=== PATIENT | male | born 1960 | race Caucasian/White ===

== ENCOUNTER → 2018-02-03 11:25 | Outpatient (POV) | payer MEDICARE, MEDICAID, SELFPAY ==
[2018-02-03 11:59] VITALS: BP 145/78; PULSE 110; RESP 18; O2SAT 98
--- NOTE | 2018-02-03 12:41 | HMH.PMCON ---
Assessment and Plan (1) Back pain Current visit: Yes Status: Chronic Qualifiers: Back pain location: low back pain Chronicity: chronic Back pain laterality: midline Sciatica presence: with sciatica Sciatica laterality: bilateral sciatica Qualified Code(s): M54.41 - Lumbago with sciatica, right side; M54.42 - Lumbago with sciatica, left side; G89.29 - Other chronic pain Category: Medical Code(s): M54.9 - Dorsalgia, unspecified (2) Leg pain Current visit: Yes Status: Chronic Qualifiers: Laterality: bilateral Qualified Code(s): M79.604 - Pain in right leg; M79.605 - Pain in left leg Category: Medical Code(s): M79.606 - Pain in leg, unspecified - Assessment and plan all Dx Assessment and Plan for all problems:: We will schedule an MRI for the patient. At this time we cannot determine a good plan of care without any imaging. I will follow-up with him after his MRI. Patient is not a narcotic candidate. This note was dictated using voice recognition software and may contain errors or omissions HPI - Data of Consult Consult date: 02/03/18 Requesting Physician: Neris Mason APRN Primary Care Provider: Gunnar Lo - Consult Narrative Reason for consult: Back pain History of present illness: Mr. Francisco is a 57 year old male who presents today for rotation regards to his low back pain. Patient states he is stopped by a horse 30 years ago and has had problems ever since. Patient was in pain management in [place] where he received medications. Patient states he saw a neurosurgeon in [place] and was told his back was messed up and it was unable to be operated on. Patient has not had any recent imaging. Patient states that he has been on Lortab for over 30 years. Patient states it does not do anything for him. Patient did have an inappropriate drug screen at his primary care physician. He rates his pain a 9 out of 10 and [address] that it stays this way. Patient has tried a TENS unit along with physical therapy and chiropractic therapy with no success. Patient has not tried any injective therapies or other means of treatment. He states most of his pain is in his low back and bilateral legs. CC: Neris Mason APRN [facility] History I have reviewed the patient's past medical history: Yes Medical History: Reports:: Hyperlipidemia, Hypertension, Myocardial Infarction Other Surgeries: Yes: Cardiac Catheterization - *Social History Smoking Status: Former smoker Tobacco Type: cigarettes Alcohol Intake: never Occupational Status: retired Housing: house - Psychiatric History Expresses thoughts of harming self/others: None Suicide Plan Description: No Plan *Family Hx:: Unable to obtain Review of Systems - Review of Systems ROS General: no recent weight change, no fever, no sleep disturbances Respiratory: no cough, no shortness of air, no recurring pulmonary infections Cardiovascular/Peripheral Vascular: No chest pain, No palpitations, no edema, no shortness of breath. Gastrointestinal: no incontinence, normal bowel movements reported Genitourinary: no incontinence Musculoskeletal: Back pain, leg pain Psychiatric: normal mood/ affect Neurological: [denies weakness in extremities], [denies balance issues] Meds Allergies Allergy/AdvReac Type Severity Reaction Status Date / Time codeine [CODEINE] Allergy Unknown Unverified 03/05/17 14:28 Objective Vital signs: Pulse Resp BP Pulse Ox 110 H 18 145/78 H 98 02/03/18 11:59 02/03/18 11:59 02/03/18 11:59 02/03/18 11:59 Narrative: Physical Exam General: Alert and oriented x3, no acute distress, pleasant and cooperative, [on room air] Lungs: Resps E/U, Symmetrical chest expansion, Eyes: PERRL Musculoskeletal: Flexion and extension of lumbar spine somewhat guarded secondary to pain, deep tendon reflexes normal, strength in upper and lower extremities [5/5], [abnormal gait noted
--- NOTE | 2018-02-03 12:52 | P.CONS_ITS ---
Assessment and Plan (1) Back pain Current visit: Yes Status: Chronic Qualifiers: Back pain location: low back pain Chronicity: chronic Back pain laterality: midline Sciatica presence: with sciatica Sciatica laterality: bilateral sciatica Qualified Code(s): M54.41 - Lumbago with sciatica, right side; M54.42 - Lumbago with sciatica, left side; G89.29 - Other chronic pain Category: Medical Code(s): M54.9 - Dorsalgia, unspecified (2) Leg pain Current visit: Yes Status: Chronic Qualifiers: Laterality: bilateral Qualified Code(s): M79.604 - Pain in right leg; M79.605 - Pain in left leg Category: Medical Code(s): M79.606 - Pain in leg, unspecified - Assessment and plan all Dx Assessment and Plan for all problems:: We will schedule an MRI for the patient. At this time we cannot determine a good plan of care without any imaging. I will follow-up with him after his MRI. Patient is not a narcotic candidate. This note was dictated using voice recognition software and may contain errors or omissions HPI - Data of Consult Consult date: 02/03/18 Requesting Physician: Neris Mason APRN Primary Care Provider: Gunnar Lo - Consult Narrative Reason for consult: Back pain History of present illness: Mr. Francisco is a 57 year old male who presents today for rotation regards to his low back pain. Patient states he is stopped by a horse 30 years ago and has had problems ever since. Patient was in pain management in [place] where he received medications. Patient states he saw a neurosurgeon in [place] and was told his back was messed up and it was unable to be operated on. Patient has not had any recent imaging. Patient states that he has been on Lortab for over 30 years. Patient states it does not do anything for him. Patient did have an inappropriate drug screen at his primary care physician. He rates his pain a 9 out of 10 and states that it stays this way. Patient has tried a TENS unit along with physical therapy and chiropractic therapy with no success. Patient has not tried any injective therapies or other means of treatment. He states most of his pain is in his low back and bilateral legs. CC: Neris Mason APRN [facility] History I have reviewed the patient's past medical history: Yes Medical History: Reports:: Hyperlipidemia, Hypertension, Myocardial Infarction Other Surgeries: Yes: Cardiac Catheterization - *Social History Smoking Status: Former smoker Tobacco Type: cigarettes Alcohol Intake: never Occupational Status: retired Housing: house - Psychiatric History Expresses thoughts of harming self/others: None Suicide Plan Description: No Plan *Family Hx:: Unable to obtain Review of Systems - Review of Systems ROS General: no recent weight change, no fever, no sleep disturbances Respiratory: no cough, no shortness of air, no recurring pulmonary infections Cardiovascular/Peripheral Vascular: No chest pain, No palpitations, no edema, no shortness of breath. Gastrointestinal: no incontinence, normal bowel movements reported Genitourinary: no incontinence Musculoskeletal: Back pain, leg pain Psychiatric: normal mood/ affect Neurological: [denies weakness in extremities], [denies balance issues] Meds Allergies Allergy/AdvReac Type Severity Reaction Status Date / Time codeine [CODEINE] Allergy Unknown Unverified 03/05/17 14:28 Objective Vital signs:
== END ==
PROVIDERS: PCP Internal Medicine; Visit Provider Clinical Nurse Specialist Family Health
DX: M54.41 Lumbago with sciatica, right side (principal); M54.42 Lumbago with sciatica, left side
CPT/HCPCS: 99202

== ENCOUNTER → 2018-02-17 17:19 | Outpatient (CLI) | payer MEDICARE, SELFPAY ==
[2018-02-17 17:23] LABS: Microscopic, Urine URINE MICROSCOPIC (MICROSCOPIC)
[2018-02-17 17:29] LABS: Basophils # 0.1 K/mm3 (0-0.2); Basophils % 0.6 % (0.1-2.0); Eosinophils # 0.2 K/mm3 (0.0-0.4); Eosinophils % 1.9 % (0.1-12.0); Hematocrit 46.6 % (42.0-52.0); Hemoglobin 15.5 g/dL (14.1-18.0); Lymphocytes # 1.7 K/mm3 (0.7-4.5); Lymphocytes % 20.1 % (10-50); Mean Corpuscular HGB Conc 33.2 g/dL (31.8-35.4); Mean Corpuscular Hemoglobin 28.5 pg (27.0-31.2); Mean Corpuscular Volume 85.9 fl (80-94); Mean Platelet Volume 7.4 fl (7.4-10.4); Monocytes # 0.4 K/mm3 (0.1-1.0); Monocytes % 4.9 % (1.7-9.3); Neutrophils # 6.1 K/mm3 (1.8-7.8); Neutrophils % 72.4 % (37.0-80.0); Platelet Count 242 K/mm3 (142-424); Red Blood Count 5.42 M/mm3 (4.60-6.20); Red Cell Distribution Width 13.3 % (11.5-17.5); White Blood Count 8.4 K/mm3 (4.8-10.8)
[2018-02-17 17:45] LABS: Alanine Aminotransferase 24 U/L (12-78); Albumin Level 4.3 gm/dL (3.4-5.0); Albumin/Globulin Ratio 1.3 (1.1-1.8); Alkaline Phosphatase 113 U/L (46-116); Anion Gap 17.1 mEq/L (5-15); Aspartate Amino Transferase 13 U/L (15-37); Bilirubin,Total 0.5 mg/dL (0.2-1.0); Blood Urea Nitrogen 8 mg/dL (7-18); Calcium 9.1 mg/dL (8.5-10.1); Carbon Dioxide 24 mmol/L (21.0-32.0); Chloride 105 mmol/L (98-107); Chol/HDL Ratio 6.1 (1-3.5); Cholesterol 201 mg/dL (140-200); Creatinine,Serum 0.82 mg/dL (0.70-1.30); Estimated Glomerular Filt Rate 96 ml/min (>60); Free T4 (Free Thyroxine) 1.03 ng/dl (0.76-1.46); GFR (African American) 116 ML/MIN (>60); Globulin 3.2 gm/dl (1.3-3.2); Glucose 96 mg/dL (74-106); HDL Cholesterol 33 mg/dL (27-67); LDL Cholesterol 138 mg/dL (0-130); Potassium 4.1 mmoL/L (3.5-5.1); Sodium 142 mmol/L (136-145); Thyroid Stimulating Hormone 1.81 uIU/ml (0.358-3.740); Total Protein,Serum 7.5 gm/dL (6.4-8.2); Triglycerides 149 mg/dL (30-200); VLDL Cholesterol 30 mg/dL (0-40)
[2018-02-17 17:59] LABS: Appearance,Urine CLEAR (Clear); Bilirubin,Urine Negative (Negative); Blood, Urine Negative (Negative); Color,Urine YELLOW (Yellow); Glucose,Urine (UA) Negative (Negative); Ketones,Urine Negative (Negative); Leukocyte Esterase,Urine 1+ (Negative); Nitrate,Urine Negative (Negative); Protein,Urine Negative (Negative); Urobilinogen,Urine 0.2 EU/dl (0.2)
[2018-02-17 18:09] LABS: Amphetamine/Metha Screen,Urine Negative ng/mL (<1000); Barbiturates Screen,Urine Negative ng/mL (<200); Benzodiazepines Screen,Urine Negative ng/mL (<200); Cannabinoid Screen,Urine Negative ng/mL (<50); Cocaine Screen,Urine Negative ng/mL (<300); Erythrocyte Sedimentation Rate 11 mm/hr (0-20); Methadone Screen,Urine Negative ng/mL (<300); Opiate Screen,Urine Negative ng/mL (<300); Phencyclidine Screen,Urine Negative ng/mL (<25)
[2018-02-17 18:18] LABS: Bacteria,Urine Trace /lpf; RBC,Urine Occasional #/hpf (0-3)
[2018-02-19 09:21] LABS: Hep A Ab, IgM Negative (Negative); Hepatitis B Core Antibody IgM Negative (Negative); Hepatitis B Surface Antigen Negative (Negative)
[2018-02-19 14:20] LABS: Hepatitis C Antibody <0.1 s/co ratio (0.0-0.9)
== END ==
PROVIDERS: Visit Provider Emergency Medicine
DX: I10 Essential (primary) hypertension (principal); R53.83 Other fatigue; M51.16 Intervertebral disc disorders with radiculopathy, lumbar region
CPT/HCPCS: 80053; 80061; 80074; 80305; 81001; 84439; 84443; 85025; 85651; 87086

== ENCOUNTER → 2018-02-25 08:32 | Outpatient (CLI) | payer MEDICARE, SELFPAY ==
--- NOTE | 2018-02-25 08:34 | MR_ITS ---
MR lumbar spine wo con, MR 3-d myelogram/MRCP HISTORY: Low back pain X years. Bilateral Leg pain and numbness. ITS.REASON: back pain ORDERING PHYSICIAN: Claudio English MD PATIENT AGE: 57 years Comparison: None TECHNIQUE: Standard multiplanar multiecho sequences are performed without contrast. 3-D MIP and myelographic images are also rendered and reviewed FINDINGS: There is normal alignment. The spinal cord ends at the L1 level. T11-T12: Mild degenerative disc disease with minimal central disc protrusion slightly eccentric to the right. T12-L1: Degenerative disc disease and bulging disc and with a lobular central disc osteophyte complex which is eccentric towards the left causing bilateral lateral recess narrowing left greater than right with mild bilateral foraminal narrowing. L1-L2: Degenerative disc disease with broad-based bulging disc with facet and ligamentum flavum hypertrophy and mild bilateral lateral recess and foraminal narrowing. L2-L3: Degenerative disc disease with broad-based bulging disc along with a small central disc protrusion. There is facet and ligamentum flavum hypertrophy with bilateral lateral recess narrowing. L3-L4: Degenerative disc disease with bulging disc along with facet and ligamentum flavum hypertrophy with bilateral lateral recess and foraminal narrowing. L4-L5: Degenerative disc disease with bulging disc along with facet and ligamentum flavum hypertrophy with moderate bilateral lateral recess narrowing and moderate bilateral foraminal narrowing which is slightly greater on the right. There is narrowing of the canal at this level at 9 mm. L5-S1: Concentric bulging disc which is eccentric toward the right along with facet and ligamentum flavum hypertrophy causing right lateral recess narrowing and moderate severe right-sided foraminal narrowing with impingement upon the exiting L5 nerve root. There is [id number] left foraminal narrowing as well. IMPRESSION: 1. Abnormal MRI of the lumbar spine with multilevel thoracic and lumbar spondylosis with degenerative disc disease, bulging disc, and facet and ligamentum hypertrophy with varying levels of foraminal and lateral recess narrowing. PLEASE SEE ABOVE FOR DETAILED DESCRIPTION AT EACH LEVEL. 2. Central disc osteophyte complex eccentric toward the left at T12-L1 3. Canal narrowing at L4-L5 with degenerative disc disease and bulging disc 4. Moderate to severe right foraminal narrowing at L5-S1 due to asymmetric bulging disc and facet and ligamentum hypertrophy
== END ==
PROVIDERS: PCP Emergency Medicine; Visit Provider Emergency Medicine
DX: M54.9 Dorsalgia, unspecified (principal); M54.5 Low back pain
CPT/HCPCS: 72148; 76376

== ENCOUNTER → 2018-03-12 15:32 | Outpatient (CLI) | payer MEDICARE, SELFPAY ==
[2018-03-12 16:20] LABS: Amphetamine/Metha Screen,Urine Negative ng/mL (<1000); Barbiturates Screen,Urine Negative ng/mL (<200); Benzodiazepines Screen,Urine Negative ng/mL (<200); Cannabinoid Screen,Urine Negative ng/mL (<50); Cocaine Screen,Urine Negative ng/mL (<300); Methadone Screen,Urine Negative ng/mL (<300); Opiate Screen,Urine Positive ng/mL (<300); Phencyclidine Screen,Urine Negative ng/mL (<25)
== END ==
PROVIDERS: Visit Provider Emergency Medicine
DX: Z79.899 Other long term (current) drug therapy (principal)
CPT/HCPCS: 80305

== ENCOUNTER → 2018-03-17 09:56 | Outpatient (POV) | payer MEDICARE, SELFPAY ==
[2018-03-17 10:28] VITALS: BP 196/99; PULSE 76; RESP 18; O2SAT 99; BMI 35.0
--- NOTE | 2018-03-17 10:30 | HMH.PAINSOAP ---
[facility] Pain Management SOAP Note Subjective:: Patient is a pleasant 58-year-old white male who presents today for follow-up after his MRI. Patient rates his pain a 8 out of 10. Patient states he has changed physicians and has begun to take Lortab again. Patient states that he does not help that much. Patient states his been on Lortab for over 30 years. Patient does have nerve impingement. We discussed that gabapentin is the appropriate course of treatment for this. Patient seen to continue his gabapentin. ROS General: no recent weight change, no fever, no sleep disturbances Respiratory: no cough, no shortness of air, no recurring pulmonary infections Cardiovascular/Peripheral Vascular: No chest pain, No palpitations, no edema, no shortness of breath. Gastrointestinal: no incontinence, normal bowel movements reported Genitourinary: no incontinence Musculoskeletal: Back pain, leg pain Psychiatric: normal mood/ affect Neurological: [denies weakness in extremities], [denies balance issues] Objective:: Physical Exam General: Alert and oriented x3, no acute distress, pleasant and cooperative, on room air Lungs: Resps E/U, Symmetrical chest expansion, Eyes: PERRL Musculoskeletal: Flexion and extension of lumbar spine somewhat guarded secondary to pain, deep tendon reflexes normal, strength in upper and lower extremities [5/5], [abnormal gait noted] Neurological: speech clear, 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 Mora. I will follow-up with him after this. We did discuss epidural injections. He would like to discuss this after Dr. Mora appointment. This note was dictated using voice recognition software and may contain errors or omissions
--- NOTE | 2018-03-17 10:35 | P.CONS_ITS ---
[facility] Pain Management SOAP Note Subjective:: Patient is a pleasant 58-year-old white male who presents today for follow-up after his MRI. Patient rates his pain a 8 out of 10. Patient states he has changed physicians and has begun to take Lortab again. Patient states that he does not help that much. Patient states his been on Lortab for over 30 years. Patient does have nerve impingement. We discussed that gabapentin is the appropriate course of treatment for this. Patient seen to continue his gabapentin. ROS General: no recent weight change, no fever, no sleep disturbances Respiratory: no cough, no shortness of air, no recurring pulmonary infections Cardiovascular/Peripheral Vascular: No chest pain, No palpitations, no edema, no shortness of breath. Gastrointestinal: no incontinence, normal bowel movements reported Genitourinary: no incontinence Musculoskeletal: Back pain, leg pain Psychiatric: normal mood/ affect Neurological: [denies weakness in extremities], [denies balance issues] Objective:: Physical Exam General: Alert and oriented x3, no acute distress, pleasant and cooperative, on room air Lungs: Resps E/U, Symmetrical chest expansion, Eyes: PERRL Musculoskeletal: Flexion and extension of lumbar spine somewhat guarded secondary to pain, deep tendon reflexes normal, strength in upper and lower extremities [5/5], [abnormal gait noted] Neurological: 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 Mora. I will follow-up with him after this. We did discuss epidural injections. He would like to discuss this after Dr. Mora appointment. This note was dictated using voice recognition software and may contain errors or omissions
== END ==
PROVIDERS: PCP Emergency Medicine; Visit Provider Clinical Nurse Specialist Family Health
DX: M51.16 Intervertebral disc disorders with radiculopathy, lumbar region (principal)
CPT/HCPCS: 99213

== ENCOUNTER → 2018-04-08 19:58 | Outpatient (CLI) | payer MEDICARE, SELFPAY ==
[2018-04-08 20:46] LABS: Amphetamine/Metha Screen,Urine Negative ng/mL (<1000); Barbiturates Screen,Urine Negative ng/mL (<200); Benzodiazepines Screen,Urine Negative ng/mL (<200); Cannabinoid Screen,Urine Negative ng/mL (<50); Cocaine Screen,Urine Negative ng/mL (<300); Methadone Screen,Urine Negative ng/mL (<300); Opiate Screen,Urine Positive ng/mL (<300); Phencyclidine Screen,Urine Negative ng/mL (<25)
== END ==
PROVIDERS: Visit Provider Emergency Medicine
DX: M47.816 Spondylosis without myelopathy or radiculopathy, lumbar region (principal)
CPT/HCPCS: 80305

== ENCOUNTER → 2018-06-04 13:59 | Outpatient (CLI) | payer MEDICARE, SELFPAY ==
[2018-06-04 15:12] LABS: Amphetamine/Metha Screen,Urine Negative ng/mL (<1000); Barbiturates Screen,Urine Negative ng/mL (<200); Benzodiazepines Screen,Urine Negative ng/mL (<200); Cannabinoid Screen,Urine Negative ng/mL (<50); Cocaine Screen,Urine Negative ng/mL (<300); Methadone Screen,Urine Negative ng/mL (<300); Opiate Screen,Urine Positive ng/mL (<300); Phencyclidine Screen,Urine Negative ng/mL (<25)
== END ==
PROVIDERS: Visit Provider Emergency Medicine
DX: Z79.899 Other long term (current) drug therapy (principal)
CPT/HCPCS: 80305

== ENCOUNTER → 2018-08-04 18:09 | Outpatient (CLI) | payer MEDICARE, SELFPAY ==
[2018-08-04 19:27] LABS: Amphetamine/Metha Screen,Urine Negative ng/mL (<1000); Barbiturates Screen,Urine Negative ng/mL (<200); Benzodiazepines Screen,Urine Negative ng/mL (<200); Cannabinoid Screen,Urine Negative ng/mL (<50); Cocaine Screen,Urine Negative ng/mL (<300); Methadone Screen,Urine Negative ng/mL (<300); Opiate Screen,Urine Positive ng/mL (<300); Phencyclidine Screen,Urine Negative ng/mL (<25)
== END ==
PROVIDERS: Visit Provider Emergency Medicine
DX: M47.816 Spondylosis without myelopathy or radiculopathy, lumbar region (principal)
CPT/HCPCS: 80305

== ENCOUNTER → 2018-08-28 13:23 | Outpatient (CLI) | payer MEDICARE, SELFPAY ==
--- NOTE | 2018-08-28 13:28 | XR_ITS ---
XR shoulder LT min 2V HISTORY: ITS.REASON: left shoulder pain ORDERING PHYSICIAN: Zach Donovan MD PATIENT AGE: 58 years Comparison: None FINDINGS: No fracture or dislocation. No lytic or blastic change. There is normal mineralization. The joint spaces are well-preserved. Minimal osteoarthritic change involves the humeral head with minimal cortical regularity. IMPRESSION: Minimal degenerative change, no acute finding
== END ==
PROVIDERS: PCP Emergency Medicine; Visit Provider Orthopaedic Surgery
DX: M25.512 Pain in left shoulder (principal)
CPT/HCPCS: 73030

== ENCOUNTER → 2018-09-02 13:36 | Outpatient (CLI) | payer MEDICARE, SELFPAY ==
--- NOTE | 2018-09-02 13:49 | MR_ITS ---
MR shoulder LT wo con HISTORY:Left shoulder pain following injury, limited range of motion ITS.REASON: evaluate for rotator cuff tear ORDERING PHYSICIAN: Zach Donovan MD PATIENT AGE: 58 years Comparison: 08/28/2018 TECHNIQUE: Standard multiplanar multiecho sequences are performed without contrast. FINDINGS: A complete tear involves the distal aspect of the supraspinatus tendon with minimal retraction of the tendon by approximately 6 mm. There is thickening of the distal aspect of the supraspinatus tendon with some increased T2 signal. Hypertrophic changes involve the acromioclavicular joint with mild subacromial stenosis. There is increased T2 signal involving the infraspinatus tendon with a partial undersurface tear involving the distal aspect of the infraspinatus tendon. Small amount of focal fluid is present at the base of the greater tuberosity. The subscapularis tendon and teres minor tendon are intact. Bicipital tendon is in place. There does appear to be a SLAP tear of the superior and anterior glenoid labrum. This could be confirmed with MR arthrography if clinically desired. The posterior and inferior glenoid labrum have an unremarkable appearance. No fracture is evident. IMPRESSION: 1. Complete tear of the supraspinatus tendon with mild retraction of the tendon distally. 2. Partial tear of the infraspinatus tendon. 3. Subacromial stenosis with acromioclavicular hypertrophy. 4. SLAP tear of the glenoid labrum
== END ==
PROVIDERS: PCP Emergency Medicine; Visit Provider Orthopaedic Surgery
DX: M25.512 Pain in left shoulder (principal)
CPT/HCPCS: 73221

== ENCOUNTER → 2018-10-03 17:47 | Outpatient (CLI) | payer MEDICARE, SELFPAY ==
[2018-10-03 18:34] LABS: Amphetamine/Metha Screen,Urine Negative ng/mL (<1000); Barbiturates Screen,Urine Negative ng/mL (<200); Benzodiazepines Screen,Urine Negative ng/mL (<200); Cannabinoid Screen,Urine Negative ng/mL (<50); Cocaine Screen,Urine Negative ng/mL (<300); Methadone Screen,Urine Negative ng/mL (<300); Opiate Screen,Urine Positive ng/mL (<300); Phencyclidine Screen,Urine Negative ng/mL (<25)
== END ==
PROVIDERS: Visit Provider Emergency Medicine
DX: M47.816 Spondylosis without myelopathy or radiculopathy, lumbar region (principal)
CPT/HCPCS: 80305

== ENCOUNTER → 2018-10-27 10:09 | Outpatient (POV) | payer MEDICARE, SELFPAY ==
[2018-10-27 10:26] VITALS: BP 131/61; PULSE 66; RESP 18; O2SAT 99; BMI 44.2
--- NOTE | 2018-10-27 10:39 | HMH.PAINSOAP ---
[facility] Pain Management SOAP Note Subjective:: Patient is a pleasant 58-year-old white male who presents today for follow-up. Patient was seen after he received his MRI and then was referred to Dr. Mora. He did not follow-up after this. Patient rates his pain today 9 out of 10 mostly in his low back radiating down his bilateral legs. Patient states he changed physicians back in February of last year to start receiving Lortab. Prior to that the patient was not on narcotics however he states he was on and off of them for the last 30 years. Patient is also on gabapentin. Patient states that he was given 20 days worth of [place] at his last PCP visit due to upcoming shoulder surgery however he has not been scheduled for shoulder surgery. He states he was able to stretch it out. Patient states he is here today to discuss epidural injections per the recommendation of Dr. Mora. Patient is on Plavix however he states he is taken himself off of it several weeks ago in preparation for a shoulder surgery. ROS General: no recent weight change, no fever, no sleep disturbances Respiratory: no cough, no shortness of air, no recurring pulmonary infections Cardiovascular/Peripheral Vascular: No chest pain, No palpitations, no edema, no shortness of breath. Gastrointestinal: no incontinence, normal bowel movements reported Genitourinary: no incontinence Musculoskeletal: Back pain, leg pain Psychiatric: normal mood/ affect, [denies depression], [denies anxiety] Neurological: [denies weakness in extremities], [denies balance issues] Objective:: Physical Exam General: Alert and oriented x3, no acute distress, pleasant and cooperative, [on room air] Lungs: Resps E/U, Symmetrical chest expansion, Eyes: PERRL Musculoskeletal: Flexion and extension of lumbar spine somewhat guarded secondary to pain, deep tendon reflexes normal, strength in upper and lower extremities [5/5], [abnormal gait noted] Neurological: speech clear, cord cutter equal, no gross sensory deficits Assessment:: Degenerative disc disease lumbar spine with lumbar radiculopathy Plan:: We will schedule an L4-L5 lumbar epidural steroid injection for the patient. Patient and I discussed the procedure risks and benefits. Patient states he took himself off Plavix several weeks ago in preparation for his surgery on his shoulder. We will try to have him in by Saturday to have him hopefully feeling a bit better. Dr. Neal has reviewed this note and agrees with this plan of care. This note was dictated using voice recognition software and may contain errors or omissions Pain Management Hx Components *Have you ever received a pneumonia vaccine?: Yes *Have you received a flu vaccine this season?: Yes - *Social History *Occupational Status:: other *Travel in the last 8 weeks: None
== END ==
PROVIDERS: PCP Emergency Medicine; Visit Provider Clinical Nurse Specialist Family Health
DX: M51.16 Intervertebral disc disorders with radiculopathy, lumbar region (principal)
CPT/HCPCS: 99212

== ENCOUNTER → 2018-12-02 10:44 | Outpatient (POV) | payer MEDICARE, SELFPAY ==
[2018-12-02 10:57] VITALS: BP 128/80; PULSE 54; RESP 18; O2SAT 98; BMI 30.9
--- NOTE | 2018-12-02 11:27 | HMH.PAINSOAP ---
[facility] Pain Management SOAP Note Subjective:: She is a pleasant 58-year-old white male who presents today for follow-up after epidural steroid injection. Patient got some relief however it was not long-lasting. Patient's pain is mostly focal at the lower part of his back. He has difficulty with twisting motions he has a positive Kemps test and facet loading bilaterally. Patient I discussed medial branch block he is interested in pursuing this. He has no active infection. Anticoagulation therapy is failed 6 months of conservative therapies including medications. He is currently on anti-inflammatories. Patient rates his pain today an 8 out of 10 patient may be a candidate for neurotomy. Patient understands and diagnostic nature of the medial branch block. ROS General: no recent weight change, no fever, no sleep disturbances Respiratory: no cough, no shortness of air, no recurring pulmonary infections Cardiovascular/Peripheral Vascular: No chest pain, No palpitations, no edema, no shortness of breath. Gastrointestinal: no incontinence, normal bowel movements reported Genitourinary: no incontinence Musculoskeletal: Back pain Psychiatric: normal mood/ affect Neurological: [denies weakness in extremities], [denies balance issues] Objective:: Physical Exam General: Alert and oriented x3, no acute distress, pleasant and cooperative, [on room air] Lungs: Resps E/U, Symmetrical chest expansion, Eyes: PERRL Musculoskeletal: Flexion and extension of lumbar spine somewhat guarded secondary to pain, deep tendon reflexes normal, strength in upper and lower extremities [5/5], antalgic gait noted Neurological: speech clear, 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 Patient understands the diagnostic nature of this. I will follow-up with the patient after his injection reassess his symptoms at that time he is been instructed to call the office if he has any issues prior to his next appointment. Dr. Neal has reviewed this note and agrees with this plan of care. This note was dictated using voice recognition software and may contain errors or omissions [facility] History I have reviewed the patient's past medical history: Yes Medical History: Reports:: Deep Vein Thrombosis, Hyperlipidemia, Hypertension, Myocardial Infarction Denies:: Cancer, Diabetes Mellitus Type 1, Diabetes Mellitus Type 2, Seizures *Have you ever received a pneumonia vaccine?: Yes *Have you received a flu vaccine this season?: Yes Other Medical History: Reports: Arthritis Other Surgeries: Yes: Cardiac Catheterization, Cardiac Surgery, Colonoscopy, Coronary Stent, Plastic Surgery, Other Amputation: No Fractures: Yes - *Social History Smoking Status: Former smoker Tobacco Type: smokeless tobacco Alcohol Intake: never Alcohol Intake Frequency:: a few times a month Substance Use Type: denies use *Occupational Status:: disabled Housing: house *Travel in the last 8 weeks: None Family Hx:: Unable to obtain
--- NOTE | 2018-12-02 11:32 | P.CONS_ITS ---
[facility] Pain Management SOAP Note Subjective:: She is a pleasant 58-year-old white male who presents today for follow-up after epidural steroid injection. Patient got some relief however it was not long- lasting. Patient's pain is mostly focal at the lower part of his back. He has difficulty with twisting motions he has a positive Kemps test and facet loading bilaterally. Patient I discussed medial branch block he is interested in pursuing this. He has no active infection. Anticoagulation therapy is failed 6 months of conservative therapies including medications. He is currently on anti-inflammatories. Patient rates his pain today an 8 out of 10 patient may be a candidate for neurotomy. Patient understands and diagnostic nature of the medial branch block. ROS General: no recent weight change, no fever, no sleep disturbances Respiratory: no cough, no shortness of air, no recurring pulmonary infections Cardiovascular/Peripheral Vascular: No chest pain, No palpitations, no edema, no shortness of breath. Gastrointestinal: no incontinence, normal bowel movements reported Genitourinary: no incontinence Musculoskeletal: Back pain Psychiatric: normal mood/ affect Neurological: [denies weakness in extremities], [denies balance issues] Objective:: Physical Exam General: Alert and oriented x3, no acute distress, pleasant and cooperative, [on room air] Lungs: Resps E/U, Symmetrical chest expansion, Eyes: PERRL Musculoskeletal: Flexion and extension of lumbar spine somewhat guarded sec ondary to pain, deep tendon reflexes normal, strength in upper and lower extremities [5/5], antalgic gait noted Neurological: speech clear, 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 Patient understands the diagnostic nature of this. I will follow-up with the patient after his injection reassess his symptoms at that time he is been instructed to call the office if he has any issues prior to his next appointment. Dr. Neal has reviewed this note and agrees with this plan of care. This note was dictated using voice recognition software and may contain errors or omissions [facility] History I have reviewed the patient's past medical history: Yes Medical History: Reports:: Deep Vein Thrombosis, Hyperlipidemia, Hypertension, Myocardial Infarction Denies:: Cancer, Diabetes Mellitus Type 1, Diabetes Mellitus Type 2, Seizures *Have you ever received a pneumonia vaccine?: Yes *Have you received a flu vaccine this season?: Yes Other Medical History: Reports: Arthritis Other Surgeries: Yes: Cardiac Catheterization, Cardiac Surgery, Colonoscopy, Coronary Stent, Plastic Surgery, Other Amputation: No Fractures: Yes - *Social History Smoking Status: Former smoker Tobacco Type: smokeless tobacco Alcohol Intake: never Alcohol Intake Frequency:: a few times a month Substance Use Type: denies use *Occupational Status:: disabled Housing: house *Travel in the last 8 weeks: None Family Hx:: Unable to obtain
== END ==
PROVIDERS: PCP Emergency Medicine; Visit Provider Clinical Nurse Specialist Family Health
DX: M51.16 Intervertebral disc disorders with radiculopathy, lumbar region (principal); M47.816 Spondylosis without myelopathy or radiculopathy, lumbar region; M54.06 Panniculitis affecting regions of neck and back, lumbar region
CPT/HCPCS: 99212

== ENCOUNTER → 2018-12-19 16:41 | Outpatient (CLI) | payer MEDICARE, SELFPAY ==
[2018-12-19 17:15] LABS: Basophils # 0.1 K/mm3 (0-0.2); Basophils % 0.6 % (0.1-2.0); Eosinophils # 0.4 K/mm3 (0.0-0.4); Hemoglobin 14.5 g/dL (14.1-18.0); Lymphocytes # 2.2 K/mm3 (0.7-4.5); Lymphocytes % 27.5 % (10-50); Mean Corpuscular HGB Conc 32.3 g/dL (31.8-35.4); Mean Corpuscular Hemoglobin 28.6 pg (27.0-31.2); Mean Corpuscular Volume 88.7 fl (80-94); Mean Platelet Volume 7.6 fl (7.4-10.4); Monocytes # 0.6 K/mm3 (0.1-1.0); Monocytes % 7.1 % (1.7-9.3); Neutrophils # 4.7 K/mm3 (1.8-7.8); Neutrophils % 59.8 % (37.0-80.0); Platelet Count 244 K/mm3 (142-424); Red Blood Count 5.07 M/mm3 (4.60-6.20); Red Cell Distribution Width 13.8 % (11.5-17.5); White Blood Count 7.9 K/mm3 (4.8-10.8)
[2018-12-19 17:51] LABS: Alanine Aminotransferase 18 U/L (12-78); Albumin Level 3.9 gm/dL (3.4-5.0); Albumin/Globulin Ratio 1.4 (1.1-1.8); Alkaline Phosphatase 106 U/L (46-116); Anion Gap 13.7 mEq/L (5-15); Aspartate Amino Transferase 16 U/L (15-37); Bilirubin,Total 0.3 mg/dL (0.2-1.0); Blood Urea Nitrogen 11 mg/dL (7-18); Calcium 9.2 mg/dL (8.5-10.1); Carbon Dioxide 25 mmol/L (21.0-32.0); Chloride 105 mmol/L (98-107); Estimated Glomerular Filt Rate 99 ml/min (>60); GFR (African American) 119 ML/MIN (>60); Globulin 2.8 gm/dl (1.3-3.2); Glucose 92 mg/dL (74-106); Potassium 3.7 mmoL/L (3.5-5.1); Sodium 140 mmol/L (136-145); Total Protein,Serum 6.7 gm/dL (6.4-8.2)
== END ==
PROVIDERS: Visit Provider Orthopaedic Surgery
DX: Z01.818 Encounter for other preprocedural examination (principal); S46.012A Strain of muscle(s) and tendon(s) of the rotator cuff of left shoulder, initial encounter; M25.512 Pain in left shoulder; M75.42 Impingement syndrome of left shoulder; M75.22 Bicipital tendinitis, left shoulder
CPT/HCPCS: 36415; 80053; 85025

== ENCOUNTER → 2018-12-24 13:26 | Outpatient (CLI) | payer MEDICARE, SELFPAY ==
[2018-12-24 14:56] LABS: Amphetamine/Metha Screen,Urine Negative ng/mL (<1000); Barbiturates Screen,Urine Negative ng/mL (<200); Benzodiazepines Screen,Urine Positive ng/mL (<200); Cannabinoid Screen,Urine Negative ng/mL (<50); Cocaine Screen,Urine Negative ng/mL (<300); Methadone Screen,Urine Negative ng/mL (<300); Opiate Screen,Urine Positive ng/mL (<300); Phencyclidine Screen,Urine Negative ng/mL (<25)
[2018-12-29 11:12] LABS: Alprazolam Negative (Cutoff=100); Benzodiazepines Positive ng/mL (Cutoff=100); Clonazepam Negative (Cutoff=100); Flurazepam Negative (Cutoff=100); Lorazepam Negative (Cutoff=100); Midazolam Positive (.); Temazepam Negative (Cutoff=100); Triazolam Negative (Cutoff=100)
== END ==
PROVIDERS: Visit Provider Emergency Medicine
DX: M47.816 Spondylosis without myelopathy or radiculopathy, lumbar region (principal); Z79.899 Other long term (current) drug therapy
CPT/HCPCS: 80305; 80346

== ENCOUNTER → 2019-02-11 13:31 | Outpatient (CLI) | payer MEDICARE, SELFPAY ==
[2019-02-11 18:50] LABS: Amphetamine/Metha Screen,Urine Negative ng/mL (<1000); Barbiturates Screen,Urine Negative ng/mL (<200); Benzodiazepines Screen,Urine Negative ng/mL (<200); Cannabinoid Screen,Urine Negative ng/mL (<50); Cocaine Screen,Urine Negative ng/mL (<300); Methadone Screen,Urine Negative ng/mL (<300); Opiate Screen,Urine Positive ng/mL (<300); Phencyclidine Screen,Urine Negative ng/mL (<25)
== END ==
PROVIDERS: Visit Provider Emergency Medicine
DX: M47.816 Spondylosis without myelopathy or radiculopathy, lumbar region (principal)
CPT/HCPCS: 80305

== ENCOUNTER → 2019-04-10 13:54 | Outpatient (CLI) | payer MEDICARE, SELFPAY ==
[2019-04-10 16:05] LABS: Amphetamine/Metha Screen,Urine Negative ng/mL (<1000); Barbiturates Screen,Urine Negative ng/mL (<200); Benzodiazepines Screen,Urine Negative ng/mL (<200); Cannabinoid Screen,Urine Negative ng/mL (<50); Cocaine Screen,Urine Negative ng/mL (<300); Methadone Screen,Urine Negative ng/mL (<300); Opiate Screen,Urine Positive ng/mL (<300); Phencyclidine Screen,Urine Negative ng/mL (<25)
== END ==
PROVIDERS: Visit Provider Emergency Medicine
DX: M47.816 Spondylosis without myelopathy or radiculopathy, lumbar region (principal)
CPT/HCPCS: 80305

== ENCOUNTER → 2019-04-15 08:28 | Outpatient (CLI) | payer MEDICARE, SELFPAY ==
--- NOTE | 2019-04-15 08:33 | XR_ITS ---
PROCEDURE: XR SHOULDER LT MIN 2V CLINICAL INDICATION: left shoulder surgery postop, dos 12/22/18 Follow-up surgery COMPARISON: from 08/28/2018 FINDINGS: There has been an interval osteotomy at the acromioclavicular joint. There are 2 anchors along the humeral head centrally. Normal alignment with no evidence of acute fracture or dislocation. IMPRESSION: Postsurgical changes with no acute finding Dictated by: Dio Lee MD 04/15/2019 15:25 Electronically signed by Dio Lee MD in [place] 04/15/2019 15:25
== END ==
PROVIDERS: PCP Emergency Medicine; Visit Provider Orthopaedic Surgery
DX: Z09 Encounter for follow-up examination after completed treatment for conditions other than malignant neoplasm (principal); S46.012D Strain of muscle(s) and tendon(s) of the rotator cuff of left shoulder, subsequent encounter; M25.512 Pain in left shoulder; M75.42 Impingement syndrome of left shoulder; M75.22 Bicipital tendinitis, left shoulder; M19.012 Primary osteoarthritis, left shoulder
CPT/HCPCS: 73030

== ENCOUNTER 2019-06-09 09:00 | Outpatient (RCR) | payer MEDICARE, SELFPAY ==
--- NOTE | 2019-02-19 10:38 | HMH.PTOPEV ---
PT Outpatient Evaluation Rehab PT Outpatient Evaluation Start: 02/19/19 08:54 Freq: Status: Active Protocol: Document 02/19/19 09:26 GAYLE (Rec: 02/19/19 10:38 [email or web address] [id number]) Electronically Signed By Johnathon Otero, PT 02/19/19 09:26 Outpatient Therapy Subjective History Subjective History Pt. is a 58 year old male who presents to outpatient PT with complaints of subacute and intermittent anterior/superior L shoulder P ! s/p L shoulder RCR, SAD, GH jt. debridement, Bicep Tenotomy, and DCE on 12/22/18. Pt. 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 Pt. reports donning a sling with no lifting precautions post surgery for 6 wks. Pt. currently reports only donning sling for symptom relief and no lifting heavier than a book or coffe cup per MD's orders. Pt. RTMD 6 wks. post surgery. Current medications include Lortab, Gabapentin, and prescription medication for HTN/Cholesteremia(pt. unable to recall name at this time). PMH includes chronic LBP, Anxiety disorder, HTN, Cholesteremia, 3 Cardiovascular stents, 2 RLE DVTs, and a Rhinoplasty. Chief Complaint Pain,Stiff,Weakness Symptom Type Ache,Sharp Symptoms Relieved By Rest/Positioning,Ice,Brace/ Support,Prescription Meds Symptoms Aggravated By Supine,Lifting Prior Functional Limitations None Current Functional Limitations Reaching,Lifting,Dressing, Sleeping Symptom Description Intermittent Level of pain today (0-10) 2 Pain scale - at its best (0-10) 0 Pain scale - at its worst (0-10) 6 Shoulder/Elbow Eval Shoulder Objective Measurements Palpation Tenderness tenderness shoulder exam standard left tenderness over the bicipital tendon left shoulder exam standard tenderness over the SA bursa shoulder left exam standard Shoulder Palpation Findings Tenderness Shoulder Palpation Overall Comment grade 3 +TTP above + biceps mm
== END 2019-06-09 11:00 | disposition home or self-care (01) ==
LOC: PT.CARL 09:00
PROVIDERS: PCP Emergency Medicine; Visit Provider Orthopaedic Surgery
DX: M75.122 Complete rotator cuff tear or rupture of left shoulder, not specified as traumatic (principal)
CPT/HCPCS: 97014; 97110; 97140; 97163; 97164; G0283

== ENCOUNTER → 2019-08-26 10:29 | Outpatient (CLI) | payer MEDICARE, SELFPAY ==
[2019-08-26 13:14] LABS: Coronavirus 19 IgG Antibody Negative (Negative); Coronavirus 19 IgM Antibody Negative (Negative)
== END ==
PROVIDERS: Visit Provider Surgery
DX: Z01.818 Encounter for other preprocedural examination (principal)
CPT/HCPCS: 36415; 86328

== ENCOUNTER 2019-08-27 06:35 | Day surgery (SDC) | payer MEDICARE, SELFPAY ==
[2019-08-26 08:57] VITALS: BMI 30.9
[2019-08-27 07:27] VITALS: BP 163/86; PULSE 53; RESP 18; TEMP 36.4; O2SAT 100
[2019-08-27 07:38] VITALS: O2SAT 100
[2019-08-27 08:55] VITALS: BP 134/75; PULSE 44; RESP 16; TEMP 36.4; O2SAT 94
--- NOTE | 2019-08-27 08:55 | HMH.SCOPE ---
- Procedure: Date: 08/27/19 Procedure Performed:: Esophagogastroduodenoscopy with biopsy Colonoscopy with polypectomy Indications:: Gastroesophageal reflux History of peptic ulcer disease History of colon polyps Performing Provider:: Bry Everett MD Referring Provider:: . Sedation:: Monitored anesthesia care Procedure:: After informed consent was obtained the patient was taken to the endoscopy suite. Sedation ensued after the patient was transferred to the left lateral decubitus position. Pulse, blood pressure, and oxygen saturation were monitored throughout the procedure. The endoscope was advanced beyond the duodenal bulb. Retroflexion within the gastric lumen was accomplished. The gastroscope was carefully removed. Digital rectal exam revealed no significant abnormality. The colonoscope was placed in position. The entire colon was evaluated. The colonoscope was carefully removed and the patient was transferred to recovery in stable condition. Please see findings and specimens below for detail. Findings:: Gastroesophageal junction at 40 cm Moderate inflammation at gastroesophageal junction Minimal gastritis Bowel preparation moderate Significant spasticity and lack of relaxation Minimal hemorrhoidal cushions with no thrombosis or active bleeding Multiple complex polyps (see specimens) Specimens:: Small duodenal bulb polyp Antral biopsy Gastroesophageal junction biopsy Small cecal/periappendiceal polyp Sessile hepatic flexure polyp and adjacent polyp Complex adjacent 8 mm sessile proximal transverse colon polyps (snare) Complex sessile 8 mm polyps (x4) around 65 cm (snare) Polyp at 40 cm (snare) Recommendations:: Follow-up pathology Proton pump inhibition secondary to inflammation at gastroesophageal junction Timing of repeat colonoscopy is pending pathology but will likely be between 1-2 years secondary to limitations in visualization and size/nature/number of polyps Complications:: No immediate Estimated blood obtained (mL): 1
[2019-08-27 09:05] VITALS: BP 129/77; PULSE 43; RESP 16; O2SAT 96
[2019-08-27 09:15] VITALS: BP 150/79; PULSE 46; RESP 16; O2SAT 97
[2019-08-27 09:25] VITALS: BP 156/85; PULSE 43; RESP 16; O2SAT 98
--- NOTE | 2019-08-27 09:33 | HMH.ANESCL ---
[facility] Anesthesia Checklist - Patient Identification Patient Identification: Arm Band - Structural Data Admitted From: Home Planned Operative Procedure/s: egd/colonoscopy Consent for Planned Operative Procedure(s) Verified: Yes Verified Documents: Surgical Consent, History and Physical - NPO Status Verified Time NPO: 00:00 - Additional verifications Anesthesia Reactions: No Hx Blood Transfusions: No Blood Transfusion Reaction: No - Airway Assessment C-Spine Mobility Assessed: Yes (mp2) TMJ Mobility Assessed: Yes Dentition: Poor Dentition - Neurological Assessment Level of Consciousness: Awake, Alert - Anesthesia Plan Anesthesia Risk discussed: Yes Anesthesia Plan: Verified ASA Class: III Anesthesia Type: MAC [facility] History I have reviewed the patient's past medical history: Yes Medical History: Reports:: Coronary Artery Disease, Deep Vein Thrombosis, Hyperlipidemia, Hypertension, Myocardial Infarction Denies:: Cancer, Diabetes Mellitus Type 1, Diabetes Mellitus Type 2, Internal Pacemaker, MRSA, Seizures *Have you ever received a pneumonia vaccine?: No *Have you received a flu vaccine this season?: No Other Medical History: Reports: Arthritis. Denies: Blood Transfusion Reaction Anesthesia experience/problems:: nac Laterality Cases: Left: Arthroscopy Shoulder Other Surgeries: Yes: Cardiac Catheterization, Cardiac Surgery, Colonoscopy, Coronary Stent, Plastic Surgery, Other. No: Pacemaker Amputation: No Fractures: Yes (nose) - *Social History Educational Level: Attended Grade School Smoking Status: Former smoker Tobacco Type: smokeless tobacco # Packs/Day (cigarettes): 1 #Yrs smoked (if former smoker): 45 Smoking End Date: 08/17/1999 Alcohol Intake: never Alcohol Intake Frequency:: a few times a month Substance Use Type: denies use *Occupational Status:: retired Housing: house Household Members: spouse *Travel in the last 8 weeks: None Family Hx:: Asthma, Cancer, Heart Attack, Hyperlipidemia, Hypertension
== END 2019-08-27 09:25 | disposition home or self-care (01) ==
LOC: OUTP 06:38
PROVIDERS: PCP Emergency Medicine; Visit Provider Surgery
PROC: 0DJ08ZZ Inspection of Upper Intestinal Tract, Via Natural or Artificial Opening Endoscopic (ICD-10-PCS; CPT 43235; principal; 2019-08-27 07:30)
DX: K29.70 Gastritis, unspecified, without bleeding (principal); K22.8 Other specified diseases of esophagus; K58.9 Irritable bowel syndrome, unspecified; K64.0 First degree hemorrhoids; K63.5 Polyp of colon; Z86.010 Personal history of colon polyps; Z87.11 Personal history of peptic ulcer disease; Z79.899 Other long term (current) drug therapy; Z86.718 Personal history of other venous thrombosis and embolism; E78.5 Hyperlipidemia, unspecified; I10 Essential (primary) hypertension; I25.2 Old myocardial infarction
CPT/HCPCS: 43239; 45380; 45385; 88305

== ENCOUNTER 2019-11-01 15:10 | Inpatient (IN) | payer MEDICARE, SELFPAY ==
[2019-11-01] VITALS (15 sets, daily range): BP systolic 123–170; BP diastolic 64–102; PULSE 59–89; RESP 16–20; TEMP 36.8–37.3; O2SAT 93–99; BMI 30.9; BMI 31.6
--- NOTE | 2019-11-01 15:08 | ECG_ITS ---
APPROVED REPORT Exam: Resting ECG HR:88 bpm ECG Measurements Heart Rate 88 AXES NJ 168 P 40 QRSd 84 QRS -21 QT 350 T 74 QTc 423 <Conclusion> Sinus rhythm with PAC'S Minimal voltage criteria for LVH, may be normal variant LAD Abnormal ECG Electronically signed by : Néstor Davila, 11/01/2019 17:19:06
--- NOTE | 2019-11-01 15:14 | HMH.EDCP ---
ED Disposition Clinical Impression: NSTEMI (non-ST elevated myocardial infarction) Disposition: Admitted As Inpatient Condition on Discharge: Fair Referrals: Claudio English MD [Primary Care Provider] - - Critical Care Critical Care Time: No Attestation: On , the high probability of a clinically significant, sudden or life threatening deterioration of the following system(s) required my full and direct attention, intervention and personal management. The time I documented below is in addition to time spent performing reported procedures but includes the following listed in this critical care notation. Medical Decision Making - Rodri Inquiry Pt receiving controlled substance: No Vital Signs: 11/01/19 15:13 11/01/19 15:26 11/01/19 15:40 Temperature 99.1 F Temperature Source Oral Pulse Rate [Right Radial] 89 77 73 Respiratory Rate 17 18 18 Blood Pressure [Right Arm] 165/73 H 125/65 125/65 Blood Pressure Mean [Right Arm] 103 85 85 Blood Pressure Source [Right Arm] Automatic Cuff Blood Pressure Position [Right Arm] Supine 02 Sat by Pulse Oximetry 94 L 94 L 94 L Oxygen Delivery Method Room Air Room Air Room Air 11/01/19 16:10 11/01/19 16:30 11/01/19 17:00 Temperature Temperature Source Pulse Rate [Right Radial] 80 66 64 Respiratory Rate 20 18 18 Blood Pressure [Right Arm] 142/72 H 129/68 123/64 Blood Pressure Mean [Right Arm] 95 88 83 Blood Pressure Source [Right Arm] Automatic Cuff Automatic Cuff Automatic Cuff Blood Pressure Position [Right Arm] Sitting Supine Supine 02 Sat by Pulse Oximetry 93 L 94 L 95 Oxygen Delivery Method Room Air Room Air 11/01/19 17:30 Temperature Temperature Source Pulse Rate [Right Radial] 70 Respiratory Rate 20 Blood Pressure [Right Arm] 146/73 H Blood Pressure Mean [Right Arm] 97 Blood Pressure Source [Right Arm] Automatic Cuff Blood Pressure Position [Right Arm] Supine 02 Sat by Pulse Oximetry 97 Oxygen Delivery Method Room Air - Lab Data Lab results reviewed: Yes: I reviewed the patient's lab results. Lab Results 11/01/19 14:52: Troponin I 0.02 11/01/19 14:52: WBC 6.2, RBC 5.06, Hgb 15.1, Hct 43.0, MCV 85.0, MCH 29.9, MCHC 35.2, RDW 13.5, Plt Count 194, MPV 7.8, Neut % (Auto) 57.6, Lymph % (Auto) 33.9, [place] % (Auto) 3.7, Eos % (Auto) 4.3, Baso % (Auto) 0.5, Neut # (Auto) 3.6, Lymph # (Auto) 2.1, [place] # (Auto) 0.2, Eos # (Auto) 0.3, Baso # (Auto) 0.0 11/01/19 14:52: Sodium 140, Potassium 3.5, Chloride 105, Carbon Dioxide 25, Anion Gap 13.5, BUN 8 L, Creatinine 0.70, Estimated Creat Clear 90, Estimated GFR 115, Est GFR ( Amer) 139, Glucose 158 H, Calcium 9.5, Total Bilirubin 0.5, AST 29, ALT 21, Alkaline Phosphatase 99, Total Protein 7.0, Albumin 4.2, Globulin 2.8, Albumin/Globulin Ratio 1.5 11/01/19 17:45: Troponin I 0.04 H Result diagrams: 11/01/19 14:52 11/01/19 14:52 Orders (Tests/Meds): ED MEDICATIONS Generic Name Dose Route Start Last Admin Trade Name Freq PRN Reason Stop Dose Admin Acetaminophen 650 mg 11/01/19 18:56 Acetaminophen 325mg Tab PO 12/01/19 18:55 Q4HP PRN As Needed for Fever or Pain Miscellaneous 1 each 11/01/19 19:00 Heparin Drip Consult Request * 12/01/19 18:59 CONSULT PHARMACY [facility] Morphine Sulfate 4 mg 11/01/19 18:56 Morphine 2mg/Ml Syringe IV 12/01/19 18:55 Q4HP PRN Severe Pain Nitroglycerin 0.4 mg 11/01/19 15:16 Nitrostat 0.4mg Sl Tablet SL 11/02/19 15:16 Q5MINP PRN Chest Pain Ondansetron HCl 4 mg 11/01/19 18:56 Zofran 4mg/2ml Vial IV 12/01/19 18:55 Q8HP PRN Nausea Pantoprazole Sodium 40 mg 11/02/19 09:00 Protonix 40mg Tablet PO 12/02/19 08:59 DAILY [facility] ORDERS Category Date Time Status Consult to Cardiology [CONS] Routine Cons 11/01/19 18:48 Active PT/PTT Stat Lab 11/01/19 18:51 Ordered Troponin I Q3H Lab 11/01/19 21:30 Ordered Troponin I Q6H Lab 11/01/19 22:00 Ordered Troponin I Q6H Lab
--- NOTE | 2019-11-01 15:16 | XR_ITS ---
PROCEDURE: XR CHEST PORTABLE CLINICAL HISTORY: chest pain , History of cardiac stents, former smoker COMPARISON: CR CXR CHEST(2 VIEWS-NOT PORTABLE) from 05/10/2014 CR CXR1 CHEST-PORTABLE from 03/09/2016 CR CXR1 CHEST-PORTABLE from 03/12/2016 FINDINGS: The cardiomediastinal silhouette and pulmonary vascularity are within normal limits. The lungs are clear without infiltrates, suspicious nodules, or pleural effusions. No acute bony abnormalities. There are mild multilevel degenerate changes of the thoracic spine. There monitor lines overlying the chest. There are surgical anchors projecting over left humeral head from previous surgery likely rotator cuff surgery. IMPRESSION: No acute findings. Dictated by: Dr. Efrem Regalado MD 11/01/2019 18:41 Dr. Efrem Regalado MD in [place] 11/01/2019 18:41
[2019-11-01 15:32] LABS: Basophils % 0.5 % (0.1-2.0); Eosinophils # 0.3 K/mm3 (0.0-0.4); Eosinophils % 4.3 % (0.1-12.0); Hemoglobin 15.1 g/dL (14.1-18.0); Lymphocytes # 2.1 K/mm3 (0.7-4.5); Lymphocytes % 33.9 % (10-50); Mean Corpuscular HGB Conc 35.2 g/dL (31.8-35.4); Mean Corpuscular Hemoglobin 29.9 pg (27.0-31.2); Mean Platelet Volume 7.8 fl (7.4-10.4); Monocytes # 0.2 K/mm3 (0.1-1.0); Monocytes % 3.7 % (1.7-9.3); Neutrophils # 3.6 K/mm3 (1.8-7.8); Neutrophils % 57.6 % (37.0-80.0); Platelet Count 194 K/mm3 (142-424); Red Blood Count 5.06 M/mm3 (4.60-6.20); Red Cell Distribution Width 13.5 % (11.5-17.5); White Blood Count 6.2 K/mm3 (4.8-10.8)
[2019-11-01 15:36] LABS: Alanine Aminotransferase 21 U/L (12-78); Albumin Level 4.2 g/dl (3.5-5.0); Albumin/Globulin Ratio 1.5 (1.1-1.8); Alkaline Phosphatase 99 U/L (38-126); Anion Gap 13.5 mEq/L (5-15); Aspartate Amino Transferase 29 U/L (17-59); Bilirubin,Total 0.5 mg/dl (0.2-1.3); Blood Urea Nitrogen 8 mg/dl (9-20); Calcium 9.5 mg/dl (8.4-10.2); Carbon Dioxide 25 mmol/L (22.0-30.0); Chloride 105 mmol/L (98-107); Creatinine Clearance Estimated 90 mL/min (50-200); Estimated Glomerular Filt Rate 115 ml/min (>60); GFR (African American) 139 ML/MIN (>60); Globulin 2.8 g/dL (1.3-3.2); Glucose 158 mg/dl (74-100); Potassium 3.5 mmoL/L (3.5-5.1); Sodium 140 mmol/L (136-145)
[2019-11-01 15:49] LABS: Troponin I 0.02 ng/ml (0.00-0.034)
--- NOTE | 2019-11-01 17:25 | PC.NURSE ---
2nd troponin drawn and to lab for resulting.
[2019-11-01 18:13] LABS: Troponin I 0.04 ng/ml (0.00-0.034)
--- NOTE | 2019-11-01 18:52 | PC.NURSE ---
dr graff consulting with dr smith concerning patient at this time.
--- NOTE | 2019-11-01 19:05 | PC.NURSE ---
consulted with pharmacy concerning heparin drip and bolus dosing.
[2019-11-01 19:31] LABS: Adenovirus,PCR Not Detected (NotDetected); Bordetella Pertussis Not Detected (NotDetected); Chlamydophila Pneumoniae, PCR Not Detected (NotDetected); Coronavirus 19, PCR Not Detected (NotDetected); Coronavirus 229E Not Detected (NotDetected); Coronavirus NL63 Not Detected (NotDetected); Coronavirus OC43 Not Detected (NotDetected); Coronovirus HKU1,PCR Not Detected (NotDetected); Human Metapneumovirus Not Detected (NotDetected); Influenza A, PCR Not Detected (NotDetected); Influenza AH1, 2009 Not Detected (NotDetected); Influenza AH1, PCR Not Detected (NotDetected); Influenza AH3,PCR Not Detected (NotDetected); Influenza B, PCR Not Detected (NotDetected); Mycoplasma Pneumoniae, PCR Not Detected (NotDetected); Parainfluenza 1, PCR Not Detected (NotDetected); Parainfluenza 2, PCR Not Detected (NotDetected); Parainfluenza 3, PCR Not Detected (NotDetected); Parainfluenza 4, PCR Not Detected (NotDetected); Respiratory Syncytial Virus Not Detected (NotDetected); Rhinovirus/Enterovirus Not Detected (NotDetected)
[2019-11-01 19:31] LABS: Activated Partial Thrombo Time 24.2 seconds (23.6-34.0); INR 1.02 (0.9-1.1); Prothrombin Time 10.5 seconds (9.4-11.8)
--- NOTE | 2019-11-01 20:19 | PC.NURSE ---
called and verified covid testing results time. sanket reported this had 30mins left.
--- NOTE | 2019-11-01 20:47 | PC.NURSE ---
received call from curtis ibarra with lab, covid test failed an will have to be re-ran. house notified.
--- NOTE | 2019-11-01 20:58 | PC.NURSE ---
was notified that pts covid test failed.called lab to see if was going to use same swab or do a different swab, Maikel said he already had the original swab running again.
--- NOTE | 2019-11-01 22:27 | PC.NURSE ---
patient up to floor via wheelchair per staff.
--- NOTE | 2019-11-01 22:44 | HMH.HP ---
*Admission Date: 11/01/19 *Chief complaint: chest pain *History of present illness: this pt presented to the ed with chest pain his is a 59-year-old male with a past medical history significant for hypertension, hyperlipidemia, coronary artery disease who presents to the emergency department for evaluation of left-sided chest pain that started a few hours ago when he was having an argument with his kids. He states it felt like a fist in my chest . He had tingling radiating down his left arm. He was hot at the time and pain was 9/10 in intensity. Currently 7/10 in intensity after aspirin and nitroglycerin via EMS. He denies any current shortness of breath. He did not have any vomiting. He denies any recent illnesses including no fevers, cough. He denies any trauma to the chest. pt was admitted for eval and treatment [facility] History I have reviewed the patient's past medical history: Yes Medical History: Reports:: Coronary Artery Disease, Deep Vein Thrombosis, Hyperlipidemia, Hypertension, Myocardial Infarction Denies:: Cancer, Diabetes Mellitus Type 1, Diabetes Mellitus Type 2, Internal Pacemaker, MRSA, Seizures *Have you ever received a pneumonia vaccine?: Yes *Have you received a flu vaccine this season?: Yes Other Medical History: Reports: Arthritis. Denies: Blood Transfusion Reaction Laterality Cases: Left: Arthroscopy Shoulder Other Surgeries: Yes: Cardiac Catheterization, Cardiac Surgery, Colonoscopy, Coronary Stent, EGD, Plastic Surgery, Other. No: Pacemaker Amputation: No Fractures: Yes (nose) - *Social History Smoking Status: Former smoker Tobacco Type: smokeless tobacco # Packs/Day (cigarettes): 1 #Yrs smoked (if former smoker): 45 Alcohol Intake: never Alcohol Intake Frequency:: a few times a month Substance Use Type: denies use *Occupational Status:: retired Housing: house Household Members: spouse *Travel in the last 8 weeks: None Family Hx:: Asthma, Cancer, Heart Attack, Hyperlipidemia, Hypertension Review of Systems - Review of Systems Review of systems:: pertinent systems reviewed and negative unless documented below - Constitutional Denies fever(s) - Eyes Denies change in vision - ENT Denies sore throat - *Cardiovascular Reports chest pain at rest, Denies shortness of breath - *Respiratory Denies cough - *Gastrointestinal Denies abdominal pain - *Genitourinary Denies blood in urine - *Musculoskeletal Denies joint pain - Integumentary/Breasts Denies rash - *Neurologic Denies dizziness, Denies headache(s), Denies seizure-like activity - Psychiatric Denies anxiety Meds Home Medications Medication Instructions Recorded Confirmed Type Lisinopril/Hydrochlorothiazide 1 tab PO DAILY 02/03/18 11/01/19 History [Lisinopril-Hctz 20-25 mg Tab] clopidogrel 75 mg tablet 75 mg PO DAILY 02/17/18 11/01/19 History carvedilol 3.125 mg tablet 3.125 mg PO DAILY 90 Days #180 tab 06/04/18 11/01/19 History nitroglycerin 0.4 mg sublingual 1 mg SUBLINGUAL NEEDED PRN 30 06/04/18 11/01/19 History tablet Days #25 tab rosuvastatin 20 mg tablet 20 mg PO DAILY 90 Days #90 tab 06/04/18 11/01/19 History Omeprazole 40 mg PO DAILY 08/27/19 11/01/19 History Sertraline HCl [Zoloft] 50 mg PO DAILY 08/27/19 11/01/19 History hydrOXYzine pamoate [Vistaril] 25 mg PO QHS 08/27/19 11/01/19 History hydrocodone 7.5 mg-acetaminophen 1 tab PO TID #90 tab 09/18/19 11/01/19 Rx 325 mg tablet gabapentin 800 mg tablet 800 mg PO TID #90 tab 10/26/19 11/01/19 Rx Trazodone HCl 50 mg PO QHS 11/01/19 11/01/19 History Allergies Allergy/AdvReac Type Severity Reaction Status Date / Time codeine [CODEINE] Allergy Unknown Verified 11/01/19 15:17 Exam Vital signs and Labs for Last 24 Hours: Temp Pulse Resp BP Pulse Ox 98.2 F 87 16 170/80 H 96 11/01/19 22:20 11/01/19 22:20 11/01/19 22:20 11/01/19 22:20 11/01/19 21:46 Laboratory Results - last 24 hr 11/01/19 14:52: Troponin I 0.02 11/01/19 14
[2019-11-01 22:52] LABS: Troponin I 0.05 ng/ml (0.00-0.034)
[2019-11-02] VITALS: BP 134/71; PULSE 56; PULSE 60; RESP 16; TEMP 36.6; O2SAT 94
[2019-11-02 02:02] LABS: Activated Partial Thrombo Time 36.4 seconds (23.6-34.0); INR 1.01 (0.9-1.1); Prothrombin Time 10.4 seconds (9.4-11.8)
--- NOTE | 2019-11-02 03:11 | PC.NURSE ---
A&OX4. PT TOLERATING RA WELL THIS SHIFT. PT HAS HAD NO C/O SOA THUS FAR THIS SHIFT. PT STATED HE WAS HAVING SLIGHT PAIN IN HIS CHEST. ADMINISTERED HALF OF THE ORDERED DOSE OF MORPHINE. PT TOLERATED WELL AND IS NOW RESTING IN BED WITH EYES CLOSED. PT NSR ON TELE. PT HAS TOLERATED NPO DIET WELL SINCE MIDNIGHT. HEPARIN DRIP CONTINUING, ADJUSTED PER L LEANDER. NO OTHER C/O THUS FAR. FAMILY AT BEDSIDE. VSS WILL CONTINUE TO MONITOR.
[2019-11-02 04:00] VITALS: BP 142/78; PULSE 50; PULSE 55; RESP 17; O2SAT 98
[2019-11-02 04:16] LABS: Troponin I 0.05 ng/ml (0.00-0.034)
[2019-11-02 05:43] VITALS: BMI 30.8
[2019-11-02 07:33] VITALS: BP 150/77; PULSE 61; RESP 16; TEMP 36.7; O2SAT 97
--- NOTE | 2019-11-02 07:47 | P.CONPHA_ITS ---
[facility] Pharmacy Heparin Dosing - Demographic Data Admission date:: 11/01/19 Date: 11/02/19 Time: 07:47 Allergies/Adverse Reactions: Allergies Allergy/AdvReac Type Severity Reaction Status Date / Time codeine [CODEINE] Allergy Unknown Verified 11/01/19 15:17 Height: 1.63 m Weight: 81.8 kg - Indication Medication therapy:: Heparin Patient Problems: Current Active Problems NSTEMI (non-ST elevated myocardial infarction) (Acute) Chest pain (Acute) Elevated troponin (Acute) CVA?: No Bleeding problem?: No Kidney disease?: No PA?: No Desired PTT range:: 60-80 seconds - Labs Anticoagulation Lab Results:: 11/01/19 14:52 Hgb 15.1 Hct 43.0 Plt Count 194 - Monitoring Dose Monitor 1 Date: 11/01/19 Time: 14:52 PTT Result:: 24.2 Infusion Rate:: 1000 UNITS/HR Comment:: 4,000 UNIT BOLUS PQS=711 Dose Monitor 2 Date: 11/02/19 Time: 01:30 PTT Result:: 36.4 Infusion Rate:: INCREASE TO 1,200 UNITS/HR Comment:: 4,000 UNIT BOLUS Dose Monitor 3 Date: 11/02/19 Time: 08:00 Comment:: HEPARIN DRIP STOPPED - Core Measures Is INR > or = 2 at discharge?: No Most Recent Labs:: Laboratory Results - last 24 hr 11/01/19 14:52: Troponin I 0.02 11/01/19 14:52: WBC 6.2, RBC 5.06, Hgb 15.1, Hct 43.0, MCV 85.0, MCH 29.9, MCHC 35.2, RDW 13.5, Plt Count 194, MPV 7.8, Neut % (Auto) 57.6, Lymph % (Auto) 33.9, [place] % (Auto) 3.7, Eos % (Auto) 4.3, Baso % (Auto) 0.5, Neut # (Auto) 3.6, Lymph # (Auto) 2.1, [place] # (Auto) 0.2, Eos # (Auto) 0.3, Baso # (Auto) 0.0 11/01/19 14:52: Sodium 140, Potassium 3.5, Chloride 105, Carbon Dioxide 25, Anion Gap 13.5, BUN 8 L, Creatinine 0.70, Estimated Creat Clear 90, Estimated GFR 115, Est GFR ( Amer) 139, Glucose 158 H, Calcium 9.5, Total Bilirubin 0.5, AST 29, ALT 21, Alkaline Phosphatase 99, Total Protein 7.0, Albumin 4.2, Globulin 2.8, Albumin/Globulin Ratio 1.5 11/01/19 14:52: PT 10.5, INR 1.02, APTT 24.2 11/01/19 17:45: Troponin I 0.04 H 11/01/19 19:25: Chlamy pneumoniae PCR Not detected, Adenovirus (PCR) Not detected, B. pertussis DNA (PCR) Not detected, Coronavirus OC43 (PCR) Not detected, Coronavirus HKU1 (PCR) Not detected, Coronavirus 229E (PCR) Not detected, COVID-19 PCR Not detected, Coronavirus NL63 (PCR) Not detected, Human Metapneumovir PCR Not detected, Influenza A (H1) PCR Not detected, Influ A (H1N1/09) PCR Not detected, Influenza A (H3) PCR Not detected, Influenza Type A (PCR) Not detected, Influenza Type B (PCR) Not detected, M. pneumoniae (PCR) Not detected, Parainfluenza 1 (PCR) Not detected, Parainfluenza 2 (PCR) Not detected, Parainfluenza 3 (PCR) Not detected, Parainfluenza 4 (PCR) Not detected, RSV (PCR) Not detected, Entero/Rhino (PCR) Not detected 11/01/19 22:20: Troponin I 0.05 H 11/02/19 01:30: PT 10.4, INR 1.01, APTT 36.4 H D 11/02/19 03:50: Troponin I 0.05 H If INR was < than 2.0 why was therapy stopped?: STOPPED BEFORE CATH Were Heparin and Warfarin started on the same day?: No If not, why?: STOPPED BEFORE CATH
--- NOTE | 2019-11-02 07:47 | P.CONPHA_ITS ---
[facility] Pharmacy VTE Monitoring - Patient Demographics Admission date: 11/01/19 Report Date: 11/02/19 Time: 07:47 Allergies/Adverse Reactions: Patient Allergies codeine [CODEINE] Allergy (Unknown, Verified 11/01/19 15:17) Height: 1.63 m Weight: 81.845 kg Patient Problems: Current Active Problems NSTEMI (non-ST elevated myocardial infarction) (Acute) Chest pain (Acute) Elevated troponin (Acute) - VTE Risk Labs: VTE Related Lab Results Hgb 15.1 g/dL (14.1-18.0) 11/01/19 14:52 Hct 43.0 % (42.0-52.0) 11/01/19 14:52 Plt Count 194 K/mm3 (142-424) 11/01/19 14:52 PT 10.4 seconds (9.4-11.8) 11/02/19 01:30 INR 1.01 (0.9-1.1) 11/02/19 01:30 APTT 36.4 seconds (23.6-34.0) H D 11/02/19 01:30 BUN 8 mg/dl (9-20) L 11/01/19 14:52 Creatinine 0.70 mg/dl (0.66-1.25) 11/01/19 14:52 Estimated Creat Clear 90 mL/min (50-200) 11/01/19 14:52 Was VTE Risk Assessment Performed: Yes VTE Score: 5 VTE Risk Level: Low Risk Clinical Trial Participant: No - Prophylaxis VTE Prophylaxis Ordered?: Yes Types of VTE Prophylaxis: TEDS Knee High, Pharmacological Pharmacologic Type: Heparin (HEPARIN DRIP FOR NSTEMI)
--- NOTE | 2019-11-02 07:54 | HMH.PHAINT ---
Home medication reconciliation completed using list from [facility], Dr. English' office and patient interview.
[2019-11-02 08:00] VITALS: PULSE 60
--- NOTE | 2019-11-02 08:00 | CA_ITS ---
APPROVED REPORT EXAM: Comprehensive 2D, Doppler, and color-flow Echocardiogram Communications Media Professor: Clair Baldwin CRT Ht: 209 ft 4 in Wt: 184lbs BSA: 27.01 BP: 170/80 mmHg Indications: Chest Pain, CAD, Hyperlipidemia, Hypertension/HDD, old OK, ex smoker, Stent, DVT 2D Dimensions LVOT 2.00 cm (M/F) 1.5-2.5 M-Mode Dimensions RVDd 2.20 cm (0.9-2.6) LA Diam 3.70 cm (1.9-4.0) LVDd 5.40 cm (3.5-5.7) Ao Diam 3.30 cm (2.0-3.7) LVDs 3.60 cm (3.5-5.7) AV Cusp 1.90 cm (1.5-2.6) IVSd 1.20 cm (0.6-1.1) PWd 1.30 cm (0.6-1.1) EF (Teich) 61.40% FS 33.30% EDV (Teich) 141.00 mL ESV (Teich) 54.40 mL LV Diastology E/A Ratio 1.20 MED E' 5.90 (< 7 cm/sec) E'/MED E' Ratio 16.50 (>14) LAT E' 6.92 (<10 cm/sec) E/LAT E' Ratio 14.00 (>14) Aortic Valve AoV Peak Noah. 151.00 (50-130 cm/s) AO Peak GR. 9.00 mmHg Mitral Valve MV E Max Noah. 97.20 (40-130 cm/s) MV A Velocity 78.00 (40-130 cm/s) E/A Ratio 1.20 Pulmonary Valve DC End VMAX 97.30 cm/s PA Accel Time 137.00 (>120 msec) Tricuspid Valve TR P. Velocity 201.00 cm/s Left Ventricle Left atrium is mildly enlarged, left ventricle is normal size, mild concentric left ventricular hypertrophy, visually estimated ejection fraction 55% with no regional wall motion abnormality, endocardial surfaces are poorly visualized. Grade 1 diastolic dysfunction seen with tissue Doppler evidence of raise left atrial pressure. Right Ventricle Right atrium and right ventricular normal size and contractility. Aortic Valve Aortic valve is thickened and calcified leaflet chordae display good mobility, there is no aortic stenosis or aortic insufficiency. Mitral Valve Mitral valve leaflets are minimally thickened, there is mild mitral regurgitation. Tricuspid Valve Tricuspid valve is grossly normal, there is mild tricuspid regurgitation, tricuspid regurgitation jet velocity is inadequate for calculation of the right ventricular systolic pressure. Mild tricuspid valve prolapse. Pulmonic Valve Pulmonic valve is poorly visualized. Great Vessels Aortic root is normal size. Pericardium No significant pericardial effusion noted. Conclusion 1. Mildly enlarged left atrium, normal left ventricular size, mild concentric left ventricular hypertrophy, visually estimated ejection fraction 55% with no regional wall motion abnormality, grade 1 diastolic dysfunction seen with tissue Doppler evidence of raise left atrial pressure. 2. Mild mitral and tricuspid regurgitation. 3. No significant pericardial effusion noted. Electronically signed by : Saman Licona, 11/02/2019 19:24:05
--- NOTE | 2019-11-02 08:33 | HMH.CNCARD ---
History of Present Illness Consult date: 11/02/19 Requesting physician: Claudio English Consult reason: chest pain Chief complaint: NSTEMI Additional Medical History:: 1. Hypertension 2. Coronary artery disease with history of 3 coronary stents placed over a period of 10 years with the last one being approximately 2018 in the [place], [place]. 3. History of left rotator cuff surgery 4. Remote tobacco use, 30 years of smoking 1/2 packs/day discontinued approximately 15 years ago 5. Questionable history of DVT versus pseudoaneurysm post cardiac catheterization approximately 2 years ago History of present illness: 59-year-old white male with known coronary artery disease presented to emergency department via EMS for onset of chest pain after an argument with 1 of his 7 children. The daughter relates that the patient appeared to pass out and was awakened after vigorous shaking. Upon sitting up he did pass out again. Patient was brought to the emergency department by EMS with nitroglycerin given in route with resolution of chest pain. Initial troponin was normal but subsequent troponins have been mildly elevated. EKG is sinus rhythm with no ST segment changes. This a.m. the patient has no further episodes of chest pain. Cardiology consulted for evaluation and recommendations. Patient denies any history of diabetes and has not smoked in about 15 years. He relates having a stress test through Dr. Clark in [place] last year prior to left rotator cuff surgery. He did not need any intervention or cardiac catheterization at that time. [facility] History Medical History: Reports:: Coronary Artery Disease, Deep Vein Thrombosis, Hyperlipidemia, Hypertension, Myocardial Infarction Denies:: Cancer, Diabetes Mellitus Type 1, Diabetes Mellitus Type 2, Internal Pacemaker, MRSA, Seizures *Have you ever received a pneumonia vaccine?: Yes *Have you received a flu vaccine this season?: Yes Other Medical History: Reports: Arthritis. Denies: Blood Transfusion Reaction Laterality Cases: Left: Arthroscopy Shoulder Other Surgeries: Yes: Cardiac Catheterization, Cardiac Surgery, Colonoscopy, Coronary Stent, EGD, Plastic Surgery, Other. No: Pacemaker Amputation: No Fractures: Yes (nose) - *Social History Last grade of school completed: 9th or 10th Smoking Status: Former smoker Tobacco Type: smokeless tobacco # Packs/Day (cigarettes): 1 #Yrs smoked (if former smoker): 45 Alcohol Intake: never Alcohol Intake Frequency:: a few times a month Substance Use Type: denies use *Occupational Status:: retired, disabled Housing: house Household Members: spouse *Travel in the last 8 weeks: None Family Hx:: Cancer, Coronary Artery Disease, Heart Attack Meds Home Medications Medication Instructions Recorded Confirmed Type Lisinopril/Hydrochlorothiazide 1 tab PO DAILY 02/03/18 11/02/19 History [Lisinopril-Hctz 20-25 mg Tab] clopidogrel 75 mg tablet 75 mg PO DAILY 02/17/18 11/01/19 History carvedilol 3.125 mg tablet 3.125 mg PO BID 90 Days #180 tab 06/04/18 11/02/19 History nitroglycerin 0.4 mg sublingual 1 mg SUBLINGUAL NEEDED PRN 30 06/04/18 11/01/19 History tablet Days #25 tab rosuvastatin 20 mg tablet 20 mg PO DAILY 90 Days #90 tab 06/04/18 11/01/19 History Omeprazole 40 mg PO DAILY 08/27/19 11/01/19 History Sertraline HCl [Zoloft] 50 mg PO DAILY 08/27/19 11/01/19 History hydrOXYzine pamoate [Vistaril] 25 mg PO HS 08/27/19 11/02/19 History hydrocodone 7.5 mg-acetaminophen 1 tab PO TID #90 tab 09/18/19 11/02/19 Rx 325 mg tablet gabapentin 800 mg tablet 800 mg PO TID #90 tab 10/26/19 11/01/19 Rx Trazodone HCl 50 mg PO HS 11/01/19 11/02/19 History Allergies Allergy/AdvReac Type Severity Reaction Status Date / Time codeine [CODEINE] Allergy Unknown Verified 11/01/19 15:17 Exam Vital signs and Labs for Last 24 Hours: Temp Pulse Resp BP Pulse Ox 98.1 F 61 16 150/77 H 97 11/02/19 07:33 11/02/19 07:33 11/02/19 07:33 11/02/19 07:33
[2019-11-02 09:16] LABS: Activated Partial Thrombo Time 56.2 seconds (23.6-34.0)
[2019-11-02 12:00] VITALS: PULSE 60
[2019-11-02 12:34] VITALS: BP 147/71; PULSE 56; RESP 16; TEMP 36.7; O2SAT 99
--- NOTE | 2019-11-02 14:04 | PC.NURSE ---
PATIENT OFF FLOOR TO DIRECTOR OF ACADEMIC SUPPORT
--- NOTE | 2019-11-02 14:46 | PC.NURSE ---
PATIENT ARRIVED BACK ON FLOOR VIA WHEELCHAIR, THIS RN INQUIRED WHY PATIENT WAS BACK SO SOON. ELECTRICAL ENGINEERING TECHNOLOGIST RN STATED THAT PATIENT REFUSED. THIS RN WENT INTO PATIENT ROOM, PATIENT STATED, I AM LEAVING . THIS RN ENCOURAGED PATIENT TO STAY. PATIENT STATED THAT HE COULD NOT. PATIENT STATED THAT WHEN THEY PUT THE MASK OVER HIS MOUTH HE KEPT TELLING THEM HE COULD NOT BREATHE, HE CONTINUED TO STATE THAT THEY CONTINUED TO INCREASE THE OXYGEN BUT IT WASN'T HELPING. THIS RN OFFERED TO PHONE DR. LLANES TO REQUESTED A PRN ANXIETY MEDICATION. PATIENT REFUSED. THIS RN PHONED DR. LLANES. AWARE. PATIENT LEFT VIA WHEELCHAIR. NO OTHER CONCERNS AT THIS TIME.
--- NOTE | 2019-11-02 15:03 | SUR.PHASEII ---
pt decided he did not want to have procedure. md bailon - spoke w/ pt. pt understands all information. pt taken back to his room per wheelchair.
--- NOTE | 2019-11-02 15:05 | HMH.DCSUM ---
General - General Admission date:: 11/01/19 Discharge date: 11/02/19 HPI HPI: this pt presented to the ed with chest pain his is a 59-year-old male with a past medical history significant for hypertension, hyperlipidemia, coronary artery disease who presents to the emergency department for evaluation of left-sided chest pain that started a few hours ago when he was having an argument with his kids. He states it felt like a fist in my chest . He had tingling radiating down his left arm. He was hot at the time and pain was 9/10 in intensity. Currently 7/10 in intensity after aspirin and nitroglycerin via EMS. He denies any current shortness of breath. He did not have any vomiting. He denies any recent illnesses including no fevers, cough. He denies any trauma to the chest. pt was admitted for eval and treatment Hospital Course Hospital Course: pt did well with stable but slightly elevated card enz- troponin- pt with dec chest pain - he was seen by card -Hypertension 2. Coronary artery disease with history of 3 coronary stents placed over a period of 10 years with the last one being approximately 2018 in the [place], [place]. 3. History of left rotator cuff surgery 4. Remote tobacco use, 30 years of smoking 1/2 packs/day discontinued approximately 15 years ago 5. Questionable history of DVT versus pseudoaneurysm post cardiac catheterization approximately 2 years ago 59-year-old white male with known coronary artery disease presented to emergency department via EMS for onset of chest pain after an argument with 1 of his 7 children. The daughter relates that the patient appeared to pass out and was awakened after vigorous shaking. Upon sitting up he did pass out again. Patient was brought to the emergency department by EMS with nitroglycerin given in route with resolution of chest pain. Initial troponin was normal but subsequent troponins have been mildly elevated. EKG is sinus rhythm with no ST segment changes. This a.m. the patient has no further episodes of chest pain. Cardiology consulted for evaluation and recommendations. Patient denies any history of diabetes and has not smoked in about 15 years. He relates having a stress test through Dr. Clark in [place] last year prior to left rotator cuff surgery. He did not need any intervention or cardiac catheterization at that time. Chest pain after emotional argument with elevated troponin, consistent with non-ST elevation AK. Currently pain-free. Resume Plavix, carvedilol and Crestor per home dosing. We will give the patient an aspirin today as well. Recommend proceeding with cardiac catheterization and patient and daughter agree. Risk, benefits and procedure explained to the patient. All questions answered. Preliminary echocardiogram shows preserved ejection fraction. 2. Hyperlipidemia, continue statin therapy 3. Hypertension, resume carvedilol therapy 4. ex-smoker greater than 45 pack years, discontinued approximately 15 years ago Further recommendations pending results of cardiac catheterization. he was unable to complete heart cath and wishes to sign out ama per nursing staff- Objective Vital signs: Temp Pulse Resp BP Pulse Ox 98.1 F 56 L 16 147/71 H 99 11/02/19 12:34 11/02/19 12:34 11/02/19 12:34 11/02/19 12:34 11/02/19 12:34 no acute distress - *Routine HEENT Exam Head: Present: normocephalic Eye: Present: EOMI, PERRL ENT: Present: mucous membranes dry - *Routine Neck Exam Present: supple. Absent: thyromegaly - *Routine Respiratory Exam Present: CTA bilaterally - *Routine Cardiovascular Exam Present: RRR, murmur - *Routine Abdominal Exam Present: soft - *Routine Extremities Exam Present: cyanosis. Absent: edema - *Routine Skin Exam Present: intact - *Routine Neurological Exam Present: alert, CN II-XII intact - Routine Psychiatric Exam Present: anxious. Absent: good insight Results Labs on day of discharge:
== END 2019-11-02 14:45 | disposition left against medical advice (07) | DRG 282 ==
LOC: ER 19:03 → 2ND 19:14
PROVIDERS: Admitting Provider Family Medicine; Emergency Provider Emergency Medicine; PCP Emergency Medicine; Visit Provider Emergency Medicine
DX: I21.4 Non-ST elevation (NSTEMI) myocardial infarction (principal); I25.10 Atherosclerotic heart disease of native coronary artery without angina pectoris; Z95.5 Presence of coronary angioplasty implant and graft; I10 Essential (primary) hypertension; I25.2 Old myocardial infarction; Z87.891 Personal history of nicotine dependence; Z88.5 Allergy status to narcotic agent; Z79.01 Long term (current) use of anticoagulants; Z79.899 Other long term (current) drug therapy
CPT/HCPCS: 36415; 71045; 80053; 84484; 85025; 85610; 85730; 87581; 87633; 87798; 93005; 93306; 96365; 96375; 99285

== ENCOUNTER → 2020-05-10 19:05 | Outpatient (CLI) | payer MEDICARE, MEDICAID, SELFPAY ==
[2020-05-11 00:14] LABS: Amphetamine/Metha Screen,Urine Negative ng/ml (<1000)
[2020-05-11 00:15] LABS: Barbiturates Screen,Urine Negative ng/ml (<200)
[2020-05-11 00:16] LABS: Benzodiazepines Screen,Urine Negative ng/ml (<200); Cannabinoid Screen,Urine Negative ng/ml (<50)
[2020-05-11 00:17] LABS: Cocaine Screen,Urine Negative ng/ml (<300)
[2020-05-11 00:18] LABS: Methadone Screen,Urine Negative ng/ml (<300); Opiate Screen,Urine Positive ng/ml (<300)
[2020-05-11 00:19] LABS: Phencyclidine Screen,Urine Negative ng/ml (<25)
== END ==
PROVIDERS: Visit Provider Emergency Medicine
DX: M47.816 Spondylosis without myelopathy or radiculopathy, lumbar region (principal)
CPT/HCPCS: 80305

== ENCOUNTER 2020-07-03 00:35 | Observation (INO) | payer MEDICARE, MEDICAID, SELFPAY ==
[2020-07-03] VITALS (15 sets, daily range): BP systolic 127–202; BP diastolic 56–78; PULSE 49–70; RESP 14–18; TEMP 36.4–36.8; O2SAT 93–99; BMI 30.9; BMI 30.7
--- NOTE | 2020-07-03 00:32 | ECG_ITS ---
APPROVED REPORT Exam: Resting ECG HR:65 bpm ECG Measurements Heart Rate 65 AXES RI 178 P 41 QRSd 100 QRS -3 QT 400 T 61 QTc 416 Conclusion Normal sinus rhythm Moderate voltage criteria for LVH, may be normal variant Borderline ECG Electronically signed by : Jewel Alcala, 07/03/2020 07:24:34
--- NOTE | 2020-07-03 00:32 | XR_ITS ---
PROCEDURE: XR CHEST 2V CLINICAL HISTORY: Cp Chest pain, shortness of air COMPARISON: CR CXR1 CHEST-PORTABLE from 03/09/2016 CR CXR1 CHEST-PORTABLE from 03/12/2016 CR XR CHEST PORTABLE from 11/01/2019 FINDINGS: The cardiomediastinal silhouette and pulmonary vascularity are within normal limits. The lungs are clear without infiltrates, suspicious nodules, or pleural effusions. No acute bony abnormalities. IMPRESSION: No acute findings. Dictated by: Dio Lee MD 07/03/2020 07:21 Dio Lee MD in OV 07/03/2020 07:21
[2020-07-03 00:40] LABS: Microscopic, Urine URINE MICROSCOPIC (MICROSCOPIC)
[2020-07-03 00:41] LABS: Basophils # 0.1 K/mm3 (0-0.2); Basophils % 0.8 % (0.1-2.0); Eosinophils # 0.3 K/mm3 (0.0-0.4); Eosinophils % 4.8 % (0.1-12.0); Hematocrit 41.1 % (42.0-52.0); Hemoglobin 14.4 g/dL (14.1-18.0); Lymphocytes # 1.9 K/mm3 (0.7-4.5); Lymphocytes % 29.3 % (10-50); Mean Corpuscular HGB Conc 34.9 g/dL (31.8-35.4); Mean Corpuscular Hemoglobin 29.1 pg (27.0-31.2); Mean Corpuscular Volume 83.4 fl (80-94); Mean Platelet Volume 7.7 fl (7.4-10.4); Monocytes # 0.3 K/mm3 (0.1-1.0); Monocytes % 4.2 % (1.7-9.3); Neutrophils % 60.8 % (37.0-80.0); Platelet Count 225 K/mm3 (142-424); Red Blood Count 4.93 M/mm3 (4.60-6.20); Red Cell Distribution Width 13.3 % (11.5-17.5); White Blood Count 6.5 K/mm3 (4.8-10.8)
[2020-07-03 00:45] LABS: Appearance,Urine CLEAR (Clear); Bilirubin,Urine Negative (Negative); Blood, Urine Negative (Negative); Color,Urine YELLOW (Yellow); Glucose,Urine (UA) Negative (Negative); Ketones,Urine Negative (Negative); Leukocyte Esterase,Urine Negative (Negative); Nitrate,Urine Negative (Negative); Protein,Urine Negative (Negative)
[2020-07-03 00:48] LABS: Alanine Aminotransferase 25 U/L (12-78); Albumin Level 4.7 g/dl (3.5-5.0); Albumin/Globulin Ratio 1.9 (1.1-1.8); Alkaline Phosphatase 78 U/L (38-126); Anion Gap 13.5 mEq/L (5-15); Aspartate Amino Transferase 33 U/L (17-59); Bilirubin,Total 0.6 mg/dl (0.2-1.3); Blood Urea Nitrogen 8 mg/dl (9-20); Carbon Dioxide 23 mmol/L (22.0-30.0); Chloride 107 mmol/L (98-107); Creatinine Clearance Estimated 88 mL/min (50-200); Estimated Glomerular Filt Rate 98 ml/min (>60); GFR (African American) 119 ML/MIN (>60); Globulin 2.5 g/dL (1.3-3.2); Glucose 135 mg/dl (74-100); Potassium 3.5 mmoL/L (3.5-5.1); Sodium 140 mmol/L (136-145); Total Protein,Serum 7.2 g/dl (6.3-8.2)
[2020-07-03 00:53] LABS: C-Reactive Protein 4.5 mg/L (0-4)
[2020-07-03 00:57] LABS: Squamous Epithelial Cell,Urine Occasional #/hpf (0-5)
[2020-07-03 01:02] LABS: Troponin I 0.06 ng/ml (0.00-0.034)
[2020-07-03 01:06] LABS: Erythrocyte Sedimentation Rate 11 mm/hr (0-20)
[2020-07-03 01:09] LABS: Adenovirus,PCR Not Detected (NotDetected); Bordetella Pertussis Not Detected (NotDetected); Chlamydophila Pneumoniae, PCR Not Detected (NotDetected); Coronavirus 19, PCR Not Detected (NotDetected); Coronavirus 229E Not Detected (NotDetected); Coronavirus NL63 Not Detected (NotDetected); Coronavirus OC43 Not Detected (NotDetected); Coronovirus HKU1,PCR Not Detected (NotDetected); Human Metapneumovirus Not Detected (NotDetected); Influenza A, PCR Not Detected (NotDetected); Influenza AH1, 2009 Not Detected (NotDetected); Influenza AH1, PCR Not Detected (NotDetected); Influenza AH3,PCR Not Detected (NotDetected); Influenza B, PCR Not Detected (NotDetected); Mycoplasma Pneumoniae, PCR Not Detected (NotDetected); Parainfluenza 1, PCR Not Detected (NotDetected); Parainfluenza 2, PCR Not Detected (NotDetected); Parainfluenza 3, PCR Not Detected (NotDetected); Parainfluenza 4, PCR Not Detected (NotDetected); Respiratory Syncytial Virus Not Detected (NotDetected); Rhinovirus/Enterovirus Not Detected (NotDetected)
--- NOTE | 2020-07-03 01:27 | HMH.EDCP ---
ED Disposition Clinical Impression: Unstable angina pectoris, Obesity (BMI 30.0-34.9), Elevated troponin, Hyperlipidemia LDL goal <100 HTN (hypertension) Qualifiers: Hypertension type: essential hypertension Qualified Code(s): I10 - Essential (primary) hypertension Disposition: Admitted as Observation Condition on Discharge: Good Referrals: Claudio English MD [Primary Care Provider] - - Critical Care Critical Care Time: No Attestation: On 07/03/20, the high probability of a clinically significant, sudden or life threatening deterioration of the following system(s) required my full and direct attention, intervention and personal management. The time I documented below is in addition to time spent performing reported procedures but includes the following listed in this critical care notation. Medical Decision Making - Medical Records Medical records reviewed: Yes: I reviewed the patient's medical records. - Rodri Inquiry Pt receiving controlled substance: No Vital Signs: 07/03/20 00:27 07/03/20 00:32 07/03/20 01:00 Temperature 98.1 F Temperature Source Oral Pulse Rate 62 50 L Pulse Rate [Right] 62 Respiratory Rate 16 14 Blood Pressure 177/67 H 136/56 L Blood Pressure [Right Arm] 202/75 H Blood Pressure Mean [Right Arm] 117 02 Sat by Pulse Oximetry 99 95 93 L Oxygen Delivery Method Room Air Room Air 07/03/20 01:33 Temperature Temperature Source Pulse Rate 51 L Pulse Rate [Right] Respiratory Rate Blood Pressure 141/65 H Blood Pressure [Right Arm] Blood Pressure Mean [Right Arm] 02 Sat by Pulse Oximetry 94 L Oxygen Delivery Method - Lab Data Lab results reviewed: Yes: I reviewed the patient's lab results. Lab Results 07/03/20 00:10: WBC 6.5, RBC 4.93, Hgb 14.4, Hct 41.1 L, MCV 83.4, MCH 29.1, MCHC 34.9, RDW 13.3, Plt Count 225, MPV 7.7, Neut % (Auto) 60.8, Lymph % (Auto) 29.3, Tama % (Auto) 4.2, Eos % (Auto) 4.8, Baso % (Auto) 0.8, Neut # (Auto) 4.0, Lymph # (Auto) 1.9, Tama # (Auto) 0.3, Eos # (Auto) 0.3, Baso # (Auto) 0.1, ESR 11 07/03/20 00:10: Sodium 140, Potassium 3.5, Chloride 107, Carbon Dioxide 23, Anion Gap 13.5, BUN 8 L, Creatinine 0.80, Estimated Creat Clear 88, Estimated GFR 98, Est GFR ( Amer) 119, Glucose 135 H, Calcium 10.0, Total Bilirubin 0.6, AST 33, ALT 25, Alkaline Phosphatase 78, Troponin I 0.06 H, C-Reactive Protein 4.5 H, Total Protein 7.2, Albumin 4.7, Globulin 2.5, Albumin/Globulin Ratio 1.9 H 07/03/20 00:20: Urine Color Yellow, Urine Appearance Clear, Urine pH 7.0, Ur Specific Preston 1.010, Urine Protein Negative, Urine Glucose (UA) Negative, Urine Ketones Negative, Urine Blood Negative, Urine Nitrate Negative, Urine Bilirubin Negative, Urine Urobilinogen 1.0, Ur Leukocyte Esterase Negative, Urine RBC None, Urine WBC None, Ur Squamous Epith Cells Occasional, Urine Bacteria None Result diagrams: 07/03/20 00:10 07/03/20 00:10 Orders (Tests/Meds): ED MEDICATIONS Generic Name Dose Route Start Last Admin Trade Name Freq PRN Reason Stop Dose Admin Sodium Chloride 1,000 mls @ 999 mls/hr 07/03/20 00:45 07/03/20 00:54 Sod Chlor 0.9% 1000ml Bag IV 07/03/20 01:45 999 mls/hr .Q1H1M MELISSA Administration Nitroglycerin 0.4 mg 07/03/20 00:33 07/03/20 00:35 Nitroglycerin 0.4mg Sl Tablet SL 08/02/20 00:32 0.4 mg Q5MINP PRN Administration Chest Pain Discontinued Medications Generic Name Dose Route Start Last Admin Trade Name Freq PRN Reason Stop Dose Admin Nitroglycerin 1 gm 07/03/20 00:53 07/03/20 00:54 Nitroglycerin 1 Gm Ointment TD 07/03/20 00:54 1 gm ONCE ONE Administration ORDERS Category Date Time Status XR chest 2V Stat Exams 07/03/20 00:32 Taken Full Resp Panel w/COVID ([facility]) Routine Lab 07/03/20 00:58 Received Troponin I Q3H Lab 07/03/20 03:45 Ordered Troponin I Q3H Lab 07/03/20 06:45 Ordered - Radiology Data #1 Image(s): Chest Image Reviewed: Yes I reviewed the patient's
--- NOTE | 2020-07-03 02:58 | PC.NURSE ---
patient up to floor via wheelchair
[2020-07-03 04:23] LABS: Troponin I 0.05 ng/ml (0.00-0.034)
--- NOTE | 2020-07-03 04:35 | PC.NURSE ---
Pt is resting in bed at this time. C/O discomfort to chest and chronic back pain upon arrival to floor. Lungs are CTA. BS active. Pt states he had BM yesterday. VSS. Pt is on RA. No c/o soa. No concerns at this time.
[2020-07-03 07:09] LABS: Basophils # 0.1 K/mm3 (0-0.2); Basophils % 0.9 % (0.1-2.0); Eosinophils # 0.4 K/mm3 (0.0-0.4); Eosinophils % 7.4 % (0.1-12.0); Hematocrit 38.6 % (42.0-52.0); Hemoglobin 13.4 g/dL (14.1-18.0); Lymphocytes # 2.1 K/mm3 (0.7-4.5); Lymphocytes % 39.3 % (10-50); Mean Corpuscular HGB Conc 34.7 g/dL (31.8-35.4); Mean Corpuscular Hemoglobin 29.1 pg (27.0-31.2); Mean Corpuscular Volume 83.7 fl (80-94); Mean Platelet Volume 7.8 fl (7.4-10.4); Monocytes # 0.4 K/mm3 (0.1-1.0); Monocytes % 7.3 % (1.7-9.3); Neutrophils # 2.5 K/mm3 (1.8-7.8); Platelet Count 209 K/mm3 (142-424); Red Blood Count 4.61 M/mm3 (4.60-6.20); Red Cell Distribution Width 13.5 % (11.5-17.5); White Blood Count 5.5 K/mm3 (4.8-10.8)
[2020-07-03 07:19] LABS: Chloride 106 mmol/L (98-107); Sodium 140 mmol/L (136-145)
[2020-07-03 07:21] LABS: Cholesterol 114 mg/dl (140-200); Triglycerides 85 mg/dl (30-150); VLDL Cholesterol 17 mg/dL (0-40)
[2020-07-03 07:22] LABS: Blood Urea Nitrogen 8 mg/dl (9-20); Chol/HDL Ratio 3.6 (1-3.5); Creatinine Clearance Estimated 89 mL/min (50-200); Estimated Glomerular Filt Rate 98 ml/min (>60); GFR (African American) 119 ML/MIN (>60); HDL Cholesterol 32 mg/dl (40-60); Magnesium 2.2 mg/dl (1.6-2.3)
[2020-07-03 07:23] LABS: Calcium 9.4 mg/dl (8.4-10.2); Carbon Dioxide 27 mmol/L (22.0-30.0); Glucose 115 mg/dl (74-100)
[2020-07-03 07:32] LABS: Direct LDL Cholesterol 66.07 mg/dL (100-129)
[2020-07-03 07:34] LABS: Troponin I 0.04 ng/ml (0.00-0.034)
--- NOTE | 2020-07-03 08:16 | HMH.HP ---
*Admission Date: 07/03/20 *Chief complaint: chest pain *History of present illness: this pt presented to the ed with c/o of chest pain which occurred at rest assoc with dizzyness - felt like weight on chest and lasted about 2 hrs - has hx of cad with stents from about 3 yrs ago- has chest pain weekly and has sig risk factors including matt, obesity, htn - pt was seen in the ed - with hx of cad with stents a few yrs ago with episode of heaviness lasted about 2 hrs and was similiar to prev mi - he last had chest pain about 1 week ago - has sleep apnea - MD complaint: chest pain indicative of cardiac Onset (ago): hour(s) Duration: now resolved Activity at onset: during rest Pain location: substernal Severity: severe Quality: heaviness Pain radiation: LUE Associated symptoms: other (dizzyness) Risk Factors for CAD: Hypertension, Hypercholesterolemia, Family Hx of CAD Treatments prior to or on arrival for Cardiac Chest Pain: none - REESE Score for Non-Stemi Age of Patient: 60-69 years old Heart Rate: 50-69 bpm Systolic Blood Pressure: 200 mmhg or higher Serum Creatinine: 0.80-1.19 mg/dl CHF Killip Class: I-No CHF Other Risk Factors: Elevated Cardiac Enzymes or Biomarkers Non-Stemi Risk Score: 82 pt was admitted for eval and treatment with unstable angina [facility] History I have reviewed the patient's past medical history: Yes Medical History: Reports:: Coronary Artery Disease, Deep Vein Thrombosis, Hyperlipidemia, Hypertension, Myocardial Infarction Denies:: Cancer, Diabetes Mellitus Type 1, Diabetes Mellitus Type 2, Internal Pacemaker, MRSA, Seizures *Have you ever received a pneumonia vaccine?: Yes *Have you received a flu vaccine this season?: Yes Other Medical History: Reports: Arthritis. Denies: Blood Transfusion Reaction Laterality Cases: Left: Arthroscopy Shoulder Other Surgeries: Yes: Cardiac Catheterization, Cardiac Surgery, Colonoscopy, Coronary Stent, EGD, Plastic Surgery, Other. No: Pacemaker Amputation: No Fractures: Yes (nose) - *Social History Smoking Status: Former smoker Tobacco Type: smokeless tobacco # Packs/Day (cigarettes): 1 #Yrs smoked (if former smoker): 45 Alcohol Intake: former Alcohol Intake Frequency:: a few times a month Substance Use Type: denies use *Occupational Status:: unemployed Housing: house Household Members: spouse *Travel in the last 8 weeks: None Family Hx:: Cancer, Coronary Artery Disease, Heart Attack Review of Systems - Review of Systems Review of systems:: pertinent systems reviewed and negative unless documented below - Constitutional Denies fever(s) - Eyes Denies change in vision - ENT Denies sore throat - *Cardiovascular Reports chest pain, Reports shortness of breath, Reports lightheadedness - *Respiratory Reports shortness of breath, Denies cough - *Gastrointestinal Denies abdominal pain - *Genitourinary Denies difficulty urinating - *Musculoskeletal Denies joint pain - Integumentary/Breasts Denies rash - *Neurologic Denies seizure-like activity, Denies localized weakness, Denies seizure-like activity - Psychiatric Reports anxiety, Denies thoughts of hurting/killing others, Denies thoughts of hurting/killing yourself Meds Home Medications Medication Instructions Recorded Confirmed Type carvedilol 3.125 mg tablet 3.125 mg PO DAILY 90 Days #180 tab 06/04/18 07/03/20 History nitroglycerin 0.4 mg sublingual 1 mg SUBLINGUAL NEEDED PRN 30 06/04/18 07/03/20 History tablet Days #25 tab Omeprazole 40 mg PO DAILY 08/27/19 07/03/20 History hydrOXYzine pamoate [Vistaril] 25 mg PO HS 08/27/19 07/03/20 History gabapentin 800 mg tablet 800 mg PO TID #90 tab 05/10/20 07/03/20 Rx hydrocodone 7.5 mg-acetaminophen 1 tab PO TID #90 tab 05/10/20 07/03/20 Rx 325 mg tablet Clopidogrel Bisulfate [Plavix] 75 mg PO DAILY 07/03/20 07/03/20 History Rosuvastatin Calcium 20 mg PO DAILY 07/03/20 07/03/20 History Sertraline HCl [Zoloft] 50 mg PO DAILY 07/03/20 07/03/20 Hist
--- NOTE | 2020-07-03 08:28 | PC.NURSE ---
Dr. Gonzalez notified about consult.
--- NOTE | 2020-07-03 08:40 | HMH.PHAVTE ---
[facility] Pharmacy VTE Monitoring - Patient Demographics Admission date: 07/03/20 Report Date: 07/03/20 Time: 08:40 Allergies/Adverse Reactions: Patient Allergies codeine [CODEINE] Allergy (Unknown, Verified 05/10/20 13:37) Height: 1.63 m Weight: 81.788 kg Patient Problems: Current Active Problems Unstable angina pectoris (Acute) Elevated troponin (Acute) Anxiety (Acute) Obesity (BMI 30.0-34.9) (Acute) Hypertension (Acute) Hyperlipidemia LDL goal <100 (Acute) - VTE Risk Labs: VTE Related Lab Results Hgb 13.4 g/dL (14.1-18.0) L 07/03/20 06:42 Hct 38.6 % (42.0-52.0) L 07/03/20 06:42 Plt Count 209 K/mm3 (142-424) 07/03/20 06:42 BUN 8 mg/dl (9-20) L 07/03/20 06:42 Creatinine 0.80 mg/dl (0.66-1.25) 07/03/20 06:42 Estimated Creat Clear 89 mL/min (50-200) 07/03/20 06:42 Was VTE Risk Assessment Performed: Yes VTE Risk Level: High Risk - Prophylaxis VTE Prophylaxis Ordered?: Yes Types of VTE Prophylaxis: TEDS Knee High Location of Applied Device: Bilateral Lower Extremeties
--- NOTE | 2020-07-03 16:12 | PC.NURSE ---
pt has had a good day. he has c/o pain to his back x1, medicated per may. pt states his chest feels sore but no pain. pt walks to restroom w/o issue. call light within reach. vss. will cont. to monitor.
[2020-07-04] VITALS (18 sets, daily range): BP systolic 107–161; BP diastolic 49–84; PULSE 44–70; RESP 14–20; TEMP 36.3–36.8; O2SAT 94–100; BMI 31.2
--- NOTE | 2020-07-04 | IR_ITS ---
APPROVED REPORT Patient Location: Inpatient Box Gluer: BRITNEY Liriano RT (R) PROCEDURES Left heart catheterization Left ventriculogram Selective coronary angiogram Drug-eluting stent deployment to the mid LAD INDICATION Coronary disease, Elevated troponin, Informed consent was obtained prior to the procedure. COMPLICATIONS none Estimated Blood Loss: less thann 10ml TECHNIQUE One percent lidocaine used to anesthetize the right anterior aspect of the wrist. The right radial artery was accessed via the Seldinger technique. A 6 [place] sheath was placed in the right radial artery. 2.5 mg of verapamil, 800 mcg of nitroglycerin, 1mg Lidocaine and 5000 U Heparin were given through the arterial sheath. The trap catheter was also used to perform left heart catheterization, left ventriculogram and selective coronary angiogram. At the end of the diagnostic procedure therapeutic heparin was administered giving a therapeutic ACT. A JL 3 guide catheter was placed in the left main artery and a Choice PT extra-support wire was placed distally. A 3.5 x 15 mm was deployed at 16 pippa reducing the stenosis. A 3.5 x 8 mm noncompliant balloon was then deployed at 22 pippa in order to post dilate a specific area. MARIA-3 flow was present before and after the procedure. 800 mcg of nitroglycerin was administered prior to the last shot. After achieving excellent angiographic results the apparatus was removed the sheath was removed good hemostasis was achieved using TR banding patient was transferred to the postop holding her stable condition ANGIOGRAPHIC RESULTS The left main artery Normal The left anterior descending artery Is proximally normal however immediately after a large first diagonal artery and large septal district medical examiner there is a smooth hazy 20% stenosis followed by an eccentric 70 to 80% stenosis. The remaining LAD is normal. The first diagonal artery as previously mentioned is large and has an ostial 80 to 90% stenosis. The second diagonal artery is also a large 2.5 mm vessel and has a smooth ostial 80 to 90% stenosis The circumflex artery Is nondominant and has mid vessel 30% stenosis The right coronary artery Dominant with proximal 20 to 30% stenosis mild luminal irregularities The SCHERER ventriculogram reveals Preserved at 55 to 60% The left ventricular end-diastolic pressure 15 mmHg IMPRESSION Coronary artery disease as described above Successful stenting of the mid LAD 70 to 80% stenosis reduced to 0% with 1 drug-eluting stent Persistent severe stenosis in the ostial segments of the first and second moderate to large diagonal arteries Preserved ejection fraction Borderline elevated LVEDP PLAN 1. Dual antiplatelet therapy 2. Avoidance of tobacco products 3. Aggressive management for ischemic heart disease with maximizing antianginal medication 4. Goal LDL less than 55 5. I strongly favor medical management for the first and second diagonal artery. Although these can be percutaneously revascularized this would require more complex bifurcating stenting with a stent in the first diagonal artery as well as second diagonal artery which would result and stenting of the proximal through mid segment. If patient has recalcitrant angina pectoris I would recommend revascularizing as described however it would be much more advantageous to continue medical management if patient can tolerate 6. Cardiac rehabilitation Electronically signed by : Dc Gonzalez, 07/04/2020 11:53:44
--- NOTE | 2020-07-04 04:04 | PC.NURSE ---
No acute changes. Pt A&O x4. Has slept well this shift. Has not c/o pain or soa this shift. Pt stated that he feels less anxious. VSS. Pt remains on RA. Lungs are CTA. BS active. Pt has ambulated to with standy assist without any difficulty. NS infusing @ 50 ml/hr. Call light within reach. Will continue to monitor.
--- NOTE | 2020-07-04 07:00 | CA_ITS ---
APPROVED REPORT EXAM: Comprehensive 2D, Doppler, and color-flow Echocardiogram Cable Driller: Clair Baldwin CRT Ht: 5 ft 4 in Wt: 180lbs BSA: 1.87 BP: 140/74 mmHg Indications: COPD, CAD, Hyperlipidemia, Hypertension/HDD, stent, DVT, STENTS, EX SMOKER 2D Dimensions LVOT 1.86 cm (M/F) 1.5-2.5 LA Volume 53.00 mL LA Volume Index 28.30 mL/m2 (M/F) 16-34 M-Mode Dimensions RVDd 2.71 cm (0.9-2.6) LA Diam 3.95 cm (1.9-4.0) LVDd 4.39 cm (3.5-5.7) Ao Diam 3.16 cm (2.0-3.7) LVDs 3.02 cm (3.5-5.7) IVSd 1.51 cm (0.6-1.1) PWd 0.90 cm (0.6-1.1) EF (Teich) 59.20% FS 31.20% EDV (Teich) 87.20 mL TAPSE 2.62 (<1.7) ESV (Teich) 35.60 mL LV Diastology MED E' 8.40 (< 7 cm/sec) MED A' 7.80 cm/s LAT E' 11.80 (<10 cm/sec) LAT A' 7.30 cm/s Aortic Valve AO Peak GR. 10.00 mmHg Pulmonary Valve PV Peak Velocity 88.00 (50-150 cm/s) Tricuspid Valve TR P. Velocity 186.00 cm/s RAP Estimate 10.00 mmHg RVSP 23.80 mmHg Left Ventricle Left atrium is mildly enlarged, left ventricle is normal size, mild concentric left ventricular hypertrophy, visually estimated ejection fraction 55% with no regional wall motion abnormality, diastolic parameters are inconclusive. Right Ventricle Right atrium and right ventricle are normal size and contractility. Aortic Valve Aortic valve is minimally thickened and fibrosed, there is no aortic stenosis or aortic insufficiency. Mitral Valve Mitral valve is grossly normal, there is mild mitral regurgitation. Tricuspid Valve Tricuspid grossly normal, there is mild tricuspid regurgitation, tricuspid regurgitation jet velocity is inadequate for calculation of the right ventricular systolic pressure. Pulmonic Valve Pulmonic valve is poorly visualized. Great Vessels Aortic root is normal size. Pericardium No significant pericardial effusion noted. Conclusion 1. Mildly enlarged left atrium, normal left ventricular size, mild concentric left ventricular hypertrophy, visually estimated ejection fraction 55% with no regional wall motion abnormality, diastolic parameters are inconclusive. 2. Mild mitral and tricuspid regurgitation. 3. No significant pericardial effusion noted. Electronically signed by : Saman Licona, 07/04/2020 21:09:41
--- NOTE | 2020-07-04 07:58 | HMH.CNCARD ---
History of Present Illness Consult date: 07/04/20 Requesting physician: Claudio English (') Consult reason: chest pain Chief complaint: chest pain Additional Medical History:: 1. Hypertension A. Echo, 10/2019, 1. Mildly enlarged left atrium, normal left ventricular size, mild concentric left ventricular hypertrophy, visually estimated ejection fraction 55% with no regional wall motion abnormality, grade 1 diastolic dysfunction seen with tissue Doppler evidence of raise left atrial pressure. 2. Mild mitral and tricuspid regurgitation. 3. No significant pericardial effusion noted. 2. Coronary artery disease with history of 3 coronary stents placed over a period of 10 years with the last one being approximately 2018 in the [place], [place]. A. [facility], 10/2019, aborted due to anxiety/SOA 3. History of left rotator cuff surgery due to injury from horse falling on him. 4. Remote tobacco use, 30 years of smoking 1/2 packs/day discontinued approximately 15 years ago 5. Questionable history of DVT versus pseudoaneurysm post cardiac catheterization approximately 2017 History of present illness: 60-year-old white male with known coronary artery disease and prior history of tobacco use presented to the emergency department for complaint of substernal chest pain that occurred after sweeping floors in his house. Symptoms did not mela with rest which prompted his family member to call EMS for transportation. Patient states it felt like an elephant sitting on his chest. He did receive nitroglycerin in route with some improvement in symptoms. He was evaluated in the ER with application of transdermal nitroglycerin applied with resolution of symptoms thereafter. Patient was admitted for cardiology consultation and further evaluation. Troponins overnight have been mildly elevated but trending down. This morning the patient is pain-free and with his history of coronary artery stenting with symptoms similar to his presentation this admission we discussed recommendation for cardiac catheterization. Similar presentation in October 2019 with similar recommendation the patient did not follow through with cardiac catheterization due to anxiety and shortness of breath. This time the patient states he is on anxiety medication and is willing to proceed with cardiac catheterization. EKG this admission is sinus rhythm with no acute ST segment changes. As stated above troponins mildly elevated but trending down (0.06, 0.05 and 0.04 respectively) [facility] History Medical History: Reports:: Coronary Artery Disease, Deep Vein Thrombosis, Hyperlipidemia, Hypertension, Myocardial Infarction Denies:: Cancer, Diabetes Mellitus Type 1, Diabetes Mellitus Type 2, Internal Pacemaker, MRSA, Seizures *Have you ever received a pneumonia vaccine?: Yes *Have you received a flu vaccine this season?: Yes Other Medical History: Reports: Arthritis. Denies: Blood Transfusion Reaction Laterality Cases: Left: Arthroscopy Shoulder Other Surgeries: Yes: Cardiac Catheterization, Cardiac Surgery, Colonoscopy, Coronary Stent, EGD, Plastic Surgery, Other. No: Pacemaker Amputation: No Fractures: Yes (nose) - *Social History Smoking Status: Former smoker Tobacco Type: smokeless tobacco # Packs/Day (cigarettes): 1 #Yrs smoked (if former smoker): 45 Alcohol Intake: former Alcohol Intake Frequency:: a few times a month Substance Use Type: denies use *Occupational Status:: unemployed Housing: house Household Members: spouse *Travel in the last 8 weeks: None Family Hx:: Cancer, Coronary Artery Disease, Heart Attack Meds Home Medications Medication Instructions Recorded Confirmed Type carvedilol 3.125 mg tablet 3.125 mg PO DAILY 90 Days #180 tab 06/04/18 07/03/20 History Omeprazole 40 mg PO DAILY 08/27/19 07/03/20 History hydrOXYzine pamoate [Vistaril] 25 mg PO HS 08/27/19 07/03/20 History gabapentin 800 mg tablet 800 mg PO TID #90 tab 05/10/20 07/03/20 Rx hydrocodone 7.5 mg-acetaminophen 1
--- NOTE | 2020-07-04 11:17 | PC.NURSE ---
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
[2020-07-04 11:57] LABS: CATHL Activated Clotting Time > 400 SEC (74-125)
--- NOTE | 2020-07-04 12:50 | HMH.ACPN2 ---
Internal Medicine - PN: Subj *Date: 07/05/20 *Time: 07:27 Interval history: pt with some chest pain and will have ht cath today Exam Vital signs and Labs for Last 24 Hours: Temp Pulse Resp BP Pulse Ox 98.3 F 48 L 18 141/70 H 95 07/04/20 08:00 07/04/20 08:00 07/04/20 08:00 07/04/20 08:00 07/04/20 08:00 Laboratory Results - last 24 hr 07/04/20 11:34: Activated Clotting Time > 400 H* I & O for Last 24 hours: Intake & Output 07/02/20 07/03/20 07/04/20 07/05/20 11:59 11:59 11:59 11:59 Intake Total 1480 / 1480 1784 / 1784 Output Total 950 / 950 Balance 1480 / 1480 834 / 834 Weight 180 lb 5 oz 183 lb 3.2 oz - Constitutional no acute distress, obese - *Routine HEENT Exam Head: Present: normocephalic Eye: Present: EOMI, PERRL ENT: Present: mucous membranes dry - *Routine Neck Exam Present: supple. Absent: JVD - *Routine Respiratory Exam Present: CTA bilaterally - *Routine Cardiovascular Exam Present: RRR - *Routine Abdominal Exam Present: soft - *Routine Extremities Exam Absent: edema - *Routine Skin Exam Present: intact - *Routine Neurological Exam Present: alert, oriented X3, CN II-XII intact - Routine Psychiatric Exam Present: normal affect Assessment and Plan (1) Elevated troponin Status: Acute Category: Medical Code(s): R79.89 - Other specified abnormal findings of blood chemistry (2) Hyperlipidemia LDL goal <100 Status: Acute Category: Medical Code(s): E78.5 - Hyperlipidemia, unspecified (3) Hypertension Status: Acute Qualifiers: Hypertension type: essential hypertension Qualified Code(s): I10 - Essential (primary) hypertension Category: Medical Code(s): I10 - Essential (primary) hypertension (4) Obesity (BMI 30.0-34.9) Status: Acute Category: Medical Code(s): E66.9 - Obesity, unspecified (5) Unstable angina pectoris Status: Acute Category: Medical Code(s): I20.0 - Unstable angina (6) Anxiety Status: Acute Category: Medical Code(s): F41.9 - Anxiety disorder, unspecified (7) CAD (coronary artery disease) Status: Acute Category: Medical Code(s): I25.10 - Atherosclerotic heart disease of [place] coronary artery without angina pectoris (8) History of coronary artery stent placement Status: Acute Category: Surgical Code(s): Z95.5 - Presence of coronary angioplasty implant and graft (9) Ex-smoker for more than 1 year Status: Acute Category: Social Hx Code(s): Z87.891 - Personal history of nicotine dependence
--- NOTE | 2020-07-04 19:47 | PC.NURSE ---
Pt alert and oriented and able to make needs known. RR even and unlabored. NAD. PRN tylenol given per may. CB in reach at bedside. VSS. Post cath radial dsg is cdi and has no problems noted. Continues on tele. Has been sb. Educated pt on post cath using r hand/arm. Verbalizes understanding. Report given on pt.
[2020-07-05] VITALS: BP 129/65; PULSE 50; PULSE 54; RESP 16; TEMP 36.7; O2SAT 95
[2020-07-05 04:00] VITALS: BP 135/62; PULSE 59; PULSE 60; RESP 20; TEMP 36.4; O2SAT 98
--- NOTE | 2020-07-05 04:14 | PC.NURSE ---
SHIFT SUMMARY PTS LUNG SOUNDS ARE CLEAR WITH SATS MAINTAINED 95% OR ABOVE ON ROOM AIR, WITH A RATE RANGING FROM 16-18. PT IS ALERT AND ORIENTED X4. pt is able to walk to the restroom unassisted. pt complained of pain once which was relieved with pain meds. pt denies nausea, vomiting, or diarrhea.
[2020-07-05 05:00] VITALS: BMI 32.0
[2020-07-05 06:00] LABS: Basophils % 0.7 % (0.1-2.0); Eosinophils # 0.4 K/mm3 (0.0-0.4); Eosinophils % 6.9 % (0.1-12.0); Hematocrit 40.1 % (42.0-52.0); Hemoglobin 13.5 g/dL (14.1-18.0); Lymphocytes # 2.1 K/mm3 (0.7-4.5); Lymphocytes % 35.7 % (10-50); Mean Corpuscular HGB Conc 33.6 g/dL (31.8-35.4); Mean Corpuscular Volume 86.3 fl (80-94); Mean Platelet Volume 8.3 fl (7.4-10.4); Monocytes # 0.4 K/mm3 (0.1-1.0); Monocytes % 7.2 % (1.7-9.3); Neutrophils # 2.9 K/mm3 (1.8-7.8); Neutrophils % 49.4 % (37.0-80.0); Platelet Count 204 K/mm3 (142-424); Red Blood Count 4.64 M/mm3 (4.60-6.20); White Blood Count 5.8 K/mm3 (4.8-10.8)
[2020-07-05 06:06] LABS: Chloride 107 mmol/L (98-107); Sodium 140 mmol/L (136-145)
[2020-07-05 06:07] LABS: Potassium 4.2 mmoL/L (3.5-5.1)
[2020-07-05 06:10] LABS: Anion Gap 9.2 mEq/L (5-15); Blood Urea Nitrogen 11 mg/dl (9-20); Calcium 9.2 mg/dl (8.4-10.2); Carbon Dioxide 28 mmol/L (22.0-30.0); Creatinine Clearance Estimated 92 mL/min (50-200); Estimated Glomerular Filt Rate 98 ml/min (>60); GFR (African American) 119 ML/MIN (>60); Glucose 137 mg/dl (74-100)
--- NOTE | 2020-07-05 07:41 | HMH.PNCARD ---
Subjective Date: 07/05/20 Time: 07:41 Principal diagnosis: NSTEMI Interval history: 60-year-old white male sitting at bedside eating breakfast in no acute distress. Denies any chest pain, pressure or tightness. Results of his cardiac catheterization and stenting reviewed with him with plans for treatment explained. Patient discontinued smoking about 20 years ago. Exam Vital signs and Labs for Last 24 Hours: Temp Pulse Resp BP Pulse Ox 97.6 F 59 L 20 135/62 98 07/05/20 04:00 07/05/20 04:00 07/05/20 04:00 07/05/20 04:00 07/05/20 04:00 Laboratory Results - last 24 hr 07/04/20 11:34: Activated Clotting Time > 400 H* 07/05/20 05:47: WBC 5.8, RBC 4.64, Hgb 13.5 L, Hct 40.1 L, MCV 86.3, MCH 29.0, MCHC 33.6, RDW 13.0, Plt Count 204, MPV 8.3, Neut % (Auto) 49.4, Lymph % (Auto) 35.7, [place] % (Auto) 7.2, Eos % (Auto) 6.9, Baso % (Auto) 0.7, Neut # (Auto) 2.9, Lymph # (Auto) 2.1, [place] # (Auto) 0.4, Eos # (Auto) 0.4, Baso # (Auto) 0.0 07/05/20 05:47: Sodium 140, Potassium 4.2, Chloride 107, Carbon Dioxide 28, Anion Gap 9.2, BUN 11 D, Creatinine 0.80, Estimated Creat Clear 92, Estimated GFR 98, Est GFR ( Amer) 119, Glucose 137 H, Calcium 9.2 I & O for Last 24 hours: Intake & Output 07/02/20 07/03/20 07/04/20 07/05/20 11:59 11:59 11:59 11:59 Intake Total 1480 / 1480 1784 / 1784 889 / 889 Output Total 950 / 950 1500 / 1500 Balance 1480 / 1480 834 / 834 -611 / -611 Weight 180 lb 5 oz 183 lb 3.2 oz 187 lb 7 oz - Constitutional no acute distress - *Routine HEENT Exam Head: Present: normocephalic Eye: Present: EOMI, PERRL ENT: Present: mucous membranes moist - *Routine Neck Exam Present: supple. Absent: lymphadenopathy - *Routine Respiratory Exam Present: CTA bilaterally - *Routine Cardiovascular Exam Present: RRR - *Routine Abdominal Exam Present: soft, normoactive bowel sounds. Absent: tenderness - *Routine Extremities Exam Absent: cyanosis, clubbing, edema - *Routine Skin Exam Present: warm. Absent: rash - *Routine Neurological Exam Present: alert, oriented X3 Progress Note: A&P (1) NSTEMI (non-ST elevated myocardial infarction) Status: Acute (2) Hyperlipidemia LDL goal <100 Status: Acute (3) Hypertension Status: Acute (4) Obesity (BMI 30.0-34.9) Status: Acute (5) Unstable angina pectoris Status: Acute (6) Anxiety Status: Acute (7) CAD (coronary artery disease) Status: Acute (8) History of coronary artery stent placement Status: Acute (9) Ex-smoker for more than 1 year Status: Acute Assessment and Plan for All Diagnoses:: 1. NSTEMI, s/p LAD stenting. On ASA and plavix. Remaining ostial disease of two diagonals will be treated medically unless recalcitrant angina then consider stenting. 2. HLD, continue statin therapy. LDL 66. 3. Ex smoker for more than 15 yrs 4. HTN, on coreg and HCTZ Okay for discharge home from cardiology standpoint with follow up in our office next week. Pt has decided to transfer his cardiology care to us. Home medication recommendations: Aspirin 81 mg daily Plavix 75 mg daily Atorvastatin 40 mg daily Carvedilol 3.125 mg twice daily HCTZ 25 mg daily
[2020-07-05 08:00] VITALS: BP 143/84; PULSE 50; PULSE 63; RESP 18; TEMP 36.4; O2SAT 99
--- NOTE | 2020-07-05 10:23 | HMH.DCSUM ---
General - General Admission date:: 07/03/20 Discharge date: 07/05/20 HPI HPI: this pt presented to the ed with c/o of chest pain which occurred at rest assoc with dizzyness - felt like weight on chest and lasted about 2 hrs - has hx of cad with stents from about 3 yrs ago- has chest pain weekly and has sig risk factors including matt, obesity, htn - pt was seen in the ed - with hx of cad with stents a few yrs ago with episode of heaviness lasted about 2 hrs and was similiar to prev mi - he last had chest pain about 1 week ago - has sleep apnea - MD complaint: chest pain indicative of cardiac Onset (ago): hour(s) Duration: now resolved Activity at onset: during rest Pain location: substernal Severity: severe Quality: heaviness Pain radiation: LUE Associated symptoms: other (dizzyness) Risk Factors for CAD: Hypertension, Hypercholesterolemia, Family Hx of CAD Treatments prior to or on arrival for Cardiac Chest Pain: none - REESE Score for Non-Stemi Age of Patient: 60-69 years old Heart Rate: 50-69 bpm Systolic Blood Pressure: 200 mmhg or higher Serum Creatinine: 0.80-1.19 mg/dl CHF Killip Class: I-No CHF Other Risk Factors: Elevated Cardiac Enzymes or Biomarkers Non-Stemi Risk Score: 82 pt was admitted for eval and treatment with unstable angina Hospital Course Hospital Course: pt had ongoing element of chest pain in hospital - he was seen by card -. Hypertension A. Echo, 10/2019, 1. Mildly enlarged left atrium, normal left ventricular size, mild concentric left ventricular hypertrophy, visually estimated ejection fraction 55% with no regional wall motion abnormality, grade 1 diastolic dysfunction seen with tissue Doppler evidence of raise left atrial pressure. 2. Mild mitral and tricuspid regurgitation. 3. No significant pericardial effusion noted. 2. Coronary artery disease with history of 3 coronary stents placed over a period of 10 years with the last one being approximately 2018 in the [place], [place]. A. [facility], 10/2019, aborted due to anxiety/SOA 3. History of left rotator cuff surgery due to injury from horse falling on him. 4. Remote tobacco use, 30 years of smoking 1/2 packs/day discontinued approximately 15 years ago 5. Questionable history of DVT versus pseudoaneurysm post cardiac catheterization approximately 2018 History of present illness: 60-year-old white male with known coronary artery disease and prior history of tobacco use presented to the emergency department for complaint of substernal chest pain that occurred after sweeping floors in his house. Symptoms did not mela with rest which prompted his family member to call EMS for transportation. Patient states it felt like an elephant sitting on his chest. He did receive nitroglycerin in route with some improvement in symptoms. He was evaluated in the ER with application of transdermal nitroglycerin applied with resolution of symptoms thereafter. Patient was admitted for cardiology consultation and further evaluation. Troponins overnight have been mildly elevated but trending down. This morning the patient is pain-free and with his history of coronary artery stenting with symptoms similar to his presentation this admission we discussed recommendation for cardiac catheterization. Similar presentation in October 2019 with similar recommendation the patient did not follow through with cardiac catheterization due to anxiety and shortness of breath. This time the patient states he is on anxiety medication and is willing to proceed with cardiac catheterization. EKG this admission is sinus rhythm with no acute ST segment changes. As stated above troponins mildly elevated but trending down (0.06, 0.05 and 0.04 respectively) Chest pain with elevated troponins, consistent with non-ST elevation UT. Recommend proceeding with left heart catheterization today for further evaluation and recommendations. Continue aspirin, Plavix and carvedilol therapy as well as nitrogly
--- NOTE | 2020-07-05 13:15 | HMH.PHACLD ---
Omi Francisco has received discharge medication counseling on the following medications: ASPIRIN 81MG PLAVIX 75MG ATORVASTATIN 40MG CARVEDILOL 3.125MG NOT STARTING AN REDD PER CARDIOLOGY. WILL ADDRESS OUTPATIENT. PATIENT IS SWITCHING FROM ROSUVASTATIN TO ATORVASTATIN. CONTINUING ALL OTHER HOME MEDICATIONS. NEW PRESCRIPTIONS WERE SENT TO CLINIC PHARMACY. PATIENT VERBALIZED UNDERSTANDING AND HAD NO QUESTIONS AT THIS TIME. -LAUREN SEQUEIRA, DAVIDD
== END 2020-07-05 13:44 | disposition home or self-care (01) ==
LOC: ER 02:21 → 2ND 02:28
PROVIDERS: Internal Medicine; Admitting Provider Emergency Medicine; Emergency Provider Emergency Medicine; PCP Emergency Medicine; Visit Provider Emergency Medicine
DX: I21.4 Non-ST elevation (NSTEMI) myocardial infarction (principal); I25.110 Atherosclerotic heart disease of native coronary artery with unstable angina pectoris; G47.30 Sleep apnea, unspecified; Z95.5 Presence of coronary angioplasty implant and graft; Z88.5 Allergy status to narcotic agent; Z86.718 Personal history of other venous thrombosis and embolism; I10 Essential (primary) hypertension; I25.2 Old myocardial infarction; M19.90 Unspecified osteoarthritis, unspecified site; I08.1 Rheumatic disorders of both mitral and tricuspid valves; Z87.891 Personal history of nicotine dependence; F41.9 Anxiety disorder, unspecified; E66.9 Obesity, unspecified; E78.00 Pure hypercholesterolemia, unspecified; Z82.49 Family history of ischemic heart disease and other diseases of the circulatory system; Z68.31 Body mass index [BMI] 31.0-31.9, adult
CPT/HCPCS: 36415; 71046; 80048; 80053; 80061; 81001; 83735; 84484; 85025; 85347; 85651; 86140; 87581; 87633; 87798; 92928; 93005; 93306; 93458; 99152; 99284; C1725; C1769; C1874; C9600; G0378; J1644; Q9967

== ENCOUNTER → 2020-07-12 14:25 | Outpatient (CLI) | payer MEDICARE, MEDICAID, SELFPAY ==
[2020-07-12 14:40] LABS: Hematocrit 43.2 % (42.0-52.0); Hemoglobin 14.5 g/dL (14.1-18.0)
[2020-07-12 14:50] LABS: Blood Urea Nitrogen 9 mg/dl (9-20); Estimated Glomerular Filt Rate 86 ml/min (>60); GFR (African American) 103 ML/MIN (>60)
== END ==
PROVIDERS: Visit Provider Internal Medicine
DX: I20.0 Unstable angina (principal)
CPT/HCPCS: 36415; 82565; 84520; 85014; 85018

== ENCOUNTER → 2020-07-19 11:04 | Outpatient (CLI) | payer MEDICARE, MEDICAID, SELFPAY ==
--- NOTE | 2020-07-19 11:13 | CA_ITS ---
APPROVED REPORT Fur Nailer: KAHLIL Laterality: Bilateral Study Quality: Good Indications: Bilateral carotid stenosis, ex-smoker, HLD, HTN, CAD with stents Risk Factors Hypertension: Hyperlipidemia Doppler Spectral Velocity Analysis ECA (R) 155.10/21.20 cm/s ECA (L) 168.50/25.00 cm/s dICA (R) 95.40/33.70 cm/s dICA (L) 120.40/33.70 cm/s Irma (R) 124.20/36.60 cm/s Irma (L) 143.50/49.10 cm/s pICA (R) 82.80/24.10 cm/s pICA (L) 131.00/33.70 cm/s dCCA (R) 92.50/26.60 cm/s dCCA (L) 86.70/23.10 cm/s pCCA (R) 95.20/27.80 cm/s pCCA (L) 116.50/26.00 cm/s Vert (R) 53.90/15.40 cm/s Vert (L) 53.90/13.50 cm/s ICA/CCA 1.34 ICA/CCA 1.67 Findings Duplex evaluation demonstrates stenosis of the right proximal internal carotid artery in the range of 20-49% with PSV <140 cm/sec, EDV <100 cm/sec, and IC/CC Ratio <4.0.Duplex evaluation demonstrates stenosis of the left proximal internal carotid artery in the range of 50-69% with PSV =140 cm/sec, EDV <100 cm/sec, and IC/CC Ratio <4.0. Duplex evaluation demonstrates antegrade flow of the bilateral Vertebral Arteries. B-Mode Ultrasound demonstrates mild intraluminal plaque in the left internal Carotid Artery. Conclusion Duplex evaluation demonstrates stenosis of the right proximal internal carotid artery in the range of 20-49% with PSV <140 cm/sec, EDV <100 cm/sec, and IC/CC Ratio <4.0.Duplex evaluation demonstrates stenosis of the left proximal internal carotid artery in the range of 50-69% with PSV =140 cm/sec, EDV <100 cm/sec, and IC/CC Ratio <4.0. Duplex evaluation demonstrates antegrade flow of the bilateral Vertebral Arteries. B-Mode Ultrasound demonstrates mild intraluminal plaque in the left internal Carotid Artery. Electronically signed by : Dio Lee MD 07/19/2020 17:30:52
[2020-07-19 14:18] LABS: Benzodiazepines Screen,Urine Negative ng/ml (<200)
[2020-07-19 14:19] LABS: Amphetamine/Metha Screen,Urine Negative ng/ml (<1000)
[2020-07-19 14:20] LABS: Barbiturates Screen,Urine Negative ng/ml (<200); Cannabinoid Screen,Urine Negative ng/ml (<50)
[2020-07-19 14:21] LABS: Cocaine Screen,Urine Negative ng/ml (<300); Methadone Screen,Urine Negative ng/ml (<300)
[2020-07-19 14:22] LABS: Opiate Screen,Urine Positive ng/ml (<300)
[2020-07-19 14:23] LABS: Phencyclidine Screen,Urine Negative ng/ml (<25)
== END ==
PROVIDERS: PCP Emergency Medicine; Visit Provider Physician Assistant
DX: I65.23 Occlusion and stenosis of bilateral carotid arteries (principal); M47.816 Spondylosis without myelopathy or radiculopathy, lumbar region
CPT/HCPCS: 80305; 93880

== ENCOUNTER → 2020-07-19 13:41 | Outpatient (CLI) | payer MEDICARE, MEDICAID, SELFPAY | PROVIDERS: Visit Provider Emergency Medicine | DX: M47.816 Spondylosis without myelopathy or radiculopathy, lumbar region (principal) | CPT/HCPCS: 80305 ==

== ENCOUNTER 2020-09-11 02:26 | Observation (INO) | payer MEDICARE, MEDICAID, SELFPAY ==
[2020-09-11] VITALS (17 sets, daily range): BP systolic 123–169; BP diastolic 61–81; PULSE 50–73; RESP 12–18; TEMP 36.4–36.6; O2SAT 94–99; BMI 32.5; BMI 30.9
--- NOTE | 2020-09-11 02:26 | ECG_ITS ---
APPROVED REPORT Exam: Resting ECG HR:67 bpm ECG Measurements Heart Rate 67 AXES MO 188 P 39 QRSd 92 QRS -19 QT 380 T 60 QTc 401 Conclusion Sinus rhythm with premature atrial complexes with aberrant conduction Otherwise normal ECG Electronically signed by : Jewel Alcala, 09/12/2020 17:32:53
--- NOTE | 2020-09-11 02:34 | XR_ITS ---
PROCEDURE INFORMATION: Exam: XR Chest Exam date and time: 09/11/2020 2:34 AM Age: 60 years old Clinical indication: Left-sided; Prior surgery; Surgery date: 6+ months; Surgery type: Stents; Patient HX: Left sided chest pain, nonsmoker; Additional info: Cp TECHNIQUE: Imaging protocol: XR of the chest. Views: 2 views. COMPARISON: CR XR CHEST 2V 07/03/2020 12:34 AM FINDINGS: Lungs: Unremarkable. No consolidation. Pleural spaces: Unremarkable. No pleural effusion. No pneumothorax. Heart/Mediastinum: Unremarkable. No cardiomegaly. Bones/joints: Left humeral head suture anchors unchanged in position. IMPRESSION: No acute findings.
[2020-09-11 02:41] LABS: Basophils # 0.1 K/mm3 (0-0.2); Basophils % 0.5 % (0.1-2.0); Eosinophils # 0.3 K/mm3 (0.0-0.4); Eosinophils % 2.4 % (0.1-12.0); Hematocrit 41.6 % (42.0-52.0); Hemoglobin 13.9 g/dL (14.1-18.0); Lymphocytes # 2.2 K/mm3 (0.7-4.5); Lymphocytes % 19.4 % (10-50); Mean Corpuscular HGB Conc 33.4 g/dL (31.8-35.4); Mean Corpuscular Volume 86.7 fl (80-94); Monocytes # 0.7 K/mm3 (0.1-1.0); Monocytes % 6.4 % (1.7-9.3); Neutrophils # 8.2 K/mm3 (1.8-7.8); Neutrophils % 71.3 % (37.0-80.0); Platelet Count 208 K/mm3 (142-424); Red Blood Count 4.79 M/mm3 (4.60-6.20); Red Cell Distribution Width 13.4 % (11.5-17.5); White Blood Count 11.5 K/mm3 (4.8-10.8)
[2020-09-11 02:45] LABS: Alanine Aminotransferase 24 U/L (12-78); Albumin Level 4.3 g/dl (3.5-5.0); Albumin/Globulin Ratio 1.6 (1.1-1.8); Alkaline Phosphatase 66 U/L (38-126); Anion Gap 11.7 mEq/L (5-15); Aspartate Amino Transferase 27 U/L (17-59); Bilirubin,Total 0.5 mg/dl (0.2-1.3); Blood Urea Nitrogen 5 mg/dl (9-20); Calcium 9.4 mg/dl (8.4-10.2); Carbon Dioxide 27 mmol/L (22.0-30.0); Chloride 105 mmol/L (98-107); Creatinine Clearance Estimated 93 mL/min (50-200); Estimated Glomerular Filt Rate 86 ml/min (>60); GFR (African American) 103 ML/MIN (>60); Globulin 2.7 g/dL (1.3-3.2); Glucose 95 mg/dl (74-100); Potassium 3.7 mmoL/L (3.5-5.1); Sodium 140 mmol/L (136-145)
[2020-09-11 02:50] LABS: C-Reactive Protein 21.3 mg/L (0-4)
[2020-09-11 02:57] LABS: Microscopic, Urine URINE MICROSCOPIC (MICROSCOPIC)
[2020-09-11 02:58] LABS: Troponin I 0.02 ng/ml (0.00-0.034)
[2020-09-11 02:59] LABS: Appearance,Urine SL CLOUDY (Clear); Bilirubin,Urine Negative (Negative); Blood, Urine Negative (Negative); Color,Urine STRAW (Yellow); Glucose,Urine (UA) Negative (Negative); Ketones,Urine Negative (Negative); Leukocyte Esterase,Urine 2+ (Negative); Nitrate,Urine Negative (Negative); Protein,Urine Negative (Negative); Urobilinogen,Urine 0.2 EU/dl (0.2)
[2020-09-11 03:03] LABS: Procalcitonin 0.071 ng/mL (0.0-2.0)
[2020-09-11 03:03] LABS: Coronavirus 19, PCR Not Detected (NotDetected); Influenza A, PCR Not Detected (NotDetected); Influenza B, PCR Not Detected (NotDetected)
[2020-09-11 03:07] LABS: Bacteria,Urine Trace /lpf; Squamous Epithelial Cell,Urine Occasional #/hpf (0-5)
[2020-09-11 03:08] LABS: Erythrocyte Sedimentation Rate 15 mm/hr (0-20)
--- NOTE | 2020-09-11 04:39 | HMH.EDCP ---
ED Disposition Clinical Impression: Unstable angina, Obesity (BMI 30.0-34.9) CAD (coronary artery disease) Qualifiers: Coronary Disease-Associated Artery/Lesion type: wiyot artery [place] vs. transplanted heart: wiyot heart Associated angina: with unstable angina Qualified Code(s): I25.110 - Atherosclerotic heart disease of wiyot coronary artery with unstable angina pectoris UTI (urinary tract infection) Qualifiers: Urinary tract infection type: site unspecified Hematuria presence: without hematuria Qualified Code(s): N39.0 - Urinary tract infection, site not specified Disposition: Admitted as Observation Condition on Discharge: Good - Critical Care Critical Care Time: No Attestation: On 09/11/20, the high probability of a clinically significant, sudden or life threatening deterioration of the following system(s) required my full and direct attention, intervention and personal management. The time I documented below is in addition to time spent performing reported procedures but includes the following listed in this critical care notation. Medical Decision Making - Medical Records Medical records reviewed: Yes: I reviewed the patient's medical records. - Rodri Inquiry Pt receiving controlled substance: No Vital Signs: 09/11/20 02:27 09/11/20 02:30 09/11/20 02:41 Temperature 97.8 F Temperature Source Oral Pulse Rate 71 73 Pulse Rate [Right] 65 Respiratory Rate 16 15 12 Blood Pressure 167/81 H 125/73 Blood Pressure [Right Arm] 167/81 H Blood Pressure Mean [Right Arm] 109 02 Sat by Pulse Oximetry 97 94 L 94 L 09/11/20 02:46 09/11/20 02:59 09/11/20 03:30 Temperature Temperature Source Pulse Rate 72 61 60 Pulse Rate [Right] Respiratory Rate 12 12 16 Blood Pressure 149/76 H 155/76 H 138/72 Blood Pressure [Right Arm] Blood Pressure Mean [Right Arm] 02 Sat by Pulse Oximetry 95 98 95 09/11/20 03:58 09/11/20 04:00 09/11/20 04:31 Temperature 99.9 F H Temperature Source Rectal Pulse Rate 154 H 60 63 Pulse Rate [Right] Respiratory Rate 26 H 13 18 Blood Pressure 00/00 L 137/72 129/61 Blood Pressure [Right Arm] Blood Pressure Mean [Right Arm] 02 Sat by Pulse Oximetry 95 95 - Lab Data Lab results reviewed: Yes: I reviewed the patient's lab results. Lab Results 09/11/20 02:27: WBC 11.5 H, RBC 4.79, Hgb 13.9 L, Hct 41.6 L, MCV 86.7, MCH 29.0, MCHC 33.4, RDW 13.4, Plt Count 208, MPV 8.0, Neut % (Auto) 71.3, Lymph % (Auto) 19.4, [place] % (Auto) 6.4, Eos % (Auto) 2.4, Baso % (Auto) 0.5, Neut # (Auto) 8.2 H, Lymph # (Auto) 2.2, [place] # (Auto) 0.7, Eos # (Auto) 0.3, Baso # (Auto) 0.1, ESR 15 09/11/20 02:27: Sodium 140, Potassium 3.7, Chloride 105, Carbon Dioxide 27, Anion Gap 11.7, BUN 5 L, Creatinine 0.90, Estimated Creat Clear 93, Estimated GFR 86, Est GFR ( Amer) 103, Glucose 95, Calcium 9.4, Total Bilirubin 0.5, AST 27, ALT 24, Alkaline Phosphatase 66, Troponin I 0.02, C-Reactive Protein 21.3 H, Total Protein 7.0, Albumin 4.3, Globulin 2.7, Albumin/Globulin Ratio 1.6, Procalcitonin 0.071 09/11/20 02:53: Urine Color Straw, Urine Appearance Sl cloudy, Urine pH 7.0, Ur Specific [place] 1.010, Urine Protein Negative, Urine Glucose (UA) Negative, Urine Ketones Negative, Urine Blood Negative, Urine Nitrate Negative, Urine Bilirubin Negative, Urine Urobilinogen 0.2, Ur Leukocyte Esterase 2+ A, Urine WBC 10-20, Ur Squamous Epith Cells Occasional, Urine Bacteria Trace 09/11/20 02:53: SARS-CoV-2 (PCR) Not detected, Influenza A Untype (PCR) Not detected, Influenza Type B (PCR) Not detected Result diagrams: 09/11/20 02:27 09/11/20 02:27 Orders (Tests/Meds): ED MEDICATIONS Generic Name Dose Route Start Last Admin Trade Name Freq PRN Reason Stop Dose Admin Sodium Chloride 1,000 mls @ 999 mls/hr 09/11/20 02:45 09/11/20 02:38 Sod Chlor 0.9% 1000ml Bag IV 09/11/20 03:45 999 mls/hr .Q1H1M MELISSA Administration Nitroglycerin 0.4 mg 09/11/20 02:36 09/11/20 02
[2020-09-11 05:35] LABS: Troponin I 0.02 ng/ml (0.00-0.034)
--- NOTE | 2020-09-11 06:03 | PC.NURSE ---
PT. ARRIVED TO [facility] VIA WHEELCHAIR AT [id number]
[2020-09-11 07:29] LABS: Chloride 107 mmol/L (98-107); Potassium 4.5 mmoL/L (3.5-5.1); Sodium 142 mmol/L (136-145)
[2020-09-11 07:32] LABS: Anion Gap 11.5 mEq/L (5-15); Blood Urea Nitrogen 6 mg/dl (9-20); Calcium 8.9 mg/dl (8.4-10.2); Carbon Dioxide 28 mmol/L (22.0-30.0); Creatinine Clearance Estimated 89 mL/min (50-200); Estimated Glomerular Filt Rate 98 ml/min (>60); GFR (African American) 119 ML/MIN (>60); Glucose 111 mg/dl (74-100); Magnesium 1.9 mg/dl (1.6-2.3)
[2020-09-11 07:40] LABS: Basophils % 0.4 % (0.1-2.0); Eosinophils # 0.2 K/mm3 (0.0-0.4); Eosinophils % 2.6 % (0.1-12.0); Hematocrit 38.5 % (42.0-52.0); Hemoglobin 13.2 g/dL (14.1-18.0); Lymphocytes # 2.1 K/mm3 (0.7-4.5); Mean Corpuscular HGB Conc 34.3 g/dL (31.8-35.4); Mean Corpuscular Hemoglobin 29.2 pg (27.0-31.2); Mean Corpuscular Volume 85.2 fl (80-94); Mean Platelet Volume 7.4 fl (7.4-10.4); Monocytes # 0.5 K/mm3 (0.1-1.0); Monocytes % 5.5 % (1.7-9.3); Neutrophils # 6.1 K/mm3 (1.8-7.8); Neutrophils % 67.5 % (37.0-80.0); Platelet Count 180 K/mm3 (142-424); Red Blood Count 4.52 M/mm3 (4.60-6.20); Red Cell Distribution Width 13.4 % (11.5-17.5)
--- NOTE | 2020-09-11 09:02 | HMH.HP ---
*Admission Date: 09/11/20 *Chief complaint: chest pain *History of present illness: this patient presented to the ed with acute onset of chest tightness with nausea - pt has sig hx of cad with recent stents - pt has been compliant with meds - pt was felt to have unstable angina and was admitted for eval and treatment [facility] History I have reviewed the patient's past medical history: Yes Medical History: Reports:: Congestive Heart Failure, Coronary Artery Disease, Deep Vein Thrombosis, Hyperlipidemia, Hypertension, Myocardial Infarction Denies:: Cancer, Diabetes Mellitus Type 1, Diabetes Mellitus Type 2, Internal Pacemaker, MRSA, Seizures *Have you ever received a pneumonia vaccine?: No *Have you received a flu vaccine this season?: Yes Other Medical History: Reports: Arthritis. Denies: Blood Transfusion Reaction Laterality Cases: Left: Arthroscopy Shoulder Other Surgeries: Yes: No Previous Surgery, Cardiac Catheterization, Cardiac Surgery, Colonoscopy, Coronary Stent, EGD, Plastic Surgery, Other. No: Pacemaker Amputation: No Fractures: Yes (nose) - *Social History Last grade of school completed: 9th or 10th Smoking Status: Former smoker Tobacco Type: smokeless tobacco # Packs/Day (cigarettes): 1 #Yrs smoked (if former smoker): 45 Alcohol Intake: never Alcohol Intake Frequency:: a few times a month Substance Use Type: denies use *Occupational Status:: retired Housing: house Household Members: spouse *Travel in the last 8 weeks: None Family Hx:: Cancer, Coronary Artery Disease, Heart Attack Review of Systems - Review of Systems Review of systems:: pertinent systems reviewed and negative unless documented below - Constitutional Denies fever(s) - Eyes Denies change in vision - ENT Denies sore throat - *Cardiovascular Reports chest pain, Reports chest pain at rest - *Respiratory Denies cough - *Gastrointestinal Denies abdominal pain - *Genitourinary Denies blood in urine - *Musculoskeletal Denies joint pain, Denies joint swelling - Integumentary/Breasts Denies rash - *Neurologic Denies headache(s), Denies seizure-like activity - Psychiatric Denies behavioral changes Meds Home Medications Medication Instructions Recorded Confirmed Type Omeprazole 40 mg PO DAILY 08/27/19 09/11/20 History hydrOXYzine pamoate [Vistaril] 25 mg PO HS 08/27/19 09/11/20 History Fenofibrate Nanocrystallized 145 mg PO DAILY 07/03/20 09/11/20 History [Fenofibrate] Nitroglycerin [Nitrostat 0.4mg SL 0.4 mg SL Q5MINP PRN 07/03/20 09/11/20 History Tablet] Sertraline HCl [Zoloft] 50 mg PO DAILY 07/03/20 09/11/20 History Clopidogrel Bisulfate [Plavix] 75 mg PO DAILY #90 tab 07/05/20 09/11/20 Rx carvediloL [Carvedilol 3.125mg Tab] 3.125 mg PO BID 90 Days #180 tab 07/05/20 09/11/20 Rx hydroCHLOROthiazide [HCTZ 25mg 25 mg PO DAILY #90 tab 07/05/20 09/11/20 Rx tab] clonazepam 0.5 mg tablet 0.5 mg PO TID #90 tab 07/19/20 09/11/20 Rx gabapentin 800 mg tablet 800 mg PO TID #90 tab 07/19/20 09/11/20 Rx hydrocodone 7.5 mg-acetaminophen 1 tab PO TID #90 tab 07/19/20 09/11/20 Rx 325 mg tablet Aspirin [Aspirin 81mg EC Tab] 81 mg PO DAILY 09/11/20 09/11/20 History Atorvastatin Calcium [Lipitor 40mg 40 mg PO HS 09/11/20 09/11/20 History Tablet*] Trazodone HCl See Rx Instructions .ROUTE .COMPLEX 09/11/20 09/11/20 History Allergies Allergy/AdvReac Type Severity Reaction Status Date / Time codeine [CODEINE] Allergy Unknown Verified 07/28/20 09:57 Exam Vital signs and Labs for Last 24 Hours: Temp Pulse Resp BP Pulse Ox 97.9 F 58 L 18 129/68 96 09/11/20 07:30 09/11/20 07:30 09/11/20 07:30 09/11/20 07:30 09/11/20 07:30 Laboratory Results - last 24 hr 09/11/20 02:27: WBC 11.5 H, RBC 4.79, Hgb 13.9 L, Hct 41.6 L, MCV 86.7, MCH 29.0, MCHC 33.4, RDW 13.4, Plt Count 208, MPV 8.0, Neut % (Auto) 71.3, Lymph % (Auto) 19.4, [place] % (Auto) 6.4, Eos % (Auto) 2.4, Baso % (Auto) 0.5, Neut # (Auto) 8.2 H,
[2020-09-11 10:06] LABS: Troponin I 0.01 ng/ml (0.00-0.034)
--- NOTE | 2020-09-11 10:24 | HMH.PHAVTE ---
[facility] Pharmacy VTE Monitoring - Patient Demographics Admission date: 09/11/20 Report Date: 09/11/20 Time: 10:24 Allergies/Adverse Reactions: Patient Allergies codeine [CODEINE] Allergy (Unknown, Verified 07/28/20 09:57) Height: 1.63 m Weight: 82.157 kg Patient Problems: Current Active Problems Unstable angina pectoris (Acute) CAD (coronary artery disease) (Acute) History of coronary artery stent placement (Acute) UTI (urinary tract infection) (Acute) Obesity (BMI 30.0-34.9) (Acute) Hypertension (Acute) Hyperlipidemia LDL goal <100 (Acute) - VTE Risk Labs: VTE Related Lab Results Hgb 13.2 g/dL (14.1-18.0) L 09/11/20 07:14 Hct 38.5 % (42.0-52.0) L 09/11/20 07:14 Plt Count 180 K/mm3 (142-424) 09/11/20 07:14 BUN 6 mg/dl (9-20) L 09/11/20 07:14 Creatinine 0.80 mg/dl (0.66-1.25) 09/11/20 07:14 Estimated Creat Clear 89 mL/min (50-200) 09/11/20 07:14 - Prophylaxis Types of VTE Prophylaxis: TEDS Knee High Location of Applied Device: Bilateral Lower Extremeties (ZAHRA HOSE ORDER PLACED)
--- NOTE | 2020-09-11 11:47 | PC.NURSE ---
AT 1130 PT CALLED OUT AND STATED HE NEEDED TO SIGN HIMSELF OUT. PT STATED THAT HIS SON HAD BEEN ARRESTED AND IS BEING CHARGED FOR WANTON ENDANGERMENT AND HE NEEDED TO GO TO THE POLICE STATION TO MAKE SURE HIS SON WAS OKAY. LIQUOR MAKER WAS NOTIFIED AND PT WAS INSTRUCTED TO COME BACK TO THE ED IF HE HAD ANYMORE CHEST PAIN. PT STATED HE WOULD MAKE A FOLLOW UP APPOINTMENT TOMORROW WITH PCP. NOTIFIED PHYSICIAN JOINERY FACTORY WORKER FOR .
--- NOTE | 2020-09-12 10:09 | HMH.DCSUM ---
General - General Admission date:: 09/11/20 Discharge date: 09/12/20 HPI HPI: this patient presented to the ed with acute onset of chest tightness with nausea - pt has sig hx of cad with recent stents - pt has been compliant with meds - pt was felt to have unstable angina and was admitted for eval and treatment Hospital Course Hospital Course: Laboratory Tests 09/11/20 09/11/20 09/11/20 02:27 02:27 02:53 WBC 11.5 H RBC 4.79 Hgb 13.9 L Hct 41.6 L MCV 86.7 MCH 29.0 MCHC 33.4 RDW 13.4 Plt Count 208 MPV 8.0 Neut % (Auto) 71.3 Lymph % (Auto) 19.4 [place] % (Auto) 6.4 Eos % (Auto) 2.4 Baso % (Auto) 0.5 Neut # (Auto) 8.2 H Lymph # (Auto) 2.2 [place] # (Auto) 0.7 Eos # (Auto) 0.3 Baso # (Auto) 0.1 ESR 15 Sodium 140 Potassium 3.7 Chloride 105 Carbon Dioxide 27 Anion Gap 11.7 BUN 5 L Creatinine 0.90 Estimated Creat Clear 93 Estimated GFR 86 Est GFR ( Amer) 103 Glucose 95 Calcium 9.4 Magnesium Total Bilirubin 0.5 AST 27 ALT 24 Alkaline Phosphatase 66 Troponin I 0.02 C-Reactive Protein 21.3 H Total Protein 7.0 Albumin 4.3 Globulin 2.7 Albumin/Globulin Ratio 1.6 Procalcitonin 0.071 Urine Color Straw Urine Appearance Sl cloudy Urine pH 7.0 Ur Specific Jerome 1.010 Urine Protein Negative Urine Glucose (UA) Negative Urine Ketones Negative Urine Blood Negative Urine Nitrate Negative Urine Bilirubin Negative Urine Urobilinogen 0.2 Ur Leukocyte Esterase 2+ A Urine WBC 10-20 Ur Squamous Epith Cells Occasional Urine Bacteria Trace SARS-CoV-2 (PCR) Influenza A Untype (PCR) Influenza Type B (PCR) 09/11/20 09/11/20 09/11/20 02:53 05:09 07:14 WBC 9.0 RBC 4.52 L Hgb 13.2 L Hct 38.5 L MCV 85.2 MCH 29.2 MCHC 34.3 RDW 13.4 Plt Count 180 MPV 7.4 Neut % (Auto) 67.5 Lymph % (Auto) 24.0 [place] % (Auto) 5.5 Eos % (Auto) 2.6 Baso % (Auto) 0.4 Neut # (Auto) 6.1 Lymph # (Auto) 2.1 [place] # (Auto) 0.5 Eos # (Auto) 0.2 Baso # (Auto) 0.0 ESR Sodium Potassium Chloride Carbon Dioxide Anion Gap BUN Creatinine Estimated Creat Clear Estimated GFR Est GFR ( Amer) Glucose Calcium Magnesium Total Bilirubin AST ALT Alkaline Phosphatase Troponin I 0.02 C-Reactive Protein Total Protein Albumin Globulin Albumin/Globulin Ratio Procalcitonin Urine Color Urine Appearance Urine pH Ur Specific Jerome Urine Protein Urine Glucose (UA) Urine Ketones Urine Blood Urine Nitrate Urine Bilirubin Urine Urobilinogen Ur Leukocyte Esterase Urine WBC Ur Squamous Epith Cells Urine Bacteria SARS-CoV-2 (PCR) Not detected Influenza A Untype (PCR) Not detected Influenza Type B (PCR) Not detected 09/11/20 09/11/20 07:14 08:48 WBC RBC Hgb Hct MCV MCH MCHC RDW Plt Count MPV Neut % (Auto) Lymph % (Auto) [place] % (Auto) Eos % (Auto) Baso % (Auto) Neut # (Auto) Lymph # (Auto) [place] # (Auto) Eos # (Auto) Baso # (Auto) ESR Sodium 142 Potassium 4.5 D Chloride 107 Carbon Dioxide 28 Anion Gap 11.5 BUN 6 L Creatinine 0.80 Estimated Creat Clear 89 Estimated GFR 98 Est GFR ( Amer) 119 Glucose 111 H Calcium 8.9 Magnesium 1.9 Total Bilirubin AST ALT Alkaline Phosphatase Troponin I 0.01 C-Reactive Protein Total Protein Albumin Globulin Albumin/Globulin Ratio Procalcitonin Urine Color Urine Appearance Urine pH Ur Specific Jerome Urine Protein Urine Glucose (UA) Urine Ketones Urine Blood Urine Nitrate Urine Bilirubin Urine Urobilinogen Ur Leukocyte Esterase Urine WBC Ur Squamous Epith
== END 2020-09-11 11:45 | disposition left against medical advice (07) ==
LOC: ER 04:01 → 2ND 05:40
PROVIDERS: Admitting Provider Emergency Medicine; Emergency Provider Emergency Medicine; PCP Emergency Medicine; Visit Provider Emergency Medicine
DX: I25.110 Atherosclerotic heart disease of native coronary artery with unstable angina pectoris (principal); I11.0 Hypertensive heart disease with heart failure; I25.2 Old myocardial infarction; Z95.5 Presence of coronary angioplasty implant and graft; Z79.899 Other long term (current) drug therapy; I50.9 Heart failure, unspecified
CPT/HCPCS: 71046; 80048; 80053; 81001; 83735; 84145; 84484; 85025; 85651; 86140; 87086; 87088; 87186; 93005; 96365; 96375; 96376; 99284; G0378; J2405; U0003

== ENCOUNTER 2020-09-11 18:26 | Observation (INO) | payer MEDICARE, MEDICAID, SELFPAY ==
--- NOTE | 2020-09-11 18:25 | ECG_ITS ---
APPROVED REPORT Exam: Resting ECG HR:64 bpm ECG Measurements Heart Rate 64 AXES VT 190 P 45 QRSd 92 QRS -13 QT 404 T 61 QTc 416 Conclusion Sinus rhythm with premature atrial complexes with aberrant conduction Otherwise normal ECG Electronically signed by : Jewel Alcala, 09/12/2020 17:32:09
--- NOTE | 2020-09-11 18:28 | XR_ITS ---
PROCEDURE INFORMATION: Exam: XR Chest Exam date and time: 09/11/20 06:28 PM Age: 60 years old Clinical indication: Left-sided; Patient HX: Left sided chest pain into left arm, nonsmoker; Additional info: Cp TECHNIQUE: Imaging protocol: XR of the chest. Views: 1 view. COMPARISON: CR XR CHEST 2V 09/11/20 02:47 AM FINDINGS: Lungs: Unremarkable. No consolidation. Pleural spaces: Unremarkable. No pleural effusion. No pneumothorax. Heart/Mediastinum: Unremarkable. No cardiomegaly. Bones/joints: Internal fixation left shoulder. Degenerative changes in the AC joints bilaterally. IMPRESSION: No acute cardiopulmonary disease.
[2020-09-11 18:29] VITALS: BP 128/67; PULSE 66; RESP 16; TEMP 36.7; O2SAT 96; BMI 30.9
--- NOTE | 2020-09-11 18:34 | HMH.EDGENADL ---
ED Disposition Clinical Impression: Unstable angina UTI (urinary tract infection) Qualifiers: Urinary tract infection type: acute cystitis Hematuria presence: without hematuria Qualified Code(s): N30.00 - Acute cystitis without hematuria Disposition: Admitted as Observation Condition on Discharge: Fair Referrals: Provider,Referral, [Referring] - - Critical Care Critical Care Time: No Attestation: On 09/11/20, the high probability of a clinically significant, sudden or life threatening deterioration of the following system(s) required my full and direct attention, intervention and personal management. The time I documented below is in addition to time spent performing reported procedures but includes the following listed in this critical care notation. Medical Decision Making - Medical Records Medical records reviewed: Yes: I reviewed the patient's medical records. MR Comment: Reviewed emergency department record and history and physical from admission this morning. Patient also discovered to have a urinary tract infection and was on ceftriaxone. Reviewed most recent echocardiogram and cardiac cath results, see below - Rodri Inquiry Pt receiving controlled substance: No Vital Signs: 09/11/20 18:29 09/11/20 19:00 09/11/20 19:30 Temperature 98.1 F Temperature Source Oral Pulse Rate 70 71 Pulse Rate [Right] 66 Respiratory Rate 16 17 16 Blood Pressure 134/64 128/75 Blood Pressure [Right Arm] 128/67 Blood Pressure Mean [Right Arm] 87 Blood Pressure Position [Right Arm] Sitting 02 Sat by Pulse Oximetry 96 94 L 93 L Oxygen Delivery Method Room Air - Lab Data Lab Results 09/11/20 18:28: WBC 9.5, RBC 4.60, Hgb 13.2 L, Hct 38.3 L, MCV 83.4, MCH 28.7, MCHC 34.5, RDW 13.3, Plt Count 198, MPV 7.8, Neut % (Auto) 73.1, Lymph % (Auto) 18.3, [place] % (Auto) 5.5, Eos % (Auto) 2.5, Baso % (Auto) 0.6, Neut # (Auto) 6.9, Lymph # (Auto) 1.7, [place] # (Auto) 0.5, Eos # (Auto) 0.2, Baso # (Auto) 0.1 09/11/20 18:28: Sodium 137, Potassium 3.6, Chloride 102, Carbon Dioxide 25, Anion Gap 13.6, BUN 7 L, Creatinine 0.80, Estimated Creat Clear 88, Estimated GFR 98, Est GFR ( Amer) 119, Glucose 173 H D, Calcium 9.1, Troponin I < 0.01 Result diagrams: 09/11/20 18:28 09/11/20 18:28 Orders (Tests/Meds): ORDERS Category Date Time Status Troponin I Q3H Lab 09/11/20 21:30 Ordered Troponin I Q3H Lab 09/12/20 00:30 Ordered most recent ECHO: Conclusion 1. Mildly enlarged left atrium, normal left ventricular size, mild concentric left ventricular hypertrophy, visually estimated ejection fraction 55% with no regional wall motion abnormality, diastolic parameters are inconclusive. 2. Mild mitral and tricuspid regurgitation. 3. No significant pericardial effusion noted. Electronically signed by : Saman Licona, 07/04/2020 21:09:41 most recent LHC: PROCEDURES Left heart catheterization Left ventriculogram Selective coronary angiogram Drug-eluting stent deployment to the mid LAD INDICATION Coronary disease, Elevated troponin, Informed consent was obtained prior to the procedure. COMPLICATIONS none Estimated Blood Loss: less thann 10ml TECHNIQUE One percent lidocaine used to anesthetize the right anterior aspect of the wrist. The right radial artery was accessed via the Seldinger technique. A 6 [place] sheath was placed in the right radial artery. 2.5 mg of verapamil, 800 mcg of nitroglycerin, 1mg Lidocaine and 5000 U Heparin were given through the arterial sheath. The trap catheter was also used to perform left heart catheterization, left ventriculogram and selective coronary angiogram. At the end of the diagnostic procedure therapeutic heparin was administered giving a therapeutic ACT. A JL 3 guide catheter was placed in the left main artery and a Choice PT extra-support wire was placed distally. A 3.5 x 15 mm was deployed at 16 pippa reducing the
[2020-09-11 18:42] LABS: Basophils # 0.1 K/mm3 (0-0.2); Basophils % 0.6 % (0.1-2.0); Eosinophils # 0.2 K/mm3 (0.0-0.4); Eosinophils % 2.5 % (0.1-12.0); Hematocrit 38.3 % (42.0-52.0); Hemoglobin 13.2 g/dL (14.1-18.0); Lymphocytes # 1.7 K/mm3 (0.7-4.5); Lymphocytes % 18.3 % (10-50); Mean Corpuscular HGB Conc 34.5 g/dL (31.8-35.4); Mean Corpuscular Hemoglobin 28.7 pg (27.0-31.2); Mean Corpuscular Volume 83.4 fl (80-94); Mean Platelet Volume 7.8 fl (7.4-10.4); Monocytes # 0.5 K/mm3 (0.1-1.0); Monocytes % 5.5 % (1.7-9.3); Neutrophils # 6.9 K/mm3 (1.8-7.8); Neutrophils % 73.1 % (37.0-80.0); Platelet Count 198 K/mm3 (142-424); Red Cell Distribution Width 13.3 % (11.5-17.5); White Blood Count 9.5 K/mm3 (4.8-10.8)
[2020-09-11 18:54] LABS: Anion Gap 13.6 mEq/L (5-15); Blood Urea Nitrogen 7 mg/dl (9-20); Calcium 9.1 mg/dl (8.4-10.2); Carbon Dioxide 25 mmol/L (22.0-30.0); Chloride 102 mmol/L (98-107); Creatinine Clearance Estimated 88 mL/min (50-200); Estimated Glomerular Filt Rate 98 ml/min (>60); GFR (African American) 119 ML/MIN (>60); Glucose 173 mg/dl (74-100); Potassium 3.6 mmoL/L (3.5-5.1); Sodium 137 mmol/L (136-145)
[2020-09-11 19:00] VITALS: BP 134/64; PULSE 70; RESP 17; O2SAT 94
[2020-09-11 19:08] LABS: Troponin I < 0.01 ng/ml (0.00-0.034)
[2020-09-11 19:30] VITALS: BP 128/75; PULSE 71; RESP 16; O2SAT 93
--- NOTE | 2020-09-11 19:54 | PC.NURSE ---
Satnam Batista on phone with dr murguia @ this time
[2020-09-11 20:27] LABS: Coronavirus 19, PCR Not Detected (NotDetected); Influenza A, PCR Not Detected (NotDetected); Influenza B, PCR Not Detected (NotDetected)
[2020-09-11 20:38] VITALS: BP 128/75; PULSE 71; RESP 18; TEMP 36.7; O2SAT 94
[2020-09-11 21:23] VITALS: BP 134/69; PULSE 64; RESP 14; TEMP 36.4; O2SAT 98; BMI 31.6
[2020-09-11 21:37] VITALS: PULSE 60
[2020-09-11 21:53] LABS: Troponin I < 0.01 ng/ml (0.00-0.034)
--- NOTE | 2020-09-11 22:13 | PC.NURSE ---
PT. ARRIVED VIA WHEELCHAIR TO [facility] AT 2057.
[2020-09-12] VITALS: BP 126/75; PULSE 56; PULSE 60; RESP 16; TEMP 36.6; O2SAT 93
[2020-09-12 01:23] LABS: Troponin I 0.01 ng/ml (0.00-0.034)
--- NOTE | 2020-09-12 03:39 | PC.NURSE ---
Pt is A/O x4. Room air with stats in the high 90's. Lungs are CTA. Pt is on pharmacy operations specialist, NSR. Pt has been NPO after midnight. Pt is able to make needs known to staff, call light within reach, VSS, no concerns at this time.
[2020-09-12 04:00] VITALS: BP 110/54; PULSE 50; PULSE 54; RESP 18; TEMP 36.7; O2SAT 96
[2020-09-12 07:31] VITALS: BP 135/75; PULSE 62; RESP 18; TEMP 36.7; O2SAT 96
--- NOTE | 2020-09-12 07:31 | P.CONPHA_ITS ---
[facility] Pharmacy VTE Monitoring - Patient Demographics Admission date: 09/11/20 Report Date: 09/12/20 Time: 07:31 Allergies/Adverse Reactions: Patient Allergies codeine [CODEINE] Allergy (Unknown, Verified 07/28/20 09:57) Height: 1.63 m Weight: 83.631 kg Patient Problems: Current Active Problems Unstable angina pectoris (Acute) UTI (urinary tract infection) (Acute) - VTE Risk Labs: VTE Related Lab Results Hgb 13.2 g/dL (14.1-18.0) L 09/11/20 18:28 Hct 38.3 % (42.0-52.0) L 09/11/20 18:28 Plt Count 198 K/mm3 (142-424) 09/11/20 18:28 BUN 7 mg/dl (9-20) L 09/11/20 18:28 Creatinine 0.80 mg/dl (0.66-1.25) 09/11/20 18:28 Estimated Creat Clear 88 mL/min (50-200) 09/11/20 18:28 Was VTE Risk Assessment Performed: Yes VTE Score: 5 VTE Risk Level: Low Risk - Prophylaxis VTE Prophylaxis Ordered?: Yes Types of VTE Prophylaxis: TEDS Knee High Location of Applied Device: Bilateral Lower Extremeties
[2020-09-12 08:00] VITALS: PULSE 50
--- NOTE | 2020-09-12 08:14 | CA_ITS ---
APPROVED REPORT EXAM: Comprehensive 2D, Doppler, and color-flow Echocardiogram Aging Department Supervisor: Vaishnavi Ghotra RVT Ht: 5 ft 4 in Wt: 184lbs BSA: 1.89 BP: 128/75 mmHg Indications: ANGINA,CAD,STENT,CHF,HTN,HLD 2D Dimensions LVOT 1.95 cm (M/F) 1.5-2.5 LA Volume 46.40 mL LA Volume Index 24.68 mL/m2 (M/F) 16-34 M-Mode Dimensions RVDd 3.54 cm (0.9-2.6) LA Diam 4.27 cm (1.9-4.0) LVDd 4.54 cm (3.5-5.7) Ao Diam 2.55 cm (2.0-3.7) LVDs 2.86 cm (3.5-5.7) IVSd 0.75 cm (0.6-1.1) PWd 0.61 cm (0.6-1.1) EF (Teich) 67.10% FS 37.00% EDV (Teich) 94.40 mL TAPSE 2.02 (<1.7) ESV (Teich) 31.10 mL LV Diastology E Decel Time 163.00 (160-240 msec) E/A Ratio 1.2 MED E' 6.60 (< 7 cm/sec) E'/MED E' Ratio 13.73 (>14) LAT E' 13.80 (<10 cm/sec) E/LAT E' Ratio 6.57 (>14) Aortic Valve AO Peak GR. 7.40 mmHg Mitral Valve MV E Max Noah. 91.00 (40-130 cm/s) MV A Velocity 76.00 (40-130 cm/s) E/A Ratio 1.19 MV Decel. Time 163.00 (160-240 ms) MV PHT 48.00 ms Pulmonary Valve PV Peak Velocity 83.00 (50-150 cm/s) Tricuspid Valve TR P. Velocity 114.00 cm/s RAP Estimate 10.00 mmHg RVSP 15.20 mmHg Left Ventricle Left atrium is mildly enlarged, left ventricle is normal size, mild concentric left ventricular hypertrophy, visually estimated ejection fraction 55% with no regional wall motion abnormality. Grade 1 diastolic dysfunction seen without tissue Doppler evidence of raise left atrial pressure. Right Ventricle Right atrium and right ventricle mildly enlarged with normal contractility. Aortic Valve Aortic valve is minimally thickened and fibrosed, there is no aortic stenosis or aortic insufficiency. Mitral Valve Mitral valve is grossly normal, there is trace mitral regurgitation. Tricuspid Valve Tricuspid valve grossly normal, there is trace tricuspid regurgitation. Pulmonic Valve Pulmonic valve is poorly visualized. Great Vessels Aortic root is normal size. Pericardium No significant pericardial effusion noted. Conclusion 1. Mild biatrial enlargement, normal left ventricular size, mild concentric left ventricular hypertrophy, visually estimated ejection fraction 55% with no regional wall motion abnormality, grade 1 diastolic dysfunction seen without tissue Doppler evidence of raise left atrial pressure. 2. Mildly enlarged right ventricle with normal contractility. 3. Trace mitral and tricuspid regurgitation. 4. No significant pericardial effusion noted. Electronically signed by : Saman Licona, 09/12/2020 09:22:30
--- NOTE | 2020-09-12 09:35 | HMH.PHAINT ---
MEDICATION RECONCILIATION COMPLETED USING MEDICATION LIST FROM PHARMACY AND PHYSICIAN OFFICE.
--- NOTE | 2020-09-12 09:38 | HMH.CNCARD ---
History of Present Illness Consult date: 09/12/20 Requesting physician: Claudio English Consult reason: chest pain Chief complaint: chest pain History of present illness: This is a 60-year-old white gentleman who presented to the emergency department with complaints of chest pain. He states his chest pain started on Saturday morning and has been occurring off and on since that time. He describes it as a pressure sensation in the substernal aspect of his chest. He states that it feels as if an elephant is sitting on his chest and radiates down his left arm. It is associated with shortness of breath. It is worse with exertion and nothing really helps to improve the chest pain. The patient initially came into the emergency department early yesterday morning. He had a family emergency and left the hospital around lunchtime after being admitted for the symptoms. The patient returned to the emergency department last night with the same symptoms and states that his symptoms were unchanged. He states that the chest pain can be severe. He was cath in June of this year and had a stent to his LAD. The patient did have persistent disease to the first and second diagonal artery. Stenting these arteries would require a complex bifurcating stents so medical management was preferred. He denies any fever, chills, nausea, vomiting, diarrhea, PND or orthopnea. [facility] History I have reviewed the patient's past medical history: Yes Medical History: Reports:: Arrhythmia, Atherosclerotic Heart Disease, Congestive Heart Failure, Coronary Artery Disease, Deep Vein Thrombosis, Hyperlipidemia, Hypertension, Myocardial Infarction Denies:: Cancer, Diabetes Mellitus Type 1, Diabetes Mellitus Type 2, Internal Pacemaker, MRSA, Seizures *Have you ever received a pneumonia vaccine?: Yes *Have you received a flu vaccine this season?: No Other Medical History: Reports: Arthritis, Cataracts. Denies: Blood Transfusion Reaction Laterality Cases: Left: Arthroscopy Shoulder Other Surgeries: Yes: No Previous Surgery, Cardiac Catheterization, Cardiac Surgery, Colonoscopy, Coronary Stent, EGD, Plastic Surgery, Other. No: Pacemaker Amputation: No Fractures: Yes (nose) - *Social History Last grade of school completed: 9th or 10th Smoking Status: Former smoker Tobacco Type: smokeless tobacco # Packs/Day (cigarettes): 1 #Yrs smoked (if former smoker): 45 Alcohol Intake: never Alcohol Intake Frequency:: a few times a month Substance Use Type: denies use *Occupational Status:: retired Housing: house Household Members: spouse, children *Travel in the last 8 weeks: Inside the [place] Family Hx:: Cancer, Heart Attack Meds Home Medications Medication Instructions Recorded Confirmed Type Fenofibrate Nanocrystallized 145 mg PO DAILY 07/03/20 09/11/20 History [Fenofibrate] Nitroglycerin [Nitrostat 0.4mg SL 0.4 mg SL Q5MINP PRN 07/03/20 09/12/20 History Tablet] Sertraline HCl [Zoloft] 50 mg PO DAILY 07/03/20 09/12/20 History Clopidogrel Bisulfate [Plavix] 75 mg PO DAILY #90 tab 07/05/20 09/11/20 Rx carvediloL [Carvedilol 3.125mg Tab] 3.125 mg PO BID 90 Days #180 tab 07/05/20 09/11/20 Rx hydroCHLOROthiazide [HCTZ 25mg 25 mg PO DAILY #90 tab 07/05/20 09/11/20 Rx tab] clonazepam 0.5 mg tablet 0.5 mg PO TID #90 tab 07/19/20 09/11/20 Rx gabapentin 800 mg tablet 800 mg PO TID #90 tab 07/19/20 09/11/20 Rx hydrocodone 7.5 mg-acetaminophen 1 tab PO TID #90 tab 07/19/20 09/11/20 Rx 325 mg tablet Aspirin [Aspirin 81mg EC Tab] 81 mg PO DAILY 09/11/20 09/11/20 History Atorvastatin Calcium [Lipitor 40mg 40 mg PO HS 09/11/20 09/11/20 History Tablet*] Omeprazole [Omeprazole 40mg 40 mg PO DAILY 09/11/20 09/12/20 History Capsule] Trazodone HCl 50 mg PO HS 09/11/20 09/11/20 History Allergies Allergy/AdvReac Type Severity Reaction Status Date / Time codeine [CODEINE] Allergy Unknown Verified 07/28/20 09:57 Exam Vital signs and Labs for Last 24 Hours:
--- NOTE | 2020-09-12 09:54 | HMH.HPDC ---
General - General Admission date:: 09/11/20 Discharge date: 09/12/20 *Admission Date: 09/11/20 *Chief complaint: chest pain *History of present illness: 60-year-old male presented to the emergency department with complaints of chest pain. Patient states his chest pain started on Saturday morning and has been occurring off and on since that time. He describes it as a pressure sensation in the substernal aspect of his chest. He states that it feels as if an elephant is sitting on his chest and radiates down his left arm. It is associated with shortness of breath. It is worse with exertion and nothing really helps to improve the chest pain. The patient initially came into the emergency department early yesterday morning. He had a family emergency and left the hospital around lunchtime after being admitted for the symptoms. The patient returned to the emergency department last night with the same symptoms and states that his symptoms were unchanged. He states that the chest pain can be severe. He was cath in June of this year and had a stent to his LAD. The patient did have persistent disease to the first and second diagonal artery. Stenting these arteries would require a complex bifurcating stents so medical management was preferred. He denies any fever, chills, nausea, vomiting, diarrhea, PND or orthopnea. per cardiology [facility] History I have reviewed the patient's past medical history: Yes Medical History: Reports:: Arrhythmia, Atherosclerotic Heart Disease, Congestive Heart Failure, Coronary Artery Disease, Deep Vein Thrombosis, Hyperlipidemia, Hypertension, Myocardial Infarction Denies:: Cancer, Diabetes Mellitus Type 1, Diabetes Mellitus Type 2, Internal Pacemaker, MRSA, Seizures *Have you ever received a pneumonia vaccine?: Yes *Have you received a flu vaccine this season?: No Other Medical History: Reports: Arthritis, Cataracts. Denies: Blood Transfusion Reaction Laterality Cases: Left: Arthroscopy Shoulder Other Surgeries: Yes: No Previous Surgery, Cardiac Catheterization, Cardiac Surgery, Colonoscopy, Coronary Stent, EGD, Plastic Surgery, Other. No: Pacemaker Amputation: No Fractures: Yes (nose) - *Social History Last grade of school completed: 9th or 10th Smoking Status: Former smoker Tobacco Type: smokeless tobacco # Packs/Day (cigarettes): 1 #Yrs smoked (if former smoker): 45 Alcohol Intake: never Alcohol Intake Frequency:: a few times a month Substance Use Type: denies use *Occupational Status:: retired Housing: house Household Members: spouse, children *Travel in the last 8 weeks: Inside the [place] Family Hx:: Cancer, Heart Attack Review of Systems - Review of Systems Review of systems:: pertinent systems reviewed and negative unless documented below - Constitutional Denies body ache(s), Denies fatigue - Eyes Denies blurry vision - ENT Denies bleeding gums, Denies neck lump - *Cardiovascular Reports chest pain, Reports chest pain at rest, Reports chest pain with activity, Reports shortness of breath, Reports shortness of breath with activity - *Respiratory Reports shortness of breath - *Gastrointestinal Denies abdominal pain, Denies excessive passing of gas - *Genitourinary Denies urinary frequency - *Musculoskeletal Denies body aches - Integumentary/Breasts Denies lesions - *Neurologic Denies dizziness - Psychiatric Denies lack of enjoyment - Endocrine Denies excessive sweating - Hematologic/Lymphatic Denies easy bruising - Allergic/Immunologic Denies itchy eyes Exam Vital signs and Labs for Last 24 Hours: Temp Pulse Resp BP Pulse Ox 98.1 F 62 18 135/75 96 09/12/20 07:31 09/12/20 07:31 09/12/20 07:31 09/12/20 07:31 09/12/20 07:31 Laboratory Results - last 24 hr 09/11/20 18:28: WBC 9.5, RBC 4.60, Hgb 13.2 L, Hct 38.3 L, MCV 83.4, MCH 28.7, MCHC 34.5, RDW 13.3, Plt Count 198, MPV 7.8, Neut % (Auto) 73.1, Lymph % (Auto) 18.3, [place] % (Auto) 5.5, Eos
== END 2020-09-12 11:20 | disposition home or self-care (01) ==
LOC: ER 19:17 → 2ND 20:08
PROVIDERS: Admitting Provider Internal Medicine Adolescent Medicine; Emergency Provider Emergency Medicine; PCP Emergency Medicine; Visit Provider Emergency Medicine
DX: I25.110 Atherosclerotic heart disease of native coronary artery with unstable angina pectoris (principal); I11.0 Hypertensive heart disease with heart failure; I50.9 Heart failure, unspecified; I25.2 Old myocardial infarction; E78.5 Hyperlipidemia, unspecified; Z95.5 Presence of coronary angioplasty implant and graft; Z79.899 Other long term (current) drug therapy
CPT/HCPCS: 36415; 71045; 71046; 80048; 80053; 81001; 83735; 84145; 84484; 85025; 85651; 86140; 87086; 87088; 87186; 93005; 93306; 96365; 96375; 96376; 99284; G0378; J2405; U0003

== ENCOUNTER → 2020-09-13 13:49 | Outpatient (CLI) | payer MEDICARE, MEDICAID, SELFPAY ==
[2020-09-13 14:21] LABS: Amphetamine/Metha Screen,Urine Negative ng/ml (<1000); Barbiturates Screen,Urine Negative ng/ml (<200)
[2020-09-13 14:22] LABS: Benzodiazepines Screen,Urine Negative ng/ml (<200)
[2020-09-13 14:23] LABS: Cannabinoid Screen,Urine Negative ng/ml (<50); Cocaine Screen,Urine Negative ng/ml (<300)
[2020-09-13 14:24] LABS: Methadone Screen,Urine Negative ng/ml (<300); Opiate Screen,Urine Positive ng/ml (<300)
[2020-09-13 14:25] LABS: Phencyclidine Screen,Urine Negative ng/ml (<25)
== END ==
PROVIDERS: Visit Provider Emergency Medicine
DX: M47.816 Spondylosis without myelopathy or radiculopathy, lumbar region (principal)
CPT/HCPCS: 80305

== ENCOUNTER → 2020-11-11 13:58 | Outpatient (CLI) | payer MEDICARE, MEDICAID, SELFPAY ==
[2020-11-11 14:54] LABS: Amphetamine/Metha Screen,Urine Negative ng/ml (<1000); Benzodiazepines Screen,Urine Negative ng/ml (<200)
[2020-11-11 14:55] LABS: Barbiturates Screen,Urine Negative ng/ml (<200)
[2020-11-11 14:56] LABS: Cannabinoid Screen,Urine Negative ng/ml (<50); Cocaine Screen,Urine Negative ng/ml (<300)
[2020-11-11 14:57] LABS: Methadone Screen,Urine Negative ng/ml (<300)
[2020-11-11 14:58] LABS: Opiate Screen,Urine Positive ng/ml (<300); Phencyclidine Screen,Urine Negative ng/ml (<25)
== END ==
PROVIDERS: Visit Provider Nurse Practitioner Family
DX: M47.816 Spondylosis without myelopathy or radiculopathy, lumbar region (principal)
CPT/HCPCS: 80305

== ENCOUNTER 2020-12-06 21:47 | Emergency (ER) | payer MEDICARE, MEDICAID, SELFPAY ==
[2020-12-06 21:47] VITALS: BP 168/86; PULSE 67; RESP 18; TEMP 36.5; O2SAT 97; BMI 30.9
--- NOTE | 2020-12-06 21:54 | ECG_ITS ---
APPROVED REPORT Exam: Resting ECG HR:66 bpm ECG Measurements Heart Rate 66 AXES OH 184 P 46 QRSd 92 QRS -28 QT 384 T 65 QTc 402 Conclusion Normal sinus rhythm Minimal voltage criteria for LVH, may be normal variant Borderline ECG Electronically signed by : Jewel Alcala MD 12/07/2020 17:47:33
--- NOTE | 2020-12-06 21:54 | XR_ITS ---
PROCEDURE INFORMATION: Exam: XR Chest Exam date and time: 12/06/2020 9:54 PM Age: 60 years old Clinical indication: Chest pressure; Prior surgery; Patient HX: Chest pain, HX of stents; Additional info: Cp TECHNIQUE: Imaging protocol: XR of the chest. Views: 2 views. COMPARISON: CR XR CHEST PORTABLE 09/11/2020 6:33 PM FINDINGS: Lungs: Mild left basilar opacities appear linear. It most likely represents atelectasis. Pleural spaces: Unremarkable. No pleural effusion. No pneumothorax. Heart/Mediastinum: Unremarkable. No cardiomegaly. Bones/joints: Unremarkable. Other findings: Questionable nodular opacity projecting over the right apex. It measures about 13 mm and could be a projectional artifact. Questionable nodular opacity over the right infrahilar region. IMPRESSION: Two possible nodular opacities in the right lung . Recommend CT to exclude malignancy.
[2020-12-06 22:08] LABS: Basophils # 0.1 K/mm3 (0-0.2); Basophils % 1.1 % (0.1-2.0); Eosinophils # 0.5 K/mm3 (0.0-0.4); Eosinophils % 7.7 % (0.1-12.0); Hematocrit 43.7 % (42.0-52.0); Hemoglobin 14.8 g/dL (14.1-18.0); Lymphocytes # 2.6 K/mm3 (0.7-4.5); Lymphocytes % 37.8 % (10-50); Mean Corpuscular Hemoglobin 29.9 pg (27.0-31.2); Mean Platelet Volume 7.8 fl (7.4-10.4); Monocytes # 0.5 K/mm3 (0.1-1.0); Monocytes % 6.6 % (1.7-9.3); Neutrophils # 3.3 K/mm3 (1.8-7.8); Neutrophils % 46.8 % (37.0-80.0); Platelet Count 240 K/mm3 (142-424); Red Blood Count 4.96 M/mm3 (4.60-6.20); Red Cell Distribution Width 13.6 % (11.5-17.5)
[2020-12-06 22:11] LABS: Alanine Aminotransferase 30 U/L (12-78); Albumin Level 4.3 g/dl (3.5-5.0); Albumin/Globulin Ratio 1.6 (1.1-1.8); Alkaline Phosphatase 70 U/L (38-126); Anion Gap 15.4 mEq/L (5-15); Aspartate Amino Transferase 35 U/L (17-59); Bilirubin,Total 0.2 mg/dl (0.2-1.3); Blood Urea Nitrogen 13 mg/dl (9-20); Calcium 9.4 mg/dl (8.4-10.2); Carbon Dioxide 27 mmol/L (22.0-30.0); Chloride 102 mmol/L (98-107); Creatinine Clearance Estimated 88 mL/min (50-200); Estimated Glomerular Filt Rate 76 ml/min (>60); GFR (African American) 92 ML/MIN (>60); Globulin 2.7 g/dL (1.3-3.2); Glucose 142 mg/dl (74-100); Potassium 3.4 mmoL/L (3.5-5.1); Sodium 141 mmol/L (136-145)
[2020-12-06 22:17] LABS: C-Reactive Protein 0.7 mg/L (0-4)
[2020-12-06 22:26] LABS: Troponin I 0.03 ng/ml (0.00-0.034)
[2020-12-06 22:30] VITALS: BP 132/72; PULSE 60; O2SAT 91
[2020-12-06 22:30] LABS: Procalcitonin 0.073 ng/mL (0.0-2.0)
[2020-12-06 22:41] LABS: Erythrocyte Sedimentation Rate 7 mm/hr (0-20)
[2020-12-06 23:00] VITALS: BP 147/85; PULSE 59; O2SAT 90
--- NOTE | 2020-12-07 00:07 | HMH.EDCP ---
ED Disposition Clinical Impression: CAD (coronary artery disease) Qualifiers: Coronary Disease-Associated Artery/Lesion type: [place] artery [place] vs. transplanted heart: [place] heart Associated angina: with unspecified form of angina Qualified Code(s): I25.119 - Atherosclerotic heart disease of [place] coronary artery with unspecified angina pectoris Disposition: Home, Self-Care Condition on Discharge: Good Instructions: DI for Angina Additional Instructions: see card this am Referrals: Claudio English MD [Primary Care Provider] - - Critical Care Critical Care Time: No Attestation: On 12/06/20, the high probability of a clinically significant, sudden or life threatening deterioration of the following system(s) required my full and direct attention, intervention and personal management. The time I documented below is in addition to time spent performing reported procedures but includes the following listed in this critical care notation. Medical Decision Making - Medical Records Medical records reviewed: Yes: I reviewed the patient's medical records. - Rodri Inquiry Pt receiving controlled substance: No Vital Signs: 12/06/20 21:47 12/06/20 22:30 12/06/20 23:00 Temperature 97.7 F Temperature Source Oral Pulse Rate 60 59 L Pulse Rate [Right] 67 Respiratory Rate 18 Blood Pressure 132/72 147/85 H Blood Pressure [Right Arm] 168/86 H Blood Pressure Mean [Right Arm] 113 02 Sat by Pulse Oximetry 97 91 L 90 L - Lab Data Lab results reviewed: Yes: I reviewed the patient's lab results. Lab Results 12/06/20 21:51: WBC 7.0, RBC 4.96, Hgb 14.8, Hct 43.7, MCV 88.0, MCH 29.9, MCHC 34.0, RDW 13.6, Plt Count 240, MPV 7.8, Neut % (Auto) 46.8, Lymph % (Auto) 37.8, [place] % (Auto) 6.6, Eos % (Auto) 7.7, Baso % (Auto) 1.1, Neut # (Auto) 3.3, Lymph # (Auto) 2.6, [place] # (Auto) 0.5, Eos # (Auto) 0.5 H, Baso # (Auto) 0.1, ESR 7 12/06/20 21:51: Sodium 141, Potassium 3.4 L, Chloride 102, Carbon Dioxide 27, Anion Gap 15.4 H, BUN 13, Creatinine 1.00, Estimated Creat Clear 88, Estimated GFR 76, Est GFR ( Amer) 92, Glucose 142 H, Calcium 9.4, Total Bilirubin 0.2, AST 35, ALT 30, Alkaline Phosphatase 70, Troponin I 0.03, C-Reactive Protein 0.7, Total Protein 7.0, Albumin 4.3, Globulin 2.7, Albumin/Globulin Ratio 1.6, Procalcitonin 0.073 12/07/20 00:55: Troponin I 0.04 H Result diagrams: 12/06/20 21:51 12/06/20 21:51 Orders (Tests/Meds): ED MEDICATIONS Generic Name Dose Route Start Last Admin Trade Name Freq PRN Reason Stop Dose Admin Sodium Chloride 1,000 mls @ 999 mls/hr 12/06/20 23:00 12/06/20 22:50 Sod Chlor 0.9% 1000ml Bag IV 12/07/20 00:00 999 mls/hr .Q1H1M MELISSA Administration Discontinued Medications Generic Name Dose Route Start Last Admin Trade Name Freq PRN Reason Stop Dose Admin Aspirin 324 mg 12/06/20 21:56 12/06/20 22:00 Aspirin 81mg Chewable Tablet PO 12/06/20 21:57 324 mg ONCE ONE Administration Morphine Sulfate 4 mg 12/06/20 22:49 12/06/20 22:50 Morphine 4mg/Ml Syringe IV 12/06/20 22:50 4 mg ONCE ONE Administration Nitroglycerin 1 gm 12/06/20 21:56 12/06/20 21:59 Nitroglycerin 1 Gm Ointment TD 12/06/20 21:57 1 gm ONCE ONE Administration ORDERS Category Date Time Status Troponin I Q3H Lab 12/07/20 04:00 Ordered - Radiology Data #1 Image(s): Chest Image Reviewed: Yes I have reviewed radiologist's interpretation Preliminary Findings: Normal/NAD - ECG Data Tracing #1 Normal Sinus Rhythm: Yes Ischemic changes: non-specific ST-T wave changes Medical Decision Narrative: has known cad and compliant with meds and stable exam and labs will see card in am for eval Chest Pain HPI - General Chief Complaint: Chest Pain Stated Complaint: CP Time Seen by Provider: 12/07/20 00:00 Mode of Arrival: Ambulatory Source of Information: Patient, Medical Record Limitations: No Limitations Description of Symptoms (Rec
[2020-12-07 01:24] LABS: Troponin I 0.04 ng/ml (0.00-0.034)
[2020-12-07 01:42] VITALS: BP 141/79; PULSE 60; RESP 18; TEMP 36.5; O2SAT 97
== END 2020-12-07 01:44 | disposition home or self-care (01) ==
PROVIDERS: Emergency Provider Emergency Medicine; PCP Emergency Medicine
DX: I25.119 Atherosclerotic heart disease of native coronary artery with unspecified angina pectoris (principal); E78.5 Hyperlipidemia, unspecified; I10 Essential (primary) hypertension; I25.2 Old myocardial infarction; Z87.891 Personal history of nicotine dependence; Z79.899 Other long term (current) drug therapy
CPT/HCPCS: 71046; 80053; 84145; 84484; 85025; 85651; 86140; 93005; 96365; 96375; 99283

== ENCOUNTER → 2020-12-26 13:43 | Outpatient (CLI) | payer MEDICARE, MEDICAID, SELFPAY ==
[2020-12-26 18:59] LABS: Amphetamine/Metha Screen,Urine Negative ng/ml (<1000); Barbiturates Screen,Urine Negative ng/ml (<200); Benzodiazepines Screen,Urine Negative ng/ml (<200); Cannabinoid Screen,Urine Negative ng/ml (<50); Cocaine Screen,Urine Negative ng/ml (<300); Methadone Screen,Urine Negative ng/ml (<300); Opiate Screen,Urine Positive ng/ml (<300); Phencyclidine Screen,Urine Negative ng/ml (<25)
== END ==
PROVIDERS: Visit Provider Emergency Medicine
DX: M47.816 Spondylosis without myelopathy or radiculopathy, lumbar region (principal); Z79.899 Other long term (current) drug therapy
CPT/HCPCS: 80305

== ENCOUNTER → 2020-12-28 13:19 | Outpatient (CLI) | payer MEDICARE, MEDICAID, SELFPAY ==
[2020-12-28 13:59] LABS: Basophils # 0.1 K/mm3 (0-0.2); Basophils % 0.8 % (0.1-2.0); Eosinophils # 0.4 K/mm3 (0.0-0.4); Eosinophils % 6.7 % (0.1-12.0); Hemoglobin 14.9 g/dL (14.1-18.0); Lymphocytes # 2.3 K/mm3 (0.7-4.5); Lymphocytes % 36.1 % (10-50); Mean Corpuscular HGB Conc 34.6 g/dL (31.8-35.4); Mean Corpuscular Hemoglobin 30.1 pg (27.0-31.2); Mean Platelet Volume 8.1 fl (7.4-10.4); Monocytes # 0.4 K/mm3 (0.1-1.0); Monocytes % 6.9 % (1.7-9.3); Neutrophils # 3.2 K/mm3 (1.8-7.8); Neutrophils % 49.6 % (37.0-80.0); Platelet Count 253 K/mm3 (142-424); Red Blood Count 4.94 M/mm3 (4.60-6.20); Red Cell Distribution Width 13.7 % (11.5-17.5); White Blood Count 6.4 K/mm3 (4.8-10.8)
[2020-12-28 15:00] LABS: Anion Gap 12.5 mEq/L (5-15); Blood Urea Nitrogen 11 mg/dl (9-20); Calcium 9.6 mg/dl (8.4-10.2); Carbon Dioxide 28 mmol/L (22.0-30.0); Chloride 105 mmol/L (98-107); Estimated Glomerular Filt Rate 114 ml/min (>60); GFR (African American) 138 ML/MIN (>60); Glucose 102 mg/dl (74-100); Potassium 4.5 mmoL/L (3.5-5.1); Sodium 141 mmol/L (136-145)
== END ==
PROVIDERS: Visit Provider Internal Medicine
DX: E66.9 Obesity, unspecified (principal); E78.5 Hyperlipidemia, unspecified; F41.9 Anxiety disorder, unspecified; I10 Essential (primary) hypertension; I20.9 Angina pectoris, unspecified; M48.061 Spinal stenosis, lumbar region without neurogenic claudication; Z95.5 Presence of coronary angioplasty implant and graft; Z01.812 Encounter for preprocedural laboratory examination; Z11.52 Encounter for screening for COVID-19; Z68.32 Body mass index [BMI] 32.0-32.9, adult
CPT/HCPCS: 36415; 80048; 85025; C9803; U0003; U0005

== ENCOUNTER 2020-12-29 09:49 | Day surgery (SDC) | payer MEDICARE, MEDICAID, SELFPAY ==
[2020-12-29] VITALS (15 sets, daily range): BP systolic 134–176; BP diastolic 58–118; PULSE 42–60; RESP 13–19; O2SAT 96–99; BMI 32.8
--- NOTE | 2020-12-29 | IR_ITS ---
APPROVED REPORT Patient Location: Outpatient PROCEDURES Left heart catheterization Left ventriculogram Selective coronary angiogram Drug-eluting stent deployment to the ostial proximal right coronary Drug-eluting stent deployed to the proximal LAD Drug-eluting stent deployment to the ostial proximal first diagonal artery INDICATION Coronary artery disease, Angina pectoris class III-IV Informed consent was obtained prior to the procedure. COMPLICATIONS NONE Estimated Blood Loss: LESS THAN 10 ML TECHNIQUE One percent lidocaine used to anesthetize the right anterior aspect of the wrist. The right radial artery was accessed via the Seldinger technique. A 6 [place]awk sheath was placed in the right radial artery. 2.5 mg of verapamil, 800 mcg of nitroglycerin, 1mg Lidocaine and 5000 U Heparin were given through the arterial sheath. The Sensicorepa catheter was used to perform left heart catheterization left ventriculogram and selective coronary angiogram. At the end of the diagnostic angiogram therapeutic heparin was administered giving a therapeutic ACT and the guide catheter was placed in the right coronary artery. There was severe dampening and no flow down the right coronary artery therefore the wire was quickly passed and the guide catheter pulled out of the ostium. Following this a 3.5 x 26 mm resolute Kiln stent was deployed at 16 pippa reducing the stenosis to 0%. MARIA-3 flow was present before and after the procedure. After achieving excellent angiograph results the apparatus was removed and the same guide catheter was placed in the left main artery where a Choice PT extra-support wire was placed down the LAD and ramus intermedius. A 2 mm balloon was used to predilate the ramus intermedius followed by a 2 mm x 12 mm resolute Micky stent in the deployed in the ostial segment and then deployed at 20 pippa. Following this the wire and balloon were removed and 3 mm x 15 mm resolute Micky stent was then placed in the ostial LAD extending beyond the ramus intermedius and then deployed at 24 pippa. Excellent angiographic results were obtained with MARIA-3 flow being present down the LAD and ramus intermedius before and after the procedure. At the end of procedure the apparatus was removed the sheath was removed good anesthesia was achieved using TR banding patient was transferred to postop putting in stable condition ANGIOGRAPHIC RESULTS The left main artery Normal The left anterior descending artery Has a proximal 50% stenosis followed by an additional 60% stenosis with mid vessel stent having mild in-stent restenosis. Moderate sized first diagonal artery has an ostial proximal 90% stenosis The circumflex artery Nondominant has mild diffuse luminal irregularities. A moderate sized ramus intermedius has an ostial proximal 70% tubular stenosis The right coronary artery Large dominant has a proximal 80% stenosis with severe dampening on catheter insertion. There is additional mid vessel 30% stenosis and a distal 30 to 40% stenosis prior to the posterior descending artery stent in the posterior descending artery is widely patent The SCHERER ventriculogram reveals Not performed The left ventricular end-diastolic pressure Not measured IMPRESSION Coronary disease as described above Successful stenting of the proximal LAD extending into the mid LAD Successful stenting revascularization of a moderate-sized first diagonal artery Successful stenting of ostial proximal dominant right coronary PLAN 1. Dual antiplatelet therapy 2. Risk factor modification 3. Cardiac rehabilitation 4. Avoidance of tobacco products 5. Medical management for the ramus intermedius. If patient should continue with recalcitrant angina pect
[2020-12-29 14:47] LABS: CATHL Activated Clotting Time > 400 SEC (74-125)
--- NOTE | 2020-12-29 15:24 | HMH.PHACLD ---
Omi Francisco has received discharge medication counseling on the following medications: ASPIRIN PLAVIX ATORVASTATIN CARVEDILOL LOSARTAN (NEW) PATIENT VERBALIZED UNDERSTANDING AND HAD NO QUESTIONS AT THIS TIME. -LAUREN SEQUEIRA, DAVIDD
== END 2020-12-29 16:32 | disposition home or self-care (01) ==
LOC: CATHLAB 09:52
PROVIDERS: PCP Emergency Medicine; Visit Provider Internal Medicine
DX: I25.118 Atherosclerotic heart disease of native coronary artery with other forms of angina pectoris (principal); Z79.899 Other long term (current) drug therapy; I11.0 Hypertensive heart disease with heart failure; Z95.5 Presence of coronary angioplasty implant and graft; I25.2 Old myocardial infarction; I50.9 Heart failure, unspecified; T82.855A Stenosis of coronary artery stent, initial encounter; Y83.1 Surgical operation with implant of artificial internal device as the cause of abnormal reaction of the patient, or of later complication, without mention of misadventure at the time of the procedure
CPT/HCPCS: 85347; 92928; 92929; 93458; 99152; 99153; C1725; C1769; C1876; C9600; C9601; J1644; Q9967

== ENCOUNTER 2021-01-07 17:19 | Inpatient (IN) | payer MEDICARE, MEDICAID, SELFPAY ==
[2021-01-07] VITALS (8 sets, daily range): BP systolic 136–164; BP diastolic 57–117; PULSE 55–86; RESP 12–18; TEMP 36.6–37.3; O2SAT 94–98; BMI 32.5; BMI 31.9
--- NOTE | 2021-01-07 17:25 | HMH.EDGENADL ---
ED Disposition Clinical Impression: Chest pain Qualifiers: Chest pain type: unspecified Qualified Code(s): R07.9 - Chest pain, unspecified Disposition: Admitted as Observation Condition on Discharge: Fair - Critical Care Critical Care Time: No Attestation: On 01/07/21, the high probability of a clinically significant, sudden or life threatening deterioration of the following system(s) required my full and direct attention, intervention and personal management. The time I documented below is in addition to time spent performing reported procedures but includes the following listed in this critical care notation. Medical Decision Making - Medical Records Medical records reviewed: Yes: I reviewed the patient's medical records. MR Comment: Reviewed recent heart cath result, see below. - Rodri Inquiry Pt receiving controlled substance: Yes Rodri was queried for this patient: Yes Risks and benefits of using a controlled substance: were not discussed with pt by me Vital Signs: 01/07/21 17:21 01/07/21 17:51 01/07/21 18:00 Temperature 99.2 F Temperature Source Oral Pulse Rate 66 62 Pulse Rate [Radial] 80 Respiratory Rate 18 14 12 Blood Pressure 160/79 H 156/66 H Blood Pressure [Right Arm] 164/71 H Blood Pressure Mean 101 98 Blood Pressure Mean [Right Arm] 102 Blood Pressure Position [Right Arm] Sitting 02 Sat by Pulse Oximetry 98 98 97 Oxygen Delivery Method Room Air - Lab Data Lab Results 01/07/21 17:23: WBC 8.2, RBC 5.02, Hgb 15.4, Hct 44.9, MCV 89.4, MCH 30.6, MCHC 34.2, RDW 13.5, Plt Count 276, MPV 8.1, Neut % (Auto) 60.9, Lymph % (Auto) 28.0, [place] % (Auto) 5.8, Eos % (Auto) 4.4, Baso % (Auto) 1.0, Neut # (Auto) 5.0, Lymph # (Auto) 2.3, [place] # (Auto) 0.5, Eos # (Auto) 0.4, Baso # (Auto) 0.1 01/07/21 17:23: Sodium 140, Potassium 3.9, Chloride 101, Carbon Dioxide 24, Anion Gap 18.9 H, BUN 11, Creatinine 0.90, Estimated Creat Clear 93, Estimated GFR 86, Est GFR ( Amer) 103, Glucose 123 H, Calcium 10.0, Troponin I 0.02 Result diagrams: 01/07/21 17:23 01/07/21 17:23 Orders (Tests/Meds): ED MEDICATIONS Generic Name Dose Route Start Last Admin Trade Name Freq PRN Reason Stop Dose Admin Nitroglycerin 1 gm 01/07/21 18:30 Nitroglycerin 1 Gm Ointment TD 02/06/21 18:29 Q6H MELISSA Discontinued Medications Generic Name Dose Route Start Last Admin Trade Name Freq PRN Reason Stop Dose Admin Morphine Sulfate 4 mg 01/07/21 17:50 01/07/21 18:15 Morphine 4mg/Ml Syringe IV 01/07/21 17:51 4 mg ONCE ONE Administration Ondansetron HCl 4 mg 01/07/21 17:50 01/07/21 18:15 Ondansetron 4mg/2ml Vial IV 01/07/21 17:51 4 mg ONCE ONE Administration ORDERS Category Date Time Status Consult to Cardiology [CONS] Routine Cons 01/07/21 17:49 Active Troponin I Q3H Lab 01/07/21 20:45 Ordered Troponin I Q3H Lab 01/07/21 23:45 Ordered PROCEDURES Left heart catheterization Left ventriculogram Selective coronary angiogram Drug-eluting stent deployment to the ostial proximal right coronary Drug-eluting stent deployed to the proximal LAD Drug-eluting stent deployment to the ostial proximal first diagonal artery INDICATION Coronary artery disease, Angina pectoris class III-IV Informed consent was obtained prior to the procedure. COMPLICATIONS NONE Estimated Blood Loss: LESS THAN 10 ML TECHNIQUE One percent lidocaine used to anesthetize the right anterior aspect of the wrist. The right radial artery was accessed via the Seldinger technique. A 6 [place] sheath was placed in the right radial artery. 2.5 mg of verapamil, 800 mcg of nitroglycerin, 1mg Lidocaine and 5000 U Heparin were given through the arterial sheath. The [place] catheter was used to perform left heart catheterization left ventriculogram and selective coronary angiogram. At the end of the diagnostic angiogram therapeutic heparin was administered giving a therapeutic
--- NOTE | 2021-01-07 17:39 | XR_ITS ---
PROCEDURE INFORMATION: Exam: XR Chest Exam date and time: 01/07/2021 5:39 PM Age: 60 years old Clinical indication: Pain; Chest pressure; Additional info: Pain, chest pain TECHNIQUE: Imaging protocol: XR of the chest. Views: 1 view. COMPARISON: CR XR CHEST 2V 12/06/2020 10:14 PM FINDINGS: Lungs: Bibasal subsegmental atelectasis/scarring, unchanged. No segmental consolidation. No appreciable pulmonary edema. Prominent central pulmonary vasculature suggestive of pulmonary vascular congestion. Pleural spaces: No pleural effusion. No pneumothorax. Heart/Mediastinum: Cardiomediastinal silouhette is within normal limits. Bones/joints: No acute osseous abnormality. Soft tissues: Unremarkable. IMPRESSION: Pulmonary vascular congestion without appreciable pulmonary edema.
--- NOTE | 2021-01-07 17:39 | ECG_ITS ---
APPROVED REPORT Exam: Resting ECG HR:60 bpm ECG Measurements Heart Rate 60 AXES MD 192 P 38 QRSd 96 QRS -26 QT 390 T 34 QTc 390 Conclusion Normal sinus rhythm Late r wave progression - unchanged Abnormal ECG Electronically signed by : Jewel Alcala MD 01/08/2021 08:46:26
[2021-01-07 17:56] LABS: Basophils # 0.1 K/mm3 (0-0.2); Chloride 101 mmol/L (98-107); Eosinophils # 0.4 K/mm3 (0.0-0.4); Eosinophils % 4.4 % (0.1-12.0); Hematocrit 44.9 % (42.0-52.0); Hemoglobin 15.4 g/dL (14.1-18.0); Lymphocytes # 2.3 K/mm3 (0.7-4.5); Mean Corpuscular HGB Conc 34.2 g/dL (31.8-35.4); Mean Corpuscular Hemoglobin 30.6 pg (27.0-31.2); Mean Corpuscular Volume 89.4 fl (80-94); Mean Platelet Volume 8.1 fl (7.4-10.4); Monocytes # 0.5 K/mm3 (0.1-1.0); Monocytes % 5.8 % (1.7-9.3); Neutrophils % 60.9 % (37.0-80.0); Platelet Count 276 K/mm3 (142-424); Potassium 3.9 mmoL/L (3.5-5.1); Red Blood Count 5.02 M/mm3 (4.60-6.20); Red Cell Distribution Width 13.5 % (11.5-17.5); Sodium 140 mmol/L (136-145); White Blood Count 8.2 K/mm3 (4.8-10.8)
[2021-01-07 17:59] LABS: Anion Gap 18.9 mEq/L (5-15); Blood Urea Nitrogen 11 mg/dl (9-20); Carbon Dioxide 24 mmol/L (22.0-30.0); Creatinine Clearance Estimated 93 mL/min (50-200); Estimated Glomerular Filt Rate 86 ml/min (>60); GFR (African American) 103 ML/MIN (>60)
[2021-01-07 18:00] LABS: Glucose 123 mg/dl (74-100)
[2021-01-07 18:11] LABS: Troponin I 0.02 ng/ml (0.00-0.034)
--- NOTE | 2021-01-07 18:21 | PC.NURSE ---
has been paged
--- NOTE | 2021-01-07 19:38 | PC.NURSE ---
called lab and spoke with laura curtis. they have received the swab but not started the test yet.
[2021-01-07 19:41] LABS: Coronavirus 19, PCR Not Detected (NotDetected); Influenza A, PCR Not Detected (NotDetected); Influenza B, PCR Not Detected (NotDetected)
--- NOTE | 2021-01-07 20:41 | PC.NURSE ---
PT ARRIVED TO FLOOR VIA W/C FROM ED W/STAFF AT 2039
[2021-01-07 21:40] LABS: Troponin I 0.85 ng/ml (0.00-0.034)
--- NOTE | 2021-01-07 21:55 | PC.NURSE ---
CRITICAL TROPONIN REPORTED. VERIFIED NAME, AND ROOM #. NOTIFIED FAIRING MAN MARVA RIVERA AT THIS TIME.
[2021-01-08] VITALS (12 sets, daily range): BP systolic 93–163; BP diastolic 46–78; PULSE 50–79; RESP 16–18; TEMP 36.6; O2SAT 92–97; BMI 31.9
[2021-01-08 00:29] LABS: Troponin I 3.62 ng/ml (0.00-0.034)
--- NOTE | 2021-01-08 00:38 | PC.NURSE ---
SECOND CRITICAL TROPONIN RESULT OF 3.62 RECEIVED. VERIFIED NAME, AND ROOM #. NOTIFIED LABORER WRECKING AND SALVAGING MD BENTON AND ALSO MD PHAM. NNO FROM EITHER PROVIDER AT THIS TIME. PT VSS, IN NO DISTRESS. WILL CONTINUE TO MONITOR.
--- NOTE | 2021-01-08 03:16 | PC.NURSE ---
A&OX4. TOLERATING RA WELL. UP INDEPENDENTLY IN ROOM. PT HAS C/O CP INTERMITTENTLY T/O SHIFT. RELIEF NOTED WITH USE OF PRN MORPHINE AND NITRO. PT HAS SLEPT MAJORITY OF SHIFT. HAS HAD NO OTHER C/O. NSR ON TELE. VSS WILL CONTINUE TO MONITOR.
--- NOTE | 2021-01-08 08:52 | P.CONPHA_ITS ---
[facility] Pharmacy VTE Monitoring - Patient Demographics Admission date: 01/07/21 Report Date: 01/08/21 Time: 08:52 Allergies/Adverse Reactions: Patient Allergies codeine [CODEINE] Allergy (Unknown, Verified 12/28/20 12:14) Height: 1.63 m Weight: 84.822 kg Patient Problems: Current Active Problems Chest pain (Acute) - VTE Risk Labs: VTE Related Lab Results Hgb 15.4 g/dL (14.1-18.0) 01/07/21 17:23 Hct 44.9 % (42.0-52.0) 01/07/21 17:23 Plt Count 276 K/mm3 (142-424) 01/07/21 17:23 BUN 11 mg/dl (9-20) 01/07/21 17:23 Creatinine 0.90 mg/dl (0.66-1.25) 01/07/21 17:23 Estimated Creat Clear 93 mL/min (50-200) 01/07/21 17:23 Was VTE Risk Assessment Performed: No Clinical Trial Participant: No - Prophylaxis VTE Prophylaxis Ordered?: Yes Types of VTE Prophylaxis: TEDS Knee High Location of Applied Device: Refused
--- NOTE | 2021-01-08 08:52 | HMH.PHAINT ---
MEDICATION RECONCILIATION COMPLETE USING LIST FROM MD OFFICE VISIT AND EXTERNAL PHARMACY FILL HISTORY.
--- NOTE | 2021-01-08 10:57 | ECG_ITS ---
APPROVED REPORT Exam: Resting ECG HR:54 bpm ECG Measurements Heart Rate 54 AXES RI 194 P 24 QRSd 92 QRS -31 QT 410 T 58 QTc 388 Conclusion Sinus bradycardia Left axis deviation Septal infarct, age undetermined Abnormal ECG Electronically signed by : Jewel Alcala MD 01/08/2021 20:29:55
--- NOTE | 2021-01-08 11:44 | HMH.HP ---
*Admission Date: 01/07/21 *Chief complaint: Chest pain *History of present illness: Patient is a 60-year-old white male, followed by Dr. Gonzalez. He has known coronary artery disease, and about 10 days ago underwent 3 stent deployments, small RCA, proximal LAD and first diagonal. There was some residual lesion noted in the ostial ramus intermedius, 70% proximal. This was considered for medical management, with plans for stent deployment if it became problematic. 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 Heaviness on the chest, radiation into the jaw. He was transported to [facility] via 911 services. After arrival an initial work-up patient wanted to leave the hospital. He was persuaded to stay. He got morphine and Nitropaste. Sequential troponins are drawn. These showed a gradual rise. His EKG this morning shows sinus bradycardia septal infarct age undetermined. Cardiology was consulted upon initial presentation. No immediate intervention was called for. I corresponded with Dr. Mederos this morning who is covering for Dr. Gonzalez. Reviewed today's EKG, and troponins. He suggested that we make certain is on Brilinta, he suggested that we heparinize him, and plans for Dr. Gonzalez to cath him in the morning. Patient has had some chest pain off and on during the night is relieved with morphine. He is in no distress. He would like to go home but understands the need to stay for further. [facility] History Medical History: Reports:: Arrhythmia, Atherosclerotic Heart Disease, Congestive Heart Failure, Coronary Artery Disease, Deep Vein Thrombosis, Hyperlipidemia, Hypertension, Myocardial Infarction Denies:: Cancer, Diabetes Mellitus Type 1, Diabetes Mellitus Type 2, Internal Pacemaker, MRSA, Seizures *Have you ever received a pneumonia vaccine?: No *Have you received a flu vaccine this season?: Yes Other Medical History: Reports: Arthritis, Cataracts. Denies: Blood Transfusion Reaction Laterality Cases: Left: Arthroscopy Shoulder Other Surgeries: Yes: No Previous Surgery, Cardiac Catheterization, Cardiac Surgery, Colonoscopy, Coronary Stent, EGD, Plastic Surgery, Other. No: Pacemaker Amputation: No Fractures: Yes (nose) - *Social History Smoking Status: Former smoker Tobacco Type: smokeless tobacco # Packs/Day (cigarettes): 1 #Yrs smoked (if former smoker): 45 Alcohol Intake: never Alcohol Intake Frequency:: a few times a month Substance Use Type: denies use *Occupational Status:: employed Housing: house Household Members: spouse *Travel in the last 8 weeks: None Family Hx:: No significant family history Review of Systems - Constitutional Reports lack of energy - Eyes Denies change in vision - ENT Denies abnormal hearing - *Cardiovascular Reports chest pain, Reports shortness of breath with activity, Reports radiating jaw, neck or arm pain - *Respiratory Denies chest congestion - *Gastrointestinal Denies abdominal pain - *Genitourinary Denies difficulty urinating - *Musculoskeletal Reports muscle weakness, Denies abnormal walking - Integumentary/Breasts Denies yellowing of the skin - *Neurologic Reports unsteadiness, Denies confusion - Psychiatric Denies behavioral changes - Endocrine Denies rapid, pounding, or irregular heartbeat - Hematologic/Lymphatic Denies easy bleeding, Denies easy bruising - Allergic/Immunologic Denies hives Meds Home Medications Medication Instructions Recorded Confirmed Type Nitroglycerin [Nitrostat 0.4mg SL 0.4 mg SL Q5MINP PRN 07/03/20 01/07/21 History Tablet] Sertraline HCl [Zoloft] 50 mg PO DAILY 07/03/20 01/07/21 History Omeprazole [Omeprazole 40mg 40 mg PO DAILY 09/11/20 01/07/21 History Capsule] aspirin 81 mg tablet,delayed 81 mg PO DAILY #90 tab 09/22/20 01/07/21 Rx release Amlodipine Besylate 5 mg PO DAILY 12/06/20 01/07/21 History Isosorbide Mononitrate [Isosorbide 30 mg PO
--- NOTE | 2021-01-08 12:18 | P.CONPHA_ITS ---
[facility] Heparin Dosing - Demographic Data Admission date:: 01/07/21 Date: 01/08/21 Time: 12:19 Allergies/Adverse Reactions: Allergies Allergy/AdvReac Type Severity Reaction Status Date / Time codeine [CODEINE] Allergy Unknown Verified 12/28/20 12:14 Height: 1.69 m Weight: 85 kg - Indication Medication therapy:: Heparin Patient Problems: Current Active Problems CAD (coronary artery disease) (Chronic) History of coronary artery stent placement (Chronic) Angina pectoris (Acute) NSTEMI (non-ST elevated myocardial infarction) (Acute) Chest pain (Acute) Elevated troponin (Acute) Anxiety (Chronic) 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 Dose Monitor 2 Date: 01/08/21 Time: 18:30 PTT Result:: 54.1 Infusion Rate:: CONTINUE CURRENT RATE OF 1000 U/HR = 20 ML/HR Dose Monitor 3 Date: 01/09/21 Time: 01:00 PTT Result:: 43.4 Infusion Rate:: CONTINUE CURRENT RATE OF 1000 UNITS/HR = 20 ML/HR Dose Monitor 4 Date: 01/09/21 Time: 09:30 PTT Result:: 40.2 Infusion Rate:: INCREASE RATE BY ~2 U/KG/HR TO 1150 UNITS/HR = 23 ML/HR AND BOLUS 3000 UNITS HEPARIN IV ONCE. Dose Monitor 5 Date: 01/09/21 Time: 13:00 PTT Result:: 143.9 Infusion Rate:: 5000 UNIT BOLUS IN CLIENT RELATIONS REPRESENTATIVE. HEPARIN RESTARTED AFTER CATH AND STOPPED AT 15:00 - Core Measures Is INR > or = 2 at discharge?: No Most Recent Labs:: Laboratory Results - last 24 hr 01/07/21 17:23: WBC 8.2, RBC 5.02, Hgb 15.4, Hct 44.9, MCV 89.4, MCH 30.6, MCHC 34.2, RDW 13.5, Plt Count 276, MPV 8.1, Neut % (Auto) 60.9, Lymph % (Auto) 28.0, Hitchcock % (Auto) 5.8, Eos % (Auto) 4.4, Baso % (Auto) 1.0, Neut # (Auto) 5.0, Lymph # (Auto) 2.3, [place] # (Auto) 0.5, Eos # (Auto) 0.4, Baso # (Auto) 0.1 01/07/21 17:23: Sodium 140, Potassium 3.9, Chloride 101, Carbon Dioxide 24, Anion Gap 18.9 H, BUN 11, Creatinine 0.90, Estimated Creat Clear 93, Estimated GFR 86, Est GFR ( Amer) 103, Glucose 123 H, Calcium 10.0, Troponin I 0.02 01/07/21 18:02: SARS-CoV-2 (PCR) Not detected, Influenza A Untype (PCR) Not detected, Influenza Type B (PCR) Not detected 01/07/21 20:53: Troponin I 0.85 H 01/07/21 23:56: Troponin I 3.62 H Were Heparin and Warfarin started on the same day?: No If not, why?: PATIENT WENT TO CLIENT RELATIONS REPRESENTATIVE, RESTARTED ON ASA AND INITIATED BRILINTA
[2021-01-08 12:22] LABS: Basophils # 0.1 K/mm3 (0-0.2); Basophils % 0.7 % (0.1-2.0); Eosinophils # 0.2 K/mm3 (0.0-0.4); Eosinophils % 2.9 % (0.1-12.0); Lymphocytes # 1.3 K/mm3 (0.7-4.5); Mean Corpuscular HGB Conc 33.9 g/dL (31.8-35.4); Mean Corpuscular Hemoglobin 30.3 pg (27.0-31.2); Mean Corpuscular Volume 89.4 fl (80-94); Mean Platelet Volume 8.6 fl (7.4-10.4); Monocytes # 0.6 K/mm3 (0.1-1.0); Monocytes % 7.3 % (1.7-9.3); Neutrophils # 5.6 K/mm3 (1.8-7.8); Platelet Count 218 K/mm3 (142-424); Red Blood Count 4.37 M/mm3 (4.60-6.20); Red Cell Distribution Width 13.5 % (11.5-17.5); White Blood Count 7.8 K/mm3 (4.8-10.8)
[2021-01-08 12:23] LABS: MANUAL DIFFERENTIAL MANUAL DIFFERENTIAL (MANUAL DIFF)
[2021-01-08 12:24] LABS: Hemoglobin 13.2 g/dL (14.1-18.0)
[2021-01-08 12:32] LABS: Activated Partial Thrombo Time 26.2 seconds (22.8-30.6)
[2021-01-08 12:45] LABS: Eosinophils % 5 % (0-3); Lymphocytes % 20 % (10-50); Monocytes % 5 % (2-9); Neutrophils % 70 % (42-76); Platelet Estimate Normal; RBC Morphology Normal; Total Cells Counted 100
[2021-01-08 18:54] LABS: Activated Partial Thrombo Time 54.1 seconds (22.8-30.6)
--- NOTE | 2021-01-08 20:23 | PC.NURSE ---
No acute changes. Did call and speak with Ciro @ night watch and ensure no changes needed to be made for 1829 ptt. He stated to keep the same and recheck 99. Pt is stable at this time, and states pain has improved some with meds.
[2021-01-09] VITALS (23 sets, daily range): BP systolic 95–143; BP diastolic 50–79; PULSE 46–70; RESP 12–20; TEMP 36.6–36.8; O2SAT 91–100; BMI 31.9; BMI 32.0
--- NOTE | 2021-01-09 | IR_ITS ---
APPROVED REPORT Patient Location: Inpatient Contingents Supervisor: BRITNEY Browne RT (R) PROCEDURES Left heart catheterization Left ventriculogram Selective coronary angiogram INDICATION Known coronary disease, Acute non-ST elevation myocardial infarction troponin 3.6, Informed consent was obtained prior to the procedure. COMPLICATIONS NONE Estimated Blood Loss: LESS THAN 10 ML TECHNIQUE One percent lidocaine used to anesthetize the right anterior aspect of the wrist. The right radial artery was accessed via the Seldinger technique. A 6 Urdu sheath was placed in the right radial artery. 2.5 mg of verapamil, 800 mcg of nitroglycerin, 1mg Lidocaine and 5000 U Heparin were given through the arterial sheath. The Poppa catheter was also used to perform left heart catheterization, left ventriculogram and selective coronary angiogram. At the end of the procedure the sheath was removed good hemostasis was achieved using Traclet band, patient was transferred to the postop holding area in stable condition. ANGIOGRAPHIC RESULTS The left main artery Normal The left anterior descending artery Has a stent in the proximal through mid LAD which is widely patent. The mid LAD has concentric 20 to 30% in-stent restenosis of the remaining LAD is widely patent. High ramus intermedius originates off the proximal LAD which has an ostial to proximal 80% stenosis. The first diagonal artery has a stent in its ostial segment which is acutely thrombosed. The circumflex artery Is a nondominant vessel and has proximal tandem 10 to 20% stenoses with remaining vessel widely patent The right coronary artery Is a dominant vessel and has a stent in the ostial proximal segment which is widely patent free of in-stent restenosis with excellent distal transitioning. The mid vessel has a 20 to 30% stenosis with additional stents in a long and moderately large posterior descending artery which are widely patent The SCHERER ventriculogram reveals Ejection fraction 50% with mild anterior hypokinesis The left ventricular end-diastolic pressure 25 mmHg IMPRESSION Coronary disease as described above with the acute troponin elevation secondary to the thrombosed first diagonal artery Unchanged disease in the ramus intermedius or also could be referred to as a large first diagonal artery Ejection fraction 50% with mild regional wall motion abnormality Elevated LVEDP PLAN 1. Medical management. 2. The acute event stem from the first diagonal artery thrombosis which was a small vessel. I would like to continue treating the ramus intermedius medically as this is unlikely to produce angina however stenting this would require bifurcation which would increase the likelihood of problems in the future 3. Avoidance of tobacco products 4. Standard therapy for ischemic heart disease Electronically signed by : Dc Gonzalez MD 01/09/2021 13:35:05
[2021-01-09 01:25] LABS: Activated Partial Thrombo Time 43.4 seconds (22.8-30.6)
--- NOTE | 2021-01-09 03:21 | PC.NURSE ---
A&OX4. TOLERATING RA WELL. UP INDEPENDENTLY IN ROOM. PT HAS SLEPT MAJORITY OF SHIFT. HAS C/O MILD INTERMITTENT CP, TX WITH MORPHINE PER MAR, RELIEVING PAIN. NSR ON TELE. VSS WILL CONTINUE TO MONITOR.
--- NOTE | 2021-01-09 05:53 | PC.NURSE ---
Jacky BRASHER NOTIFIED OF CONSULT
[2021-01-09 06:35] LABS: MANUAL DIFFERENTIAL MANUAL DIFFERENTIAL (MANUAL DIFF)
[2021-01-09 06:43] LABS: Basophils % 0.6 % (0.1-2.0); Eosinophils # 0.3 K/mm3 (0.0-0.4); Eosinophils % 4.6 % (0.1-12.0); Hematocrit 39.6 % (42.0-52.0); Hemoglobin 13.2 g/dL (14.1-18.0); Lymphocytes # 1.8 K/mm3 (0.7-4.5); Lymphocytes % 24.7 % (10-50); Mean Corpuscular HGB Conc 33.3 g/dL (31.8-35.4); Mean Corpuscular Hemoglobin 29.7 pg (27.0-31.2); Mean Corpuscular Volume 89.1 fl (80-94); Mean Platelet Volume 8.1 fl (7.4-10.4); Monocytes # 0.5 K/mm3 (0.1-1.0); Monocytes % 7.2 % (1.7-9.3); Neutrophils # 4.6 K/mm3 (1.8-7.8); Neutrophils % 62.9 % (37.0-80.0); Platelet Count 202 K/mm3 (142-424); Red Blood Count 4.44 M/mm3 (4.60-6.20); Red Cell Distribution Width 13.5 % (11.5-17.5); White Blood Count 7.3 K/mm3 (4.8-10.8)
[2021-01-09 07:28] LABS: Eosinophils % 3 % (0-3); Lymphocytes % 26 % (10-50); Monocytes % 5 % (2-9); Neutrophils % 65 % (42-76); Platelet Estimate Normal; Total Cells Counted 100
--- NOTE | 2021-01-09 08:47 | HMH.CNCARD ---
History of Present Illness Consult date: 01/09/21 Requesting physician: Thiago Adams Consult reason: chest pain Chief complaint: Angina pectoris Additional Medical History:: 1. Hypertension 2. Coronary artery disease with history of 3 coronary stents placed over a period of 10 years with the last one being approximately 2018 in the [place], [place]. A. VAUGHN to LAD, 06/2020 with remaining diagonal disease relegated to medical therapy B. C with VAUGHN to prox to mid LAD, 1st diagonal and ostial RCA, 12/29/2020, with remaining Ramus relegated to medical therapy due to ostial location with high risk of collateral artery compromise. 3. History of left rotator cuff surgery 4. Remote tobacco use, 30 years of smoking 1/2 packs/day discontinued approximately 15 years ago 5. Questionable history of DVT versus pseudoaneurysm post cardiac catheterization approximately 2 years ago History of present illness: Patient is a 60-year-old white male, followed by Dr. Gonzalez. He has known coronary artery disease, and about 10 days ago underwent 3 stent deployments, small RCA, proximal LAD and first diagonal. There was some residual lesion noted in the ostial ramus intermedius, 70% proximal. This was considered for medical management, with plans for stent deployment if it became problematic. 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 Heaviness on the chest, radiation into the jaw. He was transported to [facility] via 911 services. After arrival an initial work-up patient wanted to leave the hospital. He was persuaded to stay. He got morphine and Nitropaste. Sequential troponins are drawn. These showed a gradual rise. His EKG this morning shows sinus bradycardia septal infarct age undetermined. Cardiology was consulted upon initial presentation. No immediate intervention was called for. I corresponded with Dr. Medeors this morning who is covering for Dr. Gonzalez. Reviewed today's EKG, and troponins. He suggested that we make certain is on Brilinta, he suggested that we heparinize him, and plans for Dr. Gonzalez to cath him in the morning. Patient has had some chest pain off and on during the night is relieved with morphine. He is in no distress. He would like to go home but understands the need to stay for further. The above per Dr. Adams No further chest pain since yesterday. 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 CP was similar to what he had preceding most recent coronary stenting. When symptoms progressed to include left arm pain he sought medical attention. [facility] History Medical History: Reports:: Arrhythmia, Atherosclerotic Heart Disease, Congestive Heart Failure, Coronary Artery Disease, Deep Vein Thrombosis, Hyperlipidemia, Hypertension, Myocardial Infarction Denies:: Cancer, Diabetes Mellitus Type 1, Diabetes Mellitus Type 2, Internal Pacemaker, MRSA, Seizures *Have you ever received a pneumonia vaccine?: No *Have you received a flu vaccine this season?: Yes Other Medical History: Reports: Arthritis, Cataracts. Denies: Blood Transfusion Reaction Laterality Cases: Left: Arthroscopy Shoulder Other Surgeries: Yes: No Previous Surgery, Cardiac Catheterization, Cardiac Surgery, Colonoscopy, Coronary Stent, EGD, Plastic Surgery, Other. No: Pacemaker Amputation: No Fractures: Yes (nose) - *Social History Smoking Status: Former smoker Tobacco Type: smokeless tobacco # Packs/Day (cigarettes): 1 #Yrs smoked (if former smoker): 45 Alcohol Intake: never Alcohol Intake Frequency:: a few times a month Substance Use Type: denies use *Occupational Status:: employed Housing: house Household Members: spouse *Travel in the last 8 weeks: None Family Hx:: No significant family history Meds Home Medications Medication Instructions Recorded Confirmed Type Nitroglycerin [Nitrostat 0.4mg SL 0.4 mg SL Q5MINP PRN 07/03/20 01/07/21 History Tablet] Sertraline
[2021-01-09 09:54] LABS: Activated Partial Thrombo Time 40.2 seconds (22.8-30.6)
[2021-01-09 13:38] LABS: Activated Partial Thrombo Time 143.9 seconds (22.8-30.6)
--- NOTE | 2021-01-09 20:44 | HMH.ACPN2 ---
Internal Medicine - PN: Subj *Date: 01/09/21 *Time: 08:40 Interval history: pt states he had a good night, denies cp,pressure Exam Vital signs and Labs for Last 24 Hours: Temp Pulse Resp BP Pulse Ox 98.0 F 54 L 18 125/53 L 98 01/09/21 10:45 01/09/21 18:35 01/09/21 18:35 01/09/21 18:35 01/09/21 18:35 Laboratory Results - last 24 hr 01/09/21 01:00: APTT 43.4 H 01/09/21 04:22: WBC 7.3, RBC 4.44 L, Hgb 13.2 L, Hct 39.6 L, MCV 89.1, MCH 29.7, MCHC 33.3, RDW 13.5, Plt Count 202, MPV 8.1, Neut % (Auto) 62.9, Lymph % (Auto) 24.7, Centre % (Auto) 7.2, Eos % (Auto) 4.6, Baso % (Auto) 0.6, Neut # (Auto) 4.6, Lymph # (Auto) 1.8, Centre # (Auto) 0.5, Eos # (Auto) 0.3, Baso # (Auto) 0.0, Total Counted 100, Neutrophils % (Manual) 65, Band Neutrophils % 1.0, Lymphocytes % (Manual) 26, Monocytes % (Manual) 5, Eosinophils % (Manual) 3, Platelet Estimate Normal 01/09/21 09:30: APTT 40.2 H 01/09/21 13:00: APTT 143.9 H* D I & O for Last 24 hours: Intake & Output 01/07/21 01/08/21 01/09/21 01/10/21 11:59 11:59 11:59 11:59 Intake Total 600 / 600 1320 / 1320 360 / 360 Balance 600 / 600 1320 / 1320 360 / 360 Weight 187 lb 0.008 oz 187 lb 187 lb 6.287 oz - Constitutional no acute distress - *Routine HEENT Exam Head: Present: normocephalic Eye: Present: PERRL ENT: Present: mucous membranes moist - *Routine Neck Exam Present: supple. Absent: lymphadenopathy - *Routine Respiratory Exam Present: CTA bilaterally - *Routine Cardiovascular Exam Present: RRR - *Routine Abdominal Exam Present: soft, normoactive bowel sounds. Absent: tenderness - *Routine Extremities Exam Absent: cyanosis, clubbing, edema - *Routine Skin Exam Present: warm. Absent: rash - *Routine Neurological Exam Present: alert, oriented X3 Assessment and Plan (1) NSTEMI (non-ST elevated myocardial infarction) Status: Acute Category: Medical Code(s): I21.4 - Non-ST elevation (NSTEMI) myocardial infarction (2) Chest pain Status: Acute Qualifiers: Chest pain type: unspecified Qualified Code(s): R07.9 - Chest pain, unspecified Category: Medical Code(s): R07.9 - Chest pain, unspecified (3) Angina pectoris Status: Acute Category: Medical Code(s): I20.9 - Angina pectoris, unspecified (4) Anxiety Status: Chronic Category: Medical Code(s): F41.9 - Anxiety disorder, unspecified (5) Elevated troponin Status: Acute Category: Medical Code(s): R79.89 - Other specified abnormal findings of blood chemistry (6) Lumbar disc disease with radiculopathy Status: Chronic Category: Medical Code(s): M51.16 - Intervertebral disc disorders with radiculopathy, lumbar region (7) Myocardial infarct Status: Acute Qualifiers: Involved coronary artery: unspecified coronary artery Category: Medical Code(s): I21.9 - Acute myocardial infarction, unspecified (8) Back pain Status: Chronic Qualifiers: Back pain location: low back pain Chronicity: chronic Back pain laterality: midline Sciatica presence: with sciatica Sciatica laterality: bilateral sciatica Qualified Code(s): M54.41 - Lumbago with sciatica, right side; M54.42 - Lumbago with sciatica, left side; G89.29 - Other chronic pain Category: Medical Code(s): M54.9 - Dorsalgia, unspecified (9) CAD (coronary artery disease) Status: Chronic Qualifiers: Coronary Disease-Associated Artery/Lesion type: solomon artery [place] vs. transplanted heart: solomon heart Associated angina: with unspecified form of angina Qualified Code(s): I25.119 - Atherosclerotic heart disease of solomon coronary artery with unspecified angina pectoris Category: Medical Code(s): I25.10 - Atherosclerotic heart disease of solomon coronary artery without angina pectoris (10) DDD (degenerative disc disease), lumbar Status: Chronic Category: Medical Code(s): M51.36 - Other intervertebral disc degeneration, lumbar region (11) Degen
[2021-01-10] VITALS: BP 137/60; PULSE 50; PULSE 53; RESP 16; TEMP 36.6; O2SAT 95
--- NOTE | 2021-01-10 03:48 | PC.NURSE ---
No acute changes t/o shift. Pt c/o of pain x1 this shift in lower back, admin meds per MAR with relief. Pt denies any SOA, N/V. VSS, call light within reach, will continue to monitor.
[2021-01-10 04:00] VITALS: BP 132/52; PULSE 50; PULSE 56; RESP 16; TEMP 36.6; O2SAT 94
[2021-01-10 06:00] VITALS: BMI 29.7
[2021-01-10 06:38] LABS: Basophils # 0.1 K/mm3 (0-0.2); Basophils % 0.8 % (0.1-2.0); Eosinophils # 0.4 K/mm3 (0.0-0.4); Eosinophils % 6.7 % (0.1-12.0); Hemoglobin 13.6 g/dL (14.1-18.0); Lymphocytes # 1.9 K/mm3 (0.7-4.5); Lymphocytes % 29.3 % (10-50); MANUAL DIFFERENTIAL MANUAL DIFFERENTIAL (MANUAL DIFF); Mean Corpuscular HGB Conc 33.1 g/dL (31.8-35.4); Mean Corpuscular Hemoglobin 29.8 pg (27.0-31.2); Mean Corpuscular Volume 89.8 fl (80-94); Mean Platelet Volume 8.1 fl (7.4-10.4); Monocytes # 0.5 K/mm3 (0.1-1.0); Monocytes % 7.7 % (1.7-9.3); Neutrophils # 3.6 K/mm3 (1.8-7.8); Neutrophils % 55.5 % (37.0-80.0); Platelet Count 235 K/mm3 (142-424); Red Blood Count 4.56 M/mm3 (4.60-6.20); Red Cell Distribution Width 13.5 % (11.5-17.5); White Blood Count 6.4 K/mm3 (4.8-10.8)
[2021-01-10 07:49] LABS: Eosinophils % 8 % (0-3); Lymphocytes % 33 % (10-50); Monocytes % 4 % (2-9); Neutrophils % 55 % (42-76); Platelet Estimate Normal; Total Cells Counted 100
[2021-01-10 08:00] VITALS: BP 148/64; PULSE 59; PULSE 69; RESP 16; TEMP 36.6; O2SAT 97
--- NOTE | 2021-01-10 09:05 | HMH.PNCARD ---
Subjective Date: 01/10/21 Time: 09:05 Principal diagnosis: NSTEMI Interval history: 60-year-old white male sitting at bedside in no acute distress. States he feels fine and is ready to go home. We discussed the results of his cardiac catheterization indicating thrombosis of one of the small arteries from his prior coronary stenting earlier this month. There was some associated wall motion abnormality as well. I recommended he take this week off work to recover and then may resume work (light work with [employer] next week). Exam Vital signs and Labs for Last 24 Hours: Temp Pulse Resp BP Pulse Ox 97.9 F 69 16 132/52 L 94 L 01/10/21 04:00 01/10/21 08:00 01/10/21 04:00 01/10/21 04:00 01/10/21 04:00 Laboratory Results - last 24 hr 01/09/21 09:30: APTT 40.2 H 01/09/21 13:00: APTT 143.9 H* D 01/10/21 05:30: WBC 6.4, RBC 4.56 L, Hgb 13.6 L, Hct 41.0 L, MCV 89.8, MCH 29.8, MCHC 33.1, RDW 13.5, Plt Count 235, MPV 8.1, Neut % (Auto) 55.5, Lymph % (Auto) 29.3, [place] % (Auto) 7.7, Eos % (Auto) 6.7, Baso % (Auto) 0.8, Neut # (Auto) 3.6, Lymph # (Auto) 1.9, Merrick # (Auto) 0.5, Eos # (Auto) 0.4, Baso # (Auto) 0.1, Total Counted 100, Neutrophils % (Manual) 55, Lymphocytes % (Manual) 33, Monocytes % (Manual) 4, Eosinophils % (Manual) 8 H, Platelet Estimate Normal I & O for Last 24 hours: Intake & Output 01/07/21 01/08/21 01/09/21 01/10/21 11:59 11:59 11:59 11:59 Intake Total 600 / 600 1320 / 1320 360 / 360 Balance 600 / 600 1320 / 1320 360 / 360 Weight 187 lb 0.008 oz 187 lb 187 lb 6.287 oz - Constitutional no acute distress - *Routine HEENT Exam Head: Present: normocephalic Eye: Present: EOMI, PERRL ENT: Present: mucous membranes moist - *Routine Neck Exam Present: supple. Absent: lymphadenopathy - *Routine Respiratory Exam Present: CTA bilaterally - *Routine Cardiovascular Exam Present: RRR - *Routine Abdominal Exam Present: soft, normoactive bowel sounds. Absent: tenderness - *Routine Extremities Exam Absent: cyanosis, clubbing, edema - *Routine Skin Exam Present: warm. Absent: rash - *Routine Neurological Exam Present: alert, oriented X3 Progress Note: A&P (1) NSTEMI (non-ST elevated myocardial infarction) Status: Acute (2) Chest pain Status: Acute (3) Angina pectoris Status: Acute (4) Anxiety Status: Chronic (5) Elevated troponin Status: Acute (6) Lumbar disc disease with radiculopathy Status: Chronic (7) Myocardial infarct Status: Acute (8) Back pain Status: Chronic (9) CAD (coronary artery disease) Status: Chronic (10) DDD (degenerative disc disease), lumbar Status: Chronic (11) Degeneration of intervertebral disc of lumbar region with osteophyte of lumbar vertebra Status: Chronic (12) History of coronary artery stent placement Status: Chronic (13) Hyperlipidemia LDL goal <100 Status: Chronic (14) Hypertension Status: Chronic Assessment and Plan for All Diagnoses:: 1. Non-ST elevation MA with occlusion of first diagonal artery. Mild wall motion abnormality noted at the time of the cardiac cath. Patient could be discharged home today. He may return to work next week. Patient will continue aspirin and Plavix. 2. Hypertension, will discontinue amlodipine and increase the patient's home medication of losartan to 50 mg twice daily in light of his wall motion abnormality of the time of the cath. 3. Hyperlipidemia, continue statin therapy with LDL goal less than 55. LDL was 66 in June of this year. Home medication recommendations Aspirin 81 mg daily Plavix 75 mg daily Carvedilol 3.125 mg twice daily Losartan 50 mg twice daily Atorvastatin 40 mg daily Isosorbide 30 mg daily Fenofibrate 145 mg daily HCTZ 25 mg daily Omeprazole 40 mg daily Nitroglycerin sublingual as needed Follow-up in our office in 1 week.
--- NOTE | 2021-01-10 11:22 | HMH.DCSUM ---
General - General Admission date:: 01/07/21 Discharge date: 01/10/21 HPI HPI: Patient is a 60-year-old white male, followed by Dr. Gonzalez. He has known coronary artery disease, and about 10 days ago underwent 3 stent deployments, small RCA, proximal LAD and first diagonal. There was some residual lesion noted in the ostial ramus intermedius, 70% proximal. This was considered for medical management, with plans for stent deployment if it became problematic. 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 Heaviness on the chest, radiation into the jaw. He was transported to [facility] via 911 services. After arrival an initial work-up patient wanted to leave the hospital. He was persuaded to stay. He got morphine and Nitropaste. Sequential troponins are drawn. These showed a gradual rise. His EKG this morning shows sinus bradycardia septal infarct age undetermined. Cardiology was consulted upon initial presentation. No immediate intervention was called for. I corresponded with Dr. Mederos this morning who is covering for Dr. Gonzalez. Reviewed today's EKG, and troponins. He suggested that we make certain is on Brilinta, he suggested that we heparinize him, and plans for Dr. Gonzalez to cath him in the morning. Patient has had some chest pain off and on during the night is relieved with morphine. He is in no distress. He would like to go home but understands the need to stay for further. Hospital Course Hospital Course: pt has did well in hospital - he was seen by card -1. Hypertension 2. Coronary artery disease with history of 3 coronary stents placed over a period of 10 years with the last one being approximately 2018 in the [place], [place]. A. VAUGHN to LAD, 06/2020 with remaining diagonal disease relegated to medical therapy B. [facility] with VAUGHN to prox to mid LAD, 1st diagonal and ostial RCA, 12/29/2020, with remaining Ramus relegated to medical therapy due to ostial location with high risk of collateral artery compromise. 3. History of left rotator cuff surgery 4. Remote tobacco use, 30 years of smoking 1/2 packs/day discontinued approximately 15 years ago 5. Questionable history of DVT versus pseudoaneurysm post cardiac catheterization approximately 2 years ago History of present illness: Patient is a 60-year-old white male, followed by Dr. Gonzalez. He has known coronary artery disease, and about 10 days ago underwent 3 stent deployments, small RCA, proximal LAD and first diagonal. There was some residual lesion noted in the ostial ramus intermedius, 70% proximal. This was considered for medical management, with plans for stent deployment if it became problematic. 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 Heaviness on the chest, radiation into the jaw. He was transported to [facility] via 911 services. After arrival an initial work-up patient wanted to leave the hospital. He was persuaded to stay. He got morphine and Nitropaste. Sequential troponins are drawn. These showed a gradual rise. His EKG this morning shows sinus bradycardia septal infarct age undetermined. Cardiology was consulted upon initial presentation. No immediate intervention was called for. I corresponded with Dr. Mederos this morning who is covering for Dr. Gonzalez. Reviewed today's EKG, and troponins. He suggested that we make certain is on Brilinta, he suggested that we heparinize him, and plans for Dr. Gonzalez to cath him in the morning. Patient has had some chest pain off and on during the night is relieved with morphine. He is in no distress. He would like to go home but understands the need to stay for further. The above per Dr. Adams No further chest pain since yesterday. 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 CP was similar to what he had preceding most recent coronary stenting. Whe
== END 2021-01-10 12:15 | disposition home or self-care (01) | DRG 281 ==
LOC: ER 18:30 → 2ND 19:14
PROVIDERS: Internal Medicine; Admitting Provider Family Medicine; Emergency Provider Emergency Medicine; PCP Emergency Medicine; Visit Provider Emergency Medicine
PROC: 4A023N7 Measurement of Cardiac Sampling and Pressure, Left Heart, Percutaneous Approach (ICD-10-PCS; principal; 2021-01-09 09:00)
DX: I21.4 Non-ST elevation (NSTEMI) myocardial infarction (principal); T82.855A Stenosis of coronary artery stent, initial encounter; F41.9 Anxiety disorder, unspecified; I25.119 Atherosclerotic heart disease of native coronary artery with unspecified angina pectoris; I10 Essential (primary) hypertension; Y83.1 Surgical operation with implant of artificial internal device as the cause of abnormal reaction of the patient, or of later complication, without mention of misadventure at the time of the procedure; E78.5 Hyperlipidemia, unspecified; Z87.891 Personal history of nicotine dependence
CPT/HCPCS: 36415; 71045; 80048; 84484; 85007; 85014; 85018; 85025; 85048; 85049; 85730; 93005; 93458; 99152; 99284; C1725; C1769; C9803; J1644; J2405; Q9967; U0003; U0005

== ENCOUNTER → 2021-01-25 13:20 | Outpatient (CLI) | payer MEDICARE, MEDICAID, SELFPAY ==
--- NOTE | 2021-01-25 13:21 | US_ITS ---
APPROVED REPORT Exam Type: Ankle to Brachial Index Administrative Assistant Office Manager: Heather Michele RT(R) Indications Rest Pain: Bilaterally History of Smoking Risk Factors Hypertension CAD Hyperlipidemia Pressures/Indices Right Indices Left Indices Brachial 141.00 mmHg Brachial 133.00 mmHg Low Thigh 163.00 mmHg 1.16 Low Thigh 159.00 mmHg 1.13 Calf 177.00 mmHg 1.26 Calf 154.00 mmHg 1.09 Ankle(PT) 156.00 mmHg 1.11 Ankle(PT) 168.00 mmHg 1.19 Ankle(DP) 172.00 mmHg 1.22 Ankle(DP) 174.00 mmHg 1.23 Digit 127.00 mmHg 0.90 Digit 120.00 mmHg 0.85 Findings RT CLAUDE=1.22 LT CLAUDE=1.23 RT TBI=0.90 LT TBI=0.85 Bradycardia with cardiac arrythmia present. Normal waveforms Normal pulses Conclusion RT CLAUDE=1.22 LT CLAUDE=1.23 RT TBI=0.90 LT TBI=0.85 Normal waveforms Normal pulses Normal appearing resting noninvasive lower extremity arterial study. Electronically signed by : Dio Lee MD 01/25/2021 17:11:40
== END ==
PROVIDERS: PCP Emergency Medicine; Visit Provider Urology
DX: E78.5 Hyperlipidemia, unspecified (principal); I10 Essential (primary) hypertension; I25.119 Atherosclerotic heart disease of native coronary artery with unspecified angina pectoris; I65.23 Occlusion and stenosis of bilateral carotid arteries; I73.9 Peripheral vascular disease, unspecified; Z95.5 Presence of coronary angioplasty implant and graft
CPT/HCPCS: 93923

== ENCOUNTER → 2021-02-03 19:45 | Outpatient (CLI) | payer MEDICARE, MEDICAID, SELFPAY ==
[2021-02-03 21:35] LABS: Amphetamine/Metha Screen,Urine Negative ng/ml (<1000); Barbiturates Screen,Urine Negative ng/ml (<200)
[2021-02-03 21:36] LABS: Benzodiazepines Screen,Urine Negative ng/ml (<200)
[2021-02-03 21:37] LABS: Cannabinoid Screen,Urine Negative ng/ml (<50); Cocaine Screen,Urine Negative ng/ml (<300)
[2021-02-03 21:38] LABS: Methadone Screen,Urine Negative ng/ml (<300)
[2021-02-03 21:39] LABS: Opiate Screen,Urine Positive ng/ml (<300); Phencyclidine Screen,Urine Negative ng/ml (<25)
== END ==
PROVIDERS: Visit Provider Emergency Medicine
DX: Z79.899 Other long term (current) drug therapy (principal)
CPT/HCPCS: 80305

== ENCOUNTER → 2021-02-07 14:28 | Outpatient (CLI) | payer MEDICARE, MEDICAID, SELFPAY ==
[2021-02-07 15:32] LABS: Anion Gap 9.6 mEq/L (5-15); Blood Urea Nitrogen 14 mg/dl (9-20); Calcium 9.6 mg/dl (8.4-10.2); Carbon Dioxide 32 mmol/L (22.0-30.0); Chloride 102 mmol/L (98-107); Estimated Glomerular Filt Rate 68 ml/min (>60); GFR (African American) 82 ML/MIN (>60); Glucose 107 mg/dl (74-100); Potassium 4.6 mmoL/L (3.5-5.1); Sodium 139 mmol/L (136-145)
== END ==
PROVIDERS: Visit Provider Internal Medicine
DX: E78.5 Hyperlipidemia, unspecified (principal); I10 Essential (primary) hypertension; I25.119 Atherosclerotic heart disease of native coronary artery with unspecified angina pectoris; I65.23 Occlusion and stenosis of bilateral carotid arteries; I73.9 Peripheral vascular disease, unspecified; Z95.5 Presence of coronary angioplasty implant and graft
CPT/HCPCS: 36415; 80048

== ENCOUNTER 2021-06-26 12:07 | Emergency (ER) | payer MEDICARE, MEDICAID, SELFPAY ==
[2021-06-26 12:08] VITALS: BP 120/72; PULSE 56; RESP 16; TEMP 36.8; O2SAT 96; BMI 30.9
--- NOTE | 2021-06-26 12:49 | XR_ITS ---
FINAL REPORT TECHNIQUE: Single view chest CLINICAL HISTORY: Chest pain COMPARISON: 01/05/2021 FINDINGS: A single view of the chest was obtained. The heart and mediastinum are within normal limits. The lungs are clear. There is no pneumothorax. Osseous structures are unremarkable. IMPRESSION: No acute cardiopulmonary process. Reviewed, Interpreted and Dictated by Luca Farfan MD Transcribed by Genie Taylro Authenticated by Luca Farfan MD on 06/26/2021 02:41:[address] [facility]
[2021-06-26 12:50] LABS: Basophils # 0.1 K/mm3 (0-0.2); Basophils % 1.7 % (0.1-2.0); Eosinophils # 0.2 K/mm3 (0.0-0.4); Eosinophils % 4.8 % (0.1-12.0); Hematocrit 41.6 % (42.0-52.0); Hemoglobin 13.8 g/dL (14.1-18.0); Lymphocytes # 1.3 K/mm3 (0.7-4.5); Lymphocytes % 27.8 % (10-50); Mean Corpuscular HGB Conc 33.2 g/dL (31.8-35.4); Mean Corpuscular Hemoglobin 29.9 pg (27.0-31.2); Mean Platelet Volume 8.1 fl (7.4-10.4); Monocytes # 0.4 K/mm3 (0.1-1.0); Monocytes % 7.7 % (1.7-9.3); Neutrophils # 2.8 K/mm3 (1.8-7.8); Platelet Count 225 K/mm3 (142-424); Red Blood Count 4.63 M/mm3 (4.60-6.20); Red Cell Distribution Width 13.4 % (11.5-17.5); White Blood Count 4.8 K/mm3 (4.8-10.8)
[2021-06-26 13:00] LABS: Alanine Aminotransferase 27 U/L (12-78); Albumin Level 4.1 g/dl (3.5-5.0); Albumin/Globulin Ratio 1.7 (1.1-1.8); Alkaline Phosphatase 49 U/L (38-126); Anion Gap 10.8 mEq/L (5-15); Aspartate Amino Transferase 36 U/L (17-59); Bilirubin,Total 0.2 mg/dl (0.2-1.3); Blood Urea Nitrogen 10 mg/dl (9-20); Carbon Dioxide 24 mmol/L (22.0-30.0); Chloride 109 mmol/L (98-107); Creatinine Clearance Estimated 87 mL/min (50-200); Estimated Glomerular Filt Rate 98 ml/min (>60); GFR (African American) 118 ML/MIN (>60); Globulin 2.4 g/dL (1.3-3.2); Glucose 88 mg/dl (74-100); Lactic Acid 1.2 mmol/L (0.7-2.1); Lipase 57 U/L (23-300); Potassium 3.8 mmoL/L (3.5-5.1); Sodium 140 mmol/L (136-145); Total Protein,Serum 6.5 g/dl (6.3-8.2)
--- NOTE | 2021-06-26 13:32 | ECG_ITS ---
APPROVED REPORT Exam: Resting ECG HR:48 bpm ECG Measurements Heart Rate 48 AXES MA 196 P 39 QRSd 92 QRS -24 QT 425 T 99 QTc 392 Conclusion SINUS BRADYCARDIA Left axis deviation, poor R wave progression, unchanged since 2020 ABNORMAL ECG UNCONFIRMED REPORT Electronically signed by : Jewel Alcala MD 06/26/2021 15:57:20
[2021-06-26 13:33] LABS: Microscopic, Urine URINE MICROSCOPIC (MICROSCOPIC)
[2021-06-26 13:35] LABS: Appearance,Urine CLEAR (Clear); Bilirubin,Urine Negative (Negative); Blood, Urine 1+ (Negative); Color,Urine YELLOW (Yellow); Glucose,Urine (UA) Negative (Negative); Ketones,Urine Negative (Negative); Leukocyte Esterase,Urine 2+ (Negative); Nitrate,Urine POSITIVE (Negative); Protein,Urine TRACE (Negative); Urobilinogen,Urine 0.2 EU/dl (0.2)
[2021-06-26 13:48] LABS: Troponin I 0.02 ng/ml (0.00-0.034)
[2021-06-26 13:50] LABS: Bacteria,Urine 1+ /lpf
--- NOTE | 2021-06-26 13:53 | HMH.EDGENADL ---
ED Disposition Clinical Impression: UTI (urinary tract infection) Qualifiers: Urinary tract infection type: acute cystitis Hematuria presence: with hematuria Qualified Code(s): N30.01 - Acute cystitis with hematuria Disposition: Home, Self-Care Condition on Discharge: Good Instructions: DI for Diarrhea and Traveler's Diarrhea -- Adult, DI for Diarrhea and Traveler's Diarrhea -- Child, DI for Nausea -- Adult, DI for Nausea -- Child Prescriptions: Sulfamethoxazole/Trimethoprim [Bactrim DS tablet] 1 each PO BID 7 Days tab Prescription Printed Ondansetron [Zofran 4mg ODT] 4 mg PO TID PRN 12 Days #16 tab PRN Reason: Nausea Transmission Status: Received by [facility] Referrals: Claudio English MD [Primary Care Provider] - Forms: Work/School Release - Critical Care Critical Care Time: No Attestation: On 06/26/21, the high probability of a clinically significant, sudden or life threatening deterioration of the following system(s) required my full and direct attention, intervention and personal management. The time I documented below is in addition to time spent performing reported procedures but includes the following listed in this critical care notation. Medical Decision Making - Medical Records Medical records reviewed: Yes: I reviewed the patient's medical records. - Rodri Inquiry Pt receiving controlled substance: No Vital Signs: 06/26/21 12:08 06/26/21 15:22 06/26/21 16:12 Temperature 98.3 F 98.3 F Temperature Source Oral Oral Pulse Rate 48 L 60 Pulse Rate [Radial] 56 L Respiratory Rate 16 18 Blood Pressure 134/44 L 117/73 Blood Pressure [Right Arm] 120/72 Blood Pressure Mean [Right Arm] 88 Blood Pressure Source Automatic Cuff Blood Pressure Position Sitting Blood Pressure Position [Right Arm] Sitting 02 Sat by Pulse Oximetry 96 Oxygen Delivery Method Room Air - Lab Data Lab results reviewed: Yes: I reviewed the patient's lab results. Lab Results 06/26/21 12:32: WBC 4.8, RBC 4.63, Hgb 13.8 L, Hct 41.6 L, MCV 90.0, MCH 29.9, MCHC 33.2, RDW 13.4, Plt Count 225, MPV 8.1, Neut % (Auto) 58.0, Lymph % (Auto) 27.8, [place] % (Auto) 7.7, Eos % (Auto) 4.8, Baso % (Auto) 1.7, Neut # (Auto) 2.8, Lymph # (Auto) 1.3, [place] # (Auto) 0.4, Eos # (Auto) 0.2, Baso # (Auto) 0.1 06/26/21 12:32: Sodium 140, Potassium 3.8, Chloride 109 H, Carbon Dioxide 24, Anion Gap 10.8, BUN 10, Creatinine 0.80, Estimated Creat Clear 87, Estimated GFR 98, Est GFR ( Amer) 118, Glucose 88, Calcium 9.0, Total Bilirubin 0.2, AST 36, ALT 27, Alkaline Phosphatase 49, Total Protein 6.5, Albumin 4.1, Globulin 2.4, Albumin/Globulin Ratio 1.7, Lipase 57 06/26/21 12:32: Lactate 1.2 06/26/21 12:32: Troponin I 0.02 06/26/21 13:23: Urine Color Yellow, Urine Appearance Clear, Urine pH 6.0, Ur Specific Berkley 1.020, Urine Protein Trace, Urine Glucose (UA) Negative, Urine Ketones Negative, Urine Blood 1+, Urine Nitrate Positive, Urine Bilirubin Negative, Urine Urobilinogen 0.2, Ur Leukocyte Esterase 2+ A, Urine RBC 3-5, Urine WBC 5-10, Ur Squamous Epith Cells 3-5, Urine Bacteria 1+ 06/26/21 15:20: Troponin I 0.02 Result diagrams: 06/26/21 12:32 06/26/21 12:32 Orders (Tests/Meds): ED MEDICATIONS Discontinued Medications Generic Name Dose Route Start Last Admin Trade Name Jaspal PRN Reason Stop Dose Admin Hydrocodone Bitart/Acetaminophen 1 tab 06/26/21 14:51 06/26/21 15:00 Hydrocodone/Apap 5/325 Mg Tablet PO 06/26/21 14:52 1 tab ONCE ONE Administration Lactated Ringer's 1,000 mls @ 999 mls/hr 06/26/21 12:30 06/26/21 12:25 Lactated Ringer's 1000 Ml Bag IV 06/26/21 13:30 999 mls/hr .Q1H1M MELISSA Administration Ketorolac Tromethamine 15 mg 06/26/21 14:50 06/26/21 15:00 Ketorolac 30mg/Ml Vial IV 06/26/21 14:51 15 mg ONCE ONE Administration Ondansetron HCl 4 mg 06/26/21 12:21 06/26/21 12:25 Ondansetron 4mg/2ml Vial IV 06/26/21 12:22 4 mg ONCE ONE Administration
[2021-06-26 15:22] VITALS: BP 134/44; PULSE 48
[2021-06-26 15:49] LABS: Troponin I 0.02 ng/ml (0.00-0.034)
[2021-06-26 16:12] VITALS: BP 117/73; PULSE 60; RESP 18; TEMP 36.8; O2SAT 97
== END 2021-06-26 16:18 | disposition home or self-care (01) ==
PROVIDERS: Emergency Provider Emergency Medicine; PCP Emergency Medicine
DX: N30.01 Acute cystitis with hematuria (principal); I10 Essential (primary) hypertension; E78.5 Hyperlipidemia, unspecified; Z87.891 Personal history of nicotine dependence; Z79.899 Other long term (current) drug therapy
CPT/HCPCS: 71045; 80053; 81001; 83605; 83690; 84484; 85025; 87086; 87088; 87186; 93005; 96360; 96365; 96375; 99284; J2405

== ENCOUNTER → 2021-06-28 12:41 | Outpatient (CLI) | payer MEDICARE, MEDICAID, SELFPAY ==
[2021-06-28 14:07] LABS: Amphetamine/Metha Screen,Urine Negative ng/ml (<1000)
[2021-06-28 14:08] LABS: Barbiturates Screen,Urine Negative ng/ml (<200); Benzodiazepines Screen,Urine Negative ng/ml (<200)
[2021-06-28 14:09] LABS: Cannabinoid Screen,Urine Negative ng/ml (<50); Cocaine Screen,Urine Negative ng/ml (<300)
[2021-06-28 14:10] LABS: Methadone Screen,Urine Negative ng/ml (<300)
[2021-06-28 14:11] LABS: Opiate Screen,Urine Positive ng/ml (<300); Phencyclidine Screen,Urine Negative ng/ml (<25)
== END ==
PROVIDERS: PCP Emergency Medicine; Visit Provider Emergency Medicine
DX: Z79.899 Other long term (current) drug therapy (principal)
CPT/HCPCS: 80305

== ENCOUNTER 2021-08-23 14:17 | Emergency (ER) | payer MEDICARE, MEDICAID, SELFPAY ==
[2021-08-23] VITALS (13 sets, daily range): BP systolic 100–130; BP diastolic 43–81; PULSE 52–74; RESP 13–18; TEMP 36.2–36.8; O2SAT 96–100; BMI 30.9
--- NOTE | 2021-08-23 14:14 | ECG_ITS ---
APPROVED REPORT Exam: Resting ECG HR:70 bpm ECG Measurements Heart Rate 70 AXES TX 179 P 51 QRSd 94 QRS 8 QT 378 T 84 QTc 399 Conclusion SINUS RHYTHM WITH OCCASIONAL SUPRAVENTRICULAR PREMATURE COMPLEXES SEPTAL MYOCARDIAL INFARCTION , OF INDETERMINATE AGE [40+ ms Q WAVE IN V1/V2] ABNORMAL ECG UNCONFIRMED REPORT Electronically signed by : Jewel Alcaal MD 08/23/2021 16:50:38
--- NOTE | 2021-08-23 14:36 | XR_ITS ---
FINAL REPORT CLINICAL HISTORY: CP COMPARISON: June 26, 2021 FINDINGS: A single portable view of the chest was obtained. The heart size and pulmonary vascularity are within normal limits. The mediastinum is within normal limits. There is persistent mild right base atelectasis or scarring. The bony thorax is intact. IMPRESSION: Persistent mild right base atelectasis or scarring. Reviewed, Interpreted and Dictated by Jonny Vail III, MD Transcribed by Elenita Tay Authenticated and [facility]
[2021-08-23 14:44] LABS: Basophils # 0.1 K/mm3 (0-0.2); Basophils % 1.3 % (0.1-2.0); Eosinophils # 0.3 K/mm3 (0.0-0.4); Eosinophils % 5.4 % (0.1-12.0); Hemoglobin 14.7 g/dL (14.1-18.0); Lymphocytes # 1.3 K/mm3 (0.7-4.5); Lymphocytes % 24.7 % (10-50); Mean Corpuscular HGB Conc 34.2 g/dL (31.8-35.4); Mean Corpuscular Hemoglobin 30.5 pg (27.0-31.2); Mean Corpuscular Volume 89.2 fl (80-94); Monocytes # 0.3 K/mm3 (0.1-1.0); Monocytes % 5.4 % (1.7-9.3); Neutrophils # 3.4 K/mm3 (1.8-7.8); Neutrophils % 63.2 % (37.0-80.0); Platelet Count 217 K/mm3 (142-424); Red Blood Count 4.83 M/mm3 (4.60-6.20); Red Cell Distribution Width 13.4 % (11.5-17.5); White Blood Count 5.4 K/mm3 (4.8-10.8)
[2021-08-23 14:45] LABS: Chloride 107 mmol/L (98-107); Potassium 4.1 mmoL/L (3.5-5.1); Sodium 140 mmol/L (136-145)
[2021-08-23 14:48] LABS: Anion Gap 12.1 mEq/L (5-15); Blood Urea Nitrogen 12 mg/dl (9-20); Carbon Dioxide 25 mmol/L (22.0-30.0); Creatinine Clearance Estimated 87 mL/min (50-200); Estimated Glomerular Filt Rate 114 ml/min (>60); GFR (African American) 138 ML/MIN (>60)
[2021-08-23 14:49] LABS: Calcium 9.6 mg/dl (8.4-10.2); Glucose 158 mg/dl (74-100)
[2021-08-23 15:02] LABS: Troponin I 0.01 ng/ml (0.00-0.034)
--- NOTE | 2021-08-23 15:15 | HMH.EDCP ---
ED Disposition Clinical Impression: Atypical chest pain Disposition: Home, Self-Care Condition on Discharge: Fair Instructions: DI for Chest Pain Additional Instructions: Call Dr. Gonzalez, schedule a follow-up appointment with him. Return to the emergency department for any new or concerning symptoms. Referrals: Claudio English MD [Primary Care Provider] - Forms: Work/School Release - Critical Care Critical Care Time: No Attestation: On 08/23/21, the high probability of a clinically significant, sudden or life threatening deterioration of the following system(s) required my full and direct attention, intervention and personal management. The time I documented below is in addition to time spent performing reported procedures but includes the following listed in this critical care notation. Medical Decision Making - Medical Records Medical records reviewed: Yes: I reviewed the patient's medical records. - Rodri Inquiry Pt receiving controlled substance: No Vital Signs: 08/23/21 14:18 08/23/21 14:30 08/23/21 15:00 Temperature 98.3 F Temperature Source Oral Pulse Rate 74 60 Pulse Rate [Left Radial] 68 Respiratory Rate 13 15 16 Blood Pressure 124/58 L 109/58 L Blood Pressure [Right Arm] 130/75 Blood Pressure Mean 74 Blood Pressure Mean [Right Arm] 93 Blood Pressure Source Automatic Cuff Blood Pressure Source [Right Arm] Automatic Cuff Blood Pressure Position Sitting Blood Pressure Position [Right Arm] Sitting 02 Sat by Pulse Oximetry 98 96 96 Oxygen Delivery Method Room Air Room Air 08/23/21 15:30 08/23/21 16:00 08/23/21 16:40 Temperature Temperature Source Pulse Rate 60 62 56 L Pulse Rate [Left Radial] Respiratory Rate 16 13 Blood Pressure 117/63 113/68 116/58 L Blood Pressure [Right Arm] Blood Pressure Mean 81 78 77 Blood Pressure Mean [Right Arm] Blood Pressure Source Blood Pressure Source [Right Arm] Blood Pressure Position Blood Pressure Position [Right Arm] 02 Sat by Pulse Oximetry 98 97 97 Oxygen Delivery Method 08/23/21 17:01 08/23/21 17:30 08/23/21 18:00 Temperature Temperature Source Pulse Rate 52 L 54 L 56 L Pulse Rate [Left Radial] Respiratory Rate 14 15 16 Blood Pressure 119/61 127/81 100/43 L Blood Pressure [Right Arm] Blood Pressure Mean 80 96 62 Blood Pressure Mean [Right Arm] Blood Pressure Source Blood Pressure Source [Right Arm] Blood Pressure Position Blood Pressure Position [Right Arm] 02 Sat by Pulse Oximetry 99 97 98 Oxygen Delivery Method 08/23/21 18:09 08/23/21 18:30 08/23/21 19:00 Temperature Temperature Source Pulse Rate 59 L 58 L 62 Pulse Rate [Left Radial] Respiratory Rate 18 Blood Pressure 130/68 122/68 128/66 Blood Pressure [Right Arm] Blood Pressure Mean 73 83 80 Blood Pressure Mean [Right Arm] Blood Pressure Source Blood Pressure Source [Right Arm] Blood Pressure Position Blood Pressure Position [Right Arm] 02 Sat by Pulse Oximetry 99 98 100 Oxygen Delivery Method - Lab Data Lab results reviewed: Yes: I reviewed the patient's lab results. Lab Results 08/23/21 14:20: WBC 5.4, RBC 4.83, Hgb 14.7, Hct 43.0, MCV 89.2, MCH 30.5, MCHC 34.2, RDW 13.4, Plt Count 217, MPV 8.0, Neut % (Auto) 63.2, Lymph % (Auto) 24.7, [place] % (Auto) 5.4, Eos % (Auto) 5.4, Baso % (Auto) 1.3, Neut # (Auto) 3.4, Lymph # (Auto) 1.3, [place] # (Auto) 0.3, Eos # (Auto) 0.3, Baso # (Auto) 0.1 08/23/21 14:20: Sodium 140, Potassium 4.1, Chloride 107, Carbon Dioxide 25, Anion Gap 12.1, BUN 12, Creatinine 0.70, Estimated Creat Clear 87, Estimated GFR 114, Est GFR ( Amer) 138, Glucose 158 H, Calcium 9.6, Troponin I 0.01 08/23/21 18:20: Troponin I < 0.01 Result diagrams: 08/23/21 14:20 08/23/21 14:20 Orders (Tests/Meds): ED MEDICATIONS Generic Name Dose Route Start Last Admin Trade Name Freq PRN Reason Stop Dose Admin Nitroglycerin 0.4 mg
--- NOTE | 2021-08-23 16:22 | PC.NURSE ---
family at BS
--- NOTE | 2021-08-23 16:30 | PC.NURSE ---
MERI Barraza gave family an update; no other needs
--- NOTE | 2021-08-23 16:46 | PC.NURSE ---
ED MD at speaking with patient
--- NOTE | 2021-08-23 16:49 | ECG_ITS ---
APPROVED REPORT Exam: Resting ECG HR:51 bpm ECG Measurements Heart Rate 51 AXES NJ 191 P 48 QRSd 91 QRS -5 QT 419 T 79 QTc 397 Conclusion SINUS BRADYCARDIA WITH OCCASIONAL SUPRAVENTRICULAR PREMATURE COMPLEXES SEPTAL MYOCARDIAL INFARCTION , OF INDETERMINATE AGE [40+ ms Q WAVE IN V1/V2] ABNORMAL ECG UNCONFIRMED REPORT Electronically signed by : Jewel Alcala MD 08/24/2021 21:18:44
--- NOTE | 2021-08-23 16:52 | PC.NURSE ---
Repeat EKG done and given to Dr. Walker; Mary Encinas, nursing home assistant called for a Cardiac meal tray
--- NOTE | 2021-08-23 17:18 | PC.NURSE ---
Cardiac meal tray was given to patient by dietary. pt sitting up eating, family at BS
--- NOTE | 2021-08-23 18:21 | PC.NURSE ---
2nd troponin drawn and sent to lab; Uma in lab notified. Pt has no other needs at this time; family at BS
[2021-08-23 18:57] LABS: Troponin I < 0.01 ng/ml (0.00-0.034)
== END 2021-08-23 19:22 | disposition home or self-care (01) ==
PROVIDERS: Emergency Provider Emergency Medicine; PCP Emergency Medicine
DX: R07.89 Other chest pain (principal); R00.1 Bradycardia, unspecified; I25.10 Atherosclerotic heart disease of native coronary artery without angina pectoris; I10 Essential (primary) hypertension; E78.5 Hyperlipidemia, unspecified; Z95.5 Presence of coronary angioplasty implant and graft
CPT/HCPCS: 71045; 80048; 84484; 85025; 93005; 96374; 99284

== ENCOUNTER → 2021-09-07 12:13 | Outpatient (CLI) | payer MEDICARE, MEDICAID, SELFPAY ==
--- NOTE | 2021-09-07 | CA_ITS ---
APPROVED REPORT Exam: Pharmacologic Technologist: Lois Porter, Ht: 5 ft 4 in Wt: 170 lbs BSA: 1.83 m2 HR: 60 bpm BP: 96/52 mmHg Rhythm: NSR, PACS, SLOW R WAVE PROGRESSION Medical History Medical History: HTN, Hyperlipidemia Medications: Isosorbide,,,,, Aspirin,,,,, Gabapentin,,,,, Losartan,,,,, Atorvastatin,,,,, HCTZ,,,,, Carvedilol,,,,, ClonAZEPAM,,,,, CloPIdogrel,,,,, Nitroglycerin,,,,, ONdansetron,,,,, Hydrocodone-Acetaminohen,,,,, Allergies: CODEINE Cardiac Risk Factors: HTN, Hyperlipidemia Stress Test Details Test: LEXISCAN HR Resting HR: 61 bpm Max Heart Rate (APMHR): 157.166744 bpm Max HR Achieved: 80 bpm Target HR (85% APMHR): 133.454805 bpm % of APMHR: 50.96 Recovery HR: 70 bpm BP Resting BP: 96/52 mmHg Max BP: 109/43 mmHg Recovery BP: 104.0/52.0 mmHg ECG Resting ECG: NSR, PACS, SLOW R WAVE PROGRESSION Clinical Exercise duration: 04:03 min Highest Stage Achieved: Stress ECG Conclusion PT HAD MILD SOA AND HEAD DISCOMFORT. NO CP OCC PAV AND PVC NO SIGNIFICANT CHANGES UNREMARKABLE LEXISCAN STRESS MYOVIEW IMAGES REPORTED SEPARATELY Test Summary RECOVERY 03:18 . . 72 . 104/ 52 . . Stage 1 01:00 . . 74 . . . . Stage 2 01:00 . . 75 . 102/ 50 . . Stage 3 01:00 . . 77 . . . . Stage 4 01:00 . . 67 . 96/ 48 . . Stage 4 01:03 . . 71 . 96/ 48 . Stop exercise at 04:03 RECOVERY 01:00 . . 65 . . . . RECOVERY 02:00 . . 65 . 105/ 52 . . RECOVERY 03:00 . . 67 . 105/ 52 . . RECOVERY 03:18 . . 72 . 104/ 52 . . Electronically signed by : Saman Licona MD 09/08/2021 10:06:23
--- NOTE | 2021-09-07 12:13 | NM_ITS ---
APPROVED REPORT Exam: Nuclear Stress Test Indication: CAD, HX M.I., HTN, HYPERLIPIDEMIA, TOB USE, FM HX., C.P. Patient Location: Outpatient Stress Tech: Lois Porter [place] Tech:BRITNEY Washburn RT (R)(N)(M) Ht: 5 ft 4 in Wt: 169 lbs HR: 60 bpm BP: 96/52 mmHg BSA: 1.82 m2 TID: 1.16 BMI: 29.0 History: CAD, HX M.I., HTN, HYPERLIPIDEMIA, TOB USE, FM HX., C.P. Procedure: Patient received a 0.4 mg of intravenous Lexiscan, resting heart rate 60 bpm, resting blood pressure 96/52 mmHg, with Lexiscan maximum heart rate achived was 77 bpm which is Less than 85 % of the maximum predicted heart rate and blood pressure was 109/43 mmHg. With Lexiscan, patient denied any complaint of chest pain. Electrocardiogram Resting electrocardiogram shows sinus rhythm, with Lexiscan there is less than 1.[address] segment depression noted from the baseline EKG. The EKG portion of the Lexiscan is nondiagnostic. Cardiac Stress and Resting SPECT Images: Cardiac Stress and Resting SPECT images were obtained using technetium 99m Myoview 32.1 mCi stress and 10.26 mCi at rest. Gated SPECT for analysis of segmental wall motion and calculation of the ejection fraction also done. Prone images were also obtained. Cardiac stress and rest SPECT may show partial reversible defect involving the anterolateral wall, computer derived ejection fraction is 49% with moderate anterolateral wall hypokinesis. Right ventricle is mildly enlarged with normal contractility. Conclusion: 1. The EKG portion of the Lexiscan is nondiagnostic. 2. Scintigraphic evidence of mixed ischemia and scar involving the anterolateral wall, computer derived ejection fraction is 49% with segmental wall motion abnormality described above, right ventricle is mildly enlarged with normal contractility. 3. Abnormal Lexiscan Myoview study. Electronically signed by : Saman Licona MD 09/08/2021 10:08:49
--- NOTE | 2021-09-07 12:51 | CA_ITS ---
APPROVED REPORT EXAM: Comprehensive 2D, Doppler, and color-flow Echocardiogram Cut Out Stitcher: Heather Michele RT(R) Ht: 5 ft 4 in Wt: 170lbs BSA: 1.83 BP: 138/80 mmHg Indications: CAD, CP, SOB, HTN, Syncope, atypical CP. 2D Dimensions LVOT 1.99 cm (M/F) 1.5-2.5 LA Volume 36.20 mL LA Volume Index 19.89 mL/m2 (M/F) 16-34 M-Mode Dimensions RVDd 3.00 cm (0.9-2.6) LA Diam 4.04 cm (1.9-4.0) LVDd 4.84 cm (3.5-5.7) Ao Diam 2.48 cm (2.0-3.7) LVDs 3.14 cm (3.5-5.7) IVSd 0.93 cm (0.6-1.1) PWd 0.87 cm (0.6-1.1) EF (Teich) 64.30% FS 35.10% EDV (Teich) 109.60 mL ESV (Teich) 39.10 mL LV Diastology E Decel Time 237.00 (160-240 msec) E/A Ratio 1.0 MED E' 7.20 (< 7 cm/sec) E'/MED E' Ratio 9.89 (>14) LAT E' 10.20 (<10 cm/sec) E/LAT E' Ratio 6.98 (>14) Mitral Valve MV E Max Noah. 71.00 (40-130 cm/s) MV A Velocity 73.00 (40-130 cm/s) E/A Ratio 0.98 MV Decel. Time 237.00 (160-240 ms) MV PHT 69.00 ms Left Ventricle Left atrium is mildly enlarged, left ventricle is normal size, mild concentric left ventricular hypertrophy, estimated ejection fraction 55% with no regional wall motion abnormality, grade 1 diastolic dysfunction seen without tissue Doppler evidence of raise left atrial pressure. Right Ventricle Right atrium and right ventricle are normal size and contractility. Aortic Valve Aortic valve is minimally thickened and fibrosed there is no aortic stenosis or aortic insufficiency. Mitral Valve Mitral valve leaflets are minimally thickened, there is mild mitral regurgitation. Tricuspid Valve Tricuspid valve grossly normal, there is mild tricuspid regurgitation, tricuspid regurgitation jet velocity is inadequate for calculation of the right ventricular systolic pressure. Pulmonic Valve Pulmonic valve is poorly visualized. Great Vessels Aortic root is normal size. Inferior vena cava is normal size with normal inspiratory collapse. Pericardium No significant pericardial effusion noted. Conclusion 1. Mildly enlarged left atrium, normal left ventricular size, mild concentric left ventricular hypertrophy, estimated ejection fraction 55% with no regional wall motion abnormality, grade 1 diastolic dysfunction seen without tissue Doppler evidence of raise left atrial pressure. 2. Mild mitral and tricuspid regurgitation. 3. No significant pericardial effusion noted. 4. Inferior vena cava is normal size with normal inspiratory collapse. Electronically signed by : Saman Licona MD 09/08/2021 15:06:48
== END ==
PROVIDERS: PCP Emergency Medicine; Visit Provider Internal Medicine
DX: I25.119 Atherosclerotic heart disease of native coronary artery with unspecified angina pectoris (principal); I65.23 Occlusion and stenosis of bilateral carotid arteries; R06.00 Dyspnea, unspecified; R07.89 Other chest pain; Z87.891 Personal history of nicotine dependence; Z95.5 Presence of coronary angioplasty implant and graft
CPT/HCPCS: 78452; 93017; 93306; A9502; J2785

== ENCOUNTER → 2021-09-19 14:55 | Outpatient (CLI) | payer MEDICARE, MEDICAID, SELFPAY ==
[2021-09-20 02:18] LABS: Barbiturates Screen,Urine Negative ng/ml (<200)
[2021-09-20 02:19] LABS: Amphetamine/Metha Screen,Urine Negative ng/ml (<1000); Benzodiazepines Screen,Urine Negative ng/ml (<200)
[2021-09-20 02:20] LABS: Cocaine Screen,Urine Negative ng/ml (<300)
[2021-09-20 02:21] LABS: Cannabinoid Screen,Urine Negative ng/ml (<50); Methadone Screen,Urine Negative ng/ml (<300)
[2021-09-20 02:22] LABS: Opiate Screen,Urine Positive ng/ml (<300); Phencyclidine Screen,Urine Negative ng/ml (<25)
== END ==
PROVIDERS: PCP Emergency Medicine; Visit Provider Emergency Medicine
DX: Z79.899 Other long term (current) drug therapy (principal)
CPT/HCPCS: 80305

== ENCOUNTER 2021-09-29 22:23 | Emergency (ER) | payer MEDICARE, SELFPAY ==
[2021-09-29 22:23] VITALS: BP 144/77; PULSE 64; RESP 19; TEMP 36.8; O2SAT 98; BMI 28.8
--- NOTE | 2021-09-29 22:23 | ECG_ITS ---
APPROVED REPORT Exam: Resting ECG HR:57 bpm ECG Measurements Heart Rate 57 AXES SC 190 P 74 QRSd 93 QRS 32 QT 401 T 90 QTc 396 Conclusion SINUS BRADYCARDIA WITH SINUS ARRHYTHMIA BORDERLINE ECG UNCONFIRMED REPORT Electronically signed by : Jewel Alcala MD 10/01/2021 16:25:56
[2021-09-29 22:27] VITALS: BMI 28.8
[2021-09-29 22:35] LABS: POC Glucose,Bedside 121 (70-110)
[2021-09-29 22:38] LABS: Microscopic, Urine URINE MICROSCOPIC (MICROSCOPIC)
[2021-09-29 22:40] LABS: Appearance,Urine CLEAR (Clear); Bilirubin,Urine Negative (Negative); Blood, Urine Negative (Negative); Color,Urine YELLOW (Yellow); Glucose,Urine (UA) Negative (Negative); Ketones,Urine Negative (Negative); Leukocyte Esterase,Urine TRACE (Negative); Nitrate,Urine Negative (Negative); PH,Urine 7.5 (5.0-8.5); Protein,Urine Negative (Negative); Specific Gravity, Urine 1.015 (1.005-1.030)
--- NOTE | 2021-09-29 22:41 | CT_ITS ---
PROCEDURE INFORMATION: Exam: CT Head Without Contrast Exam date and time: 09/29/2021 10:54 PM Age: 61 years old Clinical indication: Numbness / parasthesia; Left; Additional info: Left arm numb TECHNIQUE: Imaging protocol: Computed tomography of the head without contrast. Radiation optimization: All CT scans at this facility use at least one of these dose optimization techniques: automated exposure control; mA and/or kV adjustment per patient size (includes targeted exams where dose is matched to clinical indication); or iterative reconstruction. COMPARISON: [facility] CT HEAD W/O CONTRAST 03/09/2016 10:59 AM FINDINGS: Brain: No evidence of mass effect or midline shift. No focal areas of abnormal attenuation. The kenny/white matter interfaces are preserved. The basal cisterns are patent. Cerebral ventricles: No ventriculomegaly. Paranasal sinuses: Visualized sinuses are unremarkable. No fluid levels. Mastoid air cells: Visualized mastoid air cells are well aerated. Bones/joints: Unremarkable. No acute fracture. Soft tissues: Unremarkable. IMPRESSION: 1. No CT evidence of intracranial hemorrhage, mass effect, midline shift or hydrocephalus. 2. No acute discernible ischemia identified.
--- NOTE | 2021-09-29 22:41 | XR_ITS ---
PROCEDURE INFORMATION: Exam: XR Chest Exam date and time: 09/29/2021 10:46 PM Age: 61 years old Clinical indication: Sternal or substernal pain; Additional info: Chest pain TECHNIQUE: Imaging protocol: Radiologic exam of the chest. Views: 2 views. COMPARISON: CR XR CHEST PORTABLE 08/23/2021 2:40 PM FINDINGS: Lungs: Well aerated with no evidence of consolidations, interstitial patterns or pulmonary nodules. Pleural spaces: No evidence of effusions or pneumothorax. Heart/Mediastinum: The cardiomediastinal silhouette is normal in size and configuration. There is no evidence of cardiomegaly. Bones/joints: Intact. IMPRESSION: No radiographic abnormalities identified.
[2021-09-29 22:51] LABS: Basophils # 0.1 K/mm3 (0-0.2); Basophils % 1.1 % (0.1-2.0); Eosinophils # 0.4 K/mm3 (0.0-0.4); Eosinophils % 6.4 % (0.1-12.0); Hematocrit 41.1 % (42.0-52.0); Hemoglobin 13.7 g/dL (14.1-18.0); Lymphocytes # 1.8 K/mm3 (0.7-4.5); Lymphocytes % 29.4 % (10-50); Mean Corpuscular HGB Conc 33.3 g/dL (31.8-35.4); Mean Corpuscular Hemoglobin 29.9 pg (27.0-31.2); Mean Corpuscular Volume 89.7 fl (80-94); Mean Platelet Volume 7.8 fl (7.4-10.4); Monocytes # 0.3 K/mm3 (0.1-1.0); Monocytes % 5.3 % (1.7-9.3); Neutrophils # 3.6 K/mm3 (1.8-7.8); Neutrophils % 57.8 % (37.0-80.0); Platelet Count 214 K/mm3 (142-424); Red Blood Count 4.58 M/mm3 (4.60-6.20); Red Cell Distribution Width 13.4 % (11.5-17.5); White Blood Count 6.3 K/mm3 (4.8-10.8)
[2021-09-29 22:52] LABS: Amorphous Sediment,Urine 4+ /lpf; WBC,Urine Occasional #/hpf (0-3)
[2021-09-29 22:58] LABS: Alanine Aminotransferase 21 U/L (12-78); Albumin Level 4.1 g/dl (3.5-5.0); Alkaline Phosphatase 70 U/L (38-126); Aspartate Amino Transferase 27 U/L (17-59); Bilirubin,Unconjugated 0.3 mg/dL (0.0-1.1); Blood Urea Nitrogen 8 mg/dl (9-20); Calcium 9.6 mg/dl (8.4-10.2); Carbon Dioxide 28 mmol/L (22.0-30.0); Chloride 109 mmol/L (98-107); Creatinine Clearance Estimated 81 mL/min (50-200); Estimated Glomerular Filt Rate 98 ml/min (>60); GFR (African American) 118 ML/MIN (>60); Glucose 111 mg/dl (74-100); Magnesium 2.1 mg/dl (1.6-2.3); Sodium 143 mmol/L (136-145); Total Protein,Serum 6.7 g/dl (6.3-8.2)
[2021-09-29 22:59] LABS: Bilirubin,Direct < 0.1 mg/dl (0.0-0.4); Bilirubin,Total < 0.1 mg/dl (0.2-1.3)
[2021-09-29 23:03] LABS: C-Reactive Protein 1.1 mg/L (0-4)
[2021-09-29 23:12] LABS: Troponin I 0.02 ng/ml (0.00-0.034)
[2021-09-29 23:17] LABS: Procalcitonin 0.048 ng/mL (0.0-2.0)
--- NOTE | 2021-09-29 23:22 | PC.NURSE ---
chest pain has decreased to 6/10, placing Nitro paste on pt
--- NOTE | 2021-09-29 23:23 | HMH.EDCP ---
ED Disposition Clinical Impression: Angina at rest CAD (coronary artery disease) Qualifiers: Coronary Disease-Associated Artery/Lesion type: [place] artery [place] vs. transplanted heart: [place] heart Associated angina: with stable angina Qualified Code(s): I25.118 - Atherosclerotic heart disease of [place] coronary artery with other forms of angina pectoris Disposition: Home, Self-Care Condition on Discharge: Good Instructions: DI for Chest Pain Additional Instructions: see card on saturday Referrals: Claudio Enlgish MD [Primary Care Provider] - - Critical Care Critical Care Time: No Attestation: On 09/29/21, the high probability of a clinically significant, sudden or life threatening deterioration of the following system(s) required my full and direct attention, intervention and personal management. The time I documented below is in addition to time spent performing reported procedures but includes the following listed in this critical care notation. Medical Decision Making - Medical Records Medical records reviewed: Yes: I reviewed the patient's medical records. - Rodri Inquiry Pt receiving controlled substance: No Vital Signs: 09/29/21 22:23 09/29/21 23:25 09/30/21 00:25 Temperature 98.2 F Temperature Source Oral Pulse Rate 52 L 47 L Pulse Rate [Right] 64 Respiratory Rate 19 13 12 Blood Pressure 133/62 127/65 Blood Pressure [Right Arm] 144/77 H Blood Pressure Mean [Right Arm] 99 Blood Pressure Source [Right Arm] Automatic Cuff 02 Sat by Pulse Oximetry 98 97 97 Oxygen Delivery Method Room Air Room Air Room Air 09/30/21 02:12 Temperature 98.0 F Temperature Source Oral Pulse Rate 54 L Pulse Rate [Right] Respiratory Rate 18 Blood Pressure 120/77 Blood Pressure [Right Arm] Blood Pressure Mean [Right Arm] Blood Pressure Source [Right Arm] 02 Sat by Pulse Oximetry Oxygen Delivery Method Room Air - Lab Data Lab results reviewed: Yes: I reviewed the patient's lab results. Lab Results 09/29/21 22:26: WBC 6.3, RBC 4.58 L, Hgb 13.7 L, Hct 41.1 L, MCV 89.7, MCH 29.9, MCHC 33.3, RDW 13.4, Plt Count 214, MPV 7.8, Neut % (Auto) 57.8, Lymph % (Auto) 29.4, [place] % (Auto) 5.3, Eos % (Auto) 6.4, Baso % (Auto) 1.1, Neut # (Auto) 3.6, Lymph # (Auto) 1.8, [place] # (Auto) 0.3, Eos # (Auto) 0.4, Baso # (Auto) 0.1, ESR 11 09/29/21 22:26: Sodium 143, Potassium 4.0, Chloride 109 H, Carbon Dioxide 28, Anion Gap 10.0, BUN 8 L, Creatinine 0.80, Estimated Creat Clear 81, Estimated GFR 98, Est GFR ( Amer) 118, Glucose 111 H, Calcium 9.6, Magnesium 2.1, Total Bilirubin < 0.1 L, Direct Bilirubin < 0.1, Conjugated Bilirubin 0.0, Indirect Bilirubin 0.0, Unconjugated Bilirubin 0.3, AST 27, ALT 21, Alkaline Phosphatase 70, Troponin I 0.02, C-Reactive Protein 1.1, Total Protein 6.7, Albumin 4.1, Procalcitonin 0.048 09/29/21 22:26: NT-Pro-B Natriuret Pep 90.8 09/29/21 22:27: POC Glucose 121 H 09/29/21 22:34: Urine Color Yellow, Urine Appearance Clear, Urine pH 7.5, Ur Specific [place] 1.015, Urine Protein Negative, Urine Glucose (UA) Negative, Urine Ketones Negative, Urine Blood Negative, Urine Nitrate Negative, Urine Bilirubin Negative, Urine Urobilinogen 4.0, Ur Leukocyte Esterase Trace, Urine WBC Occasional, Amorphous Sediment 4+ 09/30/21 00:45: SARS-CoV-2 (PCR) Not detected, Influenza A Untype (PCR) Not detected, Influenza Type B (PCR) Not detected 09/30/21 01:19: Troponin I 0.02 Result diagrams: 09/29/21 22:26 09/29/21 22:26 Orders (Tests/Meds): ED MEDICATIONS Generic Name Dose Route Start Last Admin Trade Name Freq PRN Reason Stop Dose Admin Sodium Chloride 1,000 mls @ 999 mls/hr 09/29/21 23:15 09/29/21 23:19 Sod Chlor 0.9% 1000ml Bag IV 09/30/21 00:15 999 mls/hr .Q1H1M MELISSA Administration Discontinued Medications Generic Name Dose Route Start Last Admin Trade Name Freq PRN Reason Stop Dose Admin Aspirin 324 mg 09/29/21 23:09 09/29/21 22:30 Aspirin 81mg Chewable Table
[2021-09-29 23:25] VITALS: BP 133/62; PULSE 52; RESP 13; O2SAT 97
[2021-09-29 23:28] LABS: Erythrocyte Sedimentation Rate 11 mm/hr (0-20)
[2021-09-29 23:30] LABS: NT Pro Brain Natriuretic Pep. 90.8 pg/mL (0-125)
[2021-09-30 00:25] VITALS: BP 127/65; PULSE 47; RESP 12; O2SAT 97
--- NOTE | 2021-09-30 00:47 | PC.NURSE ---
Pt complains of still having some pain. Nurse notified.
[2021-09-30 00:51] LABS: Coronavirus 19, PCR Not Detected (NotDetected); Influenza A, PCR Not Detected (NotDetected); Influenza B, PCR Not Detected (NotDetected)
--- NOTE | 2021-09-30 01:20 | PC.NURSE ---
LABS OBTAINED. PT UPDATED. NO COMPLAINTS VOICED. NO ACUTE DISTRESS NOTED.
[2021-09-30 01:44] LABS: Troponin I 0.02 ng/ml (0.00-0.034)
[2021-09-30 02:12] VITALS: BP 120/77; PULSE 54; RESP 18; TEMP 36.7; O2SAT 98
== END 2021-09-30 02:53 | disposition home or self-care (01) ==
PROVIDERS: Emergency Provider Emergency Medicine; PCP Emergency Medicine; Referring Provider Internal Medicine
DX: I20.8 Other forms of angina pectoris (principal); I11.0 Hypertensive heart disease with heart failure; I50.9 Heart failure, unspecified; Z79.899 Other long term (current) drug therapy; Z88.6 Allergy status to analgesic agent; I73.9 Peripheral vascular disease, unspecified; E78.5 Hyperlipidemia, unspecified; I25.2 Old myocardial infarction; I49.9 Cardiac arrhythmia, unspecified; M19.90 Unspecified osteoarthritis, unspecified site; Z87.891 Personal history of nicotine dependence
CPT/HCPCS: 70450; 71046; 80048; 80076; 81001; 82962; 83735; 83880; 84145; 84484; 85025; 85651; 86140; 93005; 96365; 99284; C9803; U0003; U0005

== ENCOUNTER 2021-10-19 13:30 | Emergency (ER) | payer MEDICARE, SELFPAY ==
--- NOTE | 2021-10-19 13:45 | HMH.EDUTC ---
[facility] [place] Clinical Impression: Viral syndrome Sinusitis Qualifiers: Sinusitis location: unspecified location Chronicity: acute Recurrence: non-recurrent Qualified Code(s): J01.90 - Acute sinusitis, unspecified Disposition: Home, Self-Care Condition on Discharge: Good Instructions: DI for COVID-19 (Suspected or Confirmed ), Preventing the Spread of Coronavirus Discharge Instructions Additional Instructions: Drink plenty of fluids. Take tylenol or ibuprofen for pain or fever. Take the medications as directed. Follow up with your regular doctor. GO TO THE ER FOR ANY WORSENING SYMPTOMS Quarantine until you know the results of your covid-19 test. Notify your school or workplace of your results and follow their instructions regarding return to work/school. Prescriptions: Benzonatate [Benzonatate 100mg cap] 100 mg PO TIDP PRN #30 cap PRN Reason: Cough Transmission Status: Received by [facility] Azithromycin [Z-Tomasz 250mg Tab*] 250 mg PO UD DOSE PK #6 tab Transmission Status: Received by [facility] Referrals: Claudio English MD [Primary Care Provider] - Time of Disposition: 14:08 Medical Decision Making - Medical Records Medical records reviewed: No: I reviewed the patient's medical records. - Rodri Inquiry Pt receiving controlled substance: No Vital Signs: 10/19/21 13:52 10/19/21 14:14 Temperature 98.0 F 98.0 F Temperature Source Oral Pulse Rate 63 Pulse Rate [Left] 63 Respiratory Rate 16 16 Blood Pressure 118/69 Blood Pressure [Right Arm] 115/39 L Blood Pressure Mean [Right Arm] 64 02 Sat by Pulse Oximetry 96 Orders (Tests/Meds): ORDERS Category Date Time Status Covid-19 Nasal PCR ([facility]) Routine Lab 10/19/21 13:44 Received [facility] [place] - General Stated complaint: headache, exposure to covid Time Seen by Provider: 10/19/21 13:45 - History of Present Illness Provider Complaint: He states that for the past 2 days he has had chills, body aches and he has felt bad. He denies shortness of breath. - Related Data Home Medications Medication Instructions Recorded Confirmed Sertraline HCl [Zoloft] 50 mg PO DAILY 07/03/20 09/21/21 Previous Rx's Medication Instructions Recorded aspirin 81 mg tablet,delayed 81 mg PO DAILY #90 tab 09/22/20 release spironolactone 25 mg tablet 25 mg PO DAILY #90 tab 01/17/21 trazodone 50 mg tablet See Rx Instructions .ROUTE 03/22/21 .COMPLEX #90 tablet clopidogrel 75 mg tablet See Rx Instructions .ROUTE 04/17/21 .COMPLEX #30 tablet losartan 50 mg tablet See Rx Instructions .ROUTE 04/17/21 .COMPLEX #60 tab Ondansetron [Zofran 4mg ODT] 4 mg PO TID PRN 12 Days #16 tab 06/26/21 sildenafil (pulm.hypertension) 20 See Rx Instructions .ROUTE 06/28/21 mg tablet .COMPLEX PRN #30 tab tamsulosin 0.4 mg capsule See Rx Instructions .ROUTE 08/08/21 .COMPLEX #90 cap nitroglycerin 0.4 mg sublingual 0.4 mg SL Q5MINP PRN #20 tab 08/29/21 tablet atorvastatin 40 mg tablet See Rx Instructions .ROUTE 09/07/21 .COMPLEX #90 tablet isosorbide mononitrate 60 mg 60 mg PO DAILY #30 tab 09/21/21 tablet,extended release 24 hr clonazepam 0.5 mg tablet 0.5 mg PO TID #90 tab 09/22/21 gabapentin 800 mg tablet 800 mg PO TID #90 tab 09/22/21 hydrocodone 7.5 mg-acetaminophen 1 tab PO QID #120 tab 09/22/21 325 mg tablet carvedilol 3.125 mg tablet See Rx Instructions .ROUTE 10/02/21 .COMPLEX #180 tablet fenofibrate nanocrystallized 145 See Rx Instructions .ROUTE 10/02/21 mg tablet .COMPLEX #90 tablet hydrochlorothiazide 25 mg tablet See Rx Instructions .ROUTE 10/02/21 .COMPLEX #90 tablet Azithromycin [Z-Tomasz 250mg Tab*] 250 mg PO UD DOSE PK #6 tab 10/19/21 Benzonatate [Benzonatate 100mg 100 mg PO TIDP PRN #30 cap 10/19/21 cap] Allergies Allergy/AdvReac Type Severity Reaction Status Date / Time codeine [CODEINE] Allergy Unknown Verified 10/19/21 13:56 [facility] History - Hepatitis A Scr
[2021-10-19 13:52] VITALS: BP 115/39; PULSE 63; RESP 16; TEMP 36.7; O2SAT 96; BMI 30.9
[2021-10-19 14:14] VITALS: BP 118/69; PULSE 63; RESP 16; TEMP 36.7
== END 2021-10-19 14:15 | disposition home or self-care (01) ==
PROVIDERS: Emergency Provider Nurse Practitioner Family; PCP Emergency Medicine
DX: J01.90 Acute sinusitis, unspecified (principal); B34.9 Viral infection, unspecified
CPT/HCPCS: 99212; C9803; G0463; U0003; U0005

== ENCOUNTER 2021-10-21 20:20 | Observation (INO) | payer MEDICARE, SELFPAY ==
[2021-10-21 20:18] VITALS: BP 107/56; PULSE 67; RESP 16; TEMP 36.9; O2SAT 98; BMI 28.5
--- NOTE | 2021-10-21 20:56 | HMH.EDCP ---
ED Disposition Clinical Impression: Unstable angina Disposition: Admitted As Inpatient Condition on Discharge: Fair - Critical Care Critical Care Time: No Attestation: On 10/21/21, the high probability of a clinically significant, sudden or life threatening deterioration of the following system(s) required my full and direct attention, intervention and personal management. The time I documented below is in addition to time spent performing reported procedures but includes the following listed in this critical care notation. Medical Decision Making - Rodri Inquiry Pt receiving controlled substance: Yes Rodri was queried for this patient: No Risks and benefits of using a controlled substance: were discussed with pt by me Vital Signs: 10/21/21 20:18 10/22/21 01:12 Temperature 98.4 F 98.2 F Temperature Source Oral Oral Pulse Rate 68 Pulse Rate [Right] 67 Respiratory Rate 16 18 Blood Pressure 120/76 Blood Pressure [Right Arm] 107/56 L Blood Pressure Mean [Right Arm] 73 Blood Pressure Source Automatic Cuff Blood Pressure Source [Right Arm] Automatic Cuff Blood Pressure Position Sitting 02 Sat by Pulse Oximetry 98 Oxygen Delivery Method Room Air Room Air - Lab Data Lab results reviewed: Yes: I reviewed the patient's lab results. Lab Results 10/21/21 20:20: WBC 6.9, RBC 4.36 L, Hgb 12.8 L, Hct 38.9 L, MCV 89.1, MCH 29.3, MCHC 32.8, RDW 12.9, Plt Count 225, MPV 8.4, Neut % (Auto) 66.0, Lymph % (Auto) 24.0, [place] % (Auto) 5.8, Eos % (Auto) 3.6, Baso % (Auto) 0.6, Neut # (Auto) 4.5, Lymph # (Auto) 1.7, [place] # (Auto) 0.4, Eos # (Auto) 0.3, Baso # (Auto) 0.0 10/21/21 20:20: Sodium 140, Potassium 3.4 L, Chloride 111 H, Carbon Dioxide 26, Anion Gap 6.4, BUN 12, Creatinine 0.80, Estimated Creat Clear 81, Estimated GFR 98, Est GFR ( Amer) 118, Glucose 99, Calcium 8.8, Troponin I 0.02 10/21/21 21:15: Urine Color Yellow, Urine Appearance Cloudy, Urine pH 6.0, Ur Specific [place] 1.020, Urine Protein 2+, Urine Glucose (UA) Negative, Urine Ketones Negative, Urine Blood 2+, Urine Nitrate Positive, Urine Bilirubin Negative, Urine Urobilinogen 4.0, Ur Leukocyte Esterase 2+ A, Urine RBC 5-10, Urine WBC Tntc, Ur Squamous Epith Cells 5-10, Urine Bacteria 4+ 10/21/21 21:20: SARS-CoV-2 (PCR) Not detected, Influenza A Untype (PCR) Not detected, Influenza Type B (PCR) Not detected 10/21/21 23:23: Troponin I 0.02 Result diagrams: 10/21/21 20:20 10/21/21 20:20 Orders (Tests/Meds): ED MEDICATIONS Generic Name Dose Route Start Last Admin Trade Name Freq PRN Reason Stop Dose Admin Acetaminophen 650 mg 10/22/21 02:04 10/22/21 03:12 Acetaminophen 325mg Tab PO 11/21/21 00:51 650 mg Q4HP PRN Administration Fever or Mild Pain Discontinued Medications Generic Name Dose Route Start Last Admin Trade Name Freq PRN Reason Stop Dose Admin Acetaminophen 650 mg 10/22/21 00:52 Acetaminophen 325mg Tab PO 11/21/21 00:51 Q4HP PRN Fever or Mild Pain Morphine Sulfate 4 mg 10/21/21 23:31 10/21/21 23:37 Morphine 4mg/Ml Syringe IV 10/21/21 23:32 4 mg ONCE ONE Administration Ondansetron HCl 4 mg 10/21/21 23:31 10/21/21 23:37 Ondansetron 4mg/2ml Vial IV 10/21/21 23:32 4 mg ONCE ONE Administration ORDERS Category Date Time Status Basic Metabolic Panel AMLAB Lab 10/22/21 06:00 Ordered Complete Blood Count Auto Diff AMLAB Lab 10/22/21 06:00 Ordered Troponin I Q6H Lab 10/22/21 04:00 Ordered Troponin I Q6H Lab 10/22/21 10:00 Ordered Urine Culture Stat Micro 10/21/21 21:15 Received Medical Decision Narrative: In review this is a 61-year-old male who presents with chest pain. Hemodynamically stable and nontoxic-appearing. His initial EKG shows Q waves in the inferior leads consistent with previous infarct but no definitive STEMI. His symptoms are highly concerning though for possible underlying ACS so we will get full chest pain work-up. His initial troponin was
--- NOTE | 2021-10-21 21:08 | PC.NURSE ---
PATIENT ALERT AND ORIENTED, SKIN WARM AND DRY TO TOUCH. AMBULATED TO BATHROOM PER FATMATA. NO C/O VOICED.
[2021-10-21 21:12] VITALS: BMI 28.5
--- NOTE | 2021-10-21 21:13 | XR_ITS ---
PROCEDURE INFORMATION: Exam: XR Chest Exam date and time: 10/21/2021 9:15 PM Age: 61 years old Clinical indication: Chest wall pain; Prior surgery; Additional info: Chest pain TECHNIQUE: Imaging protocol: Radiologic exam of the chest. Views: 2 views. COMPARISON: CR XR CHEST 2V 09/29/2021 10:46 PM FINDINGS: Lungs: Unremarkable. No consolidation. Pleural spaces: Unremarkable. No pleural effusion. No pneumothorax. Heart/Mediastinum: Unremarkable. No cardiomegaly. Bones/joints: Unremarkable. IMPRESSION: No acute findings.
--- NOTE | 2021-10-21 21:13 | ECG_ITS ---
APPROVED REPORT Exam: Resting ECG HR:63 bpm ECG Measurements Heart Rate 63 AXES CO 191 P 27 QRSd 86 QRS -7 QT 381 T 71 QTc 389 Conclusion SINUS RHYTHM Late R wave progression, previously noted ABNORMAL ECG UNCONFIRMED REPORT Electronically signed by : Jewel Alcala MD 10/22/2021 09:07:41
[2021-10-21 21:15] LABS: Microscopic, Urine URINE MICROSCOPIC (MICROSCOPIC)
[2021-10-21 21:19] LABS: Appearance,Urine CLOUDY (Clear); Bilirubin,Urine Negative (Negative); Blood, Urine 2+ (Negative); Color,Urine YELLOW (Yellow); Glucose,Urine (UA) Negative (Negative); Ketones,Urine Negative (Negative); Leukocyte Esterase,Urine 2+ (Negative); Nitrate,Urine POSITIVE (Negative); Protein,Urine 2+ (Negative)
[2021-10-21 21:21] LABS: Basophils % 0.6 % (0.1-2.0); Eosinophils # 0.3 K/mm3 (0.0-0.4); Eosinophils % 3.6 % (0.1-12.0); Hematocrit 38.9 % (42.0-52.0); Hemoglobin 12.8 g/dL (14.1-18.0); Lymphocytes # 1.7 K/mm3 (0.7-4.5); Mean Corpuscular HGB Conc 32.8 g/dL (31.8-35.4); Mean Corpuscular Hemoglobin 29.3 pg (27.0-31.2); Mean Corpuscular Volume 89.1 fl (80-94); Mean Platelet Volume 8.4 fl (7.4-10.4); Monocytes # 0.4 K/mm3 (0.1-1.0); Monocytes % 5.8 % (1.7-9.3); Neutrophils # 4.5 K/mm3 (1.8-7.8); Platelet Count 225 K/mm3 (142-424); Red Blood Count 4.36 M/mm3 (4.60-6.20); Red Cell Distribution Width 12.9 % (11.5-17.5); White Blood Count 6.9 K/mm3 (4.8-10.8)
[2021-10-21 21:25] LABS: Coronavirus 19, PCR Not Detected (NotDetected); Influenza A, PCR Not Detected (NotDetected); Influenza B, PCR Not Detected (NotDetected)
[2021-10-21 21:25] LABS: Anion Gap 6.4 mEq/L (5-15); Blood Urea Nitrogen 12 mg/dl (9-20); Calcium 8.8 mg/dl (8.4-10.2); Carbon Dioxide 26 mmol/L (22.0-30.0); Chloride 111 mmol/L (98-107); Creatinine Clearance Estimated 81 mL/min (50-200); Estimated Glomerular Filt Rate 98 ml/min (>60); GFR (African American) 118 ML/MIN (>60); Glucose 99 mg/dl (74-100); Potassium 3.4 mmoL/L (3.5-5.1); Sodium 140 mmol/L (136-145)
[2021-10-21 21:31] LABS: Bacteria,Urine 4+ /lpf; WBC,Urine TNTC #/hpf (0-3)
[2021-10-21 21:38] LABS: Troponin I 0.02 ng/ml (0.00-0.034)
--- NOTE | 2021-10-21 23:08 | ECG_ITS ---
APPROVED REPORT Exam: Resting ECG HR:45 bpm ECG Measurements Heart Rate 45 AXES MI 184 P 31 QRSd 98 QRS 78 QT 440 T -8 QTc 396 Conclusion SINUS BRADYCARDIA Previously noted poor r wave progression ABNORMAL ECG UNCONFIRMED REPORT Electronically signed by : Jewel Alcala MD 10/25/2021 21:01:51
[2021-10-21 23:52] LABS: Troponin I 0.02 ng/ml (0.00-0.034)
[2021-10-22] VITALS (9 sets, daily range): BP systolic 96–143; BP diastolic 53–76; PULSE 46–68; RESP 16–18; TEMP 36.6–36.8; O2SAT 96–99; BMI 27.8
--- NOTE | 2021-10-22 00:04 | ECG_ITS ---
APPROVED REPORT Exam: Resting ECG HR:53 bpm ECG Measurements Heart Rate 53 AXES MS 200 P 29 QRSd 93 QRS -10 QT 442 T 65 QTc 424 Conclusion SINUS BRADYCARDIA SEPTAL MYOCARDIAL INFARCTION , PROBABLY OLD [40+ ms Q WAVE IN V1/V2] ABNORMAL ECG UNCONFIRMED REPORT Electronically signed by : Jewel Alcala MD 10/23/2021 14:07:28
--- NOTE | 2021-10-22 01:00 | PC.NURSE ---
PATIENT ADMITTED TO [facility] WITH DX OF UNSTABLE ANGINA TO SERVICE OF DR. BENTON.
--- NOTE | 2021-10-22 01:37 | PC.NURSE ---
patient up to floor via wheelchair @ this time.
[2021-10-22 04:08] LABS: Basophils # 0.1 K/mm3 (0-0.2); Basophils % 0.8 % (0.1-2.0); Eosinophils # 0.4 K/mm3 (0.0-0.4); Eosinophils % 5.1 % (0.1-12.0); Hematocrit 39.4 % (42.0-52.0); Hemoglobin 13.1 g/dL (14.1-18.0); Lymphocytes % 28.3 % (10-50); Mean Corpuscular HGB Conc 33.2 g/dL (31.8-35.4); Mean Corpuscular Hemoglobin 29.7 pg (27.0-31.2); Mean Corpuscular Volume 89.6 fl (80-94); Mean Platelet Volume 8.9 fl (7.4-10.4); Monocytes # 0.4 K/mm3 (0.1-1.0); Monocytes % 6.1 % (1.7-9.3); Neutrophils # 4.3 K/mm3 (1.8-7.8); Neutrophils % 59.7 % (37.0-80.0); Platelet Count 207 K/mm3 (142-424); Red Blood Count 4.39 M/mm3 (4.60-6.20); White Blood Count 7.1 K/mm3 (4.8-10.8)
[2021-10-22 04:17] LABS: Anion Gap 5.1 mEq/L (5-15); Blood Urea Nitrogen 11 mg/dl (9-20); Calcium 9.2 mg/dl (8.4-10.2); Carbon Dioxide 29 mmol/L (22.0-30.0); Chloride 109 mmol/L (98-107); Creatinine Clearance Estimated 79 mL/min (50-200); Estimated Glomerular Filt Rate 98 ml/min (>60); GFR (African American) 118 ML/MIN (>60); Potassium 3.1 mmoL/L (3.5-5.1); Sodium 140 mmol/L (136-145)
--- NOTE | 2021-10-22 04:20 | PC.NURSE ---
Pt has not c/o of any worsening cp or soa since being admitted to the floor. he is a&oX4. he has used his urinal independently. he has been sinus nae on telemetry with HR in the mid 40's to 50's. SBP has been 120-127. he remains on RA. lung sounds clear t/o. no skin issues. call light within reach, no needs at this time.
[2021-10-22 04:29] LABS: Troponin I 0.02 ng/ml (0.00-0.034)
[2021-10-22 04:33] LABS: Glucose 133 mg/dl (74-100)
--- NOTE | 2021-10-22 10:29 | P.CONPHA_ITS ---
[facility] Pharmacy VTE Monitoring - Patient Demographics Allergies/Adverse Reactions: Patient Allergies codeine [CODEINE] Allergy (Unknown, Verified 10/19/21 13:56) Height: 1.63 m Weight: 74.072 kg Patient Problems: Current Active Problems Unstable angina (Acute) - VTE Risk Labs: VTE Related Lab Results Hgb 13.1 g/dL (14.1-18.0) L 10/22/21 04:00 Hct 39.4 % (42.0-52.0) L 10/22/21 04:00 Plt Count 207 K/mm3 (142-424) 10/22/21 04:00 BUN 11 mg/dl (9-20) 10/22/21 04:00 Creatinine 0.80 mg/dl (0.66-1.25) 10/22/21 04:00 Estimated Creat Clear 79 mL/min (50-200) 10/22/21 04:00 Was VTE Risk Assessment Performed: Yes VTE Risk Level: Moderate Risk Clinical Trial Participant: No - Prophylaxis VTE Prophylaxis Ordered?: Yes Types of VTE Prophylaxis: TEDS Knee High Location of Applied Device: Bilateral Lower Extremeties
--- NOTE | 2021-10-22 10:40 | HMH.PHAINT ---
MEDICATION RECONCILIATION COMPLETE USING LIST FROM CARDIOLOGY OFFICE AND PRIMARY CARE VISITS IN SEPTEMBER AND EXTERNAL PHARMACY FILL HISTORY.
--- NOTE | 2021-10-22 11:20 | HMH.HP ---
*Admission Date: 10/21/21 *Chief complaint: chest pain *History of present illness: Patient is a 61-year-old male who presents with left-sided chest pain. He says that this started earlier today. He says that it feels like it is radiating into his jaw. He also feels numbness into his jaw as well as his left arm. He says that this feels exactly like his previous heart attacks. He got some nitro from EMS as well as aspirin but he says it is helping his symptoms a little bit. He says that his symptoms seem to be intermittent and not there constantly. He says he also feels nauseous and diaphoretic. Endorses shortness of breath but only intermittently. Denies any abdominal pain. In review this is a 61-year-old male who presents with chest pain. Hemodynamically stable and nontoxic-appearing. His initial EKG shows Q waves in the inferior leads consistent with previous infarct but no definitive STEMI. His symptoms are highly concerning though for possible underlying ACS so we will get full chest pain work-up. His initial troponin was flat but the patient then had an episode of bradycardia and also started have chest pain so get a repeat EKG that showed some dynamic changes in the inferior leads including a change in direction of the electrical deflection as well as inversion of his T waves. This self resolved and then he had a repeat EKG afterwards that again looks like his initial EKG with just Q wave changes. His delta troponins were flat. His chest x-ray was unremarkable. I think his symptoms are most likely consistent with unstable angina. Due to this I talked with the admitting team about bringing him into the hospital for serial troponins and likely cardiac evaluation on Saturday. They were agreeable with this plan. Patient admitted to the hospital. above per ER narrative Patient is s/p stent deployment to RCA, proximal LAD, and 1st diagonal in December 2020. Has had some mild chest pain since arrival to the floor. Transient and lasting 5 minutes or so. Relays that he also is having dysuria. [facility] History Medical History: Reports:: Arrhythmia, Atherosclerotic Heart Disease, Congestive Heart Failure, Coronary Artery Disease, Deep Vein Thrombosis, Hyperlipidemia, Hypertension, Myocardial Infarction, Palpitations Denies:: Cancer, Diabetes Mellitus Type 1, Diabetes Mellitus Type 2, Internal Pacemaker, MRSA, Seizures *Have you ever received a pneumonia vaccine?: Yes *Have you received a flu vaccine this season?: Yes Other Medical History: Reports: Arthritis, Cataracts. Denies: Blood Transfusion Reaction Laterality Cases: Left: Arthroscopy Shoulder Other Surgeries: Yes: No Previous Surgery, Cardiac Catheterization, Cardiac Surgery, Colonoscopy, Coronary Stent, EGD, Plastic Surgery, Other. No: Pacemaker Amputation: No Fractures: Yes (nose) - *Social History Last grade of school completed: 9th or 10th Smoking Status: Former smoker Tobacco Type: cigarettes # Packs/Day (cigarettes): 1 #Yrs smoked (if former smoker): 30 Smoking End Date: 10/17 Alcohol Intake: former Alcohol Intake Frequency:: a few times a month Substance Use Type: denies use *Occupational Status:: disabled Housing: house Household Members: children *Travel in the last 8 weeks: None Family Hx:: Cancer, Diabetes, Heart Attack Review of Systems - Constitutional Denies anorexia - Eyes Denies change in vision - ENT Denies abnormal hearing - *Cardiovascular Reports chest pain, Reports chest pain at rest, Denies shortness of breath when lying down, Denies foot swelling, Denies radiating jaw, neck or arm pain, Denies fast heart rate - *Respiratory Denies change in phlegm color, Denies chest congestion, Denies cough, Denies coughing up blood - *Gastrointestinal Denies abdominal pain - *Genitourinary Reports difficulty urinating, Reports painful urination, Reports urinary hesitancy, Denies blood in urine - *Musculoskeletal Denies abnormal walking - Integument
[2021-10-22 11:27] LABS: Troponin I 0.02 ng/ml (0.00-0.034)
--- NOTE | 2021-10-22 17:43 | PC.NURSE ---
pt has done well this shift. no changes since previous shift, up as rodriguez, pt took a shower independently with daughter stand by assist. c/o cp in the am, relieved by morphine, no complaints since then. iv 18g in ac SL. daughter at bedside, cb within reach. no questions or concerns at this time.
[2021-10-23] VITALS: PULSE 47
[2021-10-23 03:52] VITALS: BP 115/44; PULSE 69; RESP 16; TEMP 36.8; O2SAT 96
[2021-10-23 03:54] VITALS: BMI 28.0
[2021-10-23 04:00] VITALS: PULSE 43
--- NOTE | 2021-10-23 05:19 | PC.NURSE ---
Pt is alert and oriented x4, pt has been resting through the shift with no complaints. Daughter has been at bedside through night. Tele shows sinus nae. Pt HR 47-69. Pt ambulates in the room independently. SBP 115-134. Lung sounds are clear bilaterally. Call light in reach and functioning.
[2021-10-23 08:00] VITALS: BP 107/51; PULSE 40; PULSE 47; RESP 17; TEMP 36.4; O2SAT 98
[2021-10-23 08:52] LABS: Alanine Aminotransferase 17 U/L (12-78); Albumin Level 4.1 g/dl (3.5-5.0); Albumin/Globulin Ratio 1.7 (1.1-1.8); Alkaline Phosphatase 70 U/L (38-126); Aspartate Amino Transferase 22 U/L (17-59); Blood Urea Nitrogen 11 mg/dl (9-20); Calcium 9.8 mg/dl (8.4-10.2); Carbon Dioxide 29 mmol/L (22.0-30.0); Chloride 110 mmol/L (98-107); Creatinine Clearance Estimated 80 mL/min (50-200); Estimated Glomerular Filt Rate 85 ml/min (>60); GFR (African American) 103 ML/MIN (>60); Globulin 2.4 g/dL (1.3-3.2); Glucose 121 mg/dl (74-100); Sodium 144 mmol/L (136-145); Total Protein,Serum 6.5 g/dl (6.3-8.2)
[2021-10-23 08:54] LABS: Bilirubin,Total < 0.1 mg/dl (0.2-1.3)
--- NOTE | 2021-10-23 10:49 | HMH.CNCARD ---
History of Present Illness Consult date: 10/23/21 Consult reason: chest pain Chief complaint: chest pain Additional Medical History:: Past medical hx CAD -[facility] ANGIOGRAPHIC RESULTS The left main artery Normal The left anterior descending artery Has a stent in the proximal through mid LAD which is widely patent. The mid LAD has concentric 20 to 30% in-stent restenosis of the remaining LAD is widely patent. High ramus intermedius originates off the proximal LAD which has an ostial to proximal 80% stenosis. The first diagonal artery has a stent in its ostial segment which is acutely thrombosed. The circumflex artery Is a nondominant vessel and has proximal tandem 10 to 20% stenoses with remaining vessel widely patent The right coronary artery Is a dominant vessel and has a stent in the ostial proximal segment which is widely patent free of in-stent restenosis with excellent distal transitioning. The mid vessel has a 20 to 30% stenosis with additional stents in a long and moderately large posterior descending artery which are widely patent The SCHERER ventriculogram reveals Ejection fraction 50% with mild anterior hypokinesis The left ventricular end-diastolic pressure 25 mmHg IMPRESSION Coronary disease as described above with the acute troponin elevation secondary to the thrombosed first diagonal artery Unchanged disease in the ramus intermedius or also could be referred to as a large first diagonal artery Ejection fraction 50% with mild regional wall motion abnormality Elevated LVEDP PLAN 1. Medical management. 2. The acute event stem from the first diagonal artery thrombosis which was a small vessel. I would like to continue treating the ramus intermedius medically as this is unlikely to produce angina however stenting this would require bifurcation which would increase the likelihood of problems in the future 3. Avoidance of tobacco products 4. Standard therapy for ischemic heart disease History of present illness: 61 year old male with past medical hx as above presented to ED with complaint of left sided chest pain with mild soa x 1 episode. Patient reports one episode of pain since starting imdur at last office visit. Denies pain currently. EKG negative for stemi. Serial trops negative. [facility] [place] History Medical History: Reports:: Arrhythmia, Atherosclerotic Heart Disease, Congestive Heart Failure, Coronary Artery Disease, Deep Vein Thrombosis, Hyperlipidemia, Hypertension, Myocardial Infarction, Palpitations Denies:: Cancer, Diabetes Mellitus Type 1, Diabetes Mellitus Type 2, Internal Pacemaker, MRSA, Seizures *Have you ever received a pneumonia vaccine?: Yes *Have you received a flu vaccine this season?: Yes Other Medical History: Reports: Arthritis, Cataracts. Denies: Blood Transfusion Reaction Laterality Cases: Left: Arthroscopy Shoulder Other Surgeries: Yes: No Previous Surgery, Cardiac Catheterization, Cardiac Surgery, Colonoscopy, Coronary Stent, EGD, Plastic Surgery, Other. No: Pacemaker Amputation: No Fractures: Yes (nose) - *Social History Last grade of school completed: 9th or 10th Smoking Status: Former smoker Tobacco Type: cigarettes # Packs/Day (cigarettes): 1 #Yrs smoked (if former smoker): 30 Smoking End Date: 10/17 Alcohol Intake: former Alcohol Intake Frequency:: a few times a month Substance Use Type: denies use *Occupational Status:: disabled Housing: house Household Members: children *Travel in the last 8 weeks: None Family Hx:: Cancer, Diabetes, Heart Attack Meds Home Medications Medication Instructions Recorded Confirmed Type Sertraline HCl [Zoloft] 50 mg PO DAILY 07/03/20 10/22/21 History aspirin 81 mg tablet,delayed 81 mg PO DAILY #90 tab 09/22/20 10/22/21 Rx release nitroglycerin 0.4 mg sublingual 0.4 mg SL Q5MINP PRN #20 tab 08/29/21 10/22/21 Rx tablet clonazepam 0.5 mg tablet 0.5 mg PO TID #90 tab 09/22/21 10/22/21 Rx Benzonatate [Benzonatate 100mg 100 mg PO TIDP
[2021-10-23 12:00] VITALS: BP 134/60; PULSE 50; PULSE 53; RESP 18; TEMP 36.8; O2SAT 96
--- NOTE | 2021-10-23 12:37 | HMH.ACPN2 ---
Internal Medicine - PN: Subj *Date: 10/23/21 *Time: 12:37 Exam Vital signs and Labs for Last 24 Hours: Temp Pulse Resp BP Pulse Ox 97.6 F 47 L 17 107/51 L 98 10/23/21 08:00 10/23/21 08:00 10/23/21 08:00 10/23/21 08:00 10/23/21 08:00 Laboratory Results - last 24 hr 10/23/21 08:37: Sodium 144, Potassium 5.0 D, Chloride 110 H, Carbon Dioxide 29, Anion Gap 10.0, BUN 11, Creatinine 0.90, Estimated Creat Clear 80, Estimated GFR 85, Est GFR ( Amer) 103, Glucose 121 H, Calcium 9.8, Total Bilirubin < 0.1 L, AST 22, ALT 17, Alkaline Phosphatase 70, Total Protein 6.5, Albumin 4.1, Globulin 2.4, Albumin/Globulin Ratio 1.7 I & O for Last 24 hours: Intake & Output 10/20/21 10/21/21 10/22/21 10/23/21 23:59 23:59 23:59 23:59 Intake Total 1200 / 1200 Output Total 0 / 0 Balance 1200 / 1200 0 / 0 Weight 166 lb 163 lb 4.8 oz 164 lb 8 oz Microbiology Reports for the Last 24 Hours: Microbiology 10/21/21 21:15 Urine,Clean Catch Urine Culture - Final Klebsiella pneumoniae Assessment and Plan (1) Unstable angina Status: Acute Category: Medical Code(s): I20.0 - Unstable angina (2) Chest pain Status: Acute Qualifiers: Chest pain type: unspecified Qualified Code(s): R07.9 - Chest pain, unspecified Category: Medical Code(s): R07.9 - Chest pain, unspecified (3) Anxiety Status: Chronic Category: Medical Code(s): F41.9 - Anxiety disorder, unspecified (4) Back pain Status: Chronic Qualifiers: Back pain location: low back pain Chronicity: chronic Back pain laterality: midline Sciatica presence: with sciatica Sciatica laterality: bilateral sciatica Qualified Code(s): M54.41 - Lumbago with sciatica, right side; M54.42 - Lumbago with sciatica, left side; G89.29 - Other chronic pain Category: Medical Code(s): M54.9 - Dorsalgia, unspecified (5) CAD (coronary artery disease) Problem details: 12.29.2020-Successful stenting of the proximal LAD extending into the mid LAD Successful stenting revascularization of a moderate-sized first diagonal artery Successful stenting of ostial proximal dominant right coronary 01.09.2021-Medical management. Status: Chronic Qualifiers: Coronary Disease-Associated Artery/Lesion type: [place] artery [place] vs. transplanted heart: [place] heart Associated angina: with stable angina Qualified Code(s): I25.118 - Atherosclerotic heart disease of [place] coronary artery with other forms of angina pectoris Category: Medical Code(s): I25.10 - Atherosclerotic heart disease of [place] coronary artery without angina pectoris (6) Facet hypertrophy of lumbar region Status: Chronic Category: Medical Code(s): M47.816 - Spondylosis without myelopathy or radiculopathy, lumbar region (7) History of coronary artery stent placement Status: Chronic Category: Surgical Code(s): Z95.5 - Presence of coronary angioplasty implant and graft (8) Hyperlipidemia LDL goal <100 Status: Chronic Category: Medical Code(s): E78.5 - Hyperlipidemia, unspecified (9) Hypertension Status: Chronic Qualifiers: Hypertension type: primary hypertension Qualified Code(s): I10 - Essential (primary) hypertension Category: Medical Code(s): I10 - Essential (primary) hypertension (10) Lumbar canal stenosis Status: Chronic Qualifiers: Neurogenic claudication status: without neurogenic claudication Qualified Code(s): M48.061 - Spinal stenosis, lumbar region without neurogenic claudication Category: Medical Code(s): M48.061 - Spinal stenosis, lumbar region without neurogenic claudication (11) Dysuria Status: Acute Category: Medical Code(s): R30.0 - Dysuria
--- NOTE | 2021-10-23 13:01 | HMH.DCSUM ---
General - General Admission date:: 10/22/21 Discharge date: 10/23/21 HPI HPI: Patient is a 61-year-old male who presents with left-sided chest pain. He says that this started earlier today. He says that it feels like it is radiating into his jaw. He also feels numbness into his jaw as well as his left arm. He says that this feels exactly like his previous heart attacks. He got some nitro from EMS as well as aspirin but he says it is helping his symptoms a little bit. He says that his symptoms seem to be intermittent and not there constantly. He says he also feels nauseous and diaphoretic. Endorses shortness of breath but only intermittently. Denies any abdominal pain. In review this is a 61-year-old male who presents with chest pain. Hemodynamically stable and nontoxic-appearing. His initial EKG shows Q waves in the inferior leads consistent with previous infarct but no definitive STEMI. His symptoms are highly concerning though for possible underlying ACS so we will get full chest pain work-up. His initial troponin was flat but the patient then had an episode of bradycardia and also started have chest pain so get a repeat EKG that showed some dynamic changes in the inferior leads including a change in direction of the electrical deflection as well as inversion of his T waves. This self resolved and then he had a repeat EKG afterwards that again looks like his initial EKG with just Q wave changes. His delta troponins were flat. His chest x-ray was unremarkable. I think his symptoms are most likely consistent with unstable angina. Due to this I talked with the admitting team about bringing him into the hospital for serial troponins and likely cardiac evaluation on Saturday. They were agreeable with this plan. Patient admitted to the hospital. above per ER narrative Patient is s/p stent deployment to RCA, proximal LAD, and 1st diagonal in December 2020. Has had some mild chest pain since arrival to the floor. Transient and lasting 5 minutes or so. Relays that he also is having dysuria. Hospital Course Hospital Course: Patient was admitted through the emergency room with complaints of substernal chest pain. He has a history of coronary disease, status post stent placement last fall. The patient was seen and evaluated per cardiology today. There were no definitive plans for another left heart cath, recommendations were made for medical management with up titration of his Imdur to 120 mg daily. On the morning of his discharge the patient was stable, had no further significant chest pain, and was felt to be at a reasonable baseline. We will continue his beta-hari, antiplatelet agents, and send him out on an increased dose of the Imdur. He is to follow-up with cardiology in 1 week. Recalcitrant chest pain would dictate another left heart cath. Objective Vital signs: Temp Pulse Resp BP Pulse Ox 97.6 F 47 L 17 107/51 L 98 10/23/21 08:00 10/23/21 08:00 10/23/21 08:00 10/23/21 08:00 10/23/21 08:00 no acute distress - *Routine HEENT Exam Head: Present: normocephalic Eye: Present: EOMI, PERRL ENT: Present: mucous membranes moist - *Routine Neck Exam Present: supple - *Routine Respiratory Exam Present: CTA bilaterally - *Routine Cardiovascular Exam Present: RRR - *Routine Abdominal Exam Present: soft, normoactive bowel sounds. Absent: tenderness - *Routine Extremities Exam Absent: cyanosis, clubbing, edema - *Routine Skin Exam Present: warm. Absent: rash Results Labs on day of discharge: Labs from last 24 hours 10/23/21 08:37 Sodium 144 Potassium 5.0 D Chloride 110 H Carbon Dioxide 29 Anion Gap 10.0 BUN 11 Creatinine 0.90 Estimated Creat Clear 80 Estimated GFR 85 Est GFR ( Amer) 103 Glucose 121 H Calcium 9.8 Total Bilirubin < 0.1 L AST 22 ALT 17 Alkaline Phosphatase 70 Total Protein 6.5 Albumin 4.1 Globulin 2.4 Albumin/Gl
--- NOTE | 2021-10-23 13:32 | PC.NURSE ---
rounded on patient. respiratory had just placed event monitor on patient. he did state they planned on changing his meds, and upon looking in chart educated patient he would be stopping his beta hari, and starting isosorbide. he will be given copies of updated med lists at discharge. no concerns or questions. states he had a shower yesterday, and care has been well here. encouraged him to let us know of any needs or concerns.
--- NOTE | 2021-10-23 15:14 | PC.NURSE ---
PT IS BEING DISCHARGED HOME WITH A 2 WEEK EVENT MONITOR AND HE WAS INSTRUCTED TO HOLD HIS CARVEDILOL TILL HE FOLLOWS UP WITH CARDIOLOGY. PT HAS BEEN UP AMBULATING IN THE ROOM. SINUS BROOK ON TELEMETRY.
--- NOTE | 2021-10-25 14:03 | CARE MANAGER ---
Attempted to contact patient x2 related to hospital discharge. DESIRE left MERI Levy
== END 2021-10-23 15:17 | disposition home or self-care (01) ==
LOC: ER 20:45 → 2ND 10-22 01:01
PROVIDERS: Admitting Provider Family Medicine; Emergency Provider Student in an Organized Health Care Education/Training Program; PCP Emergency Medicine; Visit Provider Family Medicine
DX: I25.110 Atherosclerotic heart disease of native coronary artery with unstable angina pectoris (principal); Z79.899 Other long term (current) drug therapy; Z79.02 Long term (current) use of antithrombotics/antiplatelets; I11.0 Hypertensive heart disease with heart failure; E78.5 Hyperlipidemia, unspecified; I50.9 Heart failure, unspecified; F17.200 Nicotine dependence, unspecified, uncomplicated; M47.816 Spondylosis without myelopathy or radiculopathy, lumbar region; Z95.5 Presence of coronary angioplasty implant and graft; R07.9 Chest pain, unspecified; I49.8 Other specified cardiac arrhythmias; Z20.822 Contact with and (suspected) exposure to COVID-19
CPT/HCPCS: G0378; 36415; 71046; 80048; 80053; 81001; 84484; 85025; 87086; 87088; 87186; 93005; 93270; 99285; C9803; J0696; J2405; U0003; U0005

== ENCOUNTER → 2021-11-01 12:31 | Outpatient (CLI) | payer MEDICARE, SELFPAY ==
[2021-11-01 14:04] LABS: Basophils # 0.1 K/mm3 (0-0.2); Basophils % 1.1 % (0.1-2.0); Eosinophils # 0.3 K/mm3 (0.0-0.4); Eosinophils % 5.9 % (0.1-12.0); Hematocrit 41.8 % (42.0-52.0); Hemoglobin 13.4 g/dL (14.1-18.0); Lymphocytes # 1.8 K/mm3 (0.7-4.5); Lymphocytes % 34.3 % (10-50); Mean Corpuscular Hemoglobin 29.4 pg (27.0-31.2); Mean Corpuscular Volume 92.1 fl (80-94); Mean Platelet Volume 8.1 fl (7.4-10.4); Monocytes # 0.3 K/mm3 (0.1-1.0); Monocytes % 5.8 % (1.7-9.3); Neutrophils # 2.8 K/mm3 (1.8-7.8); Platelet Count 188 K/mm3 (142-424); Red Blood Count 4.54 M/mm3 (4.60-6.20); Red Cell Distribution Width 13.2 % (11.5-17.5); White Blood Count 5.3 K/mm3 (4.8-10.8)
[2021-11-01 14:16] LABS: Chloride 106 mmol/L (98-107); Sodium 137 mmol/L (136-145)
[2021-11-01 14:17] LABS: Potassium 4.2 mmoL/L (3.5-5.1)
[2021-11-01 14:19] LABS: Blood Urea Nitrogen 17 mg/dl (9-20); Estimated Glomerular Filt Rate 85 ml/min (>60); GFR (African American) 103 ML/MIN (>60)
[2021-11-01 14:20] LABS: Anion Gap 7.2 mEq/L (5-15); Carbon Dioxide 28 mmol/L (22.0-30.0); Glucose 110 mg/dl (74-100)
[2021-11-01 14:21] LABS: Calcium 8.4 mg/dl (8.4-10.2)
== END ==
PROVIDERS: PCP Emergency Medicine; Visit Provider Nurse Practitioner
DX: I65.23 Occlusion and stenosis of bilateral carotid arteries (principal); I10 Essential (primary) hypertension; I25.118 Atherosclerotic heart disease of native coronary artery with other forms of angina pectoris; Z20.822 Contact with and (suspected) exposure to COVID-19
CPT/HCPCS: 36415; 80048; 85025; C9803; U0003; U0005

== ENCOUNTER 2021-11-06 02:14 | Observation (INO) | payer MEDICARE, SELFPAY ==
[2021-11-06] VITALS (29 sets, daily range): BP systolic 96–171; BP diastolic 49–87; PULSE 38–87; RESP 14–18; TEMP 36.4–36.7; O2SAT 95–100; BMI 31.0; BMI 31.1
--- NOTE | 2021-11-06 02:20 | PC.NURSE ---
PT ARRIVED TO FLOOR VIA STRETCHER PER [facility] @ [phone]
--- NOTE | 2021-11-06 02:29 | PC.NURSE ---
pt admitted to 206 as transfer from [place], pt on heparin drip at 900units/hr upon arrival, notified MD English, MD English stated to continue pt on heparin drip at 900units/hr
--- NOTE | 2021-11-06 03:50 | ECG_ITS ---
APPROVED REPORT Exam: Resting ECG HR:55 bpm ECG Measurements Heart Rate 55 AXES VT 198 P 50 QRSd 99 QRS -13 QT 401 T 76 QTc 390 Conclusion SINUS BRADYCARDIA WITH OCCASIONAL VENTRICULAR PREMATURE COMPLEXES NONSPECIFIC T-WAVE ABNORMALITY BORDERLINE ECG UNCONFIRMED REPORT Electronically signed by : Jewel Alcala MD 11/07/2021 21:28:40
[2021-11-06 04:16] LABS: Basophils # 0.1 K/mm3 (0-0.2); Basophils % 0.7 % (0.1-2.0); Eosinophils # 0.3 K/mm3 (0.0-0.4); Eosinophils % 4.1 % (0.1-12.0); Hematocrit 40.4 % (42.0-52.0); Hemoglobin 12.7 g/dL (14.1-18.0); Lymphocytes % 31.2 % (10-50); Mean Corpuscular HGB Conc 31.3 g/dL (31.8-35.4); Mean Corpuscular Hemoglobin 29.2 pg (27.0-31.2); Mean Corpuscular Volume 93.3 fl (80-94); Mean Platelet Volume 9.4 fl (7.4-10.4); Monocytes # 0.4 K/mm3 (0.1-1.0); Monocytes % 6.5 % (1.7-9.3); Neutrophils # 3.7 K/mm3 (1.8-7.8); Neutrophils % 57.5 % (37.0-80.0); Platelet Count 188 K/mm3 (142-424); Red Blood Count 4.33 M/mm3 (4.60-6.20); White Blood Count 6.5 K/mm3 (4.8-10.8)
[2021-11-06 04:23] LABS: Anion Gap 10.1 mEq/L (5-15); Blood Urea Nitrogen 13 mg/dl (9-20); Calcium 9.3 mg/dl (8.4-10.2); Carbon Dioxide 27 mmol/L (22.0-30.0); Chloride 108 mmol/L (98-107); Creatinine Clearance Estimated 82 mL/min (50-200); Estimated Glomerular Filt Rate 75 ml/min (>60); GFR (African American) 91 ML/MIN (>60); Glucose 98 mg/dl (74-100); Magnesium 1.8 mg/dl (1.6-2.3); Potassium 4.1 mmoL/L (3.5-5.1); Sodium 141 mmol/L (136-145)
[2021-11-06 04:32] LABS: Coronavirus 19, PCR Not Detected (NotDetected); Influenza A, PCR Not Detected (NotDetected); Influenza B, PCR Not Detected (NotDetected)
[2021-11-06 04:37] LABS: Troponin I 0.11 ng/ml (0.00-0.034)
[2021-11-06 05:00] LABS: PTT Heparin (inpatient only) 77.7 Seconds (23.6-34.0)
--- NOTE | 2021-11-06 05:09 | PC.NURSE ---
notified MD English of pt's critical PTT result of 77.7, no new orders at this time notified night watch of pt's ptt result, instructed to decrease heparin drip to 800units/hr and recheck another ptt in 6 hours, night watch will put in the new ptt order
--- NOTE | 2021-11-06 07:57 | HMH.PHAVTE ---
[facility] Pharmacy VTE Monitoring - Patient Demographics Admission date: 11/06/21 Report Date: 11/06/21 Time: 07:57 Allergies/Adverse Reactions: Patient Allergies codeine [CODEINE] Allergy (Unknown, Verified 10/31/21 15:17) Height: 1.57 m Weight: 76.929 kg - VTE Risk Labs: VTE Related Lab Results Hgb 12.7 g/dL (14.1-18.0) L 11/06/21 04:05 Hct 40.4 % (42.0-52.0) L 11/06/21 04:05 Plt Count 188 K/mm3 (142-424) 11/06/21 04:05 APTT 77.7 Seconds (23.6-34.0) H* 11/06/21 04:05 BUN 13 mg/dl (9-20) 11/06/21 04:05 Creatinine 1.00 mg/dl (0.66-1.25) 11/06/21 04:05 Estimated Creat Clear 82 mL/min (50-200) 11/06/21 04:05 Clinical Trial Participant: No - Prophylaxis VTE Prophylaxis Ordered?: Yes Types of VTE Prophylaxis: TEDS Knee High, Pharmacological Pharmacologic Type: Heparin (HEPARIN DRIP)
--- NOTE | 2021-11-06 08:37 | HMH.PHAHEP ---
[facility] Pharmacy Heparin Dosing - Demographic Data Admission date:: 11/06/21 Date: 11/06/21 Time: 08:37 Allergies/Adverse Reactions: Allergies Allergy/AdvReac Type Severity Reaction Status Date / Time codeine [CODEINE] Allergy Unknown Verified 10/31/21 15:17 Height: 1.57 m Weight: 76.9 kg - Indication Medication therapy:: Heparin Patient Problems: Current Active Problems Non-STEMI (non-ST elevated myocardial infarction) (Acute) HLD (hyperlipidemia) (Acute) Abnormal cardiovascular stress test (Acute) Obesity (BMI 30-39.9) (Acute) PAF (paroxysmal atrial fibrillation) (Acute) Carotid artery stenosis (Chronic) CAD (coronary artery disease) (Chronic) Angina pectoris (Acute) Hypertension (Chronic) CVA?: No Bleeding problem?: No Kidney disease?: No [place]?: No Desired PTT range:: Other (50-75) - Labs Anticoagulation Lab Results:: 11/06/21 04:05 Hgb 12.7 L Hct 40.4 L Plt Count 188 - Monitoring Dose Monitor 1 Date: 11/06/21 Time: 02:20 Infusion Rate:: 800 UNITS/HR Comment:: NO BASELINE PTT, PATIENT CAME IN FROM OUTSIDE FACILITY ON HEPARIN DRIP Dose Monitor 2 Date: 11/06/21 Time: 04:05 PTT Result:: 77.7 Infusion Rate:: DECREASE RATE TO 800 UNITS/HR Dose Monitor 3 Date: 11/06/21 Time: 11:30 PTT Result:: 35.9 Infusion Rate:: DRIP STOPPED IN PROCESS DESCRIPTION WRITER - Core Measures Is INR > or = 2 at discharge?: No Most Recent Labs:: Laboratory Results - last 24 hr 11/06/21 04:05: APTT 77.7 H* 11/06/21 04:05: Sodium 141, Potassium 4.1, Chloride 108 H, Carbon Dioxide 27, Anion Gap 10.1, BUN 13, Creatinine 1.00, Estimated Creat Clear 82, Estimated GFR 75, Est GFR ( Amer) 91, Glucose 98, Calcium 9.3, Magnesium 1.8, Troponin I 0.11 H 11/06/21 04:05: WBC 6.5, RBC 4.33 L, Hgb 12.7 L, Hct 40.4 L, MCV 93.3, MCH 29.2, MCHC 31.3 L, RDW 13.0, Plt Count 188, MPV 9.4, Neut % (Auto) 57.5, Lymph % (Auto) 31.2, [place] % (Auto) 6.5, Eos % (Auto) 4.1, Baso % (Auto) 0.7, Neut # (Auto) 3.7, Lymph # (Auto) 2.0, [place] # (Auto) 0.4, Eos # (Auto) 0.3, Baso # (Auto) 0.1 11/06/21 04:25: SARS-CoV-2 (PCR) Not detected, Influenza A Untype (PCR) Not detected, Influenza Type B (PCR) Not detected If INR was < than 2.0 why was therapy stopped?: DRIP STOPPED IN PROCESS DESCRIPTION WRITER Were Heparin and Warfarin started on the same day?: No If not, why?: DRIP STOPPED IN PROCESS DESCRIPTION WRITER
--- NOTE | 2021-11-06 09:28 | PC.NURSE ---
Cardiology at [facility] to see pt for consultation.
--- NOTE | 2021-11-06 11:23 | HMH.CNCARD ---
<Brandie Richardson - Last Filed: 11/06/21 11:23> History of Present Illness Consult date: 11/06/21 Requesting physician: Claudio English Consult reason: chest pain Chief complaint: chest pain History of present illness: This is a 61-year-old white gentleman who presented to the emergency department at [facility]. The patient was found to have an elevated troponin consistent with a non-STEMI and was transferred here to [facility] to his sleep tech. The patient reports that he had been moving furniture when he got sudden onset of chest pain. He states that this was a pressure sensation in the left side of his chest that radiated to his left arm. He states that soon after having the onset of chest pain he had an episode of syncope. The patient did not feel well and came into the emergency department at [place]. He was found to have a non-STEMI and then transferred here as previously mentioned. The patient states that he has been having intermittent chest pain. He had a recent abnormal stress test and was set up for an outpatient left cardiac catheterization tomorrow anyway. This morning he denies any shortness of breath or edema. He denies any fever, chills, nausea, vomiting, diarrhea, PND or orthopnea. [facility] History I have reviewed the patient's past medical history: Yes Medical History: Reports:: Arrhythmia, Atherosclerotic Heart Disease, Congestive Heart Failure, Coronary Artery Disease, Deep Vein Thrombosis, Hyperlipidemia, Hypertension, Myocardial Infarction, Palpitations Denies:: Cancer, Diabetes Mellitus Type 1, Diabetes Mellitus Type 2, Internal Pacemaker, MRSA, Seizures *Have you ever received a pneumonia vaccine?: Yes *Have you received a flu vaccine this season?: Yes Other Medical History: Reports: Arthritis, Cataracts. Denies: Blood Transfusion Reaction Laterality Cases: Left: Arthroscopy Shoulder Other Surgeries: Yes: No Previous Surgery, Cardiac Catheterization, Cardiac Surgery, Colonoscopy, Coronary Stent, EGD, Plastic Surgery, Other. No: Pacemaker Amputation: No Fractures: Yes (nose) - *Social History Smoking Status: Former smoker Tobacco Type: smokeless tobacco # Packs/Day (cigarettes): 0 #Yrs smoked (if former smoker): 30 Alcohol Intake: never Alcohol Intake Frequency:: a few times a month Substance Use Type: denies use *Occupational Status:: disabled Housing: house Household Members: children *Travel in the last 8 weeks: None Family Hx:: Cancer, Diabetes, Heart Attack Meds Home Medications Medication Instructions Recorded Confirmed Type aspirin 81 mg tablet,delayed 81 mg PO DAILY #90 tab 09/22/20 11/06/21 Rx release nitroglycerin 0.4 mg sublingual 0.4 mg SL Q5MINP PRN #20 tab 08/29/21 11/06/21 Rx tablet Atorvastatin Calcium [Lipitor 40mg 40 mg PO DAILY 10/22/21 11/06/21 History Tab] Fenofibrate Nanocrystallized 145 mg PO DAILY 10/22/21 11/06/21 History [Fenofibrate] Ondansetron [Zofran 4mg ODT] 4 mg PO TIDP PRN 10/22/21 11/06/21 History Sildenafil Citrate [Revatio] 20 - 40 mg PO DAILYP PRN 10/22/21 11/06/21 History Spironolactone [Spironolactone 25 mg PO DAILY 10/22/21 11/06/21 History 25mg Tablet] Tamsulosin HCl 0.4 mg PO DAILY 10/22/21 11/06/21 History Trazodone HCl 50 mg PO HS 10/22/21 11/06/21 History hydroCHLOROthiazide [HCTZ 25mg 25 mg PO DAILY 10/22/21 11/06/21 History tab] Isosorbide Mononitrate [Isosorbide 60 mg PO BID #60 tab 10/23/21 11/06/21 Rx Mononitrate ER] carvedilol 3.125 mg tablet 3.125 mg PO BIDWMEAL #60 tab 10/30/21 11/06/21 Rx clonazepam 0.5 mg tablet 0.5 mg PO TID #90 tab 10/31/21 11/06/21 Rx Gabapentin 800 mg PO TID 11/06/21 11/06/21 History Hydrocodone/Acetaminophen 1 tab PO QID 11/06/21 11/06/21 History [Hydrocodone-Acetamin 7.5-325] Losartan Potassium [Cozaar 50mg 50 mg PO BID 11/06/21 11/06/21 History Tablets] Rivaroxaban [Xarelto] 20 mg PO DAILY 11/06/21 11/06/21 History Allergies All
--- NOTE | 2021-11-06 11:38 | IR_ITS ---
APPROVED REPORT Patient Location: Inpatient Dry Primer Powder Blender: BRITNEY Ennis RT (R) PROCEDURES Left heart catheterization Left ventriculogram Selective coronary angiography INDICATION Elevated troponin, Unstable angina, Bradycardia with syncope, Known multivessel coronary disease Informed consent was obtained prior to the procedure. COMPLICATIONS None Estimated Blood Loss: Less than 10 mls TECHNIQUE One percent lidocaine used to anesthetize the right anterior aspect of the wrist. The right radial artery was accessed via the Seldinger technique. A 6 Lao sheath was placed in the right radial artery. 2.5 mg of verapamil, 800 mcg of nitroglycerin, 1mg Lidocaine and 5000 U Heparin were given through the arterial sheath. The papa catheter was also used to perform left heart catheterization, left ventriculogram and selective coronary angiogram. At the end of the procedure the sheath was removed good hemostasis was achieved using Traclet band, patient was transferred to the postop holding area in stable condition. ANGIOGRAPHIC RESULTS The left main artery Has a distal hazy 20% stenosis The left anterior descending artery Has a stent in the proximal LAD which is widely patent with minimal in-stent restenosis. The LAD itself is widely patent. The first diagonal artery is a 1.75 mm to 2 mm vessel and has an ostial 90% stenosis. The second diagonal artery has a stent in its ostial segment which is ostially occluded. The circumflex artery Is a nondominant vessel and has proximal 20 to 30% stenosis. The terminal obtuse marginal artery has a proximal concentric 80 to 90% stenosis however the vessel is slightly smaller than 2 mm in diameter The right coronary artery Is a dominant vessel and has a stent in the ostial proximal side which is widely patent with minimal in-stent restenosis. The stent appears larger than the [place] vessel with the [place] vessel then tapering down. There is an additional mid vessel 30 to 40% stenosis followed by an additional concentric 30% hazy stenosis. The posterior descending artery has a stent in the proximal segment which is widely patent free of in-stent restenosis The SCHERER ventriculogram reveals Not performed The left ventricular end-diastolic pressure Not measured IMPRESSION Patent coronary arteries as described above Severe stenosis in the first diagonal artery which is not clinically suitable for stenting due to its relatively small caliber nature and the necessity to perform bifurcating stenting in the proximal LAD should the diagonal be stented Occluded second diagonal artery PLAN 1. Maximize antianginal medications 2. Evaluate cardiac event monitor given syncope in the setting of bradycardia 3. Patient may be a candidate for pacemaker therapy given the paroxysmal atrial fibrillation with antecedent bradycardia 4. LDL less than 55 to be achieved with high intensity statin 5. Maximize nitrates and Ranexa 6. Cardiac rehabilitation Electronically signed by : Dc Gonzalez MD 11/06/2021 15:24:13
[2021-11-06 11:55] LABS: PTT Heparin (inpatient only) 35.9 Seconds (23.6-34.0)
--- NOTE | 2021-11-06 12:13 | HMH.HP ---
*Admission Date: 11/06/21 *Chief complaint: chest pain *History of present illness: this patient presented to [facility] -a 61-year-old white gentleman who presented to the emergency department at [facility]. The patient was found to have an elevated troponin consistent with a non-STEMI and was transferred here to [facility] to his oracle application architect. The patient reports that he had been moving furniture when he got sudden onset of chest pain. He states that this was a pressure sensation in the left side of his chest that radiated to his left arm. He states that soon after having the onset of chest pain he had an episode of syncope. The patient did not feel well and came into the emergency department at [place]. He was found to have a non-STEMI and then transferred here as previously mentioned. The patient states that he has been having intermittent chest pain. He had a recent abnormal stress test and was set up for an outpatient left cardiac catheterization tomorrow anyway. This morning he denies any shortness of breath or edema. He denies any fever, chills, nausea, vomiting, diarrhea, PND or orthopnea. pt was transferred to [facility] for card eval - pt was seen by card - patient presented to the emergency department [facility] with complaints of chest pain. The patient was found to have a non-STEMI and was transferred here to [facility]. The patient will be taken to the cardiac catheterization laboratory to undergo left cardiac catheterization to evaluate his coronary artery disease. He also had a recent stress test that showed mixed ischemia and scar involving the anterolateral wall and he was set up for outpatient cath tomorrow but will now be done today since he has been admitted with a non-STEMI. 2. The patient has been educated the risks and benefits of proceeding with left cardiac catheterization. The patient verbalizes understanding and is agreeable in proceeding with the procedure. 3. The patient be n.p.o. in preparation for left cardiac catheterization. 4. Coronary artery disease is present. As mentioned above we will proceed with left cardiac catheterization today. 5. His blood pressure is on the low side but acceptable. We will continue to follow. 6. His LDL goal is less than 55. We will get a lipid panel in the morning. 7. Patient does have paroxysmal atrial fibrillation he has recently been started on Xarelto for anticoagulation. He still has an event monitor in place. We will try to get some strips from over the weekend to see if there were any events during his episode of syncope. 8. Further recommendations will be made pending the patient's response to treatment and the results of his left cardiac catheterization today. [facility] History I have reviewed the patient's past medical history: Yes Medical History: Reports:: Arrhythmia, Atherosclerotic Heart Disease, Congestive Heart Failure, Coronary Artery Disease, Deep Vein Thrombosis, Hyperlipidemia, Hypertension, Myocardial Infarction, Palpitations Denies:: Cancer, Diabetes Mellitus Type 1, Diabetes Mellitus Type 2, Internal Pacemaker, MRSA, Seizures *Have you ever received a pneumonia vaccine?: Yes *Have you received a flu vaccine this season?: Yes Other Medical History: Reports: Arthritis, Cataracts. Denies: Blood Transfusion Reaction Laterality Cases: Left: Arthroscopy Shoulder Other Surgeries: Yes: No Previous Surgery, Cardiac Catheterization, Cardiac Surgery, Colonoscopy, Coronary Stent, EGD, Plastic Surgery, Other. No: Pacemaker Amputation: No Fractures: Yes (nose) - *Social History Smoking Status: Former smoker Tobacco Type: smokeless tobacco # Packs/Day (cigarettes): 0 #Yrs smoked (if former smoker): 30 Alcohol Intake: never Alcohol Intake Frequency:: a few times a month Substance Use Type: denies use *Occupational Status:: disabled Housing: house Household Members: children *Travel in the last 8 weeks: None Family Hx
--- NOTE | 2021-11-06 15:00 | PC.NURSE ---
Pt back to floor from [facility]. Post procedure vital signs started. Rt groin assessment wnl. No swelling, bleeding or hematoma. No pain reported per pt. Pt is a&o x4.
--- NOTE | 2021-11-06 16:45 | PC.NURSE ---
Pt sitting up in bed at this time. No pain. No bleeding, swelling or hematoma noted at rt groin. Gauze and tegaderm dressing remains CDI.
[2021-11-07] VITALS (17 sets, daily range): BP systolic 128–186; BP diastolic 51–96; PULSE 40–65; RESP 16–18; TEMP 36.6–36.9; O2SAT 95–100; BMI 31.1
--- NOTE | 2021-11-07 | IR_ITS ---
APPROVED REPORT Patient Location: Inpatient Artificial Cherry Maker: BRITNEY Ennis RT (R) PROCEDURES 1. Pocket formation for Permanent Pacemaker Placement. 2. Placement of an atrial sensing and pacing coil into the right atrial appendage. 3. Placement of a ventricular sensing and pacing coil in the right ventricular apex. 4. Permanent Pacemaker Placement. INDICATION Sick Sinus Syndrome, Satinder Tachy Syndrome Informed consent was obtained prior to the procedure. COMPLICATIONS None Estimated Blood Loss: Less than 10 mls TECHNIQUE 1% Lidocaine with epinephrine used to anesthetized the left anterior aspect of the chest. Scalpel was used to make the initial cutaneous incision while electrocautery was used to dissect down tinto the fascia. The fascia was lifted off the pectoralis muscle and digitally manipulated creating a pocket for the pacemaker. The patient was then placed in Trendelenburg position and the subclavian vein was accessed twice via the Selinger technique, there are two wires in the vein. A 6 Kosovan sheath was placed under fluoroscopic guidance into the subclavian vein over one of the wires while keeping the other wire in place within the subclavian vein. The dilator was removed from the sheath. Using fluoroscopic guidance, the ventricular lead was placed into the right ventricular apex, screwed and secured into place. Electronic interrogation proved acceptable thresholds and voltage within the lead. Using 3-0 silk, the ventricular lead was then secured into place. Lead was secured to the facia using the 3-0 silk. Following this, the sheath was pealed away. An additional 6 [place] fresh sheath and dilator was placed over the existing wire. Using fluoroscopic guidance, the atrial lead was the placed into the right atrial appendage and screwed and secured in place. Electrical interrogation demonstrated acceptable thresholds and voltage number. The atrial lead was then secured into place using 3-0 silk. 1 gram of Ancef was used to flush the pocket. Following the pacemaker generator being secured to the fascia and in place, Monocryl was used to close the subcutaneous layers while comfort were used to close the cutaneous layer. A pressure dressing was placed and the patient was transferred to the postop holding area in stable condition for postoperative care. INTERROGATION Generator Model number: Start[address]CO [address], L311 Generator Serial number: [id number] Atrial lead model number: INGEVITY+ 45CM, 7840 Atrial lead serial number: [id number] P-wave: 3.5 mV Impedence: 600 ohms Threshold: 0.8V@0.4ms Current: 1.3 mA Right Ventricular lead model number: KENITY+ 52CM, 7841 Right Ventricular lead serial number: [id number] R-wave: 12.0 mV Impedence: 900 ohms Threshold: 0.5V@0.4ms Current: 0.6 mA Pacing Parameters: Mode: DDDR Base/Max Track:60 ppm / 130 ppm No diaphragmatic stimulation at 10 volts. IMPRESSION 1. Successful pocket formation for Permanent Pacemaker Placement. 2. Successful placement of an atrial sensing and pacing coil into the right atrial appendage. 3. Successful placement of a ventricular sensing and pacing coil in the right ventricular apex. 4. Successful permanent Pacemaker Placement. PLAN 1. Follow up office visit, post op wound care Electronically signed by : Dc Gonzalez MD 11/07/2021 16:27:26
--- NOTE | 2021-11-07 05:11 | PC.NURSE ---
Patient has been a&o x4. Rt femoral cath site is CDI no hematoma noted. Patient did have some abd pain throughout night stating he does have a known hernia. Warm compact gave for comfort along with medication for MAR. Patient has tolerated RA. Patient has been bradycardic on tele most of the night HR low 30's to 50's.
[2021-11-07 07:12] LABS: Basophils % 0.3 % (0.1-2.0); Eosinophils # 0.2 K/mm3 (0.0-0.4); Eosinophils % 1.4 % (0.1-12.0); Lymphocytes # 1.5 K/mm3 (0.7-4.5); Lymphocytes % 11.8 % (10-50); Mean Corpuscular HGB Conc 30.4 g/dL (31.8-35.4); Mean Corpuscular Hemoglobin 29.1 pg (27.0-31.2); Mean Corpuscular Volume 95.8 fl (80-94); Mean Platelet Volume 8.1 fl (7.4-10.4); Monocytes # 0.6 K/mm3 (0.1-1.0); Neutrophils % 81.5 % (37.0-80.0); Platelet Count 213 K/mm3 (142-424); Red Cell Distribution Width 13.2 % (11.5-17.5); White Blood Count 12.3 K/mm3 (4.8-10.8)
[2021-11-07 07:20] LABS: Chloride 107 mmol/L (98-107); Sodium 138 mmol/L (136-145)
[2021-11-07 07:23] LABS: Alanine Aminotransferase 19 U/L (12-78); Albumin Level 4.3 g/dl (3.5-5.0); Alkaline Phosphatase 65 U/L (38-126); Anion Gap 10.3 mEq/L (5-15); Aspartate Amino Transferase 32 U/L (17-59); Bilirubin,Direct 0.3 mg/dl (0.0-0.4); Bilirubin,Indirect 0.1 mg/dL (0.0-0.9); Bilirubin,Total 0.4 mg/dl (0.2-1.3); Bilirubin,Unconjugated 0.1 mg/dL (0.0-1.1); Blood Urea Nitrogen 14 mg/dl (9-20); Calcium 8.5 mg/dl (8.4-10.2); Carbon Dioxide 25 mmol/L (22.0-30.0); Cholesterol 88 mg/dl (140-200); Creatinine Clearance Estimated 82 mL/min (50-200); Estimated Glomerular Filt Rate 85 ml/min (>60); GFR (African American) 103 ML/MIN (>60); Glucose 107 mg/dl (74-100); Potassium 4.3 mmoL/L (3.5-5.1); Total Protein,Serum 6.7 g/dl (6.3-8.2); Triglycerides 53 mg/dl (30-150); VLDL Cholesterol 11 mg/dL (0-40)
[2021-11-07 07:24] LABS: Chol/HDL Ratio 2.5 (1-3.5); HDL Cholesterol 35 mg/dl (40-60)
--- NOTE | 2021-11-07 10:21 | HMH.PNCARD ---
Subjective Date: 11/07/21 Time: 10:00 Principal diagnosis: angina, CAD Interval history: This is a 61-year-old white gentleman who presented to the emergency department at [place] with chest pain. He had an elevated troponin consistent with a non-ST elevation myocardial infarction and the patient was transferred here to [facility]. Patient underwent left cardiac catheterization yesterday and no percutaneous intervention was performed. The patient is felt to have his coronary artery disease best managed medically. However, he did have an event monitor in place which showed paroxysms of atrial fibrillation. As well as sinus bradycardia and a 6.1-second pause. The patient was started on a beta-hari following the paroxysmal of atrial fibrillation but he is now bradycardic and having asystolic pauses. Given his severe three-vessel coronary artery disease the patient cannot stop his beta-hari and he cannot stop the beta-hari due to the paroxysmal's of his atrial fibrillation and he would actually likely need higher doses of the beta-hari per Dr. Gonzalez. Today he denies any chest pain or pressure. He denies any shortness of breath or edema. He denies any fever, chills, nausea, vomiting, diarrhea, PND or orthopnea. Exam Vital signs and Labs for Last 24 Hours: Temp Pulse Resp BP Pulse Ox 97.8 F 49 L 16 130/60 98 11/07/21 08:00 11/07/21 08:00 11/07/21 08:00 11/07/21 08:00 11/07/21 08:00 Laboratory Results - last 24 hr 11/06/21 11:35: APTT 35.9 H 11/07/21 07:00: WBC 12.3 H D, RBC 4.80, Hgb 14.0 L, Hct 46.0, MCV 95.8 H, MCH 29.1, MCHC 30.4 L, RDW 13.2, Plt Count 213, MPV 8.1, Neut % (Auto) 81.5 H, Lymph % (Auto) 11.8, [place] % (Auto) 5.0, Eos % (Auto) 1.4, Baso % (Auto) 0.3, Neut # (Auto) 10.0 H, Lymph # (Auto) 1.5, [place] # (Auto) 0.6, Eos # (Auto) 0.2, Baso # (Auto) 0.0 11/07/21 07:00: Sodium 138, Potassium 4.3, Chloride 107, Carbon Dioxide 25, Anion Gap 10.3, BUN 14, Creatinine 0.90, Estimated Creat Clear 82, Estimated GFR 85, Est GFR ( Amer) 103, Glucose 107 H, Calcium 8.5, Total Bilirubin 0.4, Direct Bilirubin 0.3, Conjugated Bilirubin 0.0, Indirect Bilirubin 0.1, Unconjugated Bilirubin 0.1, AST 32, ALT 19, Alkaline Phosphatase 65, Total Protein 6.7, Albumin 4.3, Triglycerides 53, Cholesterol 88 L, VLDL Cholesterol 11, HDL Cholesterol 35 L, Cholesterol/HDL Ratio 2.5 I & O for Last 24 hours: Intake & Output 11/04/21 11/05/21 11/06/21 11/07/21 23:59 23:59 23:59 23:59 Intake Total 600 / 600 Output Total 700 / 700 Balance -700 / -580 600 / 600 Weight 169 lb 8.568 oz 169 lb 6 oz - Constitutional no acute distress, obese - *Routine HEENT Exam Head: Present: normocephalic, atraumatic Eye: Present: EOMI, PERRL ENT: Present: mucous membranes moist - *Routine Neck Exam Present: supple, full ROM, normal carotid upstroke. Absent: JVD, carotid bruit, lymphadenopathy - *Routine Respiratory Exam Present: CTA bilaterally - *Routine Cardiovascular Exam Present: RRR, Normal S1, Normal S2. Absent: murmur - *Routine Abdominal Exam Present: soft, normoactive bowel sounds. Absent: tenderness, distended - *Routine Extremities Exam Present: full ROM, pulses intact, normal capillary refill. Absent: cyanosis, clubbing, edema - *Routine Skin Exam Present: intact, warm. Absent: erythema, rash - *Routine Neurological Exam Present: alert, oriented X3, CN II-XII intact. Absent: sensory deficit, motor deficit - Routine Psychiatric Exam Present: normal affect, normal thought process Progress Note: A&P (1) Symptomatic bradycardia Status: Acute (2) SSS (sick sinus syndrome) Status: Acute (3) Syncope Status: Acute (4) Non-STEMI (non-ST elevated myocardial infarction) Status: Acute (5) HLD (hyperlipidemia) Status: Acute (6) Abnormal cardiovascular stress test Status: Acute (7) PAF (paroxysmal atrial fibrillation) Status: Acute (8) [place]
--- NOTE | 2021-11-07 11:15 | PC.NURSE ---
Addendum entered by Sherri Khan RN 11/07/21 11:15: pt's password Original Note: [id number]
[2021-11-07 11:59] LABS: Basophils % 0.3 % (0.1-2.0); Eosinophils # 0.2 K/mm3 (0.0-0.4); Hemoglobin 14.7 g/dL (14.1-18.0); Lymphocytes # 1.2 K/mm3 (0.7-4.5); Lymphocytes % 8.6 % (10-50); Mean Corpuscular Hemoglobin 29.3 pg (27.0-31.2); Mean Corpuscular Volume 91.5 fl (80-94); Mean Platelet Volume 8.7 fl (7.4-10.4); Monocytes # 0.6 K/mm3 (0.1-1.0); Monocytes % 4.1 % (1.7-9.3); Neutrophils # 12.3 K/mm3 (1.8-7.8); Platelet Count 232 K/mm3 (142-424); Red Blood Count 5.03 M/mm3 (4.60-6.20); White Blood Count 14.4 K/mm3 (4.8-10.8)
[2021-11-07 12:06] LABS: MANUAL DIFFERENTIAL MANUAL DIFFERENTIAL (MANUAL DIFF)
[2021-11-07 12:53] LABS: Lymphocytes % 7 % (10-50); Monocytes % 3 % (2-9); Neutrophils % 90 % (42-76); Platelet Estimate Normal; RBC Morphology Normal; Total Cells Counted 100
--- NOTE | 2021-11-07 13:07 | P.PN_ITS ---
[facility] Anesthesia Checklist - Patient Identification Patient Identification: Arm Band, Verbal (Name & ) - Structural Data Admitted From: Inpatient Planned Operative Procedure/s: Pacemaker Placement Consent for Planned Operative Procedure(s) Verified: Yes Verified Documents: Surgical Consent - NPO Status Verified Time NPO: 00:00 - Chart Verification Results Verified: CBC - Additional verifications Anesthesia Reactions: No Hx Blood Transfusions: No Blood Transfusion Reaction: No - Airway Assessment C-Spine Mobility Assessed: Yes TMJ Mobility Assessed: Yes - Neurological Assessment Level of Consciousness: Awake, Alert, Appropriate - Anesthesia Plan Anesthesia Risk discussed: Yes ASA Class: III Anesthesia Type: MAC [facility] History I have reviewed the patient's past medical history: Yes Medical History: Reports:: Arrhythmia, Atherosclerotic Heart Disease, Congestive Heart Failure, Coronary Artery Disease, Deep Vein Thrombosis, Hyperlipidemia, Hypertension, Myocardial Infarction, Palpitations Denies:: Cancer, Diabetes Mellitus Type 1, Diabetes Mellitus Type 2, Internal Pacemaker, MRSA, Seizures *Have you ever received a pneumonia vaccine?: Yes *Have you received a flu vaccine this season?: Yes Other Medical History: Reports: Arthritis, Cataracts. Denies: Blood Transfusion Reaction Anesthesia experience/problems:: none Laterality Cases: Left: Arthroscopy Shoulder Other Surgeries: Yes: No Previous Surgery, Cardiac Catheterization, Cardiac Surgery, Colonoscopy, Coronary Stent, EGD, Plastic Surgery, Other. No: Pacemaker Amputation: No Fractures: Yes (nose) - *Social History Smoking Status: Former smoker Tobacco Type: smokeless tobacco # Packs/Day (cigarettes): 0 #Yrs smoked (if former smoker): 30 Alcohol Intake: never Alcohol Intake Frequency:: a few times a month Substance Use Type: denies use *Occupational Status:: disabled Housing: house Household Members: children *Travel in the last 8 weeks: None Family Hx:: Cancer, Diabetes, Heart Attack
--- NOTE | 2021-11-07 13:58 | HMH.ACPN2 ---
Internal Medicine - PN: Subj *Date: 11/07/21 *Time: 13:58 Interval history: has been doing ok but need pacemaker - card note reviewed Exam Vital signs and Labs for Last 24 Hours: Temp Pulse Resp BP Pulse Ox 98.3 F 45 L 18 138/63 96 11/07/21 12:00 11/07/21 12:00 11/07/21 12:00 11/07/21 12:00 11/07/21 12:00 Laboratory Results - last 24 hr 11/07/21 07:00: WBC 12.3 H D, RBC 4.80, Hgb 14.0 L, Hct 46.0, MCV 95.8 H, MCH 29.1, MCHC 30.4 L, RDW 13.2, Plt Count 213, MPV 8.1, Neut % (Auto) 81.5 H, Lymph % (Auto) 11.8, [place] % (Auto) 5.0, Eos % (Auto) 1.4, Baso % (Auto) 0.3, Neut # (Auto) 10.0 H, Lymph # (Auto) 1.5, [place] # (Auto) 0.6, Eos # (Auto) 0.2, Baso # (Auto) 0.0 11/07/21 07:00: Sodium 138, Potassium 4.3, Chloride 107, Carbon Dioxide 25, Anion Gap 10.3, BUN 14, Creatinine 0.90, Estimated Creat Clear 82, Estimated GFR 85, Est GFR ( Amer) 103, Glucose 107 H, Calcium 8.5, Total Bilirubin 0.4, Direct Bilirubin 0.3, Conjugated Bilirubin 0.0, Indirect Bilirubin 0.1, Unconjugated Bilirubin 0.1, AST 32, ALT 19, Alkaline Phosphatase 65, Total Protein 6.7, Albumin 4.3, Triglycerides 53, Cholesterol 88 L, VLDL Cholesterol 11, HDL Cholesterol 35 L, Cholesterol/HDL Ratio 2.5 11/07/21 11:49: WBC 14.4 H, RBC 5.03, Hgb 14.7, Hct 46.0, MCV 91.5, MCH 29.3, MCHC 32.0, RDW 13.0, Plt Count 232, MPV 8.7, Neut % (Auto) 86.0 H, Lymph % (Auto) 8.6 L, [place] % (Auto) 4.1, Eos % (Auto) 1.0, Baso % (Auto) 0.3, Neut # (Auto) 12.3 H, Lymph # (Auto) 1.2, [place] # (Auto) 0.6, Eos # (Auto) 0.2, Baso # (Auto) 0.0, Total Counted 100, Neutrophils % (Manual) 90 H, Lymphocytes % (Manual) 7 L, Monocytes % (Manual) 3, Platelet Estimate Normal, RBC Morphology Normal I & O for Last 24 hours: Intake & Output 11/05/21 11/06/21 11/07/21 11/08/21 11:59 11:59 11:59 11:59 Intake Total 600 / 600 Output Total 700 / 700 Balance -700 / -700 600 / 600 Weight 169 lb 8.568 oz 169 lb 7.509 oz Assessment and Plan (1) Symptomatic bradycardia Status: Acute Category: Medical Code(s): R00.1 - Bradycardia, unspecified (2) SSS (sick sinus syndrome) Status: Acute Category: Medical Code(s): I49.5 - Sick sinus syndrome (3) Syncope Status: Acute Category: Medical Code(s): R55 - Syncope and collapse (4) Non-STEMI (non-ST elevated myocardial infarction) Status: Acute Category: Medical Code(s): I21.4 - Non-ST elevation (NSTEMI) myocardial infarction (5) HLD (hyperlipidemia) Status: Acute Category: Medical Code(s): E78.5 - Hyperlipidemia, unspecified (6) Abnormal cardiovascular stress test Status: Acute Category: Medical Code(s): R94.39 - Abnormal result of other cardiovascular function study (7) PAF (paroxysmal atrial fibrillation) Status: Acute Category: Medical Code(s): I48.0 - Paroxysmal atrial fibrillation (8) Carotid artery stenosis Status: Chronic Qualifiers: Laterality: bilateral Qualified Code(s): I65.23 - Occlusion and stenosis of bilateral carotid arteries Category: Medical Code(s): I65.29 - Occlusion and stenosis of unspecified carotid artery (9) CAD (coronary artery disease) Problem details: 12.29.2020-Successful stenting of the proximal LAD extending into the mid LAD Successful stenting revascularization of a moderate-sized first diagonal artery Successful stenting of ostial proximal dominant right coronary 01.09.2021-Medical management. Status: Chronic Qualifiers: Coronary Disease-Associated Artery/Lesion type: [place] artery [place] vs. transplanted heart: [place] heart Associated angina: with stable angina Qualified Code(s): I25.118 - Atherosclerotic heart disease of [place] coronary artery with other forms of angina pectoris Category: Medical Code(s): I25.10 - Atherosclerotic heart disease of [place] coronary artery without angina pectoris (10) Angina pectoris Status: Resolved Category: Medical Code(s): I20.9 - Angina pectoris, unspecified (11) Hy
--- NOTE | 2021-11-07 14:57 | PC.NURSE ---
off floor for procedure
--- NOTE | 2021-11-07 15:53 | XR_ITS ---
FINAL REPORT CLINICAL HISTORY: post pacemaker COMPARISON: October 21, 2021 FINDINGS: There is a new left subclavian pacemaker with overlying skin comfort The heart size is mildly enlarged. The mediastinum is normal. There are chronic changes in bilateral lungs. There are no pleural effusions. There is no pneumothorax. There is no osseous abnormality. IMPRESSION: Mild cardiomegaly. Chronic changes in bilateral lungs. No pneumothorax. Reviewed, Interpreted and Dictated by Luca Farfan MD Transcribed by Olya Aguilar Authenticated and [facility]
--- NOTE | 2021-11-07 18:07 | PC.NURSE ---
Pt is alert and oriented x4. Dressing to right groin, right radial and left chest are all clean, dry and intact. He has ambulated around his room independently with no distress. He's denied chest pain or pressure and dizziness. He was sinus nae on tele before pacemaker placement. He is since paced/sr. He is currently resting in bed with his eyes closed. Family is at bedside. Bed is locked and in the lowest position, call light is within reach.
[2021-11-08] VITALS: BP 137/74; PULSE 60; PULSE 66; RESP 18; TEMP 36.7; O2SAT 97
--- NOTE | 2021-11-08 01:52 | PC.NURSE ---
Patient has been a&ox4. Patient does complain of abd pain medicated per mar. Pacemaker dressing to lt chest is CDI. Educated patient not to lift lt arm. Patient's hr has been paced on tele around 60's. Vss. Patient eagar to go home. Early entry r/t scheduled downtime.
[2021-11-08 04:00] VITALS: BP 138/66; PULSE 62; PULSE 77; RESP 18; TEMP 36.7; O2SAT 95; BMI 29.6
[2021-11-08 08:00] VITALS: BP 133/74; PULSE 60; PULSE 70; RESP 16; TEMP 37.1; O2SAT 99
[2021-11-08 09:06] LABS: Anion Gap 11.8 mEq/L (5-15); Carbon Dioxide 25 mmol/L (22.0-30.0); Chloride 107 mmol/L (98-107); Glucose 102 mg/dl (74-100); Potassium 3.8 mmoL/L (3.5-5.1); Sodium 140 mmol/L (136-145)
[2021-11-08 09:15] LABS: Blood Urea Nitrogen 10 mg/dl (9-20); Creatinine Clearance Estimated 82 mL/min (50-200); Estimated Glomerular Filt Rate 98 ml/min (>60); GFR (African American) 118 ML/MIN (>60)
--- NOTE | 2021-11-08 09:36 | PC.NURSE ---
PT not willing to use urinal.
[2021-11-08 10:02] LABS: Hematocrit 39.9 % (42.0-52.0); Hemoglobin 13.8 g/dL (14.1-18.0); Mean Corpuscular HGB Conc 34.7 g/dL (31.8-35.4); Mean Corpuscular Hemoglobin 29.7 pg (27.0-31.2); Mean Corpuscular Volume 85.6 fl (80-94); Platelet Count 173 K/mm3 (142-424); Red Blood Count 4.66 M/mm3 (4.60-6.20); Red Cell Distribution Width 12.4 % (11.5-17.5); White Blood Count 9.6 K/mm3 (4.8-10.8)
[2021-11-08 10:03] LABS: Basophils % 0.3 % (0.1-2.0); Eosinophils # 0.2 K/mm3 (0.0-0.4); Lymphocytes # 1.7 K/mm3 (0.7-4.5); Lymphocytes % 17.4 % (10-50); Mean Platelet Volume 7.7 fl (7.4-10.4); Monocytes # 0.6 K/mm3 (0.1-1.0); Monocytes % 5.9 % (1.7-9.3); Neutrophils # 7.2 K/mm3 (1.8-7.8); Neutrophils % 74.5 % (37.0-80.0)
[2021-11-08 11:38] VITALS: BP 125/60; PULSE 60; RESP 18; TEMP 36.8; O2SAT 98
--- NOTE | 2021-11-08 11:48 | EXP.CARD.PN ---
Subjective Subjective Date: 11/08/21 Time: 09:00 Principal diagnosis: angina, CAD, symptomatic bradycardia Interval history: This is a 58-year-old white gentleman who presented to the emergency department and had a non-ST elevation myocardial infarction. The patient underwent cardiac catheterization with no percutaneous intervention. However the patient had an event monitor which showed episodes of paroxysms of atrial fibrillation as well as episodes of sinus bradycardia and a 6.1-second asystolic pause. The patient did have syncope prior to his admission to the hospital which the patient was noted to be bradycardic on his event monitor around that time. The patient underwent permanent pacemaker placement yesterday for symptomatic bradycardia, syncope and asystolic pauses. This morning he complains of a little soreness at the pacemaker site but no significant pain. He denies any chest pain or pressure. He denies any shortness of breath or edema. He denies any fever, chills, nausea, vomiting, diarrhea, PND or orthopnea. Exam Data for Last 24 hours Vital signs and Labs for Last 24 Hours: Temp Pulse Resp BP Pulse Ox 98.3 F 60 18 125/60 98 11/08/21 11:38 11/08/21 11:38 11/08/21 11:38 11/08/21 11:38 11/08/21 11:38 Laboratory Results - last 24 hr 11/07/21 11:49: WBC 14.4 H, RBC 5.03, Hgb 14.7, Hct 46.0, MCV 91.5, MCH 29.3, MCHC 32.0, RDW 13.0, Plt Count 232, MPV 8.7, Neut % (Auto) 86.0 H, Lymph % (Auto) 8.6 L, [place] % (Auto) 4.1, Eos % (Auto) 1.0, Baso % (Auto) 0.3, Neut # (Auto) 12.3 H, Lymph # (Auto) 1.2, [place] # (Auto) 0.6, Eos # (Auto) 0.2, Baso # (Auto) 0.0, Total Counted 100, Neutrophils % (Manual) 90 H, Lymphocytes % (Manual) 7 L, Monocytes % (Manual) 3, Platelet Estimate Normal, RBC Morphology Normal 11/08/21 06:20: WBC 9.6 D, RBC 4.66, Hgb 13.8 L, Hct 39.9 L, MCV 85.6, MCH 29.7, MCHC 34.7, RDW 12.4, Plt Count 173 D, MPV 7.7, Neut % (Auto) 74.5, Lymph % (Auto) 17.4, [place] % (Auto) 5.9, Eos % (Auto) 2.0, Baso % (Auto) 0.3, Neut # (Auto) 7.2, Lymph # (Auto) 1.7, [place] # (Auto) 0.6, Eos # (Auto) 0.2, Baso # (Auto) 0.0 11/08/21 06:20: Sodium 140, Potassium 3.8, Chloride 107, Carbon Dioxide 25, Anion Gap 11.8, BUN 10 D, Creatinine 0.80, Estimated Creat Clear 82, Estimated GFR 98, Est GFR ( Amer) 118, Glucose 102 H, Calcium 9.0 I & O for Last 24 hours: Intake & Output 11/05/21 11/06/21 11/07/21 11/08/21 23:59 23:59 23:59 23:59 Intake Total 963 / 963 872 / 872 Output Total 700 / 700 125 / 125 0 / 0 Balance -700 / -580 838 / 838 872 / 872 Weight 169 lb 8.568 oz 169 lb 7.509 oz Narrative: Telemetry strip shows atrial pacing with a rate of 60 bpm. Constitutional Constitutional: no acute distress and obese *Routine HEENT Exam Head: Present normocephalic and atraumatic ENT: Present mucous membranes moist *Routine Neck Exam Neck: Present supple, full ROM and normal carotid upstroke; Absent JVD, carotid bruit or lymphadenopathy *Routine Respiratory Exam Respiratory: Present CTA bilaterally, normal respiratory effort, able to speak in complete sentences and symmetric chest movement *Routine Cardiovascular Exam Cardiovascular: Present RRR, Normal S1 and Normal S2; Absent murmur or gallop Comments: Dressing to left chest wall no signs of infection or drainage *Routine Abdominal Exam Abdominal: Present soft and normoactive bowel sounds; Absent tenderness or distended *Routine Extremities Exam Extremities: Present full ROM, pulses intact and normal capillary refill; Absent cyanosis, clubbing or edema *Routine Skin Exam Skin: Present intact and warm; Absent erythema *Routine Neurological Exam Neurological: Present alert, oriented X3 and CN II-XII intact; Absent sensory deficit or motor deficit Routine Psychiatric Exam Psychiatric: Present normal affect Progress Note: A&P Assessment and plan (1) Symptomatic bradycardia: Status: Acute (2) SSS (sick sinus syndrome): Status: Acute (3) Syncope: Stat
[2021-11-08 12:00] VITALS: PULSE 60
[2021-11-08 13:49] LABS: Direct LDL Cholesterol 36 mg/dL (100-129)
--- NOTE | 2021-11-08 14:04 | EXP.DC.SUM ---
General Admission date:: 11/06/21 Discharge date: 11/08/21 HPI HPI HPI: this patient was admitted to [facility] with chest pain as he had presented at [facility] - pt has known card disease - see card consult note Exam Data for Last 24 hours Vital signs and Labs for Last 24 Hours: Temp Pulse Resp BP Pulse Ox 98.3 F 60 18 125/60 98 11/08/21 11:38 11/08/21 11:38 11/08/21 11:38 11/08/21 11:38 11/08/21 11:38 Laboratory Results - last 24 hr 11/07/21 07:00: LDL Cholesterol Direct 36 L 11/08/21 06:20: WBC 9.6 D, RBC 4.66, Hgb 13.8 L, Hct 39.9 L, MCV 85.6, MCH 29.7, MCHC 34.7, RDW 12.4, Plt Count 173 D, MPV 7.7, Neut % (Auto) 74.5, Lymph % (Auto) 17.4, [place] % (Auto) 5.9, Eos % (Auto) 2.0, Baso % (Auto) 0.3, Neut # (Auto) 7.2, Lymph # (Auto) 1.7, [place] # (Auto) 0.6, Eos # (Auto) 0.2, Baso # (Auto) 0.0 11/08/21 06:20: Sodium 140, Potassium 3.8, Chloride 107, Carbon Dioxide 25, Anion Gap 11.8, BUN 10 D, Creatinine 0.80, Estimated Creat Clear 82, Estimated GFR 98, Est GFR ( Amer) 118, Glucose 102 H, Calcium 9.0 I & O for Last 24 hours: Intake & Output 11/06/21 11/07/21 11/08/21 11/09/21 11:59 11:59 11:59 11:59 Intake Total 600 / 600 1235 / 1235 360 / 360 Output Total 700 / 700 125 / 125 Balance -700 / -700 600 / 600 1110 / 1110 360 / 360 Weight 169 lb 8.568 oz 169 lb 7.509 oz 161 lb Constitutional Constitutional: no acute distress *Routine HEENT Exam Head: Present normocephalic Eye: Present EOMI and PERRL ENT: Present mucous membranes moist *Routine Neck Exam Neck: Present supple *Routine Respiratory Exam Respiratory: Present CTA bilaterally *Routine Cardiovascular Exam Cardiovascular: Present RRR and murmur *Routine Abdominal Exam Abdominal: Present soft *Routine Rectal Exam Rectal:: deferred *Routine Genitalia Exam Genitalia:: deferred *Routine Extremities Exam Extremities: Absent calf tenderness *Routine Skin Exam Skin: Present intact *Routine Neurological Exam Neurological: Present alert, oriented X3 and CN II-XII intact Routine Psychiatric Exam Psychiatric: Present cooperative Hospital Course Hospital Course Hospital Course: pt did well in the hospital and has card cath per dr smith and required no stents but pt was noted to have sig bradycardia requiring pacemaker- please review card note -pt has did well after procedure and will be d/c to see pcp and card as follow up Results Data Completed and Pending Labs on day of discharge: Labs from last 24 hours 11/08/21 11/08/21 11/07/21 06:20 06:20 07:00 WBC 9.6 D RBC 4.66 Hgb 13.8 L Hct 39.9 L MCV 85.6 MCH 29.7 MCHC 34.7 RDW 12.4 Plt Count 173 D MPV 7.7 Neut % (Auto) 74.5 Lymph % (Auto) 17.4 [place] % (Auto) 5.9 Eos % (Auto) 2.0 Baso % (Auto) 0.3 Neut # (Auto) 7.2 Lymph # (Auto) 1.7 [place] # (Auto) 0.6 Eos # (Auto) 0.2 Baso # (Auto) 0.0 Sodium 140 Potassium 3.8 Chloride 107 Carbon Dioxide 25 Anion Gap 11.8 BUN 10 D Creatinine 0.80 Estimated Creat Clear 82 Estimated GFR 98 Est GFR ( Amer) 118 Glucose 102 H Calcium 9.0 LDL Cholesterol Direct 36 L DS: Diagnosis Discharge Diagnosis (1) Symptomatic bradycardia: Status: Acute (2) SSS (sick sinus syndrome): Status: Acute (3) Syncope: Status: Acute (4) Non-STEMI (non-ST elevated myocardial infarction): Status: Acute (5) HLD (hyperlipidemia): Status: Acute (6) Abnormal cardiovascular stress test: Status: Acute (7) PAF (paroxysmal atrial fibrillation): Status: Acute (8) Carotid artery stenosis: Status: Chronic (9) CAD (coronary artery disease): Status: Chronic Problem details: 12.29.2020-Successful stenting of the proximal LAD extending into the mid LAD Successful stenting revascularization of a moderate-sized first diagonal artery Successful stenting of ostial proximal dominant righ
--- NOTE | 2021-11-10 13:46 | CARE MANAGER ---
Contacted number on file for patient, which his daughter answered. She states he is doing well and states he feels better. They are aware of follow up appointments and denies questions or concerns.
== END 2021-11-08 15:01 | disposition home or self-care (01) ==
PROVIDERS: Internal Medicine; Nurse Practitioner Family; Admitting Provider Emergency Medicine; PCP Emergency Medicine; Visit Provider Emergency Medicine
DX: R07.9 Chest pain, unspecified (principal); I25.118 Atherosclerotic heart disease of native coronary artery with other forms of angina pectoris; I48.0 Paroxysmal atrial fibrillation; I21.4 Non-ST elevation (NSTEMI) myocardial infarction; I65.23 Occlusion and stenosis of bilateral carotid arteries; E78.5 Hyperlipidemia, unspecified; Z87.891 Personal history of nicotine dependence; I49.5 Sick sinus syndrome; I11.0 Hypertensive heart disease with heart failure; I50.9 Heart failure, unspecified; Z95.5 Presence of coronary angioplasty implant and graft; Z79.899 Other long term (current) drug therapy
CPT/HCPCS: G0378; 33208; 36415; 71045; 80048; 80061; 80076; 83735; 84484; 85007; 85025; 85730; 93005; 93458; 99152; C1725; C1769; C1785; C1898; C9803; J1644; J2405; Q9967; U0003; U0005

== ENCOUNTER 2022-05-15 17:30 | Observation (INO) | payer MEDICARE, SELFPAY ==
--- NOTE | 2022-05-15 17:27 | ECG_ITS ---
APPROVED REPORT Exam: Resting ECG HR:63 bpm ECG Measurements Heart Rate 63 AXES ND 189 P 57 QRSd 92 QRS 2 QT 394 T 78 QTc 401 Conclusion SINUS RHYTHM SEPTAL MYOCARDIAL INFARCTION , PROBABLY OLD [40+ ms Q WAVE IN V1/V2] ABNORMAL ECG UNCONFIRMED REPORT Electronically signed by : Jewel Alcala MD 05/16/2022 20:21:47
[2022-05-15 17:32] VITALS: BP 130/65; PULSE 64; RESP 14; TEMP 37.1; O2SAT 100; BMI 30.2
--- NOTE | 2022-05-15 17:34 | XR_ITS ---
PROCEDURE INFORMATION: Exam: XR Chest Exam date and time: 05/15/2022 5:59 PM Age: 62 years old Clinical indication: Sternal or substernal pain; Prior surgery; Surgery date: 6+ months; Surgery type: Pacemaker, cardiac stents. ; Additional info: Cp TECHNIQUE: Imaging protocol: Radiologic exam of the chest. Views: 1 view. COMPARISON: CR XR CHEST PORTABLE 11/07/2021 3:59 PM FINDINGS: Tubes, catheters and devices: Left subclavian pacemaker leads overlie the right atrium and right ventricle. Lungs: Unremarkable. No consolidation. Pleural spaces: Unremarkable. No pleural effusion. No pneumothorax. Heart/Mediastinum: Unremarkable. No cardiomegaly. Bones/joints: Unremarkable. IMPRESSION: 1. Left subclavian pacemaker leads overlie the right atrium and right ventricle. 2. No acute cardiopulmonary findings.
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
[2022-05-15 17:43] LABS: Basophils # 0.1 K/mm3 (0-0.2); Basophils % 2.2 % (0.1-2.0); Eosinophils # 0.6 K/mm3 (0.0-0.4); Eosinophils % 9.6 % (0.1-12.0); Hematocrit 41.1 % (42.0-52.0); Hemoglobin 13.5 g/dL (14.1-18.0); Lymphocytes # 1.9 K/mm3 (0.7-4.5); Lymphocytes % 30.3 % (10-50); Mean Corpuscular HGB Conc 32.9 g/dL (31.8-35.4); Mean Corpuscular Hemoglobin 29.3 pg (27.0-31.2); Mean Corpuscular Volume 89.1 fl (80-94); Mean Platelet Volume 8.2 fl (7.4-10.4); Monocytes # 0.3 K/mm3 (0.1-1.0); Monocytes % 5.1 % (1.7-9.3); Neutrophils # 3.3 K/mm3 (1.8-7.8); Neutrophils % 52.7 % (37.0-80.0); Platelet Count 262 K/mm3 (142-424); Red Blood Count 4.62 M/mm3 (4.60-6.20); Red Cell Distribution Width 13.1 % (11.5-17.5); White Blood Count 6.3 K/mm3 (4.8-10.8)
[2022-05-15 17:45] LABS: Chloride 110 mmol/L (98-107); Potassium 3.8 mmoL/L (3.5-5.1); Sodium 140 mmol/L (136-145)
[2022-05-15 17:48] LABS: Alanine Aminotransferase 21 U/L (12-78); Albumin Level 3.9 g/dl (3.5-5.0); Albumin/Globulin Ratio 1.6 (1.1-1.8); Alkaline Phosphatase 55 U/L (38-126); Anion Gap 6.8 mEq/L (5-15); Aspartate Amino Transferase 30 U/L (17-59); Bilirubin,Total 0.6 mg/dl (0.2-1.3); Blood Urea Nitrogen 14 mg/dl (9-20); Carbon Dioxide 27 mmol/L (22.0-30.0); Creatinine Clearance Estimated 90 mL/min (50-200); Estimated Glomerular Filt Rate 85 ml/min (>60); GFR (African American) 103 ML/MIN (>60); Globulin 2.5 g/dL (1.3-3.2); Total Protein,Serum 6.4 g/dl (6.3-8.2)
[2022-05-15 17:49] LABS: Calcium 8.6 mg/dl (8.4-10.2); Glucose 113 mg/dl (74-100)
[2022-05-15 17:56] LABS: Prothrombin Time 10.8 seconds (10.1-12.5)
[2022-05-15 18:04] LABS: Troponin I < 0.01 ng/ml (0.00-0.034)
--- NOTE | 2022-05-15 18:45 | PC.NURSE ---
dr reyna spoke with dr smith
--- NOTE | 2022-05-15 19:16 | HMH.EDCP ---
Discharge Plan Disposition Patient Disposition: Admitted As Inpatient Condition: Fair Clinical Impressions Clinical Impression: Chest pain in adult Discharge ED Provider: Benedicto Mello Chest Pain HPI General Chief Complaint: Chest Pain Stated Complaint: chest pain Time Seen by Provider: 05/15/22 17:34 Mode of Arrival: Ambulatory Source of Information: Patient Limitations: No Limitations Description of Symptoms (Recalled from ER Triage Doc. by RN): Pt c/o chest pain, PMHx coronary stents, also illness for couple days Related Data Home Medications Medication Instructions Recorded Confirmed atorvastatin 40 mg tablet 40 mg PO DAILY Cholesterol 10/22/21 05/15/22 fenofibrate nanocrystallized 145 145 mg PO DAILY Cholesterol 10/22/21 05/15/22 mg tablet sildenafil (pulm.hypertension) 20 20 - 40 mg PO DAILYP PRN sexual 10/22/21 05/15/22 mg tablet dysfunction tamsulosin 0.4 mg capsule 0.4 mg PO DAILY urinary retention 10/22/21 05/15/22 isosorbide mononitrate 60 mg 60 mg PO DAILY Heart 02/12/22 05/15/22 tablet,extended release 24 hr losartan 50 mg tablet See Rx Instructions .Route 05/15/22 05/15/22 .COMPLEX Heart rivaroxaban 20 mg tablet (Xarelto) See Rx Instructions .Route 05/15/22 05/15/22 .COMPLEX Blood thinner spironolactone 25 mg tablet See Rx Instructions .Route 05/15/22 05/15/22 .COMPLEX Edema trazodone 50 mg tablet See Rx Instructions .Route 05/15/22 05/15/22 .COMPLEX Mood Previous Rx's Medication Instructions Recorded aspirin 81 mg tablet,delayed 81 mg PO DAILY Heart disease #90 09/22/20 release tabs nitroglycerin 0.4 mg sublingual 0.4 mg sublingual Q5MINP PRN Chest 08/29/21 tablet Pain #20 tabs carvedilol 3.125 mg tablet 3.125 mg PO BIDWMEAL High blood 10/30/21 pressure #60 tabs clonazepam 0.5 mg tablet 0.5 mg PO TID Anxiety #90 tabs 03/30/22 gabapentin 800 mg tablet 800 mg PO TID Neruopathy #90 tabs 03/30/22 hydrocodone 7.5 mg-acetaminophen 1 tab PO QID Moderate to severe 03/30/22 325 mg tablet pain #120 tabs Allergies Allergy/AdvReac Type Severity Reaction Status Date / Time codeine [CODEINE] Allergy Unknown Verified 04/25/22 14:51 [facility] Disclaimer: The information contained in this section may have been updated after the patient was seen, as this information can be updated by other users. 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 Non-STEMI (non-ST elevated myocardial infarction) SSS (sick sinus syndrome) Symptomatic bradycardia Syncope Syncope Typical angina Surgical History Presence of cardiac pacemaker Social History Smoking Status: Light tobacco smoker tobacco type: smokeless tobacco second hand exposure: No alcohol intake: never substance use type: denies use current occupational status: disabled Travel in the last 8 weeks: Inside the [place] household members: children housing: house current occupational exposures/hazards: No caffeine: Yes ROS Obtained: Yes All systems reviewed & no additional complaints except as documented Physical Exam General General appearance: alert and in no apparent distress Respiratory Respiratory exam: Present normal lung sounds bilaterally Cardiovascular Cardiovascular exam: Present regular rate and normal rhythm Neurological Exam Neurological exam: Present alert and oriented X3 Medical Decision Making Rodri Inquiry Pt receiving controlled substance: Yes Rodri was queried for this patient: No Risks and benefits of using a controlled substance: were not discussed with pt by me Vital Signs: 05/15/22 17:32 Temperature 98.8 F Temperature Source Oral Pulse Rate [Right Radial] 64 Respiratory Rate 14 Blood Pressure [R
--- NOTE | 2022-05-15 19:20 | PC.NURSE ---
Hospitalist, Ángel, at BS
--- NOTE | 2022-05-15 19:21 | PC.NURSE ---
Attempted to call report. No answer from nurse. Will try back
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
[2022-05-15 19:37] VITALS: BP 123/71; PULSE 60; PULSE 61; RESP 17; TEMP 36.8; O2SAT 99
--- NOTE | 2022-05-15 19:38 | PC.NURSE ---
Report to MERI Esteves
[2022-05-15 20:00] VITALS: BP 122/70; PULSE 60; RESP 16; TEMP 37.1; O2SAT 98
[2022-05-15 21:16] LABS: Troponin I < 0.01 ng/ml (0.00-0.034)
--- NOTE | 2022-05-15 23:36 | PC.NURSE ---
ata mcpherson called regarding pt requesting pain medication and stated ntg really didnt help when he took it in ER, note new order entered for trazadone per provider, pt takes at home for sleep, pt offered ntg but refused at this time, pt stated if it doesnt ease off he will take the ntg later, pt is awake alert and oriented x4, no acute distress noted.
[2022-05-16] VITALS: BP 127/55; PULSE 58; PULSE 60; RESP 16; TEMP 36.7; O2SAT 96
[2022-05-16 00:05] LABS: Troponin I < 0.01 ng/ml (0.00-0.034)
[2022-05-16 04:00] VITALS: BP 113/64; PULSE 60; PULSE 64; RESP 16; TEMP 36.6; O2SAT 97; BMI 28.0
--- NOTE | 2022-05-16 04:37 | PC.NURSE ---
pt is alert and oriented x4, vss, telemetry reveals nsr with pac's and 1st avb, pt complaints of chest pain left side rates 5/10, pt refused ntg stating it doesnt help, morphine given as prescribed with relief, vss, no acute distress, no other issues or concerns at this time.
--- NOTE | 2022-05-16 06:30 | CA_ITS ---
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: GLORIA Goldberg, RVS Ht: 5 ft 6 in Wt: 174lbs BSA: 1.88 BP: 130/65 mmHg Indications: CP, SOA, Nausea & vomiting w/diarrhea, Pacer, SSS, atypical CP 2D Dimensions Aortic Root 2.70 cm LA Volume 72.20 mL Left Atrium 3.17 cm LA Volume Index 38.247916 mL/m2 (M/F) 16-34 LVOT 1.87 cm (M/F) 1.5-2.5 M-Mode Dimensions RVDd 2.71 cm (0.9-2.6) LA Diam 3.75 cm (1.9-4.0) LVDd 5.03 cm (3.5-5.7) Ao Diam 2.67 cm (2.0-3.7) LVDs 3.43 cm (3.5-5.7) IVSd 0.86 cm (0.6-1.1) PWd 0.86 cm (0.6-1.1) EF (Teich) 59.50% EPSs 0.32 cm FS 31.80% EDV (Teich) 119.90 mL TAPSE 1.96 (<1.7) ESV (Teich) 48.50 mL LV Diastology E Decel Time 140.00 (160-240 msec) E/A Ratio 1.23 MED E' 5.80 (< 7 cm/sec) MED A' 8.10 cm/s E'/MED E' Ratio 13.40 (>14) LAT E' 8.10 (<10 cm/sec) LAT A' 6.70 cm/s E/LAT E' Ratio 9.59 (>14) Aortic Valve LVOT Max 86.00 (70-110 cm/s) LVOT VTI 19.62 cm AoV Peak Noah. 165.00 (50-130 cm/s) AI PHT 576.00 ms AO Peak GR. 10.90 mmHg AO Mean GR. 5.20 (<5 mmHg) AO VTI 32.54 (18-25 cm) BETH (VTI) 1.66 (2.5-4.5 cm2) Mitral Valve MV A Velocity 63.00 (40-130 cm/s) E/A Ratio 1.23 MV Decel. Time 140.00 (160-240 ms) MV PHT 60.00 ms Pulmonary Valve PV Peak Velocity 142.00 (50-150 cm/s) Tricuspid Valve TR P. Velocity 225.00 cm/s RAP Estimate 10.00 mmHg RVSP 30.30 mmHg Left Ventricle Left atrium is mildly enlarged, left ventricle is normal size mild concentric left ventricular hypertrophy, estimated ejection fraction 50% with no regional wall motion abnormality, diastolic parameters are inconclusive. Right Ventricle Right atrium and right ventricle are mildly enlarged with normal contractility, pacemaker leads in right ventricle. Aortic Valve Aortic valve is minimally thickened and fibrosed there is no aortic stenosis or aortic insufficiency. Mitral Valve Mitral valve is grossly normal, there is trace mitral regurgitation. Tricuspid Valve Tricuspid valve grossly normal, there is trace tricuspid regurgitation calculated right ventricular systolic pressure is 43 mmHg. Pulmonic Valve Pulmonic valve is poorly visualized. Great Vessels Aortic root is normal size. Inferior vena cava is normal size with normal inspiratory collapse. Pericardium No significant pericardial effusion noted. Conclusion 1. Technically difficult study because of the patient factors and poor acoustic windows. Mild biatrial normal, normal left ventricular size, mild concentric left ventricular hypertrophy, estimated ejection fraction 50% with no regional wall motion abnormality, diastolic parameters are inconclusive. 2. Mildly enlarged right ventricle with normal contractility. Pacemaker lead seen in right ventricle. 3. No significant pericardial effusion noted. 4. Inferior vena cava is normal size with normal inspiratory collapse. 5. Trace mitral and tricuspid regurgitation, calculated right ventricular systolic pressure is 43 mmHg. Electronically signed by : Saman Licona MD 05/17/2022 06:50:09
[2022-05-16 06:33] LABS: Basophils # 0.1 K/mm3 (0-0.2); Basophils % 1.4 % (0.1-2.0); Eosinophils # 0.6 K/mm3 (0.0-0.4); Eosinophils % 11.5 % (0.1-12.0); Hematocrit 39.1 % (42.0-52.0); Hemoglobin 13.1 g/dL (14.1-18.0); Lymphocytes # 2.2 K/mm3 (0.7-4.5); Lymphocytes % 41.6 % (10-50); Mean Corpuscular HGB Conc 33.5 g/dL (31.8-35.4); Mean Corpuscular Hemoglobin 30.2 pg (27.0-31.2); Mean Corpuscular Volume 90.3 fl (80-94); Monocytes # 0.4 K/mm3 (0.1-1.0); Monocytes % 6.5 % (1.7-9.3); Neutrophils # 2.1 K/mm3 (1.8-7.8); Platelet Count 242 K/mm3 (142-424); Red Blood Count 4.33 M/mm3 (4.60-6.20); Red Cell Distribution Width 13.1 % (11.5-17.5); White Blood Count 5.4 K/mm3 (4.8-10.8)
[2022-05-16 06:42] LABS: Chol/HDL Ratio 3.2 (1-3.5); Cholesterol 105 mg/dl (140-200); HDL Cholesterol 33 mg/dl (40-60); Triglycerides 68 mg/dl (30-150); VLDL Cholesterol 14 mg/dL (0-40)
[2022-05-16 06:43] LABS: Alanine Aminotransferase 19 U/L (12-78); Albumin Level 3.7 g/dl (3.5-5.0); Albumin/Globulin Ratio 1.6 (1.1-1.8); Alkaline Phosphatase 52 U/L (38-126); Anion Gap 5.3 mEq/L (5-15); Aspartate Amino Transferase 25 U/L (17-59); Bilirubin,Total 0.5 mg/dl (0.2-1.3); Blood Urea Nitrogen 12 mg/dl (9-20); Calcium 8.6 mg/dl (8.4-10.2); Carbon Dioxide 27 mmol/L (22.0-30.0); Chloride 111 mmol/L (98-107); Creatinine Clearance Estimated 84 mL/min (50-200); Estimated Glomerular Filt Rate 85 ml/min (>60); GFR (African American) 103 ML/MIN (>60); Globulin 2.3 g/dL (1.3-3.2); Glucose 91 mg/dl (74-100); Potassium 4.3 mmoL/L (3.5-5.1); Sodium 139 mmol/L (136-145)
[2022-05-16 06:53] LABS: Direct LDL Cholesterol 63.52 mg/dL (100-129); Troponin I 0.01 ng/ml (0.00-0.034)
[2022-05-16 07:19] VITALS: BP 99/52; PULSE 63; RESP 17; TEMP 36.6; O2SAT 96
--- NOTE | 2022-05-16 07:19 | HMH.PHAINT1 ---
Pharmacy Intervention Comments: Medication reconciliation completed using external fill history
[2022-05-16 08:00] VITALS: PULSE 60
[2022-05-16 10:10] LABS: Coronavirus 19, PCR Not Detected (NotDetected); Influenza A, PCR Not Detected (NotDetected); Influenza B, PCR Not Detected (NotDetected)
--- NOTE | 2022-05-16 10:11 | EXP.CARD.CON ---
History of Present Illness History of Present Illness Consult date: 05/16/22 Requesting physician: Brannon Mullins Consult reason: chest pain Chief complaint: chest pain History of present illness: This is a 62-year-old white gentleman who presented to the emergency department with complaints of chest pain. He states that he just did not feel well yesterday and had some nausea vomiting diarrhea. Then he had sudden onset of pain in the left side of his chest. He states that this was a sharp pain and radiated to his left arm. He states that it lasted about 3 to 4 seconds. It was associated with shortness of breath and the nausea and vomiting. He states that this comes and goes and only last for a few seconds. He states that he may have also had some fevers when he was having the nausea, vomiting and diarrhea. His EKG is unremarkable. His troponin is negative and ruled out for an NV. The patient has a history of coronary stenting. Most recent angiography in October 2021 showed patent coronary artery disease with severe small vessel disease that is not amendable to percutaneous intervention. This morning he is chest pain-free. He denies any shortness of breath or edema. He denies any fever, chills, nausea, vomiting, diarrhea, PND or orthopnea today. [facility] Disclaimer: The information contained in this section may have been updated after the patient was seen, as this information can be updated by other users. 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 Non-STEMI (non-ST elevated myocardial infarction) SSS (sick sinus syndrome) Symptomatic bradycardia Syncope Syncope Typical angina Surgical History Presence of cardiac pacemaker Family History (Updated 05/15/22 @ 20:07 by Linn Skaggs RN) Other No significant family history Social History (Updated 05/15/22 @ 20:10 by Linn Skaggs RN) Smoking Status: Former smoker pack-years: 30 years smoked: 20 smoking status stop date: 2002 how long ago did patient quit smokin years ago, pt chews tobacco currently quit status: quit date established second hand exposure: No alcohol intake: never substance use type: denies use current occupational status: disabled Travel in the last 8 weeks: [place] the [place] household members: children housing: house lives independently: No (daughter ) marital status: current occupational exposures/hazards: No caffeine: Yes physical activity: walking Review of Systems *Neurologic Neurologic: Reports system reviewed and no additional complaints, except as documented Exam Data for Last 24 hours Vital signs and Labs for Last 24 Hours: Temp Pulse Resp BP Pulse Ox 97.8 F 60 17 99/52 L 96 05/16/22 07:19 05/16/22 08:00 05/16/22 07:19 05/16/22 07:19 05/16/22 07:19 Laboratory Results - last 24 hr 05/15/22 17:31: WBC 6.3, RBC 4.62, Hgb 13.5 L, Hct 41.1 L, MCV 89.1, MCH 29.3, MCHC 32.9, RDW 13.1, Plt Count 262, MPV 8.2, Neut % (Auto) 52.7, Lymph % (Auto) 30.3, [place] % (Auto) 5.1, Eos % (Auto) 9.6, Baso % (Auto) 2.2 H, Neut # (Auto) 3.3, Lymph # (Auto) 1.9, [place] # (Auto) 0.3, Eos # (Auto) 0.6 H, Baso # (Auto) 0.1 05/15/22 17:31: Sodium 140, Potassium 3.8, Chloride 110 H, Carbon Dioxide 27, Anion Gap 6.8, BUN 14, Creatinine 0.90, Estimated Creat Clear 90, Estimated GFR 85, Est GFR ( Amer) 103, Glucose 113 H, Calcium 8.6, Total Bilirubin 0.6, AST 30, ALT 21, Alkaline Phosphatase 55, Troponin I < 0.01, Total Protein 6.4, Albumin 3.9, Globulin 2.5, Albumin/Globulin Ratio 1.6 05/15/22 17:31: PT 10.8, INR 1.00 05/15/22 20:38: Troponin I < 0.01 05/15/22 23:38: Troponin I < 0.01 05/16/22 05:44: Triglycerides 68, Cholesterol 105 L, LD
--- NOTE | 2022-05-16 10:15 | CA_ITS ---
FINAL REPORT TECHNIQUE: Color Doppler, duplex Doppler and kenny scale sonography of the bilateral neck arterial vasculature was performed. Velocities were measured in the carotid arteries. Stenosis evaluation based on the validated velocity criteria. CLINICAL HISTORY: Bilateral carotid artery stenosis, CAD, SOB, hx NSTEMI, SSS, syncope, ex smoker, AFIB, obesity, HTN, HLD FINDINGS: The peak systolic velocity of the right common carotid artery is 103 cm/s. The peak systolic velocity of the right internal carotid artery is 155 cm/s and end diastolic velocity 31 cm/s. The ICA/CCA ratio is 1.5. A mild amount of plaque is present. The right external carotid artery is patent. The right vertebral artery is patent with antegrade flow. The peak systolic velocity of the left common carotid artery is 114 cm/s. The peak systolic velocity of the left internal carotid artery is 131 cm/s and end diastolic velocity 35 cm/s. The ICA/CCA ratio is 1.1. A mild amount of plaque is present. The left external carotid artery is patent.The left vertebral artery is patent with antegrade flow. IMPRESSION: Less than 50% bilateral carotid stenosis. Bilateral patent vertebral arteries with antegrade flow. If indicated, CTA or MRA could further evaluate. Reviewed, Interpreted and Dictated by Lavern Rodriguez MD Transcribed by Sissy Dow Authenticated and [facility]
[2022-05-16 11:02] VITALS: BP 127/68; PULSE 63; RESP 17; TEMP 36.5; O2SAT 97
[2022-05-16 12:00] VITALS: PULSE 70
--- NOTE | 2022-05-16 13:20 | EXP.DC.SUM ---
General Admission date:: 05/15/22 Discharge date: 05/16/22 HPI HPI HPI: Mr. Francisco is a 62-year-old male with a past medical history of CAD with history of NM reported in 2020 and 2021 reports s/p PCI x 5, Atrial Fibrillation on chronic anticoagulation, SSS s/p PPM, HTN, Hyperlipidemia, BPH, Chronic Pain, Anxiety Disorder. He presents to [facility] through the ER due to complaints of chest pain that have been on and off x 1 day associated with shortness of air, nausea, vomiting, diarrhea. The patient was seen on admission in the ER, daughter was present at bedside. He reports that his symptoms initially started the evening prior to presentation with chest pain, nausea, vomiting, diarrhea and some subjective fevers. He reports that today the symptoms returned approximately 20 minutes prior to arrival and chest pain was in the left lower sternal border with radiation down the left arm and was associated with nausea, sweating and diarrhea so he came into the ER for evaluation. In the ER, the patient underwent an EKG that showed NSR with rate of [address] segment elevation or depression, Troponin was <0.01. Cxray showed no acute cardiopulmonary findings and showed left subclavian pacemaker with leads overlying the right atrium and right ventricle. ER Physician Dr. Diane spoke with Metal Washing Machine Operator Dr. Gonzalez who will consult on the patient in the morning. The patient will be admitted with initial impression: Chest Pain. He will be placed on continuous telemetry, Troponin will be trended overnight. Echo has been ordered for am along with Fasting Lipid Profile. Cardiology has been consulted for the am. The plan of care was discussed with the patient and daughter at bedside. Both verbalized understanding and agreement with the plan of care. Hospital Course Hospital Course Hospital Course: The patient was admitted to the medical floor with telemetry monitoring. Cardiology was consulted. His troponin trend was negative x 4 and his ECG identified no acute ST-T changes. Cardiology recommended conservative approach with his previously identified small vessel disease which was not amendable to intervention. Ranexa was added to his therapy. The patient identified improvement and reported no further chest pain. He inquired about discharge home. We will discharge home with additional Ranexa therapy to follow-up with cardiology as scheduled. Exam Data for Last 24 hours Vital signs and Labs for Last 24 Hours: Temp Pulse Resp BP Pulse Ox 97.7 F 70 17 127/68 97 05/16/22 11:02 05/16/22 12:00 05/16/22 11:02 05/16/22 11:02 05/16/22 11:02 Laboratory Results - last 24 hr 05/15/22 17:31: WBC 6.3, RBC 4.62, Hgb 13.5 L, Hct 41.1 L, MCV 89.1, MCH 29.3, MCHC 32.9, RDW 13.1, Plt Count 262, MPV 8.2, Neut % (Auto) 52.7, Lymph % (Auto) 30.3, Weakley % (Auto) 5.1, Eos % (Auto) 9.6, Baso % (Auto) 2.2 H, Neut # (Auto) 3.3, Lymph # (Auto) 1.9, Weakley # (Auto) 0.3, Eos # (Auto) 0.6 H, Baso # (Auto) 0.1 05/15/22 17:31: Sodium 140, Potassium 3.8, Chloride 110 H, Carbon Dioxide 27, Anion Gap 6.8, BUN 14, Creatinine 0.90, Estimated Creat Clear 90, Estimated GFR 85, Est GFR ( Amer) 103, Glucose 113 H, Calcium 8.6, Total Bilirubin 0.6, AST 30, ALT 21, Alkaline Phosphatase 55, Troponin I < 0.01, Total Protein 6.4, Albumin 3.9, Globulin 2.5, Albumin/Globulin Ratio 1.6 05/15/22 17:31: PT 10.8, INR 1.00 05/15/22 20:38: Troponin I < 0.01 05/15/22 23:38: Troponin I < 0.01 05/16/22 05:44: Triglycerides 68, Cholesterol 105 L, LDL Cholesterol Direct 63.52 L, VLDL Cholesterol 14, HDL Cholesterol 33 L, Cholesterol/HDL Ratio 3.2 05/16/22 05:44: Troponin I 0.01 05/16/22 05:44: WBC 5.4, RBC 4.33 L, Hgb 13.1 L, Hct 39.1 L, MCV 90.3, MCH 30.2, MCHC 33.5, RDW 13.1, Plt Count 242, MPV 8.0, Neut % (Auto) 39.0, Lymph % (Auto) 41.6, Weakley % (Auto) 6.5, Eos % (Auto) 11.5, Baso % (Auto) 1.4, Neut # (Auto) 2.1, Lymph # (Auto) 2.2, Weakley # (Auto) 0.4, Eos # (Auto) 0.6 H
--- NOTE | 2022-05-16 13:34 | HMH.PHAINT1 ---
Pharmacy Intervention Comments: Discussed discharge medications with patient and patient's daughter. Both verbalized understanding and had no questions at this time.
--- NOTE | 2022-05-17 13:54 | CARE MANAGER ---
Patient's daughter states that the patient has not picked up new medication yet as he is struggling to afford it. We discussed [facility] and the discounts provided. They are aware of follow up appointment and deny question at this time. MERI Levy
== END 2022-05-16 14:20 | disposition home or self-care (01) ==
LOC: ER 18:46 → 2ND 19:37
PROVIDERS: Family Medicine; Nurse Practitioner Family; Admitting Provider Student in an Organized Health Care Education/Training Program; Emergency Provider Emergency Medicine; Visit Provider Student in an Organized Health Care Education/Training Program
DX: R07.9 Chest pain, unspecified (principal); I25.118 Atherosclerotic heart disease of native coronary artery with other forms of angina pectoris; I48.0 Paroxysmal atrial fibrillation; I65.23 Occlusion and stenosis of bilateral carotid arteries; Z87.891 Personal history of nicotine dependence; Z79.01 Long term (current) use of anticoagulants; Z79.899 Other long term (current) drug therapy; Z95.5 Presence of coronary angioplasty implant and graft; I49.5 Sick sinus syndrome; Z95.0 Presence of cardiac pacemaker; I10 Essential (primary) hypertension; I25.2 Old myocardial infarction; Z20.822 Contact with and (suspected) exposure to COVID-19
CPT/HCPCS: G0378; 36415; 71045; 80053; 80061; 84484; 85025; 85610; 93005; 93306; 93325; 93880; 99285; C9803; U0003; U0005

== ENCOUNTER → 2022-05-25 10:22 | Outpatient (CLI) | payer MEDICARE, SELFPAY ==
[2022-05-25 19:13] LABS: Amphetamine/Metha Screen,Urine Negative ng/ml (<1000)
[2022-05-25 19:14] LABS: Barbiturates Screen,Urine Negative ng/ml (<200)
[2022-05-25 19:16] LABS: Benzodiazepines Screen,Urine Negative ng/ml (<200); Cannabinoid Screen,Urine Negative ng/ml (<50)
[2022-05-25 19:17] LABS: Cocaine Screen,Urine Negative ng/ml (<300); Methadone Screen,Urine Negative ng/ml (<300)
[2022-05-25 19:18] LABS: Opiate Screen,Urine Positive ng/ml (<300)
[2022-05-25 19:19] LABS: Phencyclidine Screen,Urine Negative ng/ml (<25)
== END ==
PROVIDERS: PCP Emergency Medicine; Visit Provider Emergency Medicine
DX: Z79.899 Other long term (current) drug therapy (principal)
CPT/HCPCS: 80305

== ENCOUNTER → 2022-09-17 23:33 | Outpatient (CLI) | payer MEDICARE, SELFPAY ==
[2022-09-17 18:58] LABS: Amphetamine/Metha Screen,Urine Negative ng/ml (<1000); Barbiturates Screen,Urine Negative ng/ml (<200)
[2022-09-17 18:59] LABS: Benzodiazepines Screen,Urine Negative ng/ml (<200)
[2022-09-17 19:00] LABS: Cannabinoid Screen,Urine Negative ng/ml (<50)
[2022-09-17 19:01] LABS: Cocaine Screen,Urine Negative ng/ml (<300); Methadone Screen,Urine Negative ng/ml (<300)
[2022-09-17 19:02] LABS: Opiate Screen,Urine Positive ng/ml (<300); Phencyclidine Screen,Urine Negative ng/ml (<25)
== END ==
PROVIDERS: PCP Emergency Medicine; Visit Provider Emergency Medicine
DX: G89.29 Other chronic pain (principal); Z79.899 Other long term (current) drug therapy
CPT/HCPCS: 80305

== ENCOUNTER → 2022-11-14 23:20 | Outpatient (CLI) | payer MEDICARE, SELFPAY ==
[2022-11-14 21:15] LABS: Prostate Specific Ag Screen 3.8 ng/ml (0.0-4.0)
[2022-11-14 23:05] LABS: Amphetamine/Metha Screen,Urine Negative ng/ml (<1000)
[2022-11-14 23:06] LABS: Barbiturates Screen,Urine Negative ng/ml (<200); Benzodiazepines Screen,Urine Negative ng/ml (<200)
[2022-11-14 23:07] LABS: Cannabinoid Screen,Urine Negative ng/ml (<50)
[2022-11-14 23:12] LABS: Cocaine Screen,Urine Negative ng/ml (<300)
[2022-11-14 23:13] LABS: Methadone Screen,Urine Negative ng/ml (<300); Opiate Screen,Urine Positive ng/ml (<300)
[2022-11-14 23:14] LABS: Phencyclidine Screen,Urine Negative ng/ml (<25)
== END ==
PROVIDERS: Family Medicine; PCP Emergency Medicine; Visit Provider Emergency Medicine
DX: Z87.898 Personal history of other specified conditions (principal); G89.29 Other chronic pain; Z79.899 Other long term (current) drug therapy; Z12.5 Encounter for screening for malignant neoplasm of prostate
CPT/HCPCS: 80305; G0103

== ENCOUNTER → 2022-11-14 23:23 | Outpatient (CLI) | payer MEDICARE, SELFPAY | PROVIDERS: PCP Emergency Medicine; Visit Provider Emergency Medicine | DX: Z79.899 Other long term (current) drug therapy (principal) ==

== ENCOUNTER 2022-11-27 23:14 | Emergency (ER) | payer MEDICARE, SELFPAY ==
--- NOTE | 2022-11-27 23:13 | ECG_ITS ---
APPROVED REPORT Exam: Resting ECG HR:61 bpm ECG Measurements Heart Rate 61 AXES MD 199 P 59 QRSd 93 QRS -1 QT 387 T 82 QTc 391 Conclusion SINUS RHYTHM NONSPECIFIC T-WAVE ABNORMALITY BORDERLINE ECG UNCONFIRMED REPORT Electronically signed by : Jewel Alcala MD 11/30/2022 16:11:22
[2022-11-27 23:21] VITALS: BP 160/90; PULSE 68; RESP 13; TEMP 36.9; O2SAT 100; BMI 30.2
--- NOTE | 2022-11-27 23:29 | HMH.EDGENADL ---
Discharge Plan Disposition Patient Disposition: Home, Self-Care Condition: Good Prescriptions Prescriptions: No Action isosorbide mononitrate 60 mg tablet extended release 24 hr 60 mg PO BID Patient Comments: TAKE ONE TABLET BY MOUTH TWICE DAILY FOR CHEST pain losartan 50 mg tablet 50 mg PO BID Qty: 60 2RF sildenafil (pulm.hypertension) 20 mg tablet 20 - 40 mg PO DAILYP PRN (Reason: sexual dysfunction) clonazepam 0.5 mg tablet 0.5 mg PO TID Qty: 90 1RF gabapentin 800 mg tablet 800 mg PO TID Qty: 90 1RF hydrocodone-acetaminophen 10-325 mg tablet 1 tab PO QID Qty: 120 0RF carvedilol 3.125 mg tablet 3.125 mg PO BIDWMEAL Qty: 60 5RF hydrochlorothiazide 25 mg tablet 25 mg PO DAILY aspirin 81 mg tablet,delayed release (DR/EC) 81 mg PO DAILY Qty: 90 0RF atorvastatin 40 MG tablet 40 mg PO HS tamsulosin 0.4 MG capsule 0.4 mg PO DAILY fenofibrate nanocrystallized 145 MG tablet 145 mg PO DAILY trazodone 50 mg tablet 50 mg PO HS spironolactone 25 mg tablet 25 mg PO DAILY Xarelto 20 mg tablet 20 mg PO QPMWITHMEAL Rx Instructions: TAKE ONE TABLET BY MOUTH EVERY DAY with evening meal ranolazine 500 mg Tablet Extended Release 12 Hr 500 mg PO BID Qty: 60 0RF Referrals Follow up/Referrals: Provider,Referral, MD [Primary Care Provider] - See instructions Activity Restrictions/Add. Instructions Additional Instructions/Restrictions: Please follow-up with your primary care provider. Please return to the emergency department if you develop any new or worsening symptoms or become concerned for your health. You had a small pulmonary nodule noted, recommend follow-up with your PCP and possible repeat CT imaging in a year. You had a small abnormality noted on your spleen. Recommend repeat imaging in 1 year. Clinical Impressions Clinical Impression: Chest pain, Incidental pulmonary nodule, > 3mm and < 8mm, Spleen anomaly Discharge ED Provider: Hernando Dos Santos General Adult HPI General Chief complaint: Chest Pain Stated complaint: cp Time Seen by Provider: 11/27/22 23:19 Mode of Arrival: Family Vehicle Source of Information: Patient Limitations: No Limitations Description of Symptoms (Recalled from ER Triage Doc. by RN): 62 yo male presented with CC of chest pain that began earlier this date; states it wasn't present upon awakening but isn't sure of exact start time; patient reports radiation and tingling down into his left arm. PMH: defib placement, multiple stent placements,CAD. All: codeine. Takes a daily ASA and other meds I don't know but alot . Denies diabetes. States he feels dyspneic,but denies n/v/d. Afebrile. No cough present. History of Present Illness HPI narrative: 62-year-old male history of coronary artery disease status post numerous stents, prior arterial thromboses, pacemaker in place secondary to sick sinus syndrome, presents with chest pain. Reports chest pain is left-sided and radiates to left arm. Has been intermittent all day, but now is worsening and sustained. Began about an hour after he ate food. He reports that he has been feeling off all day . With mild shortness of breath that is new for him. Denies any fever chills cough or infectious symptoms. Has not taken any nitro at home. No nausea or vomiting. Related Data Home Medications Medication Instructions Recorded Confirmed atorvastatin 40 mg tablet 40 mg PO HS Cholesterol 10/22/21 11/14/22 fenofibrate nanocrystallized 145 145 mg PO DAILY Cholesterol 10/22/21 11/14/22 mg tablet tamsulosin 0.4 mg capsule 0.4 mg PO DAILY urinary retention 10/22/21 11/14/22 isosorbide mononitrate 60 mg 60 mg PO BID Chest pain 02/12/22 11/14/22 tablet,extended release 24 hr rivaroxaban 20 mg tablet (Xarelto) 20 mg PO QPMWITHMEAL Blood 05/15/22 11/14/22 thinner/Atrial fib spironolactone 25 mg tablet 25 mg PO DAILY Fluid 05/15/22 11/14/22 trazodone 50
--- NOTE | 2022-11-27 23:30 | XR_ITS ---
PROCEDURE INFORMATION: Exam: XR Chest Exam date and time: 11/27/2022 11:34 PM Age: 62 years old Clinical indication: Radiating and sternal or substernal pain and right-sided; Prior surgery; Surgery date: 6+ months; Surgery type: Pacemaker, stents; Patient HX: C/O left sided to midsternal chest pain, with pain radiating down left arm; Additional info: Cp TECHNIQUE: Imaging protocol: Radiologic exam of the chest. Views: 1 view. COMPARISON: CR XR CHEST PORTABLE 05/15/2022 5:59 PM FINDINGS: Tubes, catheters and devices: Left chest wall cardiac pacing device. Lungs: Unremarkable. No consolidation. Pleural spaces: Unremarkable. No pleural effusion. No pneumothorax. Heart/Mediastinum: Unremarkable. No cardiomegaly. Bones/joints: Left humeral head suture anchors. No acute osseous findings. IMPRESSION: No acute pulmonary findings.
--- NOTE | 2022-11-27 23:33 | PC.NURSE ---
rounded on pt , no needs at this time
[2022-11-27 23:46] LABS: Alanine Aminotransferase 19 U/L (12-78); Albumin Level 4.3 g/dl (3.5-5.0); Albumin/Globulin Ratio 1.7 (1.1-1.8); Alkaline Phosphatase 78 U/L (38-126); Anion Gap 13.4 mEq/L (5-15); Aspartate Amino Transferase 26 U/L (17-59); Blood Urea Nitrogen 15 mg/dl (9-20); Calcium 9.3 mg/dl (8.4-10.2); Carbon Dioxide 29 mmol/L (22.0-30.0); Chloride 106 mmol/L (98-107); Creatinine Clearance Estimated 82 mL/min (50-200); Estimated Glomerular Filt Rate 97 ml/min (>60); GFR (African American) 118 ML/MIN (>60); Globulin 2.6 g/dL (1.3-3.2); Glucose 113 mg/dl (74-100); Potassium 4.4 mmoL/L (3.5-5.1); Sodium 144 mmol/L (136-145); Total Protein,Serum 6.9 g/dl (6.3-8.2)
[2022-11-27 23:48] LABS: Bilirubin,Total 0.1 mg/dl (0.2-1.3)
[2022-11-27 23:51] LABS: Basophils % 0.7 % (0.1-2.0); D-Dimer 1.03 ug/mL (0.0-0.5); Eosinophils # 0.3 K/mm3 (0.0-0.4); Eosinophils % 5.1 % (0.1-12.0); Hematocrit 45.2 % (42.0-52.0); Hemoglobin 14.9 g/dL (14.1-18.0); Lymphocytes % 35.4 % (10-50); Mean Corpuscular Hemoglobin 28.8 pg (27.0-31.2); Mean Corpuscular Volume 87.4 fl (80-94); Mean Platelet Volume 8.2 fl (7.4-10.4); Monocytes # 0.4 K/mm3 (0.1-1.0); Monocytes % 6.6 % (1.7-9.3); Neutrophils # 2.9 K/mm3 (1.8-7.8); Neutrophils % 52.1 % (37.0-80.0); Platelet Count 172 K/mm3 (142-424); Red Blood Count 5.17 M/mm3 (4.60-6.20); Red Cell Distribution Width 13.3 % (11.5-17.5); White Blood Count 5.6 K/mm3 (4.8-10.8)
--- NOTE | 2022-11-28 | CT_ITS ---
PROCEDURE INFORMATION: Exam: CTA Chest With Contrast Exam date and time: 11/28/2022 12:09 AM Age: 62 years old Clinical indication: Abnormal findings; Abnormal diagnostic tests; Elevated d-dimer; Prior surgery; Surgery date: 6+ months; Surgery type: Pacemaker, stents; Additional info: Cp, SOB, +dimer TECHNIQUE: Imaging protocol: Computed tomographic angiography of the chest with contrast. Exam focused on the arteries. 3D rendering (Not supervised by radiologist): MIP and/or 3D reconstructed images were created by the technologist. Radiation optimization: All CT scans at this facility use at least one of these dose optimization techniques: automated exposure control; mA and/or kV adjustment per patient size (includes targeted exams where dose is matched to clinical indication); or iterative reconstruction. Contrast material: ISOVUE; Contrast volume: 70 ml; Contrast route: INTRAVENOUS (IV); REPORTING DATA: Count of CT and Cardiac NM exams in prior 12 months: This patient has received 0 known CTs and 0 known cardiac nuclear medicine studies in the 12 months prior to the current study. COMPARISON: CR XR CHEST PORTABLE 11/27/2022 11:34 PM FINDINGS: Tubes, catheters and devices: Left chest wall cardiac pacing device. Pulmonary arteries: Normal. No pulmonary emboli. Aorta: Unremarkable. No aortic aneurysm. No aortic dissection. Lungs: 5 mm solid nodule within the left lateral costophrenic angle. Mild mosaic attenuation within the right upper and right lower lobes. No consolidation. No masses. Pleural spaces: Unremarkable. No pneumothorax. No pleural effusion. Heart: Unremarkable. No cardiomegaly. No pericardial effusion. Coronary arteries: Coronary artery stents. Lymph nodes: Small calcified precarinal and right hilar lymph nodes. Spleen: Punctate splenic calcifications. Indeterminate 6 cm hypoattenuating lesion measuring 42 HU. Bones/joints: No acute osseous findings. Diffuse idiopathic skeletal hyperostosis. Degenerative changes of the bilateral shoulders. Soft tissues: Unremarkable. IMPRESSION: 1. No pulmonary artery embolism. 2. Mild mosaic attenuation within the right upper and right lower lobes, which may be seen with air trapping. 3. 5 mm left lateral costophrenic angle solid pulmonary nodule. For patients at low risk (minimal or absent history of smoking and of other known risk factors), no routine follow-up is indicated. For patients at high risk (history of smoking or of other known risk factors), consider optional CT Chest at 12 months. (Reference: Zan) 4. 6 cm indeterminate hypoattenuating splenic lesion. For patients without history of cancer, recommend follow-up MRI in 6-12 months. With history of cancer, recommend evaluation with non-emergent PET vs. MRI vs. biopsy. REFERENCES: Zan Snow, et al. Guidelines for Management of Incidental Pulmonary Nodules Detected on CT Images: From the Fleischner Society 2017. Radiology. 2017;284(1):228-243.
[2022-11-28 00:02] LABS: Troponin I 0.02 ng/ml (0.00-0.034)
--- NOTE | 2022-11-28 00:18 | PC.NURSE ---
pt continues to complain of chest pain 09/24, second nitro given
--- NOTE | 2022-11-28 00:33 | PC.NURSE ---
pt reporting no changes in chest alanna states can't he give me something else for pain provider aware
[2022-11-28 02:29] LABS: Troponin I 0.02 ng/ml (0.00-0.034)
[2022-11-28 02:36] VITALS: BP 140/64; PULSE 60; RESP 13; TEMP 36.6; O2SAT 97
== END 2022-11-28 02:40 | disposition home or self-care (01) ==
PROVIDERS: Emergency Provider Emergency Medicine
DX: R07.9 Chest pain, unspecified (principal); M79.602 Pain in left arm; I25.118 Atherosclerotic heart disease of native coronary artery with other forms of angina pectoris; I49.5 Sick sinus syndrome; I25.2 Old myocardial infarction; F41.9 Anxiety disorder, unspecified; Z79.82 Long term (current) use of aspirin; R91.1 Solitary pulmonary nodule
CPT/HCPCS: 71045; 71275; 80053; 84484; 85025; 85378; 93005; 96374; 99285; Q9967

== ENCOUNTER → 2022-12-19 11:43 | Outpatient (CLI) | payer MEDICARE, SELFPAY ==
[2022-12-19 12:35] LABS: Basophils % 0.7 % (0.1-2.0); Eosinophils # 0.3 K/mm3 (0.0-0.4); Eosinophils % 5.3 % (0.1-12.0); Hematocrit 43.6 % (42.0-52.0); Hemoglobin 14.4 g/dL (14.1-18.0); Lymphocytes # 1.5 K/mm3 (0.7-4.5); Mean Corpuscular HGB Conc 32.9 g/dL (31.8-35.4); Mean Corpuscular Volume 88.2 fl (80-94); Mean Platelet Volume 7.6 fl (7.4-10.4); Monocytes # 0.4 K/mm3 (0.1-1.0); Monocytes % 6.9 % (1.7-9.3); Neutrophils # 3.1 K/mm3 (1.8-7.8); Neutrophils % 58.1 % (37.0-80.0); Platelet Count 177 K/mm3 (142-424); Red Blood Count 4.94 M/mm3 (4.60-6.20); Red Cell Distribution Width 13.5 % (11.5-17.5); White Blood Count 5.3 K/mm3 (4.8-10.8)
[2022-12-19 13:50] LABS: Chloride 107 mmol/L (98-107)
[2022-12-19 13:51] LABS: Sodium 140 mmol/L (136-145)
[2022-12-19 13:53] LABS: Alanine Aminotransferase 18 U/L (12-78); Aspartate Amino Transferase 24 U/L (17-59); Bilirubin,Unconjugated 0.4 mg/dL (0.0-1.1); Blood Urea Nitrogen 10 mg/dl (9-20); Carbon Dioxide 28 mmol/L (22.0-30.0); Estimated Glomerular Filt Rate 114 ml/min (>60); GFR (African American) 137 ML/MIN (>60)
[2022-12-19 13:54] LABS: Albumin Level 3.9 g/dl (3.5-5.0); Alkaline Phosphatase 77 U/L (38-126); Bilirubin,Direct 0.2 mg/dl (0.0-0.4); Bilirubin,Indirect 0.4 mg/dL (0.0-0.9); Bilirubin,Total 0.6 mg/dl (0.2-1.3); Calcium 8.9 mg/dl (8.4-10.2); Chol/HDL Ratio 3.7 (1-3.5); Cholesterol 117 mg/dl (140-200); Glucose 95 mg/dl (74-100); HDL Cholesterol 32 mg/dl (40-60); Total Protein,Serum 6.1 g/dl (6.3-8.2); Triglycerides 94 mg/dl (30-150); VLDL Cholesterol 19 mg/dL (0-40)
[2022-12-19 14:05] LABS: Direct LDL Cholesterol 64.66 mg/dL (100-129)
[2022-12-19 14:11] LABS: Free T4 (Free Thyroxine) 1.15 ng/dl (0.78-2.19)
[2022-12-19 14:24] LABS: Thyroid Stimulating Hormone 1.98 uIU/mL (0.465-4.68)
== END ==
PROVIDERS: PCP Emergency Medicine; Visit Provider Nurse Practitioner
DX: E66.9 Obesity, unspecified (principal); E78.5 Hyperlipidemia, unspecified; I25.10 Atherosclerotic heart disease of native coronary artery without angina pectoris; I48.0 Paroxysmal atrial fibrillation; I65.29 Occlusion and stenosis of unspecified carotid artery; Z95.0 Presence of cardiac pacemaker; I63.9 Cerebral infarction, unspecified; I11.9 Hypertensive heart disease without heart failure; E11.9 Type 2 diabetes mellitus without complications; R06.00 Dyspnea, unspecified; Z68.30 Body mass index [BMI] 30.0-30.9, adult
CPT/HCPCS: 36415; 80048; 80061; 80076; 84439; 84443; 85025

== ENCOUNTER → 2023-01-09 16:00 | Outpatient (CLI) | payer MEDICARE, SELFPAY ==
[2023-01-09 14:50] LABS: Amphetamine/Metha Screen,Urine Negative ng/ml (<1000)
[2023-01-09 14:51] LABS: Barbiturates Screen,Urine Negative ng/ml (<200)
[2023-01-09 14:53] LABS: Benzodiazepines Screen,Urine Negative ng/ml (<200)
[2023-01-09 14:54] LABS: Cannabinoid Screen,Urine Negative ng/ml (<50); Cocaine Screen,Urine Negative ng/ml (<300)
[2023-01-09 14:55] LABS: Methadone Screen,Urine Negative ng/ml (<300)
[2023-01-09 14:56] LABS: Opiate Screen,Urine Positive ng/ml (<300); Phencyclidine Screen,Urine Negative ng/ml (<25)
== END ==
PROVIDERS: PCP Emergency Medicine; Visit Provider Emergency Medicine
DX: G89.29 Other chronic pain (principal); Z79.899 Other long term (current) drug therapy
CPT/HCPCS: 80305

== ENCOUNTER → 2023-02-11 12:10 | Outpatient (CLI) | payer MEDICARE, SELFPAY ==
--- NOTE | 2023-02-11 12:14 | XR_ITS ---
FINAL REPORT CLINICAL HISTORY: Pain at Pacemaker site COMPARISON: 11/27/2022 FINDINGS: There is no evidence of effusion or other pleural disease. The mediastinum has a normal appearance. The cardiac silhouette is unremarkable. Dual lead left subclavian device is present. Leads appear radiographically intact. IMPRESSION: Unremarkable chest exam. Reviewed, Interpreted and Dictated by Dave Baker MD Transcribed by Dianne Moon Authenticated and [facility]
[2023-02-11 12:53] LABS: Basophils % 0.7 % (0.1-2.0); Eosinophils # 0.3 K/mm3 (0.0-0.4); Eosinophils % 5.3 % (0.1-12.0); Hematocrit 44.8 % (42.0-52.0); Hemoglobin 14.9 g/dL (14.1-18.0); Lymphocytes # 1.3 K/mm3 (0.7-4.5); Lymphocytes % 21.6 % (10-50); Mean Corpuscular HGB Conc 33.4 g/dL (31.8-35.4); Mean Corpuscular Hemoglobin 30.1 pg (27.0-31.2); Mean Corpuscular Volume 90.1 fl (80-94); Mean Platelet Volume 8.2 fl (7.4-10.4); Monocytes # 0.4 K/mm3 (0.1-1.0); Monocytes % 6.3 % (1.7-9.3); Neutrophils # 3.8 K/mm3 (1.8-7.8); Platelet Count 198 K/mm3 (142-424); Red Blood Count 4.96 M/mm3 (4.60-6.20); Red Cell Distribution Width 13.2 % (11.5-17.5); White Blood Count 5.8 K/mm3 (4.8-10.8)
== END ==
PROVIDERS: PCP Internal Medicine; Visit Provider Physician Assistant
DX: R07.9 Chest pain, unspecified (principal); Z95.0 Presence of cardiac pacemaker; I25.118 Atherosclerotic heart disease of native coronary artery with other forms of angina pectoris
CPT/HCPCS: 36415; 71046; 85025

== ENCOUNTER → 2023-03-06 23:28 | Outpatient (CLI) | payer MEDICARE, SELFPAY ==
[2023-03-06 21:34] LABS: Amphetamine/Metha Screen,Urine Negative ng/ml (<1000)
[2023-03-06 21:38] LABS: Opiate Screen,Urine Positive ng/ml (<300)
[2023-03-06 21:39] LABS: Cocaine Screen,Urine Negative ng/ml (<300)
[2023-03-06 21:40] LABS: Methadone Screen,Urine Negative ng/ml (<300); Phencyclidine Screen,Urine Negative ng/ml (<25)
[2023-03-06 21:48] LABS: Cannabinoid Screen,Urine Negative ng/ml (<50)
[2023-03-06 21:51] LABS: Benzodiazepines Screen,Urine Negative ng/ml (<200)
[2023-03-06 21:52] LABS: Barbiturates Screen,Urine Negative ng/ml (<200)
== END ==
PROVIDERS: PCP Nurse Practitioner Family; Visit Provider Internal Medicine
DX: G89.29 Other chronic pain (principal); Z79.899 Other long term (current) drug therapy
CPT/HCPCS: 80305

== ENCOUNTER 2023-04-09 13:24 | Outpatient (CLI) | payer MEDICARE, SELFPAY ==
--- NOTE | 2023-04-09 13:56 | CT_ITS ---
FINAL REPORT CLINICAL HISTORY: low back pain FINDINGS: CT LUMBAR SPINE WITH CONTRAST TECHNIQUE: Axial images were performed through the lumbar spine by computed tomography after the intravenous injection of contrast. Sagittal and coronal reconstruction images were also performed. This study was performed with techniques to keep radiation doses as low as reasonably achievable, (ALARA). Individualized dose reduction techniques using automated exposure control or adjustment of mA and/or kV according to the patient's size were employed. There is moderate diffuse degenerative disc disease. There is no acute fracture. Alignment is within normal limits. Again seen is a 6 cm heterogeneous low-attenuation mass in the medial spleen that is entirely stable from November 27, 2022. This mass is indeterminate. Neoplasia cannot be excluded T12-L1: Moderate posterior osteophyte causing moderate spinal canal stenosis and moderate bilateral neural foraminal narrowing. L1-L2: Moderate posterior osteophyte causing moderate spinal canal stenosis and moderate bilateral neural foraminal narrowing. L2-L3: Moderate midline and right paracentral posterior osteophyte with mild to moderate bilateral neural foraminal narrowing. L3-L4: Mild diffuse disc bulge with endplate hypertrophy. Mild bilateral neural foraminal narrowing. L4-L5: Moderate diffuse disc bulge with endplate hypertrophy and bilateral facet hypertrophy. Moderate to high-grade right and moderate left neural foraminal narrowing. L5-S1: Bilateral facet hypertrophy which diffuse disc bulge and endplate hypertrophy eccentric to the right. Moderate to high-grade right and moderate left neural foraminal narrowing. IMPRESSION: Stable but indeterminate 6 cm heterogeneous low-attenuation splenic mass. Neoplasia cannot be excluded. Multilevel posterior osteophytes greatest at T12-L1, L1-L2 and L2-L3 with marked facet hypertrophy in the lower lumbar spine and neuroforaminal compromise most evident on the right at L4-L5 and L5-S1. Reviewed, Interpreted and Dictated by Luca Farfan MD Transcribed by Waldemar Payton Authenticated and [facility]
[2023-04-09 14:01] LABS: Blood Urea Nitrogen 10 mg/dl (9-20); Estimated Glomerular Filt Rate 113 ml/min (>60); GFR (African American) 137 ML/MIN (>60)
[2023-04-09] MEDS: IOPAMIDOL-370 (76%);100ML BOTTLE 75 ML IV (14:32)
== END 2023-04-09 23:59 ==
LOC: RAD 13:24
PROVIDERS: PCP Internal Medicine; Visit Provider Internal Medicine
DX: M54.50 Low back pain, unspecified (principal)
CPT/HCPCS: 36415; 72132; 82565; 84520; Q9967

== ENCOUNTER 2023-04-10 21:20 | Outpatient (CLI) | payer MEDICARE, SELFPAY ==
[2023-04-10 23:24] LABS: Amphetamine/Metha Screen,Urine Negative ng/ml (<1000); Barbiturates Screen,Urine Negative ng/ml (<200)
[2023-04-10 23:25] LABS: Benzodiazepines Screen,Urine Negative ng/ml (<200)
[2023-04-10 23:26] LABS: Cannabinoid Screen,Urine Negative ng/ml (<50); Cocaine Screen,Urine Negative ng/ml (<300)
[2023-04-10 23:27] LABS: Methadone Screen,Urine Negative ng/ml (<300)
[2023-04-10 23:28] LABS: Opiate Screen,Urine Positive ng/ml (<300); Phencyclidine Screen,Urine Negative ng/ml (<25)
== END 2023-04-10 23:59 ==
LOC: LAB.DROPOF 21:21
PROVIDERS: PCP Internal Medicine; Visit Provider Internal Medicine
DX: Z79.899 Other long term (current) drug therapy (principal)
CPT/HCPCS: 80307

== ENCOUNTER 2023-05-08 06:48 | Outpatient (CLI) | payer MEDICARE, SELFPAY | END 2023-05-08 23:59 | LOC: LAB.DROPOF 05-13 06:48 | PROVIDERS: PCP Internal Medicine; Visit Provider Internal Medicine | DX: R06.02 Shortness of breath (principal); R09.81 Nasal congestion | CPT/HCPCS: 87635 ==

== ENCOUNTER → 2023-05-08 08:58 | Outpatient (POV) | payer MEDICARE, SELFPAY ==
[2023-05-08 09:33] VITALS: BP 148/52; PULSE 62; RESP 18; O2SAT 98; BMI 27.6
--- NOTE | 2023-05-08 09:49 | A.OFFVIS_ITS ---
HPI Data of Consult Patient: new to practice Consult date: 05/08/23 Requesting Physician: Karol Llanos APRN Primary Care Provider: Maikel Jamil DO Consult Narrative Reason for consult: Low back pain, bilateral leg pain History of present illness: Mr. Francisco is a 63 year old male who presents today as a new patient. He is a referral from Dr. Wong's office. Today he rates his pain a 9 out of 10. Patient states his pain is all in his low back with radiating symptoms down his bilateral lower extremities. He does describe this as a constant aching, throbbing sensation with numbness and tingling. Patient does state this has been going on for more than 30 years related to an accident where he was stopped by a horse. Patient does state that the pain interferes with his ability perform activities of daily living such as cooking or cleaning or even simple ambulation. Patient does state that he is only had 1 injection in the past and he does not recall that it provided significant improvement but he would like to try again. Patient denies any previous back surgery. He states he has had physical therapy in the past however provided no additional change of his symptoms. Patient has tried and failed conservative therapy such as oral medications, heat and ice, topicals, physical therapy, at home stretching exercise for longer than 6 weeks. Patient is currently prescribed gabapentin 800 mg 3 times a day and [place] 10 mg 4 times a day from his PCP. His Rodri has been reviewed and is appropriate. CC: Karol Llanos APRN [facility] Disclaimer: The information contained in this section may have been updated after the patient was seen, as this information can be updated by other users. Medical History Abnormal cardiovascular stress test Angina pectoris Anxiety CAD (coronary artery disease) Patient is currently following with cardiology and Dr. Gonzalez's team. 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 Non-STEMI (non-ST elevated myocardial infarction) SSS (sick sinus syndrome) Symptomatic bradycardia Syncope Syncope Typical angina Surgical History Presence of cardiac pacemaker OCT 2021 Family History Other No significant family history Social History (Updated 05/08/23 @ 09:34 by Mayda Roger RN) Smoking Status: Unknown if ever smoked years smoked: 20 smoking status stop date: 2002 how long ago did patient quit smokin years ago, pt chews tobacco currently quit status: quit date established second hand exposure: No alcohol intake: never substance use type: denies use current occupational status: retired Travel in the last 8 weeks: None household members: children housing: house lives independently: No (daughter ) marital status: current occupational exposures/hazards: No caffeine: Yes physical activity: walking Review of Systems Review of Systems Review of systems:: pertinent systems reviewed and negative unless documented below Review of systems (narrative): Review of Systems: General: No recent weight changes, no fever, no sleep disturbances Respiratory: No cough, no shortness of air, no recurring pulmonary infections Cardiovascular/peripheral vascular: No chest pain, no palpitations, no edema, no shortness of breath Gastrointestinal: No new onset incontinence, normal bowel movements reported Genitourinary: No new onset incontinence Musculoskeletal: Low back pain, bilateral leg pain Psychiatric: [Normal mood/affect] Neurological: [Denies weakness in extremities], [denies balance issues] Meds Home Medications and Allergies Home Medications Medication Instructions Recorded Confirmed Type aspirin 81 mg tablet,delayed 81 mg PO DAILY Heart disease #90 09/22/20 05/08/23 Rx release tabs atorvastatin 40 mg tablet 40 mg PO HS Cholesterol 10/22/21 05/08/23 History fenofibrate nanocrystallized 145 145 mg PO DAILY Cholesterol 10/22/21 05/08/23 History mg tablet tamsulosin 0.4 mg capsule 0.4 mg PO DAILY urinary retention 10/22/21 05/08/23 History carvedilol 3.125 mg tablet 3.125 mg PO BIDWMEAL High blood 10/30/21 05/08/23 Rx pressure #60 tabs isosorbide mononitrate 60 mg 60 mg PO BID Chest pain 02/12/22 05/08/23 History tablet,extended release 24 hr rivaroxaban 20 mg tablet (Xarelto) 20 mg PO QPMWITHMEAL Blood 05/15/22 05/08/23 History thinner/Atrial fib spironolactone 25 mg tablet 25 mg PO DAILY Fluid 05/15/22 05/08/23 History ranolazine 500 mg tablet,extended 500 mg PO BID #60 tabs 05/16/22 05/08/23 Rx release,12 hr hydrochlorothiazide 25 mg tablet 25 mg PO DAILY 05/25/22 05/08/23 History losartan 50 mg tablet 50 mg PO BID High blood pressure 09/17/22 05/08/23 Rx #60 tabs sildenafil (pulm.hypertension) 20 20 - 40 mg PO DAILYP PRN sexual 11/14/22 05/08/23 History mg tablet dysfunction benzonatate 100 mg capsule 100 mg PO TID PRN cough #30 caps 02/15/23 05/08/23 Rx ondansetron 4 mg disintegrating 4 mg PO Q8H PRN nausea and 02/15/23 05/08/23 Rx tablet vomiting #30 tabs escitalopram oxalate 10 mg tablet 10 mg PO DAILY 30 days #30 tabs 03/06/23 05/08/23 Rx (Lexapro) clonazepam 0.5 mg tablet 0.25 mg PO TID Anxiety 30 days #45 04/10/23 05/08/23 Rx tabs gabapentin 800 mg tablet 800 mg PO TID Neruopathic pain #90 04/10/23 05/08/23 Rx tabs hydrocodone 10 mg-acetaminophen 1 tab PO QID #120 tabs 04/10/23 05/08/23 Rx 325 mg tablet trazodone 50 mg tablet 50 mg PO HS sleep 90 days #90 tabs 04/10/23 05/08/23 Rx New Prescriptions to Start Prescriptions: Allergies Allergy/AdvReac Type Severity Reaction Status Date / Time codeine [CODEINE] Allergy Unknown Verified 05/07/23 11:15 Objective Vital signs: Pulse Resp BP Pulse Ox O2 Del Method 62 18 148/52 H 98 Room Air 05/08/23 09:33 05/08/23 09:33 05/08/23 09:33 05/08/23 09:33 05/08/23 09:33 Narrative: Physical Exam: General: Alert and oriented x3, no acute distress, pleasant and cooperative Lungs: Respirations even and unlabored, symmetrical chest expansion Eyes: PERRL Musculoskeletal: Flexion and extension of lumbar [spine] somewhat guarded secondary to pain, [antalgic gait noted] positive left leg raise Neurological: Speech clear, no gross sensory deficit Additional findings Additional findings: FINDINGS: CT LUMBAR SPINE WITH CONTRAST TECHNIQUE: Axial images were performed through the lumbar spine by computed tomography after the intravenous injection of contrast. Sagittal and coronal reconstruction images were also performed. This study was performed with techniques to keep radiation doses as low as reasonably achievable, (ALARA). Individualized dose reduction techniques using automated exposure control or adjustment of mA and/or kV according to the patient's size were employed. There is moderate diffuse degenerative disc disease. There is no acute fracture. Alignment is within normal limits. Again seen is a 6 cm heterogeneous low-attenuation mass in the medial spleen that is entirely stable from November 27, 2022. This mass is indeterminate. Neoplasia cannot be excluded T12-L1: Moderate posterior osteophyte causing moderate spinal canal stenosis and moderate bilateral neural foraminal narrowing. L1-L2: Moderate posterior osteophyte causing moderate spinal canal stenosis and moderate bilateral neural foraminal narrowing. L2-L3: Moderate midline and right paracentral posterior osteophyte with mild to moderate bilateral neural foraminal narrowing. L3-L4: Mild diffuse disc bulge with endplate hypertrophy. Mild bilateral neural foraminal narrowing. L4-L5: Moderate diffuse disc bulge with endplate hypertrophy and bilateral facet hypertrophy. Moderate to high-grade right and moderate left neural foraminal narrowing. L5-S1: Bilateral facet hypertrophy which diffuse disc bulge and endplate hypertrophy eccentric to the right. Moderate to high-grade right and moderate left neural foraminal narrowing. IMPRESSION: Stable but indeterminate 6 cm heterogeneous low-attenuation splenic mass. Neoplasia cannot be excluded. Multilevel posterior osteophytes greatest at T12-L1, L1-L2 and L2-L3 with marked facet hypertrophy in the lower lumbar spine and neuroforaminal compromise most evident on the right at L4-L5 and L5-S1. Reviewed, Interpreted and Dictated by Luca Farfan MD Transcribed by Waldemar Payton Authenticated and [facility] Assessment and Plan *Assessment and plan (1) Lumbar radiculopathy: Status: Acute Category: Medical Code(s): M54.16 - Radiculopathy, lumbar region (2) Lumbar canal stenosis: Status: Resolved Qualifiers: Neurogenic claudication status: without neurogenic claudication Q ualified Code(s): M48.061 - Spinal stenosis, lumbar region without neurogenic claudication Category: Medical Code(s): M48.061 - Spinal stenosis, lumbar region without neurogenic claudication (3) Chronic pain syndrome: Status: Acute Category: Medical Code(s): G89.4 - Chronic pain syndrome Plan Patient is experiencing significant pain in his low back and legs with limited range of motion and a positive left leg raise. I have discussed with the patient that he may benefit from a lumbar epidural steroid injection. Risk and benefits were discussed with the patient and he would like to proceed forward with this plan of care. Patient did have multilevel disc bulges, facet hypertrophy and moderate to high-grade neuroforaminal narrowing more prominent at the L4-L5 and L5-S1 level. Patient is currently on Coumadin written by Dr. Gonzalez's office. Patient does state that he has a significant cardiac history and does have a pacemaker in place. I have discussed with the patient that we will have to contact Dr. Gonzalez's office and confirm that he can stop his blood thinner prior to this injection. I have also counseled the patient that he will most likely have to bridge over to Lovenox. Patient has tried and failed conservative treatment such as oral medication, heat and ice, topicals, previous physical therapy, at home stretching exercise for longer than 6 weeks. Patient will be scheduled for an LESI at L4-L5 under fluoroscopy. Patient has been instructed to contact the clinic with any concerns before the next appointment. Dr. Neal has reviewed this note and agrees with this plan of care. This note was dictated using voice recognition software and make contain errors or omissions.
== END ==
LOC: SC.PAIN 08:59
PROVIDERS: PCP Internal Medicine; Visit Provider Nurse Practitioner Family
DX: M54.16 Radiculopathy, lumbar region (principal); M48.061 Spinal stenosis, lumbar region without neurogenic claudication; G89.4 Chronic pain syndrome
CPT/HCPCS: 87635; 99202; G0463

== ENCOUNTER 2023-05-24 15:07 | Emergency (ER) | payer MEDICARE, SELFPAY ==
[2023-05-24 15:20] VITALS: BP 144/71; PULSE 67; RESP 18; TEMP 36.3; O2SAT 97; BMI 30.9
[2023-05-24 15:30] VITALS: BP 151/78; O2SAT 97
--- NOTE | 2023-05-24 15:39 | PC.NURSE ---
DR CHANDLER AT BEDSIDE
--- NOTE | 2023-05-24 15:41 | XR_ITS ---
FINAL REPORT CLINICAL HISTORY: productive cough, numerous sick contacts COMPARISON: 04/14/2022 FINDINGS: Two views of the chest were obtained. The heart size and pulmonary vascularity are within normal limits. A left subclavian pacer is again noted. Postoperative changes are present in the left humeral head. The mediastinum is normal. No acute pulmonary abnormality is identified. There is no pneumothorax. Moderate thoracic degenerative change is present, with fusion of several levels. IMPRESSION: No active cardiopulmonary disease. Reviewed, Interpreted and Dictated by Jonny Vail III, MD Transcribed by Elke Dunham Authenticated and [facility]
--- NOTE | 2023-05-24 15:45 | PC.NURSE ---
PT TO XR
--- NOTE | 2023-05-24 15:52 | ED_ITS ---
Discharge Plan Disposition Patient Disposition: Home, Self-Care Prescriptions Prescriptions: New dexamethasone 6 mg tablet 6 mg PO DAILY 5 Days Qty: 5 0RF No Action isosorbide mononitrate 60 mg tablet extended release 24 hr 60 mg PO BID Patient Comments: TAKE ONE TABLET BY MOUTH TWICE DAILY FOR CHEST pain losartan 50 mg tablet 50 mg PO BID Qty: 60 2RF sildenafil (pulm.hypertension) 20 mg tablet 20 - 40 mg PO DAILYP PRN (Reason: sexual dysfunction) trazodone 50 mg tablet 50 mg PO HS 90 Days Qty: 90 4RF clonazepam 0.5 mg tablet 0.25 mg PO BID 30 Days Qty: 30 0RF escitalopram oxalate [Lexapro] 10 mg tablet 20 mg PO DAILY 30 Days Qty: 60 2RF gabapentin 800 mg tablet 800 mg PO TID Qty: 90 1RF hydrocodone-acetaminophen 10-325 mg tablet 1 tab PO QID Qty: 120 0RF carvedilol 3.125 mg tablet 3.125 mg PO BIDWMEAL Qty: 60 5RF hydrochlorothiazide 25 mg tablet 25 mg PO DAILY benzonatate 100 mg capsule 100 mg PO TID PRN (Reason: cough) Qty: 30 0RF ondansetron 4 mg tablet,disintegrating 4 mg PO Q8H PRN (Reason: nausea and vomiting) Qty: 30 0RF aspirin 81 mg tablet,delayed release (DR/EC) 81 mg PO DAILY Qty: 90 0RF atorvastatin 40 MG tablet 40 mg PO HS tamsulosin 0.4 MG capsule 0.4 mg PO DAILY fenofibrate nanocrystallized 145 MG tablet 145 mg PO DAILY spironolactone 25 mg tablet 25 mg PO DAILY Xarelto 20 mg tablet 20 mg PO QPMWITHMEAL Rx Instructions: TAKE ONE TABLET BY MOUTH EVERY DAY with evening meal ranolazine 500 mg Tablet Extended Release 12 Hr 500 mg PO BID Qty: 60 0RF Referrals Follow up/Referrals: Maikel Jamil DO [Primary Care Provider] - See instructions Activity Restrictions/Add. Instructions Additional Instructions/Restrictions: Call your family doctor to establish care for this visit to the emergency department and schedule follow-up within 48 hours to ensure improvement. If you have any worsening of your condition or any other concerning signs or symptoms, return to the emergency department or your primary care doctor for further evaluation. Clinical Impressions Clinical Impression: COVID-19, Acute viral syndrome Discharge ED Provider: Benedicto Winston [facility] Adult HPI General Chief complaint: Upper Respiratory Infection Stated complaint: Fever,SOA,POLANCO Time Seen by Provider: 05/24/23 15:17 Mode of Arrival: Ambulatory Source of Information: Patient Limitations: No Limitations Description of Symptoms (Recalled from ER Triage Doc. by RN): pt c/o POLANCO, dizziness, minimal cough and N/V x2d. pt states he was exposed twice to covid and once to the flu. History of Present Illness HPI narrative: 63-year-old male history of CAD, CAD, proximal small A-fib on Xarelto with pacemaker in place presenting with cough, body aches. Patient states that he was exposed to multiple contacts with the flu. States that he has been having bodyaches, fevers and chills, cough that is intermittently productive of sputum, and fatigue. Because of his history, he wanted to come and be seen to make sure he is not developing pneumonia. Related Data Home Medications Medication Instructions Recorded Confirmed atorvastatin 40 mg tablet 40 mg PO HS Cholesterol 10/22/21 05/08/23 fenofibrate nanocrystallized 145 145 mg PO DAILY Cholesterol 10/22/21 05/08/23 mg tablet tamsulosin 0.4 mg capsule 0.4 mg PO DAILY urinary retention 10/22/21 05/08/23 isosorbide mononitrate 60 mg 60 mg PO BID Chest pain 02/12/22 05/08/23 tablet,extended release 24 hr rivaroxaban 20 mg tablet (Xarelto) 20 mg PO QPMWITHMEAL Blood 05/15/22 05/08/23 thinner/Atrial fib spironolactone 25 mg tablet 25 mg PO DAILY Fluid 05/15/22 05/08/23 hydrochlorothiazide 25 mg tablet 25 mg PO DAILY 05/25/22 05/08/23 sildenafil (pulm.hypertension) 20 20 - 40 mg PO DAILYP PRN sexual 11/14/22 05/08/23 mg tablet dysfunction Previous Rx's Medication Instructions Recorded aspirin 81 mg tablet,delayed 81 mg PO DAILY Heart disease #90 09/22/20 release tabs carvedilol 3.125 mg tablet 3.125 mg PO BIDWMEAL High blood 10/30/21 pressure #60 tabs ranolazine 500 mg tablet,extended 500 mg PO BID #60 tabs 05/16/22 release,12 hr losartan 50 mg tablet 50 mg PO BID High blood pressure 09/17/22 #60 tabs benzonatate 100 mg capsule 100 mg PO TID PRN cough #30 caps 02/15/23 ondansetron 4 mg disintegrating 4 mg PO Q8H PRN nausea and 02/15/23 tablet vomiting #30 tabs trazodone 50 mg tablet 50 mg PO HS sleep 90 days #90 tabs 04/10/23 clonazepam 0.5 mg tablet 0.25 mg (1/2 x 0.5 mg) PO BID 05/08/23 Anxiety 30 days #30 tabs escitalopram oxalate 10 mg tablet 20 mg (2 x 10 mg) PO DAILY 30 days 05/08/23 (Lexapro) #60 tabs gabapentin 800 mg tablet 800 mg PO TID Neruopathic pain #90 05/08/23 tabs hydrocodone 10 mg-acetaminophen 1 tab PO QID #120 tabs 05/08/23 325 mg tablet dexamethasone 6 mg tablet 6 mg PO DAILY 5 days #5 tabs 05/24/23 Allergies Allergy/AdvReac Type Severity Reaction Status Date / Time codeine [CODEINE] Allergy Unknown Verified 05/08/23 13:52 [facility] Disclaimer: The information contained in this section may have been updated after the patient was seen, as this information can be updated by other users. Medical History Abnormal cardiovascular stress test Angina pectoris Anxiety CAD (coronary artery disease) Patient is currently following with cardiology and Dr. Gonzalez's team. 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 Non-STEMI (non-ST elevated myocardial infarction) SSS (sick sinus syndrome) Symptomatic bradycardia Syncope Syncope Typical angina Surgical History Presence of cardiac pacemaker OCT 2021 Family History Other No significant family history Social History Smoking Status: Never smoker years smoked: 20 smoking status stop date: 2002 how long ago did patient quit smokin years ago, pt chews tobacco currently quit status: quit date established second hand exposure: No alcohol intake: never substance use type: denies use current occupational status: retired Travel in the last 8 weeks: None household members: children housing: house lives independently: No (daughter ) marital status: current occupational exposures/hazards: No caffeine: Yes physical activity: walking ROS Obtained: Yes All systems reviewed & no additional complaints except as documented Physical Exam General General appearance: alert and in no apparent distress Head Head exam: atraumatic and normocephalic Eye Eye exam: Present normal appearance, PERRL and EOMI ENT ENT exam: Present mucous membranes moist Neck Neck exam: Present normal inspection, full ROM and trachea midline Respiratory Respiratory exam: Present normal lung sounds bilaterally; Absent respiratory distress, wheezes, stridor, accessory muscle use or prolonged expiratory phase Cardiovascular Cardiovascular exam: Present regular rate and normal rhythm Abdominal Exam Abdominal exam: Present soft; Absent distention, tenderness, guarding, rebound or rigidity Extremities Exam Extremities exam: Absent edema Neurological Exam Neurological exam: Present alert, oriented X3, CN II-XII intact and normal gait; Absent motor sensory deficit Skin Skin exam: Present warm and dry; Absent diaphoresis or erythema Medical Decision Making Medical Records Medical records reviewed: Yes I reviewed the patient's medical records. Rodri Inquiry Pt receiving controlled substance: No Rodri was queried for this patient: No Vital Signs: 05/24/23 15:20 Temperature 97.4 F L Temperature Source Oral Pulse Rate [Right] 67 Respiratory Rate 18 Blood Pressure [Right Arm] 144/71 H Blood Pressure Mean [Right Arm] 95 Blood Pressure Source [Right Arm] Automatic Cuff Blood Pressure Position [Right Arm] Sitting 02 Sat by Pulse Oximetry 97 Oxygen Delivery Method Room Air Orders (Tests/Meds): ORDERS Category Date Time Status CXR 2 view (NOT portable) [XR chest 2V] Stat Exams 05/24/23 15:41 Completed Medical Decision Narrative: 63-year-old male history of CAD, CAD, proximal small A-fib on Xarelto with pacemaker defibrillator in place presenting with cough, body aches. Patient states that he was exposed to multiple contacts with the flu. States that he has been having bodyaches, fevers and chills, cough that is intermittently productive of sputum, and fatigue. Because of his history, he wanted to come and be seen to make sure he is not developing pneumonia. History obtained with patient. On arrival, patient hemodynamically stable, alert, oriented, appropriate with GCS 15 and moving all extremities spontaneously. Speaking in full sentences and conversational. Lungs are clear to auscultation bilaterally anterior and posterior. Patient in normal sinus rhythm with normal rate. Saturating 100% on room air without increased work of breathing. Differential includes URI, bronchitis, pneumonia, among others. Because patient well- appearing, afebrile, no interventions were given here in the emergency department. Chest x-ray independently interpreted and significant for no acute cardiopulmonary or airspace disease. Hematologic workup was considered, but not deemed necessary at this time because patient otherwise has no significant complaints or physical exam findings concerning for decompensation. Given patient presentation, workup, history, this most likely represents acute viral syndrome in setting of COVID. Because patient at baseline without signs or symptoms of clinical decompensation, deemed appropriate for discharge. Results were relayed to patient who voiced understanding and were agreeable to outpatient management and follow up. At the time of discharge the patient was hemodynamically stable, tolerating PO, and mobilizing appropriately. Critical Care Critical Care Time Critical Care Time: No
[2023-05-24 16:00] VITALS: BP 130/95; PULSE 63; O2SAT 97
[2023-05-24 16:30] VITALS: BP 131/61; PULSE 60; O2SAT 97
[2023-05-24 16:45] VITALS: BP 131/61; PULSE 60; RESP 18; TEMP 36.4; O2SAT 95
== END 2023-05-24 16:45 | disposition home or self-care (01) ==
PROVIDERS: Emergency Provider Emergency Medicine; PCP Internal Medicine
DX: U07.1 COVID-19 (principal); R50.9 Fever, unspecified; R06.02 Shortness of breath; R05.8 Other specified cough; R53.83 Other fatigue; I11.9 Hypertensive heart disease without heart failure; I25.119 Atherosclerotic heart disease of native coronary artery with unspecified angina pectoris; E78.5 Hyperlipidemia, unspecified; Z95.0 Presence of cardiac pacemaker; Z87.891 Personal history of nicotine dependence
CPT/HCPCS: 71046; 99283